=== PATIENT | female | born 1935 | race Caucasian/White ===

== ENCOUNTER → 2019-06-30 | Outpatient (CLI) | payer MEDICARE ==
[2019-06-30 10:40] LABS: ALBUMIN 4.2 GM/DL (3.2-4.5); BILIRUBIN,TOTAL 0.6 MG/DL (0.1-1.0); CALCIUM 9.6 MG/DL (8.5-10.1); CREATININE SERUM 1.04 MG/DL (0.60-1.30); POTASSIUM 4.5 MMOL/L (3.6-5.0); TOTAL PROTEIN 7.7 GM/DL (6.4-8.2)
== END ==
LOC: LAB 08:08
PROVIDERS: ATTEND Family Medicine
DX: E03.9 Hypothyroidism, unspecified (principal); E78.5 Hyperlipidemia, unspecified
CPT/HCPCS: 36415; 80053; 80061; 84443

== ENCOUNTER → 2019-12-05 | Outpatient (CLI) | payer MEDICARE | LOC: LAB FS 10:33 | PROVIDERS: ATTEND Family Medicine | DX: Z20.828 Contact with and (suspected) exposure to other viral communicable diseases (principal) | CPT/HCPCS: 87635 ==

== ENCOUNTER → 2019-12-11 | Outpatient (CLI) | payer MEDICARE ==
[2019-12-11 09:21] LABS: BILIRUBIN,TOTAL 0.7 MG/DL (0.1-1.0); CALCIUM 9.7 MG/DL (8.5-10.1); CREATININE SERUM 1.1 MG/DL (0.60-1.30); POTASSIUM 4.4 MMOL/L (3.6-5.0); TOTAL PROTEIN 7.5 GM/DL (6.4-8.2)
[2019-12-11 09:22] LABS: ALBUMIN 4.1 GM/DL (3.2-4.5)
== END ==
LOC: LAB FS 08:40
PROVIDERS: ATTEND Family Medicine
DX: E78.5 Hyperlipidemia, unspecified (principal)
CPT/HCPCS: 36415; 80053; 80061

== ENCOUNTER → 2020-06-14 | Outpatient (CLI) | payer MEDICARE ==
[2020-06-14 09:29] LABS: BILIRUBIN,TOTAL 0.5 MG/DL (0.1-1.0); CALCIUM 9.7 MG/DL (8.5-10.1); CREATININE SERUM 1.06 MG/DL (0.60-1.30)
[2020-06-14 09:30] LABS: ALBUMIN 4.3 GM/DL (3.2-4.5); TOTAL PROTEIN 7.8 GM/DL (6.4-8.2)
== END ==
LOC: LAB FS 08:10
PROVIDERS: ATTEND Family Medicine
DX: E78.2 Mixed hyperlipidemia (principal)
CPT/HCPCS: 36415; 80053; 80061

== ENCOUNTER 2020-11-28 13:57 | Inpatient (IN) | payer MEDICARE ==
[~2020-11-28] VITALS: Ht 160 cm; Wt 75.0 kg
[2020-11-28] MEDS ORDERED: NS IV 1000 ML 1,000 ML ONE (14:25)
[2020-11-28] MEDS ORDERED: ONDANSETRON 4 MG/2 ML (SDV) Z0FRAN ONE (14:25)
[2020-11-28 14:26] LABS: BASOPHILS % (AUTO) 1 % (0-10); EOSINOPHILS % (AUTO) 1 % (0-10); HEMATOCRIT 40 % (35-52); HEMOGLOBIN 13.7 G/DL (11.5-16.0); LYMPHOCYTES % (AUTO) 36 % (12-44); MEAN CORPUSCULAR HEMOGLOBIN 30 PG (25-34); MEAN CORPUSCULAR HGB CONC 34 G/DL (32-36); MEAN CORPUSCULAR VOLUME 87 FL (80-99); MEAN PLATELET VOLUME 9.6 FL (7.4-10.4); MONOCYTES % (AUTO) 7 % (0-12); NEUTROPHILS # (AUTO) 4.4 X 10^3 (1.8-7.8); NEUTROPHILS % (AUTO) 55 % (42-75); PLATELET COUNT 374 10^3/uL (130-400)
[2020-11-28 14:27] LABS: BASOPHILS # (AUTO) 0.1 10^3/uL (0.0-0.1); EOSINOPHILS # (AUTO) 0.1 10^3/uL (0.0-0.3); LYMPHOCYTES # (AUTO) 2.8 X 10^3 (1.0-4.0); MONOCYTES # (AUTO) 0.5 X 10^3 (0.0-1.0)
[2020-11-28] MEDS ORDERED: NS IV 1000 ML 1,000 ML IV SCH (14:30)
[2020-11-28] MEDS ORDERED: ONDANSETRON 4 MG/2 ML (SDV) Z0FRAN IVP ONE ×2 (14:30→15:45)
[2020-11-28 14:38] LABS: ALANINE AMINOTRANSFERASE 11 U/L (0-55); ALBUMIN 4.6 GM/DL (3.2-4.5); ALKALINE PHOSPHATASE 66 U/L (40-136); BILIRUBIN,TOTAL 0.6 MG/DL (0.1-1.0); BUN/CREATININE RATIO 21; CALCIUM 10.4 MG/DL (8.5-10.1); CARBON DIOXIDE 24 MMOL/L (21-32); CHLORIDE 99 MMOL/L (98-107); CREATININE SERUM 1.27 MG/DL (0.60-1.30); GFR ESTIMATED 40; GLUCOSE 111 MG/DL (70-105); POTASSIUM 4.1 MMOL/L (3.6-5.0); SODIUM 140 MMOL/L (135-145); TOTAL PROTEIN 8.2 GM/DL (6.4-8.2)
--- NOTE | 2020-11-28 14:51 | Diagnostic Imaging Report ---
INDICATION: Vomiting, sepsis. EXAMINATION: Chest 11/28/2020 FINDINGS: Heart is prominent. There is a likely small hiatal hernia. Pulmonary vasculature unremarkable. Small nodularity in the periphery of the right upper lung is questioned versus superimposed structures. Lungs otherwise clear with no infiltrates or effusions. No pneumothorax. IMPRESSION: 1. Possible small nodule in the peripheral right upper lobe. Followup recommended. If this persists CT could be performed non-emergently. Dictated by: Dictated on workstation # [id number]
--- NOTE | 2020-11-28 15:12 | ED Abdominal Pain ---
General Chief Complaint: Abdominal/GI Problems Stated Complaint: VOMITING | ABDOMINAL PAIN | CHILLS | DIARRHEA Source of Information: Patient History of Present Illness Date Seen by Provider: Nov 28, 2020 Time Seen by Provider: 14:00 Initial Comments Patient is an 85-year-old female with history of cholecystectomy presents with intermittent lower abdominal pain/cramping with bilious emesis for the past 3 days. Abdominal pain is described sharper intermittent and described mild to moderate. Is worse with palpation and movement but not relieved by her rest or position change. It is nonradiating nonmigratory and nonprogressive.. It is not associate with diarrhea or constipation. No urinary frequency urgency or dysuria. Patient also reports feeling clammy and chilling. She has had nausea with bilious emesis and last vomited in the room. No history of bowel obstructions. No other acute symptoms or complaints. Timing/Duration: 4-6 Hours, 3-4 Days Severity/Quality: Other Location: Other Radiation: Other Activities at Onset: Other Modifying Factors: Improves With Other Associated Symptoms: Other Allergies and Home Medications Allergies Coded Allergies: No Known Drug Allergies (Unverified , 11/28/20) Patient Home Medication List Home Medication List Reviewed: Yes Review of Systems Review of Systems Constitutional: see HPI EENTM: See HPI Respiratory: See HPI Cardiovascular: See HPI Gastrointestinal: See HPI Genitourinary: See HPI Musculoskeletal: see HPI Skin: see HPI Psychiatric/Neurological: See HPI Endocrine: See HPI Hematologic/Lymphatic: See HPI All Other Systems Reviewed Negative Unless Noted: Yes Past Bqomlla-Zrmhid-Imvkpt Hx Past Med/Social Hx: Reviewed Nursing Past Med/Soc Hx Physical Exam Vital Signs Vital Signs - First Documented 11/28/20 14:00 Temp 36.2 Pulse 73 Resp 17 B/P (MAP) 193/83 (119) Pulse Ox 99 O2 Delivery Room Air Capillary Refill : Height/Weight/BMI Height: '" Weight: lbs. oz. kg; BMI Method: General Appearance: no apparent distress HEENT: PERRL/EOMI, normal ENT inspection Neck: non-tender, full range of motion, supple Respiratory: lungs clear Cardiovascular: normal peripheral pulses, regular rate, rhythm, no edema, tachycardia Gastrointestinal: soft, tenderness (diffuse lower, nor guarding) Focused Exam Sepsis Stage: Ruled Out Lactate Level 11/28/20 14:09: Lactic Acid Level 1.49 Lactic Acid Level Laboratory Tests Test 11/28/20 14:09 Lactic Acid Level 1.49 MMOL/L (0.50-2.00) Progress/Results/Core Measures Results/Orders Lab Results Laboratory Tests Test 11/28/20 14:09 11/28/20 16:00 Range/Units White Blood Count 8.0 4.3-11.0 10^3/uL Red Blood Count 4.60 4.35-5.85 10^6/uL Hemoglobin 13.7 11.5-16.0 G/DL Hematocrit 40 35-52 % Mean Corpuscular Volume 87 80-99 FL Mean Corpuscular Hemoglobin 30 25-34 PG Mean Corpuscular Hemoglobin Concent 34 32-36 G/DL Red Cell Distribution Width 12.5 10.0-14.5 % Platelet Count 374 130-400 10^3/uL Mean Platelet Volume 9.6 7.4-10.4 FL Immature Granulocyte % (Auto) 0 % Neutrophils (%) (Auto) 55 42-75 % Lymphocytes (%) (Auto) 36 12-44 % Monocytes (%) (Auto) 7 0-12 % Eosinophils (%) (Auto) 1 0-10 % Basophils (%) (Auto) 1 0-10 % Neutrophils # (Auto) 4.4 1.8-7.8 X 10^3 Lymphocytes # (Auto) 2.8 1.0-4.0 X 10^3 Monocytes # (Auto) 0.5 0.0-1.0 X 10^3 Eosinophils # (Auto) 0.1 0.0-0.3 10^3/uL Basophils # (Auto) 0.1 0.0-0.1 10^3/uL Immature Granulocyte # (Auto) 0.0 0.0-0.1 10^3/uL Sodium Level 140 135-145 MMOL/L Potassium Level 4.1 3.6-5.0 MMOL/L Chloride Level 99 98-107 MMOL/L Carbon Dioxide Level 24 21-32 MMOL/L Anion Gap 17 H 5-14 MMOL/L Blood Urea Nitrogen 27 H 7-18 MG/DL Creatinine 1.27 0.60-1.30 MG/DL Estimat Glomerular Filtration Rate 40 BUN/Creatinine Ratio 21 Glucose Level 111 H 70-105 MG/DL Lactic Acid Level 1.49 0.50-2.00 MMOL/L Calcium Level 10.4 H 8.5-10.1 MG/DL Corrected Calcium 8.5-10.1 MG/DL Total Bilirubin 0.6 0.1-1.0 MG/DL Aspartate Amino Transf (AST/SGOT) 17 5-34 U/L Alanine Aminotransferase (ALT/SGPT) 11 0-55 U/L Alkaline Phosphatase 66 40-136 U/L Total Protein 8.2 6.4-8.2 GM/DL Albumin 4.6 H 3.2-4.5 GM/DL Urine Color YELLOW Urine Clarity CLEAR Urine pH 7.0 5-9 Urine Specific [place] 1.010 L 1.016-1.022 Urine Protein NEGATIVE NEGATIVE Urine Glucose (UA) NEGATIVE NEGATIVE Urine Ketones NEGATIVE NEGATIVE Urine Nitrite NEGATIVE NEGATIVE Urine Bilirubin NEGATIVE NEGATIVE Urine Urobilinogen 0.2 < = 1.0 MG/DL Urine Leukocyte Esterase 1+ H NEGATIVE Urine RBC (Auto) NEGATIVE NEGATIVE Urine RBC 5-10 H /HPF Urine WBC 0-2 /HPF Urine Squamous Epithelial Cells 10-25 H /HPF Urine Crystals NONE /LPF Urine Bacteria FEW H /HPF Urine Casts NONE /LPF Urine Mucus NEGATIVE /LPF Urine Culture Indicated NO My Orders Orders - REECE KHAN DO Ondansetron Injection (Zofran Injectio (11/28/20 14:30) Ns Iv 1000 Ml (Sodium Chloride 0.9%) (11/28/20 14:30) Cbc With Automated Diff (11/28/20 14:22) Comprehensive Metabolic Panel (11/28/20 14:22) Blood Culture (11/28/20 14:22) Urinalysis (11/28/20 14:22) Urine Culture (11/28/20 14:22) Chest 1 View Ap/Pa Only (11/28/20 14:22) Ed Iv/Invasive Line Start (11/28/20 14:22) Ed Iv/Invasive Line Start (11/28/20 14:22) Vital Signs Adult Sepsis Patie Q15M (11/28/20 14:22) Remove Rings In Anticipation O (11/28/20 14:22) Lactic Acid Analyzer (11/28/20 14:22) Ns Iv 1000 Ml (Sodium Chloride 0.9%) (11/28/20 14:25) Ondansetron Injection (Zofran Injectio (11/28/20 14:25) Ct Abdomen/Pelvis W (11/28/20 15:05) Ondansetron Injection (Zofran Injectio (11/28/20 15:45) Iohexol Injection (Omnipaque 350 Mg/Ml 1 (11/28/20 16:00) Received Contrast (Hold Metformin- Contr (11/28/20 16:00) Sodium Chloride Flush (Catheter Flush Sy (11/28/20 16:00) Ns (Ivpb) (Sodium Chloride 0.9% Ivpb Bag (11/28/20 16:00) Ekg Tracing (11/28/20 14:29) Medications Given in ED Current Medications Medications Dose Ordered Sig/Nicolas Route Start Time Stop Time Status Last Admin Dose Admin Iohexol 60 ml ONCE ONCE IV 11/28/20 16:00 11/28/20 16:01 DC 11/28/20 16:03 60 ML Ondansetron HCl 4 mg ONCE ONCE IVP 11/28/20 14:30 11/28/20 14:31 DC 11/28/20 14:27 4 MG Ondansetron HCl 4 mg ONCE ONCE IVP 11/28/20 15:45 11/28/20 15:46 DC 11/28/20 15:37 4 MG Sodium Chloride 10 ml NEEDED PRN IV 11/28/20 16:00 11/28/20 16:03 10 ML Sodium Chloride 100 ml ONCE ONCE IV 11/28/20 16:00 11/28/20 16:01 DC 11/28/20 16:03 80 ML Vital Signs/I&O 11/28/20 14:00 Temp 36.2 Pulse 73 Resp 17 B/P (MAP) 193/83 (119) Pulse Ox 99 O2 Delivery Room Air Departure Communication (Admissions) CT abdomen pelvis: Possible ileus versus small bowel obstruction per radiology report. Patient with bilious emesis with vomiting in the emergency department. Abdomen soft, nonsurgical. CT findings suggestive of ileus versus small bowel obstruction. IV fluids and repeat antiemetics given. Anticipate transfer to [facility]. Dr. Astrid novak at 1645 Impression Primary Impression: Abdominal pain Additional Impression: Nausea and vomiting Disposition: T-[facility] Condition: Stable Admissions Decision to Admit Reason: Admit from ER (General) Decision to Admit/Date: Nov 28, 2020 Time/Decision to Admit Time: 16:45 Transfer Transfer Reason: Exceeds level of care Method of Transfer: EMS Departure-Patient Inst. Referrals: KEYON RAWLS MD (PCP/Family) Primary Care Physician REECE KHAN 20, 2021 15:12
[2020-11-28] MEDS ORDERED: NS 100 ML (IVPB) BAG IV ONE (16:00)
[2020-11-28] MEDS ORDERED: HOLD METFORMIN - RECEIVED CONTRAST 20 ML VIAL IV SCH (16:00)
[2020-11-28] MEDS ORDERED: CATHETER FLUSH 10 ML SYR IV PRN (16:00)
[2020-11-28] MEDS ORDERED: IOHEXOL 350 MG/ML 100 ML (OMNIPAQUE 350) VIAL IV ONE (16:00)
[2020-11-28 16:06] LABS: CLARITY,URINE CLEAR; COLOR,URINE YELLOW; GLUCOSE, URINE (UA) NEGATIVE (NEGATIVE); PROTEIN,URINE NEGATIVE (NEGATIVE)
[2020-11-28 16:07] LABS: BACTERIA,URINE FEW /HPF; BILIRUBIN,URINE NEGATIVE (NEGATIVE); KETONES,URINE NEGATIVE (NEGATIVE); LEUKOCYTE ESTERASE ,URINE 1+ (NEGATIVE); NITRITE,URINE NEGATIVE (NEGATIVE); WBC,URINE 0-2 /HPF
--- NOTE | 2020-11-28 16:22 | Diagnostic Imaging Report ---
INDICATION: Abdominal pain and vomiting. EXAMINATION: CT abdomen and pelvis with contrast, 11/28/2020. All CT scans use one or more of the following dose optimizing techniques: automated exposure control, MA and/or KvP adjustment based on patient size and exam type or iterative reconstruction. FINDINGS: The stomach is distended and filled with fluid as is the duodenal sweep. 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 The adjacent common duct is distended likely due to prior cholecystectomy, correlate clinically. Mild intrahepatic biliary dilatation is also seen. The liver is otherwise unremarkable. Spleen and pancreas are unremarkable. There is a small nodule in the right adrenal gland. Left adrenal gland appears slightly hyperplastic. Kidneys unremarkable. There is diverticular disease without evidence for diverticulitis. No evidence for free air or abscess formation appreciated. There is atherosclerotic disease along the aorta and its branches. There is diffuse osteopenia and degenerative disease within the osseous structures. The lung bases are unremarkable. IMPRESSION: 1. Fluid-filled distended duodenal sweep of uncertain etiology. More distal small bowel normal in caliber. A partial proximal small bowel obstruction is not excluded versus focal ileus/enteritis gastroenteritis. Correlate with symptoms. 2. Dilated intrahepatic and extrahepatic biliary ducts likely due to previous cholecystectomy. 3. Other incidental findings as discussed above. Dictated by: Dictated on workstation # [id number]
[2020-11-28 18:47] VITALS: BP 179/92
[2020-11-28] MEDS ORDERED: D5 1/2 NS 1000 ML IV SOLUTION 1,000 ML IV ONE (20:05)
[2020-11-28] MEDS ORDERED: ACETAMINOPHEN 325 MG TABLET PO PRN (20:30)
[2020-11-28] MEDS ORDERED: BENZONATATE 100 MG (TESSALON) CAPSULE PO PRN (20:30)
[2020-11-28] MEDS ORDERED: MILK OF MAGNESIA 400 MG/5 ML 30 ML UDC PO PRN (20:30)
[2020-11-28] MEDS ORDERED: MELATONIN 3 MG TABLET PO PRN (20:30)
[2020-11-28] MEDS ORDERED: ANTACID SUSP 30 ML UDC (MYLANTA) PO PRN (20:30)
[2020-11-28 20:41] VITALS: BP 173/92
[2020-11-28] MEDS: ONDANSETRON 4 MG/2 ML (SDV) Z0FRAN IV PRN (21:35)
[2020-11-28] MEDS ORDERED: NITROGLYCERIN 2% OINT 1 GM UNIT DOSE PACKET TOP PRN (23:15)
[2020-11-28] MEDS ORDERED: SCOPOLAMINE 1.5 MG (TRANSDERM-SCOP) PATCH TD ONE (23:15)
[2020-11-28] MEDS ORDERED: SCOPOLAMINE 1.5 MG (TRANSDERM-SCOP) PATCH ONE (23:42)
[2020-11-28] MEDS ORDERED: PROMETHAZINE 25 MG (PHENERGAN) SUPP ONE (23:52)
[2020-11-28] MEDS: PROMETHAZINE 25 MG (PHENERGAN) SUPP PR PRN (23:57)
[2020-11-29] VITALS: BP 171/82
[2020-11-29] MEDS ORDERED: D5 1/2 NS 1000 ML IV SOLUTION 1,000 ML IV ONE (03:39)
[2020-11-29] MEDS: ONDANSETRON 4 MG/2 ML (SDV) Z0FRAN IV PRN ×3 (03:45→19:38)
[2020-11-29] MEDS: D5 1/2 NS 1000 ML IV SOLUTION 1,000 ML IV SCH ×4 (03:46→23:26)
[2020-11-29 04:00] VITALS: BP 176/80
[2020-11-29 05:35] LABS: BASOPHILS % (AUTO) 0 % (0-10); EOSINOPHILS % (AUTO) 0 % (0-10); HEMATOCRIT 38 % (35-52); HEMOGLOBIN 12.8 g/dL (11.5-16.0); LYMPHOCYTES # (AUTO) 1.5 10^3/uL (1.0-4.0); LYMPHOCYTES % (AUTO) 19 % (12-44); MEAN CORPUSCULAR HEMOGLOBIN 30 pg (25-34); MEAN CORPUSCULAR HGB CONC 34 g/dL (32-36); MEAN CORPUSCULAR VOLUME 89 fL (80-99); MEAN PLATELET VOLUME 9.8 fL (9.0-12.2); MONOCYTES # (AUTO) 0.7 10^3/uL (0.0-1.0); MONOCYTES % (AUTO) 9 % (0-12); NEUTROPHILS # (AUTO) 5.8 10^3/uL (1.8-7.8); NEUTROPHILS % (AUTO) 72 % (42-75); PLATELET COUNT 334 10^3/uL (130-400); WHITE BLOOD COUNT 8.1 10^3/uL (4.3-11.0)
[2020-11-29 05:45] LABS: POTASSIUM 3.1 MMOL/L (3.6-5.0)
[2020-11-29 05:46] LABS: CALCIUM 9.5 MG/DL (8.5-10.1)
[2020-11-29] MEDS: PROMETHAZINE 25 MG (PHENERGAN) SUPP PR PRN (05:46)
[2020-11-29 05:47] LABS: TOTAL PROTEIN 7.3 GM/DL (6.4-8.2)
[2020-11-29 05:49] LABS: BILIRUBIN,TOTAL 0.5 MG/DL (0.1-1.0)
[2020-11-29 05:51] LABS: CREATININE SERUM 1.42 MG/DL (0.60-1.30)
[2020-11-29 07:24] VITALS: BP 125/79
[2020-11-29] MEDS ORDERED: ALPR0.5T7 PO (11:02)
[2020-11-29] MEDS ORDERED: DICY20TA10 PO (11:02)
[2020-11-29] MEDS ORDERED: GEMF600T88 PO (11:02)
[2020-11-29] MEDS ORDERED: ONDA4TAB11 PO (11:02)
[2020-11-29] MEDS ORDERED: LISI10TA25 PO (11:02)
[2020-11-29] MEDS ORDERED: FAMO10TA43 PO (11:03)
[2020-11-29] MEDS ORDERED: ASPI-1238 PO (11:03)
[2020-11-29 11:55] VITALS: BP 136/77
[2020-11-29 16:03] VITALS: BP 156/90
--- NOTE | 2020-11-29 17:20 | Consultation - Surgery ---
History of Present Illness History of Present Illness Patient Consulted On(richie/time) 11/29/20 17:15 Time Seen by Provider: 16:48 History of Present Illness Surgery asked to consult regarding possible PSBO vs. Ileus HPI per ED: Patient is an 85-year-old female with history of cholecystectomy presents with intermittent lower abdominal pain/cramping with bilious emesis for the past 3 days. Abdominal pain is described sharper intermittent and described mild to moderate. Is worse with palpation and movement but not relieved by her rest or position change. It is nonradiating nonmigratory and nonprogressive.. It is not associate with diarrhea or constipation. No urinary frequency urgency or dysuria. Patient also reports feeling clammy and chilling. She has had nausea with bilious emesis and last vomited in the room. No history of bowel obstructions. No other acute symptoms or complaints. Timing/Duration: 4-6 Hours, 3-4 Days When I spoke to pt this afternoon she stated she has been having "problems since June"; however, she describes diarrhea and mild cramping every 3-4 days. She states she usually has one BM per day. She describes the pain as sharp and in the upper abdomen. Nothing is really making it better and she thinks it might even be worse than Sunday. She state the vomiting isn't any better either. Pain this bad has only been going on since ; she also had vomiting on that day as well. She has not been hungry and isn't sure if she has kept anything down. She did ask me if she could eat today. She states she has never had an EGD and is not sure she has had a colonoscopy. Allergies and Home Medications Allergies Coded Allergies: No Known Drug Allergies (Unverified , 11/28/20) Home Medications Alprazolam 0.5 Mg Tablet, 0.25-0.5 MG PO HS PRN for SLEEP, (Reported) TAKES -1 (0.5MG) TABLET Last Action: Reviewed Aspirin 81 Mg Tablet.dr, 81 MG PO DAILY, (Reported) Last Action: Reviewed Dicyclomine HCl 20 Mg Tablet, 20 MG PO TID, (Reported) STARTED TAKING 11/26/20 #42 14 DAY SUPPLY Last Action: Reviewed Famotidine 10 Mg Tablet, 10 MG PO DAILY PRN for HEARTBURN, (Reported) Last Action: Reviewed Gemfibrozil 600 Mg Tablet, 600 MG PO BID, (Reported) Last Action: Reviewed Lisinopril 10 Mg Tablet, 10 MG PO DAILY, (Reported) Last Action: Reviewed Ondansetron 4 Mg Tab.rapdis, 4 MG PO TID PRN for NAUSEA/VOMITING-1ST LINE, (Reported) Last Action: Reviewed Patient Home Medication List Home Medication List Reviewed: Yes Past Bhtoksl-Uhaptg-Jrhjxa Hx Patient Social History Smoking Status: Never a Smoker 2nd Hand Smoke Exposure: No Recent Hopitalizations: No Alcohol Use?: No Have you traveled recently?: No Seasonal Allergies Seasonal Allergies: No Surgeries History of Surgeries: Yes Surgeries: Gallbladder, Hysterectomy, Orthopedic Respiratory History of Respiratory Disorde: No Cardiovascular History of Cardiac Disorders: Yes Cardiac Disorders: High Cholesterol, Hypertension Neurological History of Neurological Disord: No Reproductive System : No Female Reproductive Disorders: Denies Genitourinary History of Genitourinary Disor: No Gastrointestinal History of Gastrointestinal Di: No Musculoskeletal History of Musculoskeletal Dis: Yes Musculoskeletal Disorders: Arthritis, Fractures Endocrine History of Endocrine Disorders: No HEENT History of HEENT Disorders: No Cancer History of Cancer: No Psychosocial History of Psychiatric Problem: No Integumentary History of Skin or Integumenta: No Blood Transfusions History of Blood Disorders: No Family Medical History Significant Family History: Heart Disease (mother and father), Cancer (mother of Brain cancer), Diabetes (father), Hypertension (mother and father) Review of Systems-General Constitutional: No chills, No diaphoresis; malaise, weakness EENTM: No blurred vision, No double vision, No mouth pain, No mouth swelling, No epistaxis, No throat swelling Respiratory: cough; No dyspnea on exertion, No hemoptysis, No short of breath Cardiovascular: No chest pain, No edema Gastrointestinal: abdominal pain; No hematemesis; loss of appetite, nausea, vomiting Genitourinary: No dysuria, No frequency, No hematuria Musculoskeletal: joint pain, joint swelling, muscle pain, muscle stiffness Skin: No change in color, No change in hair/nails Psychiatric/Neurological: Denies Anxiety, Denies Depressed, Denies Seizure, Denies Tremors Physical Exam-General Problems Physical Exam Vital Signs Vital Signs - First Documented 11/28/20 14:00 Temp 36.2 Pulse 73 Resp 17 B/P (MAP) 193/83 (119) Pulse Ox 99 O2 Delivery Room Air Capillary Refill : Less Than 3 Seconds General Appearance: WD/WN, no apparent distress Eyes: Bilateral Eye PERRL, Bilateral Eye EOMI HEENT: pharynx normal; No scleral icterus (R), No scleral icterus (L); other (mouth is dry) Neck: non-tender, supple Respiratory: lungs clear, normal breath sounds, no respiratory distress, no accessory muscle use Cardiovascular: regular rate, rhythm, no murmur Gastrointestinal: soft, no organomegaly, distended (mild); No guarding, No rebound; tenderness (mild in LUQ and RUQ) Back: no CVA tenderness, no vertebral tenderness Extremities: no pedal edema, no calf tenderness Neurologic/Psychiatric: alert, normal mood/affect, oriented x 3 Skin: normal color, warm/dry Lymphatic: no adenopathy (neck, axilla or groin) Data Review Labs Laboratory Tests 11/29/20 05:00: White Blood Count 8.1, Red Blood Count 4.28, Hemoglobin 12.8, Hematocrit 38, Mean Corpuscular Volume 89, Mean Corpuscular Hemoglobin 30, Mean Corpuscular Hemoglobin Concent 34, Red Cell Distribution Width 12.5, Platelet Count 334, Mean Platelet Volume 9.8, Immature Granulocyte % (Auto) 0, Neutrophils (%) (Auto) 72, Lymphocytes (%) (Auto) 19, Monocytes (%) (Auto) 9, Eosinophils (%) (Auto) 0, Basophils (%) (Auto) 0, Neutrophils # (Auto) 5.8, Lymphocytes # (Auto) 1.5, Monocytes # (Auto) 0.7, Eosinophils # (Auto) 0.0, Basophils # (Auto) 0.0, Immature Granulocyte # (Auto) 0.0, Sodium Level 141, Potassium Level 3.1L, Chloride Level 101, Carbon Dioxide Level 26, Anion Gap 14, Blood Urea Nitrogen 20H, Creatinine 1.42H, Estimat Glomerular Filtration Rate 35, BUN/Creatinine Ratio 14, Glucose Level 157H, Calcium Level 9.5, Corrected Calcium 9.5, Magnesium Level 2.4, Total Bilirubin 0.5, Aspartate Amino Transf (AST/SGOT) 12, Alanine Aminotransferase (ALT/SGPT) 11, Alkaline Phosphatase 55, Total Protein 7.3, Albumin 4.0 Radiology Date of Exam:11/28/20 CT ABDOMEN/PELVIS W INDICATION: Abdominal pain and vomiting. EXAMINATION: CT abdomen and pelvis with contrast, 11/28/2020. All CT scans use one or more of the following dose optimizing techniques: automated exposure control, MA and/or KvP adjustment based on patient size and exam type or iterative reconstruction. FINDINGS: The stomach is distended and filled with fluid as is the duodenal sweep. 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 The adjacent common duct is distended likely due to prior cholecystectomy, correlate clinically. Mild intrahepatic biliary dilatation is also seen. The liver is otherwise unremarkable. Spleen and pancreas are unremarkable. There is a small nodule in the right adrenal gland. Left adrenal gland appears slightly hyperplastic. Kidneys unremarkable. There is diverticular disease without evidence for diverticulitis. No evidence for free air or abscess formation appreciated. There is atherosclerotic disease along the aorta and its branches. There is diffuse osteopenia and degenerative disease within the osseous structures. The lung bases are unremarkable. IMPRESSION: 1. Fluid-filled distended duodenal sweep of uncertain etiology. More distal small bowel normal in caliber. A partial proximal small bowel obstruction is not excluded versus focal ileus/enteritis gastroenteritis. Correlate with symptoms. 2. Dilated intrahepatic and extrahepatic biliary ducts likely due to previous cholecystectomy. 3. Other incidental findings as discussed above. Dictated by: Dictated on workstation # [id number] Dict: 11/28/20 161 Trans: 11/28/201706 [facility] [id number] Interpreted by: FEDE HECTOR MD Electronically signed by: FEDE HECTOR MD 11/28/20 0807 Assessment/Plan Assessment/Plan Assessment/Plan PSBO vs Ileus Abd pain N/V Pt is npo, IV fluids, pain meds as needed and anti-emetics. I told pt it would benefit her to walk; to help stimulate bowel function. I looked at the CT myself and feel that it is more of an ileus; appears to stop right around the ligament of Treitz. If there is no improvement may need to order an SBFT tomorrow; any more emesis and she may benefit from an NGT. However, she does not appear to be in any distress and is asking to eat/drink; which is a good sign. Will check pt tomorrow and examine abdomen. DERECK BUTLER DO Nov 29, 2020 17:20
--- NOTE | 2020-11-29 17:59 | History & Physical-Hospitalist ---
History of Present Illness HPI/Chief Complaint Andria Jorgensen is an 85 year old female with PMH HTN, HLD, GERD, who presented with abdominal pain. She reports that she has been having cramping. She has also had associated nausea and bilious vomiting. She has not had a bowel movement since Sunday. She has not been passing gas. She normally has a bowel movement every day. She denies fevers but has had chills. She denies chest pain and palpitations. She denies shortness of breath and cough. She denies dysuria. She has a history of a cholecystectomy about 30 years ago. Source: patient Exam Limitations: no limitations Date Seen 11/29/20 Time Seen by a Provider: 10:15 Attending Physician Mireille Chatterjee MD PCP Latrice Alatorre MD Referring Physician Date of Admission Nov 28, 2020 at 18:31 Home Medications & Allergies Home Medications Reviewed patient Home Medication Reconciliation performed by pharmacy medication reconciliations lead manufacturing technician and/or nursing. Patients Allergies have been reviewed. Allergies Allergies Coded Allergies No Known Drug Allergies (Unverified11/28/20) Past Pwqvtbw-Jzsbnf-Zoewro Hx Patient Social History Tobacco Use?: No Smoking Status: Never a Smoker Use of E-Cig and/or Vaping dev: No Substance use?: No Alcohol Use?: No Pt feels they are or have been: No Seasonal Allergies Seasonal Allergies: No Current Status status: No status: No Communicates: Verbally Primary Language: Portuguese Preferred Spoken Language: Portuguese Is interpretation needed?: No Sensory deficits: Vision impairment Past Medical History Surgeries: Gallbladder, Hysterectomy, Orthopedic High Cholesterol, Hypertension Arthritis, Fractures Blood Disorders: No Family Medical History Heart Disease (mother and father), Cancer (mother of Brain cancer), Diabetes (father), Hypertension (mother and father) Review of Systems Constitutional: chills EENTM: no symptoms reported Respiratory: no symptoms reported Cardiovascular: no symptoms reported Gastrointestinal: abdominal pain, constipation, nausea, vomiting Genitourinary: no symptoms reported Musculoskeletal: no symptoms reported Skin: no symptoms reported Psychiatric/Neurological: No Symptoms Reported Physical Exam Physical Exam Vital Signs Vital Signs - First Documented 11/28/20 14:00 Temp 36.2 Pulse 73 Resp 17 B/P (MAP) 193/83 (119) Pulse Ox 99 O2 Delivery Room Air Capillary Refill : Less Than 3 Seconds Height, Weight, BMI Height: '" Weight: lbs. oz. kg; 28.32 BMI Method: General Appearance: No Apparent Distress, WD/WN HEENT: PERRL/EOMI, Pharynx Normal Neck: Normal Inspection, Supple Respiratory: Lungs Clear, Normal Breath Sounds, No Respiratory Distress Cardiovascular: Regular Rate, Rhythm, No Edema, No Murmur Gastrointestinal: Normal Bowel Sounds, Non Tender, Soft Extremity: Normal Inspection, Non Tender, No Pedal Edema Neurologic/Psychiatric: Alert, Oriented x3, No Motor/Sensory Deficits, Normal Mood/Affect Skin: Normal Color, Warm/Dry Results Results/Procedures Labs Laboratory Tests 11/28/20 14:09 11/29/20 05:00 Patient resulted labs reviewed. Imaging: Reviewed Imaging Report Assessment/Plan Admission Diagnosis Abdominal pain Admission Status: Observation Assessment and Plan Abdominal pain Nausea and vomiting Ileus vs partial small bowel obstruction History of cholecystectomy NPO IV fluids Antiemetics CT showed ileus vs parital small bowel obstruction Surgery consulted, appreciate assistance Increase ambulation May need small bowel follow through study HTN HLD GERD Hold home meds while NPO DVT prophylaxis: Lovenox Diagnosis/Problems Diagnosis/Problems (1) Abdominal pain Status: Acute (2) Nausea and vomiting Status: Acute MILAGRO WATKINS MD Nov 29, 2020 17:59
[2020-11-29] MEDS ORDERED: ENOXAPARIN 30 MG/0.3 ML (LOVENOX) SYR SC SCH (18:00)
[2020-11-29 20:50] VITALS: BP 159/79
[2020-11-30 00:01] VITALS: BP 187/93
[2020-11-30] MEDS: ONDANSETRON 4 MG/2 ML (SDV) Z0FRAN IV PRN ×4 (03:31→21:03)
[2020-11-30 04:15] VITALS: BP 167/80
[2020-11-30 06:02] LABS: CALCIUM 9.5 MG/DL (8.5-10.1); CREATININE SERUM 1.09 MG/DL (0.60-1.30); POTASSIUM 3.3 MMOL/L (3.6-5.0)
[2020-11-30] MEDS: D5 1/2 NS 1000 ML IV SOLUTION 1,000 ML IV SCH ×3 (06:04→21:03)
[2020-11-30 07:35] VITALS: BP 147/73
--- NOTE | 2020-11-30 09:39 | Progress Note - Surgery ---
Subjective Time Seen by a Provider: 08:47 Subjective/Events-last exam Pt seen and examined, states the pain is more of a burning today and not really any better. She passed some gas, but has not had a BM. She states she is still having emesis. Review of Systems General: Fatigue, Malaise Pulmonary: No Dyspnea, No Cough Cardiovascular: No: Chest Pain, Palpitations Gastrointestinal: Nausea, Vomiting, Abdominal Pain, Constipation Focused Exam Lactate Level 11/28/20 14:09: Lactic Acid Level 1.49 Objective Exam Vital Signs Date Time Temp Pulse Resp B/P (MAP) Pulse Ox O2 Delivery O2 Flow Rate FiO2 11/30/20 08:22 95 Room Air 11/30/20 07:35 36.7 58 18 147/73 (97) 95 Room Air 11/30/20 04:15 36.5 94 20 167/80 (109) 93 Room Air 11/30/20 00:39 96 Room Air 11/30/20 00:01 37.0 67 18 187/93 (124) 97 Room Air 11/29/20 20:50 36.1 62 18 159/79 (105) 95 Room Air 11/29/20 20:00 96 Room Air 11/29/20 16:03 36.9 60 18 156/90 (112) 96 Room Air 11/29/20 11:55 36.5 66 18 136/77 (96) 96 Room Air I & O 11/30/20 07:00 Intake Total 0 ml Output Total 1725 ml Balance -1725 ml Capillary Refill : Less Than 3 Seconds General Appearance: No Apparent Distress, WD/WN HEENT: PERRL/EOMI, Pharynx Normal Respiratory: Lungs Clear, Normal Breath Sounds, No Respiratory Distress Cardiovascular: Regular Rate, Rhythm, No Edema, No Murmur Gastrointestinal: soft, no organomegaly, distended (mild); No guarding, No rebound; tenderness (mild in LUQ and RUQ) Extremity: No Pedal Edema Neurologic/Psychiatric: Alert, Oriented x3, Normal Mood/Affect Results Lab Laboratory Tests 11/30/20 05:36: Sodium Level 134L, Potassium Level 3.3L, Chloride Level 97L, Carbon Dioxide Level 27, Anion Gap 10, Blood Urea Nitrogen 12, Creatinine 1.09, Estimat Glomerular Filtration Rate 47, BUN/Creatinine Ratio 11, Glucose Level 138H, Calcium Level 9.5 Microbiology 11/28/20 Urine Culture - Final, Complete 11/28/20 Blood Culture - Preliminary, Resulted No growth Assessment/Plan Assessment/Plan Assessment/Plan PSBO vs Ileus Abd pain N/V Will order a SBFT and continue npo, IV fluids, pain meds as needed and anti- emetics. I again encouraged her to walk; to help stimulate bowel function. Will hold off on an NGT for now; emesis is not that bad and abdomen is not getting worse. However, she does not appear to be in any distress and is asking to eat/drink; which is a good sign. DERECK BUTLER DO Nov 30, 2020 09:39
[2020-11-30 11:08] VITALS: BP_SYST 100; BP_SYST 163; BP_DIAS 60; BP_DIAS 76
[2020-11-30] MEDS ORDERED: DIATRIZOATE MEGLUM/SODIUM 37% 120 ML (GASTROGRAFIN) NG ONE (15:15)
[2020-11-30 15:46] VITALS: BP 152/80
[2020-11-30] MEDS: PROMETHAZINE 25 MG (PHENERGAN) SUPP PR PRN (16:46)
[2020-11-30] MEDS ORDERED: hydrALAZINE (APESOLINE) 20 MG/ML VIAL IV PRN (17:45)
--- NOTE | 2020-11-30 17:52 | Progress Note - Hospitalist ---
Subjective HPI/CC On Admission Date Seen by Provider: Nov 30, 2020 Time Seen by Provider: 10:20 Andria Jorgensen is an 85 year old female with PMH HTN, HLD, GERD, who presented with abdominal pain. She reports that she has been having cramping. She has also had associated nausea and bilious vomiting. She has not had a bowel movement sunday. She has not been passing gas. She normally has a bowel movement every day. She denies fevers but has had chills. She denies chest pain and palpitations. She denies shortness of breath and cough. She denies dysuria. She has a history of a cholecystectomy about 30 years ago. Subjective/Events-last exam She is uncomfortable. She has been nauseous and throwing up all morning. She reports abdominal cramping. She is not passing gas or having bowel movements. Focused Exam Lactate Level 11/28/20 14:09: Lactic Acid Level 1.49 Objective Exam Vital Signs Vital Signs Date Time Temp Pulse Resp B/P (MAP) Pulse Ox O2 Delivery O2 Flow Rate FiO2 11/30/20 15:46 36.9 68 20 152/80 (104) 97 Room Air Capillary Refill : Less Than 3 Seconds General Appearance: Moderate Distress (uncomfortable, holding emesis bucket) Respiratory: Lungs Clear, Normal Breath Sounds, No Respiratory Distress Cardiovascular: Regular Rate, Rhythm, No Edema, No Murmur Gastrointestinal: Non Tender, Soft, Abnormal Bowel Sounds (hypoactive) Extremity: Normal Inspection, Non Tender, No Pedal Edema Neurologic/Psychiatric: Alert, Oriented x3 Skin: Normal Color, Warm/Dry Results/Procedures Lab Laboratory Tests 11/30/20 05:36 Patient resulted labs reviewed. Imaging: Reviewed Imaging Report Assessment/Plan Assessment and Plan Assess & Plan/Chief Complaint Abdominal pain Nausea and vomiting Ileus vs partial small bowel obstruction History of cholecystectomy Acute kidney injury CT showed ileus vs parital small bowel obstruction Surgery consulted, appreciate assistance NPO Antiemetics Decrease IV fluids Placing NG tube today Small bowel follow through today HTN HLD GERD Hold home meds while NPO Add Hydralazine as needed for high blood pressures DVT prophylaxis: Lovenox Diagnosis/Problems Diagnosis/Problems (1) Abdominal pain Status: Acute (2) Nausea and vomiting Status: Acute (3) Small bowel obstruction Status: Acute (4) JAGRUTI (acute kidney injury) Status: Acute (5) HTN (hypertension) Status: Acute MILAGRO WATKINS MD Nov 30, 2020 17:52
[2020-11-30] MEDS: ENOXAPARIN 40 MG/0.4 ML (LOVENOX) SYR SC SCH (17:55)
[2020-11-30 19:23] VITALS: BP 155/78
[2020-12-01] VITALS (8 sets, daily range): BP systolic 131–164; BP diastolic 67–94
[2020-12-01] MEDS: PROMETHAZINE 25 MG (PHENERGAN) SUPP PR PRN ×2 (01:58→08:22)
[2020-12-01 06:20] LABS: CREATININE SERUM 1.13 MG/DL (0.60-1.30); POTASSIUM 2.7 MMOL/L (3.6-5.0)
[2020-12-01] MEDS: D5 1/2 NS 1000 ML IV SOLUTION 1,000 ML IV SCH (07:43)
[2020-12-01] MEDS: POTASSIUM CL 10MEQ/50ML IVPB 50 ML IV SCH ×3 (08:22→11:38)
--- NOTE | 2020-12-01 10:26 | Diagnostic Imaging Report ---
Small bowel exam INDICATION: Abdominal pain The preliminary film performed at 1:47 PM on 11/30/2020 noted a fair amount of residual contrast within the bladder from the CT abdomen/pelvis exam of 11/28/2020. The CT exam also raise the question of a partial small bowel obstruction. Contrast was introduced through the stomach via the patient's NG tube. At 4 hours most of the contrast appear to be confined to the stomach and proximal small bowel (normal transit time 30 minutes to 3 hours). The 19 hour delayed film shows that most of the contrast has dissipated but there does seem to be some opacification of fecal material in the right colon. This would suggest that there is no complete obstruction of the small bowel. The possibility of a partial intermittent obstruction should still be considered. IMPRESSION: There is no evidence for complete obstruction of the small bowel. The possibility that there is a partial intermittent small bowel obstruction should still be considered however. Dictated by: Dictated on workstation # [id number]
--- NOTE | 2020-12-01 14:22 | Progress Note - Hospitalist ---
Subjective HPI/CC On Admission Date Seen by Provider: Dec 01, 2020 Time Seen by Provider: 10:35 Andria Jorgensen is an 85 year old female with PMH HTN, HLD, GERD, who presented with abdominal pain. She reports that she has been having cramping. She has also had associated nausea and bilious vomiting. She has not had a bowel movement sunday. She has not been passing gas. She normally has a bowel movement every day. She denies fevers but has had chills. She denies chest pain and palpitations. She denies shortness of breath and cough. She denies dysuria. She has a history of a cholecystectomy about 30 years ago. Subjective/Events-last exam She had issues with nausea and vomiting all day yesterday. She has been very uncomfortable. She has not been passing any gas or having bowel movements. Objective Exam Vital Signs Vital Signs Date Time Temp Pulse Resp B/P (MAP) Pulse Ox O2 Delivery O2 Flow Rate FiO2 12/01/20 12:09 36.2 68 20 156/94 (114) 93 Room Air Capillary Refill : Less Than 3 Seconds General Appearance: WD/WN, Mild Distress (Uncomfortable) Respiratory: Lungs Clear, Normal Breath Sounds, No Respiratory Distress Cardiovascular: Regular Rate, Rhythm, No Edema, No Murmur Gastrointestinal: Soft, Abnormal Bowel Sounds (Hypoactive), Tenderness Extremity: Normal Inspection, Non Tender, No Pedal Edema Neurologic/Psychiatric: Alert, Oriented x3, Normal Mood/Affect Skin: Warm/Dry, Pallor Results/Procedures Lab Laboratory Tests 12/01/20 05:10 Patient resulted labs reviewed. Imaging: Reviewed Imaging Report Assessment/Plan Assessment and Plan Assess & Plan/Chief Complaint Likely partial small bowel obstruction Nausea and vomiting History of cholecystectomy Acute kidney injury CT showed ileus vs parital small bowel obstruction Surgery consulted, appreciate assistance NPO Antiemetics as needed NG tube to suction IV fluids Small bowel follow through results pending HTN HLD GERD Hold home meds while NPO Hydralazine as needed for high blood pressures DVT prophylaxis: Lovenox Diagnosis/Problems Diagnosis/Problems (1) Abdominal pain Status: Acute (2) Nausea and vomiting Status: Acute (3) Small bowel obstruction Status: Acute (4) JAGRUTI (acute kidney injury) Status: Acute (5) HTN (hypertension) Status: Acute MILAGRO WATKINS MD Dec 01, 2020 14:22
--- NOTE | 2020-12-01 16:21 | Progress Note - Surgery ---
Subjective Time Seen by a Provider: 15:48 Subjective/Events-last exam Pt seen and examined, states her cramping is better and really hasn't thrown up today. She did throw up all night until they hooked up her NGT to suction. She states she is not really walking "here", but that she walks at home. Very little flatus and no BM. Review of Systems General: Fatigue, Malaise Pulmonary: No Dyspnea, No Cough Cardiovascular: No: Chest Pain, Palpitations Gastrointestinal: Nausea, Vomiting, Abdominal Pain Objective Exam Vital Signs Date Time Temp Pulse Resp B/P (MAP) Pulse Ox O2 Delivery O2 Flow Rate FiO2 12/01/20 12:09 36.2 68 20 156/94 (114) 93 Room Air 12/01/20 08:00 Room Air 12/01/20 07:25 36.5 74 20 155/84 (107) 96 Room Air 12/01/20 05:03 36.7 69 20 164/80 (108) 97 Room Air 12/01/20 04:00 36.7 69 20 164/80 (108) 97 Room Air 12/01/20 00:17 36.8 77 18 134/67 (89) 97 Room Air 11/30/20 20:00 Room Air 11/30/20 19:23 36.8 73 18 155/78 (103) 97 Room Air I & O 12/01/20 07:00 Intake Total 1000 ml Output Total 2650 ml Balance -1650 ml Capillary Refill : Less Than 3 Seconds General Appearance: No Apparent Distress, WD/WN HEENT: PERRL/EOMI, Pharynx Normal, Other (NGT in place, hooked to LIWS) Respiratory: Lungs Clear, Normal Breath Sounds, No Respiratory Distress Cardiovascular: Regular Rate, Rhythm, No Murmur Gastrointestinal: soft, no organomegaly; No distended, No guarding, No rebound; tenderness (mild in LUQ and RUQ) Neurologic/Psychiatric: Alert, Oriented x3, Normal Mood/Affect Skin: Warm/Dry, Pallor Results Lab Laboratory Tests 12/01/20 05:10: Sodium Level 132L, Potassium Level 2.7L, Chloride Level 90L, Carbon Dioxide Level 28, Anion Gap 14, Blood Urea Nitrogen 13, Creatinine 1.13, Estimat Glomerular Filtration Rate 46, BUN/Creatinine Ratio 12, Glucose Level 132H, Calcium Level 10.0, Magnesium Level 1.8 Microbiology 11/28/20 Blood Culture - Preliminary, Resulted No growth 11/28/20 Urine Culture - Final, Complete Assessment/Plan Assessment/Plan Assessment/Plan PSBO vs Ileus - SBFT showed contrast in large bowel, but it took a long time; therefore this is most likely an Ileus Abd pain - most likely secondary to the retained fluid in stomach and duodenum N/V - improved with NGT Will continue npo, IV fluids, pain meds as needed and anti-emetics. I again encouraged her to walk; to help stimulate bowel function. NGT to LIWS is helping; pt may need EGD. However, I am unsure if I can get to the spot of narrowing seen on CT. Will cotinue to treat this as an ileus secondary to viral gastroenteritis and see if she can improve with just bowel rest. Her abdomen is very soft and she seems to be improving. DERECK BUTLER DO Dec 01, 2020 16:21
[2020-12-01] MEDS: POTASSIUM CHLORIDE INJ 10 MEQ in LACTATED RINGERS 1,000 ML IV SCH (17:11)
[2020-12-01] MEDS: ENOXAPARIN 40 MG/0.4 ML (LOVENOX) SYR SC SCH (18:58)
[2020-12-01] MEDS ORDERED: PATCH REMOVAL TP SCH (23:30)
[2020-12-02] MEDS: POTASSIUM CHLORIDE INJ 10 MEQ in LACTATED RINGERS 1,000 ML IV SCH ×2 (00:39→05:54)
[2020-12-02 04:00] VITALS: BP 109/60
[2020-12-02 08:00] VITALS: BP 108/59
[2020-12-02 08:03] LABS: BASOPHILS % (AUTO) 0 % (0-10); EOSINOPHILS # (AUTO) 0.1 10^3/uL (0.0-0.3); EOSINOPHILS % (AUTO) 1 % (0-10); HEMATOCRIT 39 % (35-52); HEMOGLOBIN 13.2 g/dL (11.5-16.0); LYMPHOCYTES % (AUTO) 23 % (12-44); MEAN CORPUSCULAR HEMOGLOBIN 30 pg (25-34); MEAN CORPUSCULAR HGB CONC 34 g/dL (32-36); MEAN CORPUSCULAR VOLUME 87 fL (80-99); MEAN PLATELET VOLUME 9.6 fL (9.0-12.2); MONOCYTES % (AUTO) 11 % (0-12); NEUTROPHILS # (AUTO) 5.8 10^3/uL (1.8-7.8); NEUTROPHILS % (AUTO) 65 % (42-75); PLATELET COUNT 332 10^3/uL (130-400); WHITE BLOOD COUNT 8.9 10^3/uL (4.3-11.0)
[2020-12-02 08:13] LABS: POTASSIUM 3.1 MMOL/L (3.6-5.0)
[2020-12-02 08:15] LABS: CALCIUM 9.3 MG/DL (8.5-10.1)
[2020-12-02 08:19] LABS: CREATININE SERUM 1.09 MG/DL (0.60-1.30)
[2020-12-02 08:21] LABS: MAGNESIUM 1.9 MG/DL (1.6-2.4)
[2020-12-02] MEDS ORDERED: MAGNESIUM 1 GM/100 ML IVPB 100 ML IV ONE (09:15)
[2020-12-02] MEDS ORDERED: ASPIRIN 81 MG CHEW (CHILDREN'S ASA) PO ONE (09:15)
[2020-12-02] MEDS ORDERED: ASPIRIN 300 MG (5 GR) SUPPOSITORY PR STA (09:23)
--- NOTE | 2020-12-02 09:25 | Consultation-Cardiology ---
HPI-Cardiology Cardiology Consultation: Date of Consultation 12/02/20 Time Seen by a Provider: 09:10 Date of Admission -11-28-2020 Attending Physician Shavon Escobar MD Admitting Physician Latrice Alatorre MD Consulting Physician Priscila Ramirez MD HPI: Chief Complaint: Chest pain Ms. Jorgensen is an 85 yr old female admitted to [facility] from the ED on 11-10-20 with n/v and abdominal pain. We have been consulted this morning d/t chest discomfort. She reports this morning she began to have a burning sensation that radiated across her chest. She states it would last for several minutes and then gradually resolve. She reports it comes and goes. No c/o SOB, palpitations, n/v. She denies any LE swelling. She reports nausea this morning. Review of Systems-Cardiology Review of Systems Constitutional: No chills, No fever Eyes: No vision change Ears/Nose/Throat: No epistaxis, No recent hearing loss Respiratory: As described under HPI Cardiovascular: As described under HPI Gastrointestinal: As described under HPI Genitourinary: No dysuria, No hematuria Skin: No rash on exposed areas, No ulcerations on exposed areas Psychiatric/Neurological: No anxiety, No depression, No seizure, No focal weakness, No syncope All Other Systems Reviewed Negative Unless Noted: Yes [id number]-Glibtk Hx Patient Social History Smoking Status: Never a Smoker 2nd Hand Smoke Exposure: No Have you traveled recently?: No Alcohol Use?: No Pt feels they are or have been: No Past Medical History PMH As described under Assessment. Family Medical History Family Medical History: She reports her mother and father both had CAD. Allergies and Home Medications Allergies Coded Allergies: No Known Drug Allergies (Unverified , 11/28/20) Home Medications Alprazolam 0.5 Mg Tablet, 0.25-0.5 MG PO HS PRN for SLEEP, (Reported) TAKES -1 (0.5MG) TABLET Last Action: Reviewed Aspirin 81 Mg Tablet.dr, 81 MG PO DAILY, (Reported) Last Action: Reviewed Dicyclomine HCl 20 Mg Tablet, 20 MG PO TID, (Reported) STARTED TAKING 11/26/20 #42 14 DAY SUPPLY Last Action: Reviewed Famotidine 10 Mg Tablet, 10 MG PO DAILY PRN for HEARTBURN, (Reported) Last Action: Reviewed Gemfibrozil 600 Mg Tablet, 600 MG PO BID, (Reported) Last Action: Reviewed Lisinopril 10 Mg Tablet, 10 MG PO DAILY, (Reported) Last Action: Reviewed Ondansetron 4 Mg Tab.rapdis, 4 MG PO TID PRN for NAUSEA/VOMITING-1ST LINE, (Reported) Last Action: Reviewed Patient Home Medication List Home Medication List Reviewed: Yes Physical Exam-Cardiology Physical Exam Vital Signs/I&O 12/02/20 12/03/20 12/03/20 12/03/20 23:22 00:00 03:34 07:00 Temp 36.8 36.8 Pulse 71 77 73 65 Resp 18 18 B/P (MAP) 134/86 (102) 111/68 (82) Pulse Ox 98 96 O2 Delivery Room Air Room Air 12/03/20 08:00 Temp 37.0 Pulse 73 Resp 20 B/P (MAP) 148/83 (104) Pulse Ox 96 O2 Delivery Room Air 12/03/20 00:00 Intake Total 250 ml Output Total 1500 ml Balance -1250 ml Capillary Refill : Less Than 3 Seconds Constitutional: AAO x 3, well-developed, well-nourished HEENT: PERRL, other (NG tube in place), hearing is well preserved, oral hygience is good Neck: No carotid bruit; carotid pulses are 2 + bilaterally Respiratory: No accessory muscle use, No respiratory distress; chest expansion is symmetric, chest is bilaterally symmetric, lungs clear to auscultation Cardiovascular: regular rate-rhythm; No JVD; S1 and S2 Gastrointestinal: tender, soft; No guarding, No rebound Extremities: no lower extremity edema bilateral Neurologic/Psychiatric: grossly intact (moves all extremities) Skin: No rash on exposed areas, No ulcerations on exposed areas Lymphatic: no adenopathy (neck, axilla or groin) Data Review Labs Laboratory Tests 12/03/20 04:50: White Blood Count 7.8, Red Blood Count 3.87, Hemoglobin 11.5, Hematocrit 35, Mean Corpuscular Volume 89, Mean Corpuscular Hemoglobin 30, Mean Corpuscular Hemoglobin Concent 33, Red Cell Distribution Width 12.3, Platelet Count 282, Mean Platelet Volume 9.7, Sodium Level 137, Potassium Level 3.4L, Chloride Level 96L, Carbon Dioxide Level 29, Anion Gap 12, Blood Urea Nitrogen 27H, Creatinine 1.35H, Estimat Glomerular Filtration Rate 37, BUN/Creatinine Ratio 20, Glucose Level 96, Calcium Level 8.7, Magnesium Level 2.2 Microbiology 11/28/20 Blood Culture - Preliminary, Resulted No growth 11/28/20 Urine Culture - Final, Complete ECG Impression ECG Comment SR with LBBB A/P-Cardiology Assessment/Admission Diagnosis Chest pain of undetermined etiology - ACS vs acid reflux SBO which is being managed by medical/surgical services HTN HLD Hypokalemia likely secondary to vomiting/NG tube Discussion and Recomendations Chest pain with minimally elevated troponin Stop NTP and hydralazine to allow room for BB - start IV Lopressor Start ASA - NM d/t continued n/v requiring NG tube d/t SBO Tele Echocardigoram to eval structure and function Start PPI and H2 jesica Replace electrolytes Monitor lab closely Further recs will be based on her hospital course We would like to thank medical services for this consult MAURO AVILA Dec 02, 2020 09:25
[2020-12-02] MEDS: ONDANSETRON 4 MG/2 ML (SDV) Z0FRAN IV PRN (09:27)
[2020-12-02] MEDS ORDERED: PANTOPRAZOLE 40 MG (PROTONIX) VIAL IV ONE (09:30)
[2020-12-02] MEDS ORDERED: POTASSIUM CL 10MEQ/50ML IVPB 50 ML IV SCH (10:15)
[2020-12-02] MEDS: meTOprolol 5 MG/5 ML (LOPRESSOR) VIAL IV ONE ×2 (10:39→10:42)
[2020-12-02] MEDS: D5 NS W/KCL 20 MEQ/L 1,000 ML IV SCH ×3 (10:40→11:38)
[2020-12-02] MEDS: POTASSIUM CL 10MEQ/50ML IVPB 50 ML IV SCH ×4 (10:41→15:32)
[2020-12-02] MEDS: PANTOPRAZOLE 40 MG (PROTONIX) VIAL IV SCH (10:48)
--- NOTE | 2020-12-02 11:48 | Progress Note - Surgery ---
Subjective Time Seen by a Provider: 11:14 Subjective/Events-last exam Pt seen and examined, states she is having some more nausea and a couple episodes of vomiting. However, also states the NGT helped her sleep last night. This am she states she was having "cramping in upper abdomen", but she is pointing to chest. Nurse states it was a burning sensation and Cardiology consult obtained. Pt states she passed some gas, but still no BM. She states she is not walking but nurse relays she "did laps" last night. Review of Systems General: Fatigue Pulmonary: No Dyspnea, No Cough Cardiovascular: Chest Pain, Palpitations Gastrointestinal: Nausea, Vomiting Neurological: Weakness Objective Exam Vital Signs Date Time Temp Pulse Resp B/P (MAP) Pulse Ox O2 Delivery O2 Flow Rate FiO2 12/02/20 08:00 36.4 68 16 108/59 (75) 96 Room Air 12/02/20 08:00 Room Air 12/02/20 04:00 37.0 64 20 109/60 (76) 96 Room Air 12/01/20 23:32 37.3 79 16 145/78 (100) 95 Room Air 12/01/20 20:00 36.6 77 20 131/68 (89) 96 Room Air 12/01/20 20:00 Room Air 12/01/20 16:00 36.8 82 18 133/79 (97) 95 Room Air 12/01/20 12:09 36.2 68 20 156/94 (114) 93 Room Air l I & O 12/02/20 07:00 Intake Total 2205 ml Output Total 4450 ml Balance -2245 ml Capillary Refill : Less Than 3 Seconds General Appearance: No Apparent Distress, Chronically ill HEENT: PERRL/EOMI, Other (NGT in place, hooked to LIWS) Respiratory: Lungs Clear, Normal Breath Sounds, No Respiratory Distress Cardiovascular: Regular Rate, Rhythm, No Murmur Gastrointestinal: soft, no organomegaly, distended (mildly......??slightly bigger than yesterday); No guarding, No rebound; tenderness (mild in LUQ and RUQ) Neurologic/Psychiatric: Alert, Oriented x3, Normal Mood/Affect Skin: Warm/Dry, Pallor Results Lab Laboratory Tests 12/02/20 07:55: White Blood Count 8.9, Red Blood Count 4.44, Hemoglobin 13.2, Hematocrit 39, Mean Corpuscular Volume 87, Mean Corpuscular Hemoglobin 30, Mean Corpuscular Hemoglobin Concent 34, Red Cell Distribution Width 11.9, Platelet Count 332, Mean Platelet Volume 9.6, Immature Granulocyte % (Auto) 0, Neutrophils (%) (Auto) 65, Lymphocytes (%) (Auto) 23, Monocytes (%) (Auto) 11, Eosinophils (%) (Auto) 1, Basophils (%) (Auto) 0, Neutrophils # (Auto) 5.8, Lymphocytes # (Auto) 2.0, Monocytes # (Auto) 1.0, Eosinophils # (Auto) 0.1, Basophils # (Auto) 0.0, Immature Granulocyte # (Auto) 0.0, Sodium Level 136, Potassium Level 3.1L, Chloride Level 90L, Carbon Dioxide Level 31, Anion Gap 15H, Blood Urea Nitrogen 22H, Creatinine 1.09, Estimat Glomerular Filtration Rate 47, BUN/Creatinine Ratio 20, Glucose Level 107H, Calcium Level 9.3, Magnesium Level 1.9, Troponin I 0.051H Microbiology 11/28/20 Blood Culture - Preliminary, Resulted No growth 11/28/20 Urine Culture - Final, Complete Assessment/Plan Assessment/Plan Assessment/Plan PSBO vs Ileus - SBFT showed contrast in large bowel, but it took a long time; therefore this is most likely an Ileus Abd pain - most likely secondary to the retained fluid in stomach and duodenum N/V - improved with NGT, but had a little more today Will continue npo, IV fluids, pain meds as needed and anti-emetics. If there is no improvement tomorrow may do an EGD and see if I can get to the spot of narrowing seen on CT. Will cotinue to treat this as an ileus secondary to viral gastroenteritis and see if she can improve with just bowel rest. Her abdomen is still soft, but mayb e more distended today. DERECK BUTLER DO Dec 02, 2020 11:48
[2020-12-02 11:50] VITALS: BP 112/55
[2020-12-02] MEDS: meTOprolol 5 MG/5 ML (LOPRESSOR) VIAL IV SCH ×3 (12:30→21:09)
--- NOTE | 2020-12-02 12:54 | Progress Note - Hospitalist ---
Subjective HPI/CC On Admission Date Seen by Provider: Dec 02, 2020 Time Seen by Provider: 10:15 Andria Jorgensen is an 85 year old female with PMH HTN, HLD, GERD, who presented with abdominal pain. She reports that she has been having cramping. She has also had associated nausea and bilious vomiting. She has not had a bowel movement sunday. She has not been passing gas. She normally has a bowel movement every day. She denies fevers but has had chills. She denies chest pain and palpitations. She denies shortness of breath and cough. She denies dysuria. She has a history of a cholecystectomy about 30 years ago. Subjective/Events-last exam She is having some chest discomfort. She describes burning in the center of her chest. She says that it feels like when she was having nausea. She denies any radiation of the pain to her neck, jaw, arms, or back. She denies any associated shortness of breath. She denies any associated nausea or vomiting. She denies diaphoresis. She has not been passing gas or having bowel movements. Objective Exam Vital Signs Vital Signs Date Time Temp Pulse Resp B/P (MAP) Pulse Ox O2 Delivery O2 Flow Rate FiO2 12/02/20 08:00 36.4 68 16 108/59 (75) 96 Room Air Capillary Refill : Less Than 3 Seconds General Appearance: No Apparent Distress, WD/WN Respiratory: Lungs Clear, Normal Breath Sounds, No Respiratory Distress Cardiovascular: No Murmur, Irregularly Irregular Gastrointestinal: Non Tender, Soft, Abnormal Bowel Sounds Neurologic/Psychiatric: Alert, Oriented x3, Depressed Affect Skin: Normal Color, Warm/Dry Results/Procedures Lab Laboratory Tests 12/02/20 07:55 Patient resulted labs reviewed. Imaging: Reviewed Imaging Report Assessment/Plan Assessment and Plan Assess & Plan/Chief Complaint Likely partial small bowel obstruction vs ileus History of cholecystectomy CT showed ileus vs parital small bowel obstruction Small bowel follow through without clear evidence of obstruction, possible ileus Surgery consulted, appreciate assistance NPO Antiemetics as needed NG tube to suction Increase IV fluids Increase ambulation PT/OT Atrial fibrillation Chest pain Troponin mildly elevated EKG with afib/flutter Cardiology consulted, appreciate assistance HTN HLD GERD Hold home meds while NPO DVT prophylaxis: Lovenox Nausea and vomiting, resolved Acute kidney injury, resolved Diagnosis/Problems Diagnosis/Problems (1) Small bowel obstruction Status: Acute (2) Abdominal pain Status: Acute (3) Nausea and vomiting Status: Resolved Resolution Date/Time: 12/02/20 @ 12:57 (4) JAGRUTI (acute kidney injury) Status: Acute (5) HTN (hypertension) Status: Acute (6) Chest pain Status: Acute (7) Afib Status: Acute MILAGRO WATKINS MD Dec 02, 2020 12:54
--- NOTE | 2020-12-02 12:58 | Consultation-Cardiology ---
HPI-Cardiology Cardiology Consultation: Date of Consultation 12/02/20 Time Seen by a Provider: 09:20 Date of Admission Attending Physician Shavon Escobar MD Admitting Physician Latrice Alatorre MD Consulting Physician JESU RUSS MD, MA, FACP, FACC, FSCAI, CCDS HPI: Chief Complaint: Chest pain Ms. Jorgensen is an 85 yr old female admitted to [facility] from the ED on 11-10-20 with n/v and abdominal pain. We have been consulted this morning d/t chest discomfort. She reports this morning she began to have a burning sensation that radiated across her chest. She states it would last for several seconds or several minutes and then gradually resolve. She reports it comes and goes. No c/o SOB, palpitations, n/v. She denies any LE swelling. She reports nausea this morning. Review of Systems-Cardiology Review of Systems Constitutional: No chills, No fever Eyes: No vision change Ears/Nose/Throat: No epistaxis, No recent hearing loss Respiratory: As described under HPI Cardiovascular: As described under HPI Gastrointestinal: As described under HPI Genitourinary: No dysuria, No hematuria Skin: No rash on exposed areas, No ulcerations on exposed areas Psychiatric/Neurological: No anxiety, No depression, No seizure, No focal weakness, No syncope All Other Systems Reviewed Negative Unless Noted: Yes FDD-Facfwu-Agqloa Hx Patient Social History Smoking Status: Never a Smoker 2nd Hand Smoke Exposure: No Have you traveled recently?: No Alcohol Use?: No Pt feels they are or have been: No Past Medical History PMH As described under Assessment. Family Medical History Family Medical History: She reports her mother and father both had CAD. Allergies and Home Medications Allergies Coded Allergies: No Known Drug Allergies (Unverified , 11/28/20) Home Medications Alprazolam 0.5 Mg Tablet, 0.25-0.5 MG PO HS PRN for SLEEP, (Reported) TAKES -1 (0.5MG) TABLET Last Action: Reviewed Aspirin 81 Mg Tablet.dr, 81 MG PO DAILY, (Reported) Last Action: Reviewed Dicyclomine HCl 20 Mg Tablet, 20 MG PO TID, (Reported) STARTED TAKING 11/26/20 #42 14 DAY SUPPLY Last Action: Reviewed Famotidine 10 Mg Tablet, 10 MG PO DAILY PRN for HEARTBURN, (Reported) Last Action: Reviewed Gemfibrozil 600 Mg Tablet, 600 MG PO BID, (Reported) Last Action: Reviewed Lisinopril 10 Mg Tablet, 10 MG PO DAILY, (Reported) Last Action: Reviewed Ondansetron 4 Mg Tab.rapdis, 4 MG PO TID PRN for NAUSEA/VOMITING-1ST LINE, (Reported) Last Action: Reviewed Patient Home Medication List Home Medication List Reviewed: Yes Physical Exam-Cardiology Physical Exam Vital Signs/I&O 12/02/20 12/02/20 12/02/20 04:00 08:00 08:00 Temp 37.0 36.4 Pulse 64 68 Resp 20 16 B/P (MAP) 109/60 (76) 108/59 (75) Pulse Ox 96 96 O2 Delivery Room Air Room Air Room Air 12/02/20 00:00 Intake Total 2205 ml Output Total 3650 ml Balance -1445 ml Capillary Refill : Less Than 3 Seconds Constitutional: AAO x 3, well-developed, well-nourished HEENT: PERRL, other (NG tube in place), hearing is well preserved, oral hygience is good Neck: No carotid bruit; carotid pulses are 2 + bilaterally Respiratory: No accessory muscle use, No respiratory distress; chest expansion is symmetric, chest is bilaterally symmetric, lungs clear to auscultation Cardiovascular: regular rate-rhythm; No JVD; S1 and S2 Gastrointestinal: tender, soft; No guarding, No rebound Extremities: no lower extremity edema bilateral Neurologic/Psychiatric: grossly intact (moves all extremities) Skin: No rash on exposed areas, No ulcerations on exposed areas Lymphatic: no adenopathy (neck, axilla or groin) Data Review Labs Laboratory Tests 12/02/20 07:55: White Blood Count 8.9, Red Blood Count 4.44, Hemoglobin 13.2, Hematocrit 39, Mean Corpuscular Volume 87, Mean Corpuscular Hemoglobin 30, Mean Corpuscular Hemoglobin Concent 34, Red Cell Distribution Width 11.9, Platelet Count 332, Mean Platelet Volume 9.6, Immature Granulocyte % (Auto) 0, Neutrophils (%) (Auto) 65, Lymphocytes (%) (Auto) 23, Monocytes (%) (Auto) 11, Eosinophils (%) (Auto) 1, Basophils (%) (Auto) 0, Neutrophils # (Auto) 5.8, Lymphocytes # (Auto) 2.0, Monocytes # (Auto) 1.0, Eosinophils # (Auto) 0.1, Basophils # (Auto) 0.0, Immature Granulocyte # (Auto) 0.0, Sodium Level 136, Potassium Level 3.1L, Chloride Level 90L, Carbon Dioxide Level 31, Anion Gap 15H, Blood Urea Nitrogen 22H, Creatinine 1.09, Estimat Glomerular Filtration Rate 47, BUN/Creatinine Ratio 20, Glucose Level 107H, Calcium Level 9.3, Magnesium Level 1.9, Troponin I 0.051H Microbiology 11/28/20 Blood Culture - Preliminary, Resulted No growth 11/28/20 Urine Culture - Final, Complete A/P-Cardiology Assessment/Admission Diagnosis Chest pain of undetermined etiology - ACS vs acid reflux SBO which is being managed by medical/surgical services HTN HLD Hypokalemia likely secondary to vomiting/NG tube Discussion and Recomendations Stop NTP and hydralazine to allow room for BB - start IV Lopressor Start ASA - DC d/t continued n/v requiring NG tube d/t SBO Tele Echocardigoram to eval structure and function Start PPI and H2 jesica Replace electrolytes Monitor lab closely Further recs will be based on her hospital course We would like to thank Medical services for this consult JESU RUSS MD FACP FAC CCDS Dec 02, 2020 12:58
[2020-12-02] MEDS: LACTATED RINGERS 1,000 ML IV SCH ×3 (13:35→21:36)
--- NOTE | 2020-12-02 13:38 | Physical Therapy Progress Note ---
Therapy Progress Note Patient declined PT stating she is up with nursing ambulating every 2 hours. Family present and confirms. PT will check patient status in a.m. to determine plan. Patient to continue to ambulate with nursing. 1 visit ([id number]) TYLER BOJORQUEZ PT Dec 02, 2020 13:38
--- NOTE | 2020-12-02 14:08 | Occ Therapy Progress Note ---
Therapy Progress Note OT order received, chart reviewed. Spoke with pt. and family member. Pt. has just been up ambulating with nursing. Has also been up in chair, and was up at sink brushing teeth and in bathroom. Pt. declines OT evaluation and OOB activity at this time. States that she had no difficulty with ambulation or other activities, but OT will check back in a.m. to evaluate and see if OT services can be of benefit. Thank you for this referral. 1, visit 1310 AFSHIN ALCANTARA OT Dec 02, 2020 14:08
[2020-12-02 16:00] VITALS: BP 109/69
[2020-12-02] MEDS: ENOXAPARIN 40 MG/0.4 ML (LOVENOX) SYR SC SCH (18:24)
[2020-12-02] MEDS ORDERED: FAMOTIDINE 20MG/2ML IV (PEPCID) IVP SCH (21:00)
[2020-12-02] MEDS: FAMOTIDINE 20MG/2ML IV (PEPCID) IVP SCH (21:34)
[2020-12-03] VITALS (7 sets, daily range): BP systolic 111–148; BP diastolic 55–86
[2020-12-03] MEDS: meTOprolol 5 MG/5 ML (LOPRESSOR) VIAL IV SCH ×6 (00:08→20:37)
[2020-12-03] MEDS: LACTATED RINGERS 1,000 ML IV SCH ×4 (04:00→23:58)
[2020-12-03 05:00] LABS: HEMATOCRIT 35 % (35-52); HEMOGLOBIN 11.5 g/dL (11.5-16.0); MEAN CORPUSCULAR HEMOGLOBIN 30 pg (25-34); MEAN CORPUSCULAR HGB CONC 33 g/dL (32-36); MEAN CORPUSCULAR VOLUME 89 fL (80-99); MEAN PLATELET VOLUME 9.7 fL (9.0-12.2); PLATELET COUNT 282 10^3/uL (130-400); WHITE BLOOD COUNT 7.8 10^3/uL (4.3-11.0)
[2020-12-03 05:29] LABS: POTASSIUM 3.4 MMOL/L (3.6-5.0)
[2020-12-03 05:30] LABS: CALCIUM 8.7 MG/DL (8.5-10.1)
[2020-12-03 05:35] LABS: CREATININE SERUM 1.35 MG/DL (0.60-1.30)
[2020-12-03 05:37] LABS: MAGNESIUM 2.2 MG/DL (1.6-2.4)
[2020-12-03] MEDS: POTASSIUM CL 10MEQ/50ML IVPB 50 ML IV SCH ×3 (05:51→07:47)
[2020-12-03] MEDS: KCL 20 MEQ TAB (K-DUR) PO SCH (05:51)
[2020-12-03] MEDS: MAGNESIUM 1 GM/100 ML IVPB 100 ML IV SCH (05:52)
[2020-12-03] MEDS: PANTOPRAZOLE 40 MG (PROTONIX) VIAL IV SCH (08:00)
[2020-12-03] MEDS ORDERED: PANTOPRAZOLE 40 MG (PROTONIX) VIAL IV SCH (09:00)
[2020-12-03] MEDS ORDERED: ASPIRIN 81 MG CHEW (CHILDREN'S ASA) PO SCH (09:00)
--- NOTE | 2020-12-03 09:23 | Physical Therapy Progress Note ---
Therapy Progress Note Patient continues to ambulate with nursing staff and feels comfortable with this. No PT indicated. TYLER BOJORQUEZ PT Dec 03, 2020 09:23
--- NOTE | 2020-12-03 09:58 | Progress Note - Cardiology ---
Cardiology SOAP Progress Note Objective: I&O/Vital Signs Constitutional: AAO x 3, well-developed, well-nourished Respiratory: No accessory muscle use, No respiratory distress; chest expansion is symmetric, chest is bilaterally symmetric, lungs clear to auscultation Cardiovascular: regular rate-rhythm; No JVD; S1 and S2 Gastrointestional: tender, soft; No guarding, No rebound Extremities: no lower extremity edema bilateral Neurologic/Psychiatric: grossly intact (moves all extremities) Skin: No rash on exposed areas, No ulcerations on exposed areas Results/Procedures: Labs Microbiology 11/28/20 Blood Culture - Final, Complete No growth 11/28/20 Urine Culture - Final, Complete A/P: Assessment: Chest pain of undetermined etiology - ACS vs acid reflux SBO which is being managed by medical/surgical services HTN HLD Hypokalemia likely secondary to vomiting/NG tube Plan: Start ASA - [place] d/t continued n/v requiring NG tube d/t SBO vs ileus Echocardigoram to eval structure and function Continue PPI and H2 jesica Replace electrolytes Monitor lab closely MAURO AVILA Dec 03, 2020 09:58
[2020-12-03] MEDS: ASPIRIN 300 MG (5 GR) SUPPOSITORY PR SCH (10:34)
--- NOTE | 2020-12-03 10:45 | Progress Note - Surgery ---
Subjective Time Seen by a Provider: 10:12 Subjective/Events-last exam Pt seen and examined, sitting up in chair; looks better today. She states she feels better, no chest pain and only very minimal pain down in lower abdomen. Pt denies N/V. Review of Systems General: Fatigue Pulmonary: No Dyspnea, No Cough Cardiovascular: No: Chest Pain, Palpitations Gastrointestinal: Abdominal Pain; No: Nausea, Vomiting Objective Exam Vital Signs Date Time Temp Pulse Resp B/P (MAP) Pulse Ox O2 Delivery O2 Flow Rate FiO2 12/03/20 08:00 37.0 73 20 148/83 (104) 96 Room Air 12/03/20 07:00 65 12/03/20 03:34 36.8 73 18 111/68 (82) 96 Room Air 12/03/20 00:00 36.8 77 18 134/86 (102) 98 Room Air 12/02/20 23:22 71 12/02/20 20:00 Room Air 12/02/20 16:00 36.4 69 18 109/69 (82) 99 Room Air 12/02/20 11:50 36.0 82 16 112/55 (74) 97 Room Air I & O 12/03/20 07:00 Intake Total 1150 ml Output Total 1850 ml Balance -700 ml Capillary Refill : Less Than 3 Seconds General Appearance: No Apparent Distress, WD/WN HEENT: PERRL/EOMI, Other (NGT in place, hooked to LIWS) Respiratory: Lungs Clear, Normal Breath Sounds, No Respiratory Distress Cardiovascular: Regular Rate, Rhythm, No Murmur Gastrointestinal: soft, no organomegaly, distended (mildly......??slightly bigger than yesterday); No guarding, No rebound; tenderness (mild lower abd) Neurologic/Psychiatric: Alert Skin: Normal Color, Warm/Dry Results Lab Laboratory Tests 12/03/20 04:50: White Blood Count 7.8, Red Blood Count 3.87, Hemoglobin 11.5, Hematocrit 35, Mean Corpuscular Volume 89, Mean Corpuscular Hemoglobin 30, Mean Corpuscular Hemoglobin Concent 33, Red Cell Distribution Width 12.3, Platelet Count 282, Mean Platelet Volume 9.7, Sodium Level 137, Potassium Level 3.4L, Chloride Level 96L, Carbon Dioxide Level 29, Anion Gap 12, Blood Urea Nitrogen 27H, Creatinine 1.35H, Estimat Glomerular Filtration Rate 37, BUN/Creatinine Ratio 20, Glucose Level 96, Calcium Level 8.7, Magnesium Level 2.2 Microbiology 11/28/20 Blood Culture - Preliminary, Resulted No growth 11/28/20 Urine Culture - Final, Complete Assessment/Plan Assessment/Plan Assessment/Plan PSBO vs Ileus - ? narrowing in duodenum at ligament of Treitz Abd pain - mostly improved N/V - none today Will try some sips of clears, keep NGT clamped and then hook it back up and see how much we get out. May still need to do an EGD; will hold off today and possibly do it tomorrow. DERECK BUTLER DO Dec 03, 2020 10:44
--- NOTE | 2020-12-03 11:38 | Occ Therapy Progress Note ---
Therapy Progress Note OT orders received and chart reviewed. OT visited with pt, pt indicates she has no concerns with her ability to complete ADLs, she had taken a shower and completed toileting this AM without concern. No skilled OT services indicated at this time as pt is at PLOF and independent with ADLs. D/C from OT 1, visit ANAHY ELLIS OT Dec 03, 2020 11:38
--- NOTE | 2020-12-03 12:39 | Progress Note - Cardiology ---
Cardiology SOAP Progress Note Subjective: Feels better than before Sthill has n/v intermittently Gen malaise and weakness No shortness of breath at rest No cp or palp or syncope Objective: I&O/Vital Signs 12/03/20 12/03/20 12/03/20 12/03/20 03:34 07:00 08:00 08:00 Temp 36.8 37.0 Pulse 73 65 73 Resp 18 20 B/P (MAP) 111/68 (82) 148/83 (104) Pulse Ox 96 96 96 O2 Delivery Room Air Room Air Room Air 12/03/20 00:00 Intake Total 250 ml Output Total 1500 ml Balance -1250 ml Constitutional: AAO x 3, well-developed, well-nourished Respiratory: No accessory muscle use, No respiratory distress; chest expansion is symmetric, chest is bilaterally symmetric, lungs clear to auscultation Cardiovascular: regular rate-rhythm; No JVD; S1 and S2 Gastrointestional: tender, soft; No guarding, No rebound Extremities: no lower extremity edema bilateral Neurologic/Psychiatric: grossly intact (moves all extremities) Skin: No rash on exposed areas, No ulcerations on exposed areas Results/Procedures: Labs Laboratory Tests 12/03/20 04:50: White Blood Count 7.8, Red Blood Count 3.87, Hemoglobin 11.5, Hematocrit 35, Mean Corpuscular Volume 89, Mean Corpuscular Hemoglobin 30, Mean Corpuscular Hemoglobin Concent 33, Red Cell Distribution Width 12.3, Platelet Count 282, Mean Platelet Volume 9.7, Sodium Level 137, Potassium Level 3.4L, Chloride Level 96L, Carbon Dioxide Level 29, Anion Gap 12, Blood Urea Nitrogen 27H, Creatinine 1.35H, Estimat Glomerular Filtration Rate 37, BUN/Creatinine Ratio 20, Glucose Level 96, Calcium Level 8.7, Magnesium Level 2.2 Microbiology 11/28/20 Blood Culture - Preliminary, Resulted No growth 11/28/20 Urine Culture - Final, Complete Laboratory Tests 12/02/20 07:55 12/03/20 04:50 A/P: Assessment: Chest pain of undetermined etiology - ACS vs acid reflux - Echo on 12/02/20: LVEF 55-60%, grade-1 diastolic dysfunction, mild AoV sclerosis, mild AI, PASP 25-30 mmHg SBO which is being managed by the Hospitalist services HTN HLD Hypokalemia likely secondary to vomiting/NG tube Plan: Start ASA - [place] d/t continued n/v requiring NG tube d/t SBO vs ileus Continue PPI and H2 jesica Replace electrolytes Monitor lab closely I answered her and her son's CV-related questions I discussed her CV issues with JESU Skinner MD FACP [facility] CCDS Dec 03, 2020 12:39
--- NOTE | 2020-12-03 13:49 | Progress Note - Hospitalist ---
Subjective HPI/CC On Admission Date Seen by Provider: Dec 03, 2020 Time Seen by Provider: 10:25 Andria Jorgensen is an 85 year old female with PMH HTN, HLD, GERD, who presented with abdominal pain. She reports that she has been having cramping. She has also had associated nausea and bilious vomiting. She has not had a bowel movement sunday. She has not been passing gas. She normally has a bowel movement every day. She denies fevers but has had chills. She denies chest pain and palpitations. She denies shortness of breath and cough. She denies dysuria. She has a history of a cholecystectomy about 30 years ago. Subjective/Events-last exam She is feeling better today. She got up and took a shower. Her abdominal pain is improved. Objective Exam Vital Signs Vital Signs Date Time Temp Pulse Resp B/P (MAP) Pulse Ox O2 Delivery O2 Flow Rate FiO2 12/03/20 12:47 86 12/03/20 12:00 37.4 20 114/74 (87) 98 Room Air Capillary Refill : Less Than 3 Seconds General Appearance: No Apparent Distress, WD/WN HEENT: Other (NG tube in place) Respiratory: Lungs Clear, Normal Breath Sounds, No Respiratory Distress Cardiovascular: Regular Rate, Rhythm, No Edema, No Murmur Gastrointestinal: Non Tender, Soft, Abnormal Bowel Sounds (Hypoactive) Extremity: Normal Inspection, Non Tender, Pedal Edema Neurologic/Psychiatric: Alert, Oriented x3, No Motor/Sensory Deficits, Normal Mood/Affect Skin: Normal Color, Warm/Dry Results/Procedures Lab Laboratory Tests 12/03/20 04:50 Patient resulted labs reviewed. Imaging: Reviewed Imaging Report Assessment/Plan Assessment and Plan Assess & Plan/Chief Complaint Likely partial small bowel obstruction vs ileus History of cholecystectomy CT showed ileus vs parital small bowel obstruction Small bowel follow through without clear evidence of obstruction, possible ileus Surgery consulted, appreciate assistance Advance to clears Antiemetics as needed NG tube clamped Continue IV fluids Ambulation PT/OT Chest pain Elevated troponin GERD Troponin mildly elevated Cardiology consulted, appreciate assistance Started on IV Metoprolol Started on IV Pantoprazole and Famotidine Hypokalemia Monitor and replace as needed HTN HLD Hold home meds while NPO DVT prophylaxis: Lovenox Nausea and vomiting, resolved Acute kidney injury, resolved Diagnosis/Problems Diagnosis/Problems (1) Small bowel obstruction Status: Acute (2) Abdominal pain Status: Acute (3) Nausea and vomiting Status: Resolved Resolution Date/Time: 12/02/20 @ 12:57 (4) JAGRUTI (acute kidney injury) Status: Acute (5) HTN (hypertension) Status: Acute (6) Chest pain Status: Acute (7) GERD (gastroesophageal reflux disease) Status: Acute MILAGRO WATKINS MD Dec 03, 2020 13:48
[2020-12-03] MEDS: ENOXAPARIN 40 MG/0.4 ML (LOVENOX) SYR SC SCH (17:19)
[2020-12-03] MEDS: FAMOTIDINE 20MG/2ML IV (PEPCID) IVP SCH (20:37)
[2020-12-04] MEDS: meTOprolol 5 MG/5 ML (LOPRESSOR) VIAL IV SCH ×4 (04:24→12:47)
[2020-12-04 05:00] VITALS: BP 147/77
[2020-12-04] MEDS: MAGNESIUM 1 GM/100 ML IVPB 100 ML IV SCH (06:13)
[2020-12-04] MEDS: LACTATED RINGERS 1,000 ML IV SCH ×3 (06:37→22:12)
[2020-12-04 08:05] VITALS: BP 132/76
[2020-12-04 08:15] LABS: POTASSIUM 3.4 MMOL/L (3.6-5.0)
[2020-12-04 08:16] LABS: CALCIUM 8.1 MG/DL (8.5-10.1)
[2020-12-04 08:21] LABS: CREATININE SERUM 1.01 MG/DL (0.60-1.30)
[2020-12-04] MEDS: PANTOPRAZOLE 40 MG (PROTONIX) VIAL IV SCH (09:05)
[2020-12-04] MEDS: ASPIRIN 300 MG (5 GR) SUPPOSITORY PR SCH (09:53)
[2020-12-04 11:20] VITALS: BP 159/73
[2020-12-04] MEDS: POTASSIUM CL 10MEQ/50ML IVPB 50 ML IV SCH ×2 (11:58→14:25)
[2020-12-04] MEDS: KCL 20 MEQ TAB (K-DUR) PO SCH (11:58)
--- NOTE | 2020-12-04 12:07 | Progress Note - Hospitalist ---
Subjective HPI/CC On Admission Date Seen by Provider: Dec 04, 2020 Time Seen by Provider: 10:40 Andria Jorgensen is an 85 year old female with PMH HTN, HLD, GERD, who presented with abdominal pain. She reports that she has been having cramping. She has also had associated nausea and bilious vomiting. She has not had a bowel movement sunday. She has not been passing gas. She normally has a bowel movement every day. She denies fevers but has had chills. She denies chest pain and palpitations. She denies shortness of breath and cough. She denies dysuria. She has a history of a cholecystectomy about 30 years ago. Subjective/Events-last exam She is feeling better. She had a couple small bowel movements. She denies nausea and vomiting. She denies abdominal pain. She still has some chest tightness. Objective Exam Vital Signs Vital Signs Date Time Temp Pulse Resp B/P (MAP) Pulse Ox O2 Delivery O2 Flow Rate FiO2 12/04/20 11:20 36.4 64 20 159/73 (101) 97 Room Air Capillary Refill : Less Than 3 Seconds General Appearance: No Apparent Distress, WD/WN Respiratory: Chest Non Tender, Lungs Clear, Normal Breath Sounds, No Respiratory Distress Cardiovascular: Regular Rate, Rhythm, No Edema, No Murmur Gastrointestinal: Normal Bowel Sounds, Non Tender, Soft Extremity: Normal Inspection, Non Tender, No Pedal Edema Neurologic/Psychiatric: Alert, Oriented x3, No Motor/Sensory Deficits, Normal Mood/Affect Skin: Normal Color, Warm/Dry Results/Procedures Lab Laboratory Tests 12/04/20 05:43 Patient resulted labs reviewed. Imaging: Reviewed Imaging Report Assessment/Plan Assessment and Plan Assess & Plan/Chief Complaint Likely partial small bowel obstruction vs ileus History of cholecystectomy CT showed ileus vs parital small bowel obstruction Small bowel follow through without clear evidence of obstruction, possible ileus Surgery consulted, appreciate assistance Advance to clears Antiemetics as needed NG tube clamped Continue IV fluids Ambulation PT/OT Chest pain Elevated troponin GERD Troponin mildly elevated, repeat with continued chest pain Cardiology consulted, appreciate assistance Continue IV Metoprolol Continue IV Pantoprazole and Famotidine Hypokalemia Monitor and replace as needed HTN HLD Hold home meds while NPO DVT prophylaxis: Lovenox Nausea and vomiting, resolved Acute kidney injury, resolved Diagnosis/Problems Diagnosis/Problems (1) Small bowel obstruction Status: Acute (2) Abdominal pain Status: Acute (3) Nausea and vomiting Status: Resolved Resolution Date/Time: 12/02/20 @ 12:57 (4) JAGRUTI (acute kidney injury) Status: Acute (5) HTN (hypertension) Status: Acute (6) Chest pain Status: Acute (7) GERD (gastroesophageal reflux disease) Status: Acute MILAGRO WATKINS MD Dec 04, 2020 12:07
--- NOTE | 2020-12-04 13:02 | Progress Note - Surgery ---
Subjective Time Seen by a Provider: 11:48 Subjective/Events-last exam Pt seen and examined, she is sitting up in chair and looks good. Pt states she is still having some occasional cramps and burning, but thinks it is better than before. She also had 3 small BMs yesterday and is passing gas. Review of Systems General: Fatigue Pulmonary: No Dyspnea, No Cough Cardiovascular: No: Chest Pain, Palpitations Gastrointestinal: Abdominal Pain; No: Nausea, Vomiting Objective Exam Vital Signs Date Time Temp Pulse Resp B/P (MAP) Pulse Ox O2 Delivery O2 Flow Rate FiO2 12/04/20 12:45 66 12/04/20 11:20 36.4 64 20 159/73 (101) 97 Room Air 12/04/20 08:05 37.0 64 18 132/76 (94) 97 Room Air 12/04/20 07:00 71 12/04/20 05:00 36.2 67 16 147/77 (100) 95 Room Air 12/03/20 23:55 37.0 68 18 133/63 (86) 96 Room Air 12/03/20 20:00 97 Room Air 12/03/20 19:50 37.1 76 18 125/62 (83) 96 Room Air 12/03/20 19:00 68 12/03/20 15:43 37.1 62 18 121/55 (77) 98 Room Air I & O 12/04/20 07:00 Intake Total 2350 ml Output Total 1650 ml Balance 700 ml Capillary Refill : Less Than 3 Seconds General Appearance: No Apparent Distress, WD/WN HEENT: Other (NG tube in place) Respiratory: Chest Non Tender, Lungs Clear, Normal Breath Sounds, No Respiratory Distress Cardiovascular: Regular Rate, Rhythm, No Edema, No Murmur Gastrointestinal: soft, no organomegaly; No guarding, No rebound; tenderness (mild lower abd) Neurologic/Psychiatric: Alert, Oriented x3, Normal Mood/Affect Results Lab Laboratory Tests 12/04/20 05:35: Magnesium Level 1.9 12/04/20 05:43: Sodium Level 138, Potassium Level 3.4L, Chloride Level 100, Carbon Dioxide Level 24, Anion Gap 14, Blood Urea Nitrogen 23H, Creatinine 1.01, Estimat Glomerular Filtration Rate 52, BUN/Creatinine Ratio 23, Glucose Level 87, Calcium Level 8.1L, Troponin I 0.073H Microbiology 11/28/20 Blood Culture - Preliminary, Resulted No growth 11/28/20 Urine Culture - Final, Complete Assessment/Plan Assessment/Plan Assessment/Plan PSBO vs Ileus - ? narrowing in duodenum at ligament of Treitz Abd pain - mostly improved N/V - none today Will try some full clear liquid diet, keep NGT clamped and then hook it back up tomorrow am and see how much we get out. May still need to do an EGD; however, she is continuing to improve and therefore will hold off today and possibly do it tomorrow. DERECK BUTLER DO Dec 04, 2020 13:02
[2020-12-04 16:12] VITALS: BP 143/76
--- NOTE | 2020-12-04 16:49 | Progress Note - Cardiology ---
Cardiology SOAP Progress Note Subjective: No shortness of breath No cp or palp or syncope Significant improvement of n/v/d No swelling Gen malaise and weakness Objective: I&O/Vital Signs 12/04/20 12/04/20 12/04/20 12/04/20 05:00 07:00 08:05 11:20 Temp 36.2 37.0 36.4 Pulse 67 71 64 64 Resp 16 18 20 B/P (MAP) 147/77 (100) 132/76 (94) 159/73 (101) Pulse Ox 95 97 97 O2 Delivery Room Air Room Air Room Air 12/04/20 12/04/20 12:45 16:12 Temp 36.6 Pulse 66 74 Resp 18 B/P (MAP) 143/76 (98) Pulse Ox 98 O2 Delivery Room Air 12/04/20 00:00 Intake Total 1250 ml Output Total 1300 ml Balance -50 ml Constitutional: AAO x 3, well-developed, well-nourished Respiratory: No accessory muscle use, No respiratory distress; chest expansion is symmetric, chest is bilaterally symmetric, lungs clear to auscultation Cardiovascular: regular rate-rhythm; No JVD; S1 and S2 Gastrointestional: tender, soft; No guarding, No rebound Extremities: no lower extremity edema bilateral Neurologic/Psychiatric: grossly intact (moves all extremities) Skin: No rash on exposed areas, No ulcerations on exposed areas Results/Procedures: Labs Laboratory Tests 12/04/20 05:35: Magnesium Level 1.9 12/04/20 05:43: Sodium Level 138, Potassium Level 3.4L, Chloride Level 100, Carbon Dioxide Level 24, Anion Gap 14, Blood Urea Nitrogen 23H, Creatinine 1.01, Estimat Glomerular Filtration Rate 52, BUN/Creatinine Ratio 23, Glucose Level 87, Calcium Level 8.1L, Troponin I 0.073H Microbiology 11/28/20 Blood Culture - Preliminary, Resulted No growth 11/28/20 Urine Culture - Final, Complete A/P: Assessment: Chest pain of undetermined etiology - ACS vs acid reflux - Echo on 12/02/20: LVEF 55-60%, grade-1 diastolic dysfunction, mild AoV sclerosis, mild AI, PASP 25-30 mmHg SBO which is being managed by the Hospitalist services HTN HLD Hypokalemia likely secondary to vomiting/NG tube Plan: Change bb and ASA to oral Monitor labs JESU RUSS MD FACP FACC CCDS Dec 04, 2020 16:49
[2020-12-04] MEDS ORDERED: meTOprolol SUCCINATE 100 MG (TOPROL XL) TAB PO ONE (17:00)
[2020-12-04] MEDS: ENOXAPARIN 40 MG/0.4 ML (LOVENOX) SYR SC SCH (17:07)
[2020-12-04 19:52] VITALS: BP 145/91
[2020-12-04] MEDS: FAMOTIDINE 20MG/2ML IV (PEPCID) IVP SCH (20:01)
[2020-12-05] VITALS: BP 130/67
[2020-12-05 03:54] VITALS: BP 149/65
[2020-12-05] MEDS: LACTATED RINGERS 1,000 ML IV SCH ×3 (05:55→22:48)
[2020-12-05 06:07] LABS: CHLORIDE 103 MMOL/L (98-107); POTASSIUM 3.6 MMOL/L (3.6-5.0); SODIUM 137 MMOL/L (135-145)
[2020-12-05 06:08] LABS: GLUCOSE 82 MG/DL (70-105)
[2020-12-05 06:10] LABS: CARBON DIOXIDE 23 MMOL/L (21-32)
[2020-12-05 06:12] LABS: CREATININE SERUM 0.87 MG/DL (0.60-1.30); GFR ESTIMATED > 60
[2020-12-05] MEDS: KCL 20 MEQ TAB (K-DUR) PO SCH ×2 (06:12→06:21)
[2020-12-05 06:13] LABS: BUN/CREATININE RATIO 18
[2020-12-05 06:15] LABS: MAGNESIUM 1.8 MG/DL (1.6-2.4)
[2020-12-05] MEDS ORDERED: KCL 20 MEQ TAB (K-DUR) PO ONE (06:15)
[2020-12-05] MEDS: MAGNESIUM 1 GM/100 ML IVPB 100 ML IV SCH (06:16)
[2020-12-05 08:15] VITALS: BP 136/62
[2020-12-05] MEDS: ASPIRIN 81 MG CHEW (CHILDREN'S ASA) PO SCH (09:32)
[2020-12-05] MEDS: PANTOPRAZOLE 40 MG (PROTONIX) VIAL IV SCH (09:32)
[2020-12-05] MEDS: meTOprolol SUCCINATE 100 MG (TOPROL XL) TAB PO SCH (09:32)
--- NOTE | 2020-12-05 10:44 | Progress Note - Surgery ---
Subjective Time Seen by a Provider: 09:41 Subjective/Events-last exam Pt seen and examined, she looks really good this am. Events of last night noted. Pt denies N/V and states she continues to have BMs. She states she is taking the liquids without any difficulty. Review of Systems General: No Chills, No Night Sweats Pulmonary: No Dyspnea, No Cough Cardiovascular: No: Chest Pain, Palpitations Gastrointestinal: No: Nausea, Vomiting, Abdominal Pain Neurological: Confusion (last night) Objective Exam Vital Signs Date Time Temp Pulse Resp B/P (MAP) Pulse Ox O2 Delivery O2 Flow Rate FiO2 12/05/20 08:15 36.6 64 18 136/62 (86) 98 Room Air 12/05/20 08:07 96 Room Air 12/05/20 03:54 36.8 61 17 149/65 (93) 96 Room Air 12/05/20 00:00 36.8 62 17 130/67 (88) 96 Room Air 12/04/20 20:00 97 Room Air 12/04/20 19:52 36.6 67 18 145/91 (109) 96 Room Air 12/04/20 19:00 70 12/04/20 16:12 36.6 74 18 143/76 (98) 98 Room Air 12/04/20 12:45 66 12/04/20 11:20 36.4 64 20 159/73 (101) 97 Room Air I & O 12/05/20 07:00 Intake Total 2060 ml Output Total 1200 ml Balance 860 ml Capillary Refill : Less Than 3 Seconds General Appearance: No Apparent Distress, WD/WN HEENT: Other (NG tube in place) Respiratory: Chest Non Tender, Lungs Clear, Normal Breath Sounds, No Respirator y Distress Cardiovascular: Regular Rate, Rhythm, No Edema, No Murmur Gastrointestinal: non tender, soft, no organomegaly; No guarding, No rebound Neurologic/Psychiatric: Alert, Oriented x3, Normal Mood/Affect Results Lab Laboratory Tests 12/05/20 05:38: Sodium Level 137, Potassium Level 3.6, Chloride Level 103, Carbon Dioxide Level 23, Anion Gap 11, Blood Urea Nitrogen 16, Creatinine 0.87, Estimat Glomerular F iltration Rate > 60, BUN/Creatinine Ratio 18, Glucose Level 82, Calcium Level 8.0L, Magnesium Level 1.8 Microbiology 11/28/20 Blood Culture - Preliminary, Resulted No growth 11/28/20 Urine Culture - Final, Complete Assessment/Plan Assessment/Plan Assessment/Plan PSBO vs Ileus - ? narrowing in duodenum at ligament of Treitz Abd pain - mostly improved N/V - none today Will advance to soft diet; NGT came out last night, but pt is doing well and does not need it replaced. Would consider an EGD as an outpt. DERECK BUTLER DO Dec 05, 2020 10:44
[2020-12-05 11:25] VITALS: BP 132/63
--- NOTE | 2020-12-05 13:00 | Progress Note - Hospitalist ---
Subjective HPI/CC On Admission Date Seen by Provider: Dec 05, 2020 Time Seen by Provider: 11:10 Andria Jorgensen is an 85 year old female with PMH HTN, HLD, GERD, who presented with abdominal pain. She reports that she has been having cramping. She has also had associated nausea and bilious vomiting. She has not had a bowel movement sunday. She has not been passing gas. She normally has a bowel movement every day. She denies fevers but has had chills. She denies chest pain and palpitations. She denies shortness of breath and cough. She denies dysuria. She has a history of a cholecystectomy about 30 years ago. Subjective/Events-last exam She is doing better today. She is not having any nausea or vomiting. She is having bowel movements. She reportedly cut several of her wires with scissors last night. She does not remember the episode. Objective Exam Vital Signs Vital Signs Date Time Temp Pulse Resp B/P (MAP) Pulse Ox O2 Delivery O2 Flow Rate FiO2 12/05/20 12:49 56 12/05/20 11:25 36.4 24 132/63 (86) 98 Room Air Capillary Refill : Less Than 3 Seconds General Appearance: No Apparent Distress, WD/WN Respiratory: Lungs Clear, Normal Breath Sounds, No Respiratory Distress Cardiovascular: Regular Rate, Rhythm, No Edema, No Murmur Gastrointestinal: Normal Bowel Sounds, Non Tender, Soft Extremity: Normal Inspection, Non Tender, No Pedal Edema Neurologic/Psychiatric: Alert, Oriented x3, No Motor/Sensory Deficits, Normal Mood/Affect Skin: Normal Color, Warm/Dry Results/Procedures Lab Laboratory Tests 12/05/20 05:38 Patient resulted labs reviewed. Imaging: Reviewed Imaging Report Assessment/Plan Assessment and Plan Assess & Plan/Chief Complaint Partial small bowel obstruction vs ileus History of cholecystectomy CT showed ileus vs parital small bowel obstruction Small bowel follow through without clear evidence of obstruction, possible ileus Surgery consulted, appreciate assistance Advance diet Antiemetics as needed NG tube removed Decrease IV fluids Ambulation PT/OT Chest pain Elevated troponin GERD Cardiology consulted, appreciate assistance Transitioned to oral Metoprolol Transition to oral Pantoprazole HTN HLD Insomnia Resume home meds DVT prophylaxis: Lovenox Nausea and vomiting, resolved Acute kidney injury, resolved Hypokalemia, resolved Diagnosis/Problems Diagnosis/Problems (1) Small bowel obstruction Status: Acute (2) Abdominal pain Status: Acute (3) Nausea and vomiting Status: Resolved Resolution Date/Time: 12/02/20 @ 12:57 (4) JAGRUTI (acute kidney injury) Status: Acute (5) HTN (hypertension) Status: Acute (6) Chest pain Status: Acute (7) GERD (gastroesophageal reflux disease) Status: Acute MILAGRO WATKINS MD Dec 05, 2020 13:00
[2020-12-05] MEDS ORDERED: ALPRAZolam 0.25 MG (XANAX) TAB PO PRN (13:15)
--- NOTE | 2020-12-05 15:19 | Progress Note - Cardiology ---
Cardiology SOAP Progress Note Subjective: No cp or palp or syncope or shortness of breath Continues to have diarrhea. Nausea and vomiting have improved Gen malaise and weakness present Objective: I&O/Vital Signs 12/05/20 12/05/20 12/05/20 12/05/20 03:54 08:07 08:15 11:25 Temp 36.8 36.6 36.4 Pulse 61 64 58 Resp 17 18 24 B/P (MAP) 149/65 (93) 136/62 (86) 132/63 (86) Pulse Ox 96 96 98 98 O2 Delivery Room Air Room Air Room Air Room Air 12/05/20 12:49 Pulse 56 12/05/20 00:00 Intake Total 1960 ml Output Total 500 ml Balance 1460 ml Constitutional: AAO x 3, well-developed, well-nourished Respiratory: No accessory muscle use, No respiratory distress; chest expansion is symmetric, chest is bilaterally symmetric, lungs clear to auscultation Cardiovascular: regular rate-rhythm; No JVD; S1 and S2 Gastrointestional: tender, soft; No guarding, No rebound Extremities: no lower extremity edema bilateral Neurologic/Psychiatric: grossly intact (moves all extremities) Skin: No rash on exposed areas, No ulcerations on exposed areas Results/Procedures: Labs Laboratory Tests 12/05/20 05:38: Sodium Level 137, Potassium Level 3.6, Chloride Level 103, Carbon Dioxide Level 23, Anion Gap 11, Blood Urea Nitrogen 16, Creatinine 0.87, Estimat Glomerular Filtration Rate > 60, BUN/Creatinine Ratio 18, Glucose Level 82, Calcium Level 8.0L, Magnesium Level 1.8 Microbiology 11/28/20 Blood Culture - Preliminary, Resulted No growth 11/28/20 Urine Culture - Final, Complete Laboratory Tests 12/04/20 05:43 12/05/20 05:38 A/P: Assessment: Chest pain of undetermined etiology - ACS vs acid reflux - Echo on 12/02/20: LVEF 55-60%, grade-1 diastolic dysfunction, mild AoV sclerosis, mild AI, PASP 25-30 mmHg SBO which is being managed by the Hospitalist services HTN HLD Hypokalemia likely secondary to vomiting/NG tube, improved Plan: Continue current cardiac regimen Monitor labs JESU RUSS MD FACP FAC CCDS Dec 05, 2020 15:19
[2020-12-05 16:00] VITALS: BP 133/60
[2020-12-05] MEDS: ENOXAPARIN 40 MG/0.4 ML (LOVENOX) SYR SC SCH (17:52)
[2020-12-05 19:23] VITALS: BP 134/61
[2020-12-05] MEDS: GEMFIBROZIL 600 MG (LOPID) TAB PO SCH (20:35)
[2020-12-06 00:04] VITALS: BP 150/73
[2020-12-06 03:58] VITALS: BP 154/63
[2020-12-06 05:19] LABS: CHLORIDE 104 MMOL/L (98-107); POTASSIUM 3.6 MMOL/L (3.6-5.0); SODIUM 138 MMOL/L (135-145)
[2020-12-06 05:20] LABS: CALCIUM 8.2 MG/DL (8.5-10.1); GLUCOSE 91 MG/DL (70-105)
[2020-12-06 05:22] LABS: CARBON DIOXIDE 23 MMOL/L (21-32)
[2020-12-06 05:24] LABS: CREATININE SERUM 0.87 MG/DL (0.60-1.30); GFR ESTIMATED > 60
[2020-12-06] MEDS: POTASSIUM CL 10MEQ/50ML IVPB 50 ML IV SCH (05:24)
[2020-12-06] MEDS: KCL 20 MEQ TAB (K-DUR) PO SCH (05:24)
[2020-12-06 05:25] LABS: BUN/CREATININE RATIO 14
[2020-12-06 05:26] LABS: MAGNESIUM 1.6 MG/DL (1.6-2.4)
[2020-12-06] MEDS: MAGNESIUM 1 GM/100 ML IVPB 100 ML IV SCH ×3 (05:27→06:50)
[2020-12-06] MEDS ORDERED: KCL 20 MEQ TAB (K-DUR) PO ONE (08:00)
[2020-12-06 08:30] VITALS: BP 128/58
[2020-12-06] MEDS: GEMFIBROZIL 600 MG (LOPID) TAB PO SCH (08:33)
[2020-12-06] MEDS: meTOprolol SUCCINATE 100 MG (TOPROL XL) TAB PO SCH (08:33)
[2020-12-06] MEDS: ASPIRIN 81 MG CHEW (CHILDREN'S ASA) PO SCH (08:33)
[2020-12-06] MEDS ORDERED: lisINopril 10 MG (PRINIVIL) TABLET PO SCH (09:00)
[2020-12-06] MEDS ORDERED: PANTOPRAZOLE 40 MG (PROTONIX) TAB PO SCH (09:00)
[2020-12-06] MEDS: LACTATED RINGERS 1,000 ML IV SCH (09:40)
[2020-12-06] MEDS ORDERED: MTP100TCR PO (10:58)
--- NOTE | 2020-12-06 10:59 | Discharge Inst-Simple/Standard ---
Discharge Inst-Standard Discharge Medications New, Converted or Re-Newed RX: Transmitted to Pharmacy Patient Instructions/Follow Up Plan of Care/Instructions/FU: Please continue to take your medications as written. Please follow up with your primary care doctor to follow up this hospital stay. Activity as Tolerated: Yes Discharge Diet: No Restrictions Return to The Hospital For: Chest pain, shortness of breath, abdominal pain, nausea, vomiting, constipation, if you feel you are getting worse. GISEL SPENCE MD Dec 06, 2020 10:59
--- NOTE | 2020-12-06 11:03 | Discharge Summary ---
Diagnosis/Chief Complaint Date of Admission Dec 01, 2020 at 11:45 Date of Discharge Discharge Date: Dec 06, 2020 Admission Diagnosis Abdominal pain Primary Care Keyon Rawls MD Discharge Diagnosis (1) Small bowel obstruction Status: Acute (2) Abdominal pain Status: Acute (3) Nausea and vomiting Status: Resolved (4) JAGRUTI (acute kidney injury) Status: Acute (5) HTN (hypertension) Status: Acute (6) Chest pain Status: Acute (7) GERD (gastroesophageal reflux disease) Status: Acute Discharge Summary Discharge Physical Exam Allergies: Coded Allergies: No Known Drug Allergies (Unverified , 11/28/20) Vitals & I&Os Vital Signs Date Time Temp Pulse Resp B/P (MAP) Pulse Ox O2 Delivery O2 Flow Rate FiO2 12/06/20 12:43 36.4 73 19 128/69 97 Room Air General Appearance: No Apparent Distress, WD/WN Respiratory: Lungs Clear, No Respiratory Distress Cardiovascular: Regular Rate, Rhythm, No Murmur Neurologic/Psychiatric: Alert, Oriented x3 Hospital Course Pt was admitted due to partial small bowel obstruction and ileus. She had a slow recovery but an uneventful hospital stay. She was able to tolerate an advanced diet by discharge and having bowel movements. She was seen by surgery who will follow her as an outpatient. She also had a mildly elevated troponin and was seen by cardiology. Medical management was recommended and she is to follow up as an outpatient as well. She was discharged home at her request in stable and improved condition. Labs (last 24 hrs) Laboratory Tests 12/06/20 04:56: Sodium Level 138, Potassium Level 3.6, Chloride Level 104, Carbon Dioxide Level 23, Anion Gap 11, Blood Urea Nitrogen 12, Creatinine 0.87, Estimat Glomerular Filtration Rate > 60, BUN/Creatinine Ratio 14, Glucose Level 91, Calcium Level 8.2L, Magnesium Level 1.6 Microbiology 11/28/20 Blood Culture - Preliminary, Resulted No growth 11/28/20 Urine Culture - Final, Complete Patient resulted labs reviewed. Pending Labs Imaging: Reviewed Imaging Report Discussion & Recommendations Discharge Planning: >30 minutes discharge planning Discharge Home Medications: Active Scripts Active Metoprolol Succinate 100 Mg Tab.er.24h 100 Mg PO DAILY Reported Pepcid AC (Famotidine) 10 Mg Tablet 10 Mg PO DAILY PRN Aspirin EC (Aspirin) 81 Mg Tablet.dr 81 Mg PO DAILY Gemfibrozil 600 Mg Tablet 600 Mg PO BID Alprazolam 0.5 Mg Tablet 0.25-0.5 Mg PO HS PRN TAKES -1 (0.5MG) TABLET Lisinopril 10 Mg Tablet 10 Mg PO DAILY Ondansetron Odt (Ondansetron) 4 Mg Tab.rapdis 4 Mg PO TID PRN Dicyclomine HCl 20 Mg Tablet 20 Mg PO TID STARTED TAKING 11/26/20 #42 14 DAY SUPPLY Instructions to patient/family Please see electronic discharge instructions given to patient. Copy Copies To 1: KEYON RAWLS MD, KATELYN M MD Dec 06, 2020 11:03
[2020-12-06 11:55] VITALS: BP 128/69
[2020-12-06 12:43] VITALS: BP 128/69
--- NOTE | 2020-12-06 12:48 | Progress Note - Cardiology ---
Cardiology SOAP Progress Note Subjective: No shortness of breath No cp or palp or syncope No n/v/d No focal weakness No swelling Objective: I&O/Vital Signs 12/06/20 12/06/20 12/06/20 12/06/20 01:00 03:58 07:00 08:00 Temp 36.6 Pulse 72 68 57 Resp 19 B/P (MAP) 154/63 (93) Pulse Ox 98 97 O2 Delivery Room Air Room Air 12/06/20 12/06/20 08:30 11:55 Temp 36.1 36.4 Pulse 76 73 Resp 19 19 B/P (MAP) 128/58 (81) 128/69 (88) Pulse Ox 97 97 O2 Delivery Room Air Room Air 12/06/20 00:00 Intake Total 1760 ml Output Total 200 ml Balance 1560 ml Constitutional: AAO x 3, well-developed, well-nourished Respiratory: No accessory muscle use, No respiratory distress; chest expansion is symmetric, chest is bilaterally symmetric, lungs clear to auscultation Cardiovascular: regular rate-rhythm; No JVD; S1 and S2 Gastrointestional: tender, soft; No guarding, No rebound Extremities: no lower extremity edema bilateral Neurologic/Psychiatric: grossly intact (moves all extremities) Skin: No rash on exposed areas, No ulcerations on exposed areas Results/Procedures: Labs Laboratory Tests 12/06/20 04:56: Sodium Level 138, Potassium Level 3.6, Chloride Level 104, Carbon Dioxide Level 23, Anion Gap 11, Blood Urea Nitrogen 12, Creatinine 0.87, Estimat Glomerular Filtration Rate > 60, BUN/Creatinine Ratio 14, Glucose Level 91, Calcium Level 8.2L, Magnesium Level 1.6 Microbiology 11/28/20 Blood Culture - Preliminary, Resulted No growth 11/28/20 Urine Culture - Final, Complete Laboratory Tests 12/05/20 05:38 12/06/20 04:56 A/P: Assessment: Chest pain of undetermined etiology - ACS vs acid reflux - Echo on 12/02/20: LVEF 55-60%, grade-1 diastolic dysfunction, mild AoV sclerosis, mild AI, PASP 25-30 mmHg Minimal troponin elevation probably due to a small NSTEMI, treated conservatively with good results SBO which is being managed by the Hospitalist services HTN HLD Hypokalemia likely secondary to vomiting/NG tube, improved Plan: Continue current cardiac regimen Monitor labs Outpt f/u advised I discussed her case with Dr Chatterjee of the Hospitalist svce this am JESU RUSS MD FACP FAC CCDS Dec 06, 2020 12:47
== END 2020-12-06 13:00 | DRG 388 ==
LOC: EDUNIT# 13:57 → ER FS 14:01 → 4TH 18:31 → OBSVTOIN 12-01 11:45
PROVIDERS: ADMIT Family Medicine; ATTEND Internal Medicine
PROC: 0D9670Z Drainage of Stomach with Drainage Device, Via Natural or Artificial Opening (ICD-10-PCS; principal; 2020-11-30)
DX: K56.600 Partial intestinal obstruction, unspecified as to cause (principal); I21.4 Non-ST elevation (NSTEMI) myocardial infarction; N17.9 Acute kidney failure, unspecified; K56.7 Ileus, unspecified; I10 Essential (primary) hypertension; R07.9 Chest pain, unspecified; I48.91 Unspecified atrial fibrillation; E87.6 Hypokalemia; I35.8 Other nonrheumatic aortic valve disorders; E78.00 Pure hypercholesterolemia, unspecified; E78.5 Hyperlipidemia, unspecified; K21.9 Gastro-esophageal reflux disease without esophagitis; G47.00 Insomnia, unspecified; Z79.82 Long term (current) use of aspirin
CPT/HCPCS: 36415; 71045; 74177; 74250; 80048; 80053; 81000; 83605; 83735; 84484; 85025; 85027; 87040; 87088; 93005; 93306; G0378

== ENCOUNTER → 2020-12-17 | Outpatient (CLI) | payer MEDICARE ==
[~2020-12-17] MED LIST: ALPR0.5T7 PO; ASPI-1238 PO; DICY20TA10 PO; FAMO10TA43 PO; GEMF600T88 PO; LISI10TA25 PO; MTP100TCR PO; ONDA4TAB11 PO
== END ==
LOC: PVFS 14:08
PROVIDERS: ATTEND Surgery
DX: R19.7 Diarrhea, unspecified (principal)
CPT/HCPCS: 87015; 87045; 87046; 87899

== ENCOUNTER 2021-01-03 05:39 | Outpatient (CLI) | payer MEDICARE ==
[~2021-01-03] VITALS: Ht 162.6 cm; Wt 72.1 kg
[2021-01-03] MEDS ORDERED: ASCO500C17 PO (15:19)
[2021-01-03] MEDS ORDERED: ESTR0.3T PO (15:19)
[2021-01-03] MEDS ORDERED: LISI10TA25 PO (15:19)
== END 2021-01-03 15:58 | disposition home or self-care (01) ==
LOC: PREOP 05:39
PROVIDERS: ATTEND Surgery
DX: Z01.818 Encounter for other preprocedural examination (principal)

== ENCOUNTER 2021-01-10 09:53 | Day surgery (SDC) | payer MEDICARE, OTHER ==
[~2021-01-10] VITALS: Ht 163 cm; Wt 72.0 kg
[~2021-01-10 09:53] MED LIST changes: +ASCO500C17 PO; +ESTR0.3T PO
[2021-01-10] MEDS ORDERED: LACTATED RINGERS 1,000 ML IV ONE (10:00)
[2021-01-10] MEDS ORDERED: LACTATED RINGERS 1,000 ML IV STA (10:04)
[2021-01-10] MEDS ORDERED: HURRICAINE EXT TUBE (BENZOCAINE) XX PRN (10:15)
[2021-01-10 10:23] VITALS: BP 188/83
--- NOTE | 2021-01-10 10:29 | Progress Note-Pre Operative ---
Pre-Operative Progress Note H&P Reviewed The H&P was reviewed, patient examined and no changes noted. Time Seen by Provider: 10: Date H&P Reviewed: Jan 10, 2021 Time H&P Reviewed: 10: Pre-Operative Diagnosis: Abd pain, ?duodenal obst, diarrhea DERECK BUTLER DO Jan 10, 2021 10:29
[2021-01-10] MEDS ORDERED: proPOfol 200 MG/20 ML (DIPRIVAN) VIAL IV ONE (10:51)
[2021-01-10 11:10] VITALS: BP 117/59
[2021-01-10 11:15] VITALS: BP_SYST 107; BP_SYST 138; BP_DIAS 59; BP_DIAS 92
--- NOTE | 2021-01-10 11:15 | Progress Note-Post Operative ---
Post-Operative Progess Note Surgeon (s)/Fertilizer Applicator (s) Surgeon DERECK BUTLER DO Fertilizer Applicator: none Pre-Operative Diagnosis Abd pain, ?duodenal obst, diarrhea Post-Operative Diagnosis Gastritis Hiatal Hernia Procedure & Operative Findings Date of Procedure 01/10/21 Procedure Performed/Findings EGD with bx PROCEDURE NOTE: After informed consent was obtained, the patient was brought to the endoscopy suite, placed in bed in left lateral decubitus position. She was administered IV sedation by the FREELANCE PROGRAMMER/APP DEVELOPER who then monitored vitals the entire time, heart rate, blood pressure and pulse ox and the scope was inserted down the mouth through the esophagus into the stomach. On the way down, did not see any esophagitis and pushed into the stomach. Pushed past the antrum into the duodenum. I believe I got to at least the third portion, I had the scope buried as deep as it would go. I did not see any strictures or masses. Pulled back and did a biopsy of antrum, then retroflexed the scope, saw large hiatal hernia, took a picture of this and then pulled the scope into the GE junction, took another picture of the hiatal hernia and then did a biopsy of the GE junction. I did not see any changes of Z-line at the GE junction. Pushed the scope back into the stomach, suctioned all the air out of the stomach. At this point pulled the scope up the esophagus and out the mouth. The patient tolerated the procedure, and she recovered in endoscopy suite. Anesthesia Type IV sedation by anesthesia Estimated Blood Loss Estimated blood loss (mL): scant Specimens/Packing Specimens Removed antral bx GE jxn bx DERECK BUTLER DO Jan 10, 2021 11:15
--- NOTE | 2021-01-10 11:16 | Endoscopy Discharge Instruct ---
Endo Procedure/Findings Findings 1.: Gastritis 2.: Hiatal Hernia Discharge Instructions - Activity: You might feel a little sleepy until tomorrow. This is due to the medicine you received to relax you. Until tomorrow, you should: NOT drive a car, operate machinery or power tools. NOT drink any alcoholic beverages. NOT make any important decisions or sign importortant papers. Do not return to work until tomorrow, unless otherwise instructed. Resume previous activities tomorrow. Diet: Start by taking liquids. If you tolerate liquids, advance to solid food. 1.: EGD in 3 years Notify Physician - If you experience excessive bleeding, unusual abdominal pain, fever, or chest pain, contact your doctor immediately. DERECK BUTLER DO Jan 10, 2021 11:16
[2021-01-10 11:52] VITALS: BP 107/59
--- NOTE | 2021-01-10 15:17 | Anesthesia-General Post-Op ---
MAC Patient Condition Mental Status/LOC: Same as Preop Cardiovascular: Satisfactory Nausea/Vomiting: Absent Respiratory: Satisfactory Pain: Controlled Complications: Absent Post Op Complications Complications None Follow Up Care/Instructions Patient Instructions None needed. Anesthesiology Discharge Order Discharge Order Patient was seen after the procedure and she was doing well, no complaints, stable vital signs, no apparent adverse anesthesia problems. CARLOS SETHI DO Jan 10, 2021 15:17
== END 2021-01-10 11:50 | disposition home or self-care (01) ==
LOC: ENDO 09:53
PROVIDERS: ATTEND Surgery
DX: K29.70 Gastritis, unspecified, without bleeding (principal); K31.7 Polyp of stomach and duodenum; K20.90 Esophagitis, unspecified without bleeding; K44.9 Diaphragmatic hernia without obstruction or gangrene; K52.9 Noninfective gastroenteritis and colitis, unspecified; I10 Essential (primary) hypertension; E78.5 Hyperlipidemia, unspecified; F41.9 Anxiety disorder, unspecified; Z79.82 Long term (current) use of aspirin; Z90.49 Acquired absence of other specified parts of digestive tract; Z79.899 Other long term (current) drug therapy; Z90.710 Acquired absence of both cervix and uterus
CPT/HCPCS: 88305

== ENCOUNTER 2021-01-27 19:31 | Inpatient (IN) | payer MEDICARE ==
[~2021-01-27] VITALS: Ht 162.6 cm; Wt 67.9 kg
[2021-01-27] MEDS ORDERED: ONDANSETRON 4 MG/2 ML (SDV) Z0FRAN IVP ONE (20:00)
[2021-01-27] MEDS ORDERED: HOLD METFORMIN - RECEIVED CONTRAST 20 ML VIAL IV SCH (20:00)
[2021-01-27] MEDS ORDERED: IOHEXOL 350 MG/ML 100 ML (OMNIPAQUE 350) VIAL IV ONE (20:00)
[2021-01-27] MEDS ORDERED: NS 100 ML (IVPB) BAG IV ONE (20:00)
[2021-01-27] MEDS ORDERED: ANTACID SUSP 30 ML UDC (MYLANTA) PO ONE (20:00)
--- NOTE | 2021-01-27 20:14 | ED Abdominal Pain ---
General Chief Complaint: Abdominal/GI Problems Stated Complaint: ILEUS Nursing Triage Note: PT AMBULATE TO ROOM FS01 WITH C/O ABDPAIN AND LIQUID STOOLS. Source of Information: Patient, Family Exam Limitations: No Limitations History of Present Illness Date Seen by Provider: Jan 27, 2021 Time Seen by Provider: 20:35 Initial Comments 85-year-old female with past medical history of HTN, HLD, GERD, and recent hospitalization at the end of November for potential bowel obstruction coming in due to central abdominal cramping that is severe and constant. Has been worsening over the past couple days. Had diarrhea roughly 3 days ago and now has not had a bowel movement for 2 days. She also states she is not passing flatus for the past 2 days. Has some nausea that started just prior to arrival but no vomiting yet. This pain feels similar to when the last time she was admitted she states but she has not vomiting as much. Denies any fever, chest pain, shortness of breath, dysuria, weakness, numbness, or any other concerns. Of note, previous abdominal surgical history of open cholecystectomy and hysterectomy. Allergies and Home Medications Allergies Coded Allergies: No Known Drug Allergies (Unverified , 11/28/20) Home Medications Alprazolam 0.5 Mg Tablet, 0.25-0.5 MG PO HS PRN for SLEEP, (Reported) TAKES -1 (0.5MG) TABLET Ascorbic Acid 500 Mg Capsule, 500 MG PO DAILY, (Reported) Aspirin 81 Mg Tablet.dr, 81 MG PO DAILY, (Reported) Estrogens, Conjugated 0.3 Mg Tablet, 0.3 MG PO DAILY, (Reported) Gemfibrozil 600 Mg Tablet, 600 MG PO BID, (Reported) Lisinopril 10 Mg Tablet, 10 MG PO DAILY, (Reported) Patient Home Medication List Home Medication List Reviewed: Yes Review of Systems Review of Systems Constitutional: No fever EENTM: No Blurred Vision Respiratory: Denies Cough, Denies Shortness of Air Cardiovascular: Denies Chest Pain Gastrointestinal: Abdomen Distended, Abdominal Pain, Constipated, Diarrhea, Nausea; Denies Vomiting Genitourinary: Denies Frequency Musculoskeletal: No back pain Skin: No rash Psychiatric/Neurological: Denies Anxiety, Denies Depressed Endocrine: No Symptoms Reported Hematologic/Lymphatic: No Symptoms Reported All Other Systems Reviewed Negative Unless Noted: Yes Past Pndesby-Bchpof-Aqzcqg Hx Patient Social History Tobacco Use?: No Smoking Status: Never a Smoker Substance use?: No Alcohol Use?: No Pt feels they are or have been: No Seasonal Allergies Seasonal Allergies: No Past Medical History Surgeries: Yes (BILAT. 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 oz. kg; 25.00 BMI Method: General Appearance: WD/WN, no apparent distress HEENT: PERRL/EOMI, normal ENT inspection, pharynx normal Neck: non-tender, full range of motion, supple, normal inspection Respiratory: chest non-tender, lungs clear, normal breath sounds, no respiratory distress, no accessory muscle use Cardiovascular: regular rate, rhythm, no edema, no murmur Gastrointestinal: soft; No distended, No guarding, No rebound; tenderness (Tender mostly periumbilical and left lower quadrant, hypoactive but present bowel sounds) Extremities: non-tender, normal inspection, normal capillary refill Back: normal inspection Neurologic/Psychiatric: no motor/sensory deficits, alert, normal mood/affect Skin: normal color, warm/dry Lymphatic: no adenopathy Focused Exam Lactate Level 01/27/21 20:20: Lactic Acid Level 0.96 Lactic Acid Level Laboratory Tests Test 01/27/21 20:20 Lactic Acid Level 0.96 MMOL/L (0.50-2.00) Progress/Results/Core Measures Results/Orders Lab Results Laboratory Tests Test 01/27/21 20:00 01/27/21 20:20 01/27/21 21:35 Range/Units White Blood Count 11.8 H 4.3-11.0 10^3/uL Red Blood Count 3.95 3.80-5.11 10^6/uL Hemoglobin 11.6 11.5-16.0 g/dL Hematocrit 35 35-52 % Mean Corpuscular Volume 89 80-99 fL Mean Corpuscular Hemoglobin 29 25-34 pg Mean Corpuscular Hemoglobin Concent 33 32-36 g/dL Red Cell Distribution Width 13.0 10.0-14.5 % Platelet Count 318 130-400 10^3/uL Mean Platelet Volume 10.0 9.0-12.2 fL Immature Granulocyte % (Auto) 0 % Neutrophils (%) (Auto) 82 H 42-75 % Lymphocytes (%) (Auto) 14 12-44 % Monocytes (%) (Auto) 4 0-12 % Eosinophils (%) (Auto) 0 0-10 % Basophils (%) (Auto) 0 0-10 % Neutrophils # (Auto) 9.6 H 1.8-7.8 X 10^3 Lymphocytes # (Auto) 1.6 1.0-4.0 X 10^3 Monocytes # (Auto) 0.5 0.0-1.0 X 10^3 Eosinophils # (Auto) 0.0 0.0-0.3 10^3/uL Basophils # (Auto) 0.0 0.0-0.1 10^3/uL Immature Granulocyte # (Auto) 0.1 0.0-0.1 10^3/uL Sodium Level 140 135-145 MMOL/L Potassium Level 4.1 3.6-5.0 MMOL/L Chloride Level 104 98-107 MMOL/L Carbon Dioxide Level 23 21-32 MMOL/L Anion Gap 13 5-14 MMOL/L Blood Urea Nitrogen 22 H 7-18 MG/DL Creatinine 1.18 0.60-1.30 MG/DL Estimat Glomerular Filtration Rate 43 BUN/Creatinine Ratio 19 Glucose Level 147 H 70-105 MG/DL Calcium Level 10.4 H 8.5-10.1 MG/DL Corrected Calcium 10.2 H 8.5-10.1 MG/DL Total Bilirubin 0.4 0.1-1.0 MG/DL Aspartate Amino Transf (AST/SGOT) 12 5-34 U/L Alanine Aminotransferase (ALT/SGPT) 5 0-55 U/L Alkaline Phosphatase 59 40-136 U/L Total Protein 7.6 6.4-8.2 GM/DL Albumin 4.3 3.2-4.5 GM/DL Lipase 34 8-78 U/L Lactic Acid Level 0.96 0.50-2.00 MMOL/L My Orders Orders - IRIS PERLA MD Lactic Acid Analyzer (01/27/21 19:56) Comprehensive Metabolic Panel (01/27/21 19:56) Lipase (01/27/21 19:56) Ua Culture If Indicated (01/27/21 19:56) Ed Iv/Invasive Line Start (01/27/21 19:56) Cbc With Automated Diff (01/27/21 19:56) Ct Abdomen/Pelvis W (01/27/21 19:56) Ondansetron Injection (Zofran Injectio (01/27/21 20:00) Antacid Suspension (Mylanta Suspension (01/27/21 20:00) Iohexol Injection (Omnipaque 350 Mg/Ml 1 (01/27/21 20:00) Received Contrast (Hold Metformin- Contr (01/27/21 20:00) Ns (Ivpb) (Sodium Chloride 0.9% Ivpb Bag (01/27/21 20:00) Fentanyl Inj (Sublimaze Injection) (01/27/21 20:30) Lactated Ringers (Lr 1000 Ml Iv Solution (01/27/21 21:00) Medications Given in ED Current Medications Medications Dose Ordered Sig/Nicolas Route Start Time Stop Time Status Last Admin Dose Admin Al Hydrox/Mg Hydrox/Simethicone 30 ml ONCE ONCE PO 01/27/21 20:00 01/27/21 20:01 DC 01/27/21 20:05 30 ML Fentanyl Citrate 50 mcg ONCE ONCE IVP 01/27/21 20:30 01/27/21 20:31 DC 01/27/21 20:37 50 MCG Iohexol 100 ml ONCE ONCE IV 01/27/21 20:00 01/27/21 20:01 DC 01/27/21 21:09 75 ML Ondansetron HCl 4 mg ONCE ONCE IVP 01/27/21 20:00 01/27/21 20:01 DC 01/27/21 20:05 4 MG Sodium Chloride 100 ml ONCE ONCE IV 01/27/21 20:00 01/27/21 20:01 DC 01/27/21 21:09 100 ML Vital Signs/I&O 01/27/21 19:49 Temp 36.7 Pulse 81 Resp 18 B/P (MAP) 177/89 (118) O2 Delivery Room Air Blood Pressure Mean: 118 Progress Progress Note : Progress Note 85-year-old female with above history coming in due to abdominal pain, new nausea, no bowel movement in 2 days. ABCs were intact and vitals were stable on presentation although she is hypertensive. She has a tender abdomen but she has no signs of peritonitis. An IV was placed and she was given Zofran for her nausea and a trial of Maalox for pain. I reviewed her hospital stay extensively from November including her CT scan on November 28 showing concern for partial small bowel obstruction. She had a small bowel follow-through at that time which could also not rule out intermittent bowel obstruction. She had a consult with the surgeon and had an upper GI scope showing a hiatal hernia. She was in the hospital many days with an NG tube, and initially regained bowel function and improved and was discharged home. Here her labs are significant for normal lactate, normal white blood count, creatinine slightly elevated which is likely a mild JAGRUTI in the setting of her unable to keep anything down for the past couple days because of nausea. CT imaging concerning for possible proximal small bowel obstruction. I contacted Dr. Joseph at that time who will admit the patient as an inpatient to her service for further evaluation and management. I consulted Dr. Vidales as well and discussed with him the case tonight as well and he recommends an NG tube. Diagnostic Imaging Diagonstic Imaging: CT Plain Films/CT/US/NM/MRI: abdomen, pelvis Comments [facility], [place] NAME: BIJAN ROBLESMACIEL Khan [facility] REC#: [id number] PT STATUS: REG ER : 1935 PHYSICIAN: IRIS PERLA MD ADMIT DATE: 01/27/21/ER FS Draft Date of Exam:01/27/21 CT ABDOMEN/PELVIS W PROCEDURE: CT abdomen and pelvis with contrast. TECHNIQUE: Multiple contiguous axial images were obtained through the abdomen and pelvis after administration of intravenous contrast. Auto Exposure Controls were utilized during the CT exam to meet ALARA standards for radiation dose reduction. All CT scans use one or more of the following dose optimizing techniques: automated exposure control, MA and/or KvP adjustment based on patient size and exam type or iterative reconstruction. INDICATION: Periumbilical abdominal pain. Lung bases are clear. The stomach is distended. The small bowel is not dilated. There is diverticulosis of the colon and a moderate amount of retained fecal material. Liver is unremarkable. Gallbladder is surgically absent. Portal vein is patent. Spleen is not enlarged. Pancreas is normal. Right kidney is atrophied. Left kidney appears normal. There is tortuosity of the aorta. There is no intraperitoneal free air or free fluid. Uterus appears to be surgically absent. Urinary bladder is unremarkable. There is no hernia seen. IMPRESSION: There is a large amount of fluid retention in the stomach and duodenum. A proximal small bowel obstruction cannot be excluded. Dictated on workstation # [id number] Dict: 01/27/212136 Trans: 01/27/212142 [facility] [id number] Interpreted by: ANDRE WORKMAN MD Electronically signed by: Departure Impression Primary Impression: Partial small bowel obstruction Additional Impressions: JAGRUTI (acute kidney injury) Nausea and vomiting Qualified Codes: R11.2 - Nausea with vomiting, unspecified Disposition: 30 STILL A PATIENT Condition: Stable Admissions Decision to Admit Reason: Admit from ER (General) Decision to Admit/Date: Jan 27, 2021 Time/Decision to Admit Time: 22:04 Departure-Patient Inst. Referrals: KEYON RAWLS MD (PCP/Family) Primary Care Physician IRIS PERLA MD Jan 27, 2021 20:14
[2021-01-27 20:24] LABS: HEMATOCRIT 35 % (35-52); HEMOGLOBIN 11.6 g/dL (11.5-16.0); LYMPHOCYTES % (AUTO) 14 % (12-44); MEAN CORPUSCULAR HEMOGLOBIN 29 pg (25-34); MEAN CORPUSCULAR HGB CONC 33 g/dL (32-36); MEAN CORPUSCULAR VOLUME 89 fL (80-99); MONOCYTES % (AUTO) 4 % (0-12); PLATELET COUNT 318 10^3/uL (130-400); WHITE BLOOD COUNT 11.8 10^3/uL (4.3-11.0)
[2021-01-27 20:25] LABS: BASOPHILS % (AUTO) 0 % (0-10); EOSINOPHILS % (AUTO) 0 % (0-10); LYMPHOCYTES # (AUTO) 1.6 X 10^3 (1.0-4.0); MONOCYTES # (AUTO) 0.5 X 10^3 (0.0-1.0); NEUTROPHILS # (AUTO) 9.6 X 10^3 (1.8-7.8); NEUTROPHILS % (AUTO) 82 % (42-75)
[2021-01-27] MEDS ORDERED: fentaNYL INJ 100 MCG/2 ML AMP IVP ONE (20:30)
[2021-01-27 20:38] LABS: POTASSIUM 4.1 MMOL/L (3.6-5.0)
[2021-01-27 20:39] LABS: ALBUMIN 4.3 GM/DL (3.2-4.5); BILIRUBIN,TOTAL 0.4 MG/DL (0.1-1.0); CALCIUM 10.4 MG/DL (8.5-10.1); CREATININE SERUM 1.18 MG/DL (0.60-1.30); TOTAL PROTEIN 7.6 GM/DL (6.4-8.2)
[2021-01-27] MEDS ORDERED: LACTATED RINGERS 1,000 ML IV SCH (21:00)
--- NOTE | 2021-01-27 21:43 | Diagnostic Imaging Report ---
PROCEDURE: CT abdomen and pelvis with contrast. TECHNIQUE: Multiple contiguous axial images were obtained through the abdomen and pelvis after administration of intravenous contrast. Auto Exposure Controls were utilized during the CT exam to meet ALARA standards for radiation dose reduction. All CT scans use one or more of the following dose optimizing techniques: automated exposure control, MA and/or KvP adjustment based on patient size and exam type or iterative reconstruction. INDICATION: Periumbilical abdominal pain. Lung bases are clear. The stomach is distended. The small bowel is not dilated. There is diverticulosis of the colon and a moderate amount of retained fecal material. Liver is unremarkable. Gallbladder is surgically absent. Portal vein is patent. Spleen is not enlarged. Pancreas is normal. Right kidney is atrophied. Left kidney appears normal. There is tortuosity of the aorta. There is no intraperitoneal free air or free fluid. Uterus appears to be surgically absent. Urinary bladder is unremarkable. There is no hernia seen. IMPRESSION: There is a large amount of fluid retention in the stomach and duodenum. A proximal small bowel obstruction cannot be excluded. Dictated by: Dictated on workstation # [id number]
[2021-01-27 22:03] LABS: CLARITY,URINE SL CLOUDY; COLOR,URINE YELLOW; GLUCOSE, URINE (UA) NEGATIVE (NEGATIVE); KETONES,URINE NEGATIVE (NEGATIVE); PROTEIN,URINE NEGATIVE (NEGATIVE)
[2021-01-27 22:04] LABS: BACTERIA,URINE TRACE /HPF; BILIRUBIN,URINE NEGATIVE (NEGATIVE); LEUKOCYTE ESTERASE ,URINE TRACE (NEGATIVE); NITRITE,URINE NEGATIVE (NEGATIVE); RBC,URINE 0-2 /HPF; WBC,URINE 0-2 /HPF
[2021-01-27] MEDS ORDERED: PROMETHAZINE INJ 25 MG/ML (PHENERGAN) AMP IVP ONE (22:30)
[2021-01-28] VITALS (8 sets, daily range): BP systolic 122–177; BP diastolic 64–89
[2021-01-28] MEDS ORDERED: LACTATED RINGERS 1,000 ML IV ONE (01:05)
[2021-01-28] MEDS ORDERED: LACTATED RINGERS 1,000 ML IV SCH (01:15)
[2021-01-28] MEDS ORDERED: RT-ALBUTEROL SULF 2.5 MG/3 ML PRE-MIX VIAL INH PRN (01:45)
[2021-01-28 06:25] LABS: POTASSIUM 3.7 MMOL/L (3.6-5.0)
[2021-01-28 06:26] LABS: CALCIUM 10.1 MG/DL (8.5-10.1)
[2021-01-28 06:30] LABS: CREATININE SERUM 1.13 MG/DL (0.60-1.30)
--- NOTE | 2021-01-28 09:20 | Consultation - Surgery ---
BOBBI LABOY 01/28/21 0920: History of Present Illness History of Present Illness Patient Consulted On(richie/time) 01/28/21 09:15 Date Seen by Provider: Jan 28, 2021 Time Seen by Provider: 07:26 History of Present Illness Previous HPI from ED - 85-year-old female with past medical history of HTN, HLD, GERD, and recent hospitalization at the end of November for potential bowel obstruction coming in due to central abdominal cramping that is severe and constant. Has been worsening over the past couple days. Had diarrhea roughly 3 days ago and now has not had a bowel movement for 2 days. She also states she is not passing flatus for the past 2 days. Has some nausea that started just prior to arrival but no vomiting yet. This pain feels similar to when the last time she was admitted she states but she has not vomiting as much. Denies any fever, chest pain, shortness of breath, dysuria, weakness, numbness, or any other concerns. Of note, previous abdominal surgical history of open cholecystectomy and hysterectomy. Today Pt is resting comfortably in bed and states that her abdominal pain has resolved (this had started yesterday, prompting her to seek medical attention) Pt noted diarrhea 2 days ago (which is uncommon for her), and no BM since then. Pt does confirm that her belly appears more distended than normal. Pt states that one large container was drained from NGT in [place] last night, and that one more was removed today. When I saw the pt there was 100ml of NGT suction fluid. CT imaging indicates fluid retention in stomach and duodenum. Complains that NG tube is causing her to gag. Allergies and Home Medications Allergies Coded Allergies: No Known Drug Allergies (Unverified , 11/28/20) Home Medications Alprazolam 0.5 Mg Tablet, 0.25-0.5 MG PO BID PRN for ANXIETY, (Reported) TAKES -1 (0.5MG) TABLET Last Action: Reviewed Ascorbic Acid 500 Mg Tablet.er, 500 MG PO DAILY, (Reported) Last Action: Reviewed Aspirin 81 Mg Tablet.dr, 81 MG PO DAILY, (Reported) Last Action: Reviewed Calcium Carbonate/Vitamin D3 1 Each Tab.chew, 1 EACH PO DAILY, (Reported) Last Action: Reviewed Dicyclomine HCl 20 Mg Tablet, 20 MG PO TID PRN for IBS SYMPTOMS- DIARRHEA,CRAMPING, (Reported) Last Action: Reviewed Estrogens, Conjugated 0.3 Mg Tablet, 0.3 MG PO DAILY, (Reported) Last Action: Reviewed Famotidine 10 Mg Tablet, 10 MG PO DAILY PRN for HEARTBURN, (Reported) Last Action: Reviewed Gemfibrozil 600 Mg Tablet, 600 MG PO BID, (Reported) Last Action: Reviewed Lisinopril 5 Mg Tablet, 5 MG PO DAILY, (Reported) Last Action: Reviewed Metoprolol Succinate 100 Mg Tab.er.24h, 100 MG PO DAILY, (Reported) HOLD FOR SBP <100 AND/OR PULSE<50 BPM- NOTIFY NURSE WHEN MED IS HELD Last Action: Reviewed Ondansetron 4 Mg Tab.rapdis, 4 MG PO TID PRN for NAUSEA/VOMITING-1ST LINE, (Reported) Last Action: Reviewed Past Mpxjytj-Iwpcao-Ngosyq Hx Patient Social History Smoking Status: Never a Smoker 2nd Hand Smoke Exposure: No Recent Hopitalizations: Yes (11/29) Alcohol Use?: No Have you traveled recently?: No Seasonal Allergies Seasonal Allergies: No Surgeries History of Surgeries: Yes (BILAT. 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 Genitourinary History of Genitourinary Disor: No Gastrointestinal History of Gastrointestinal Di: Yes Gastrointestinal Disorders: Obstructive Bowel, Gall Bladder Disease Musculoskeletal History of Musculoskeletal Dis: No Musculoskeletal Disorders: Arthritis, Fractures Endocrine History of Endocrine Disorders: No HEENT History of HEENT Disorders: Yes HEENT Disorders: Cataract Cancer History of Cancer: No Psychosocial History of Psychiatric Problem: No Integumentary History of Skin or Integumenta: No Blood Transfusions History of Blood Disorders: No Adverse Reaction to a Blood Tr: No Family Medical History Significant Family History: Heart Disease (Dad had CAD), Cancer, Diabetes, GI Disease (father had duodenal ulcer), Hypertension Review of Systems-General Constitutional: No chills, No diaphoresis, No dizziness, No fever, No malaise, No weakness, No weight gain, No weight loss EENTM: other (discomfort and gaging due to NGT); No ear discharge, No hearing loss, No ear pain, No blurred vision, No double vision, No eye pain, No tearing, No vision loss, No dental problems, No hoarseness, No mouth pain, No mouth swelling, No epistaxis, No nose congestion, No nose pain, No throat pain, No throat swelling Respiratory: No cough, No dyspnea on exertion, No hemoptysis, No orthopnea, No phlegm, No short of breath, No stridor, No wheezing Cardiovascular: No chest pain, No edema, No Hx of Intervention, No palpitations, No syncope, No vascular heart diseas Gastrointestinal: No RUQ, No LUQ, No RLQ, No LLQ, No abdominal pain; constipation, diarrhea (2 days ago); No dysphagia, No hematemesis, No heartburn, No jaundice, No loss of appetite, No melena; nausea, vomiting Genitourinary: No decreased output, No discharge, No dysuria, No frequency, No hematuria, No hesitancy, No incontinence, No nocturia, No pain Musculoskeletal: No back pain, No gout, No joint pain, No joint swelling, No muscle pain, No muscle stiffness, No muscle cramps, No muscle twitching, No muscle weakness, No neck pain Skin: No change in color, No change in hair/nails, No dryness, No lesions, No lumps, No pruritus, No rash Psychiatric/Neurological: Denies Anxiety, Denies Depressed, Denies Emotional Problems, Denies Headache, Denies Numbness, Denies Paresthesia, Denies Pre- Existing Deficit, Denies Seizure, Denies Tingling, Denies Tremors, Denies Weakness Physical Exam-General Problems Physical Exam Vital Signs Vital Signs - First Documented 01/27/21 01/27/21 01/28/21 19:49 23:31 01:36 Temp 36.7 Pulse 81 Resp 18 B/P (MAP) 177/89 (118) Pulse Ox 99 O2 Delivery Room Air FiO2 21 Capillary Refill : Less Than 3 Seconds General Appearance: WD/WN, no apparent distress Eyes: Bilateral Eye PERRL, Bilateral Eye EOMI HEENT: PERRL/EOMI, pharynx normal Neck: full range of motion, supple, normal inspection Respiratory: lungs clear, normal breath sounds, no respiratory distress, no accessory muscle use Cardiovascular: regular rate, rhythm, no gallop, no murmur Peripheral Pulses: 2+ Radial Pulses (R), 2+ Radial Pulses (L) Gastrointestinal: normal bowel sounds, non tender, soft, no organomegaly, no pulsatile mass, distended; No guarding, No tenderness Rectal: deferred Back: no CVA tenderness, no vertebral tenderness Extremities: normal range of motion, no calf tenderness, normal capillary refill, pedal edema (Pt states that right leg has always had more edema after ortho to right knee.) Neurologic/Psychiatric: crime specialist II-XII nml as tested, alert, normal mood/affect, oriented x 3 Reflexes: 2+ Bicep (R), 2+ Bicep (L) Skin: normal color, warm/dry Lymphatic: no adenopathy (cervical and axillary) Data Review Labs Laboratory Tests 01/27/21 20:00: White Blood Count 11.8H, Red Blood Count 3.95, Hemoglobin 11.6, Hematocrit 35, Mean Corpuscular Volume 89, Mean Corpuscular Hemoglobin 29, Mean Corpuscular Hem oglobin Concent 33, Red Cell Distribution Width 13.0, Platelet Count 318, Mean Platelet Volume 10.0, Immature Granulocyte % (Auto) 0, Neutrophils (%) (Auto) 82H, Lymphocytes (%) (Auto) 14, Monocytes (%) (Auto) 4, Eosinophils (%) (Auto) 0, Basophils (%) (Auto) 0, Neutrophils # (Auto) 9.6H, Lymphocytes # (Auto) 1.6, Monocytes # (Auto) 0.5, Eosinophils # (Auto) 0.0, Basophils # (Auto) 0.0, Immature Granulocyte # (Auto) 0.1, Sodium Level 140, Potassium Level 4.1, Chlori de Level 104, Carbon Dioxide Level 23, Anion Gap 13, Blood Urea Nitrogen 22H, Creatinine 1.18, Estimat Glomerular Filtration Rate 43, BUN/Creatinine Ratio 19, Glucose Level 147H, Calcium Level 10.4H, Corrected Calcium 10.2H, Total Bilirubin 0.4, Aspartate Amino Transf (AST/SGOT) 12, Alanine Aminotransferase (ALT/SGPT) 5, Alkaline Phosphatase 59, Total Protein 7.6, Albumin 4.3, Lipase 34 01/27/21 20:20: Lactic Acid Level 0.96 01/27/21 21:35: Urine Color YELLOW, Urine Clarity SL CLOUDY, Urine pH 6.0, Urine Specific Lyons 1.015L, Urine Protein NEGATIVE, Urine Glucose (UA) NEGATIVE, Urine Ketones NEGATIVE, Urine Nitrite NEGATIVE, Urine Bilirubin NEGATIVE, Urine Urobilinogen 0.2, Urine Leukocyte Esterase TRACEH, Urine RBC (Auto) NEGATIVE, Urine RBC 0-2, Urine WBC 0-2, Urine Squamous Epithelial Cells 10-25H, Urine Crystals NONE, Urine Bacteria TRACE, Urine Casts NONE, Urine Mucus NEGATIVE, Urine Culture Indicated NO 01/28/21 05:45: Sodium Level 142, Potassium Level 3.7, Chloride Level 105, Carbon Dioxide Level 25, Anion Gap 12, Blood Urea Nitrogen 17, Creatinine 1.13, Estimat Glomerular Filtration Rate 46, BUN/Creatinine Ratio 15, Glucose Level 100, Calcium Level 10.1 Assessment/Plan Assessment/Plan Assessment/Plan SBO - Pedal edema Plan - NPO, continue NGT suction, IV fluids, monitor for pain and elevated WBC, gastrografin contrast follow through study. DERECK BUTLER DO 01/28/21 1043: History of Present Illness History of Present Illness Time Seen by Provider: 09:41 History of Present Illness Surgery asked to consult regarding Abdominal distention, pain and obstipation. PSBO HPI: pt stated she was doing fine and then had some diarrhea which turned into nausea and "bloating". She thinks it is almost exactly like last time she was in hospital in November. This am she still has bloating, but is passing very, very small amounts of gas. Her biggest complaint is the NGT causing some gagging and in general just bothering her; "last time it didn't bother me". Allergies and Home Medications Allergies Coded Allergies: No Known Drug Allergies (Unverified , 11/28/20) Home Medications Alprazolam 0.5 Mg Tablet, 0.25-0.5 MG PO BID PRN for ANXIETY, (Reported) TAKES -1 (0.5MG) TABLET Last Action: Reviewed Ascorbic Acid 500 Mg Tablet.er, 500 MG PO DAILY, (Reported) Last Action: Reviewed Aspirin 81 Mg Tablet.dr, 81 MG PO DAILY, (Reported) Last Action: Reviewed Calcium Carbonate/Vitamin D3 1 Each Tab.chew, 1 EACH PO DAILY, (Reported) Last Action: Reviewed Dicyclomine HCl 20 Mg Tablet, 20 MG PO TID PRN for IBS SYMPTOMS- DIARRHEA,CRAMPING, (Reported) Last Action: Reviewed Estrogens, Conjugated 0.3 Mg Tablet, 0.3 MG PO DAILY, (Reported) Last Action: Reviewed Famotidine 10 Mg Tablet, 10 MG PO DAILY PRN for HEARTBURN, (Reported) Last Action: Reviewed Gemfibrozil 600 Mg Tablet, 600 MG PO BID, (Reported) Last Action: Reviewed Lisinopril 5 Mg Tablet, 5 MG PO DAILY, (Reported) Last Action: Reviewed Metoprolol Succinate 100 Mg Tab.er.24h, 100 MG PO DAILY, (Reported) HOLD FOR SBP <100 AND/OR PULSE<50 BPM- NOTIFY NURSE WHEN MED IS HELD Last Action: Reviewed Ondansetron 4 Mg Tab.rapdis, 4 MG PO TID PRN for NAUSEA/VOMITING-1ST LINE, (Reported) Last Action: Reviewed Patient Home Medication List Home Medication List Reviewed: Yes Past Iyydkly-Lantwy-Pzwtem Hx Patient Social History Smoking Status: Never a Smoker 2nd Hand Smoke Exposure: No Sexual Abuse: No Surgeries Surgeries: Gallbladder, Hysterectomy, Orthopedic Respiratory History of Respiratory Disorde: No Cardiovascular History of Cardiac Disorders: Yes Cardiac Disorders: High Cholesterol, Hypertension Neurological History of Neurological Disord: No Reproductive System Female Reproductive Disorders: Denies Genitourinary History of Genitourinary Disor: No Gastrointestinal History of Gastrointestinal Di: Yes Gastrointestinal Disorders: Obstructive Bowel, Gall Bladder Disease Musculoskeletal History of Musculoskeletal Dis: Yes Musculoskeletal Disorders: Arthritis, Fractures Endocrine History of Endocrine Disorders: No HEENT History of HEENT Disorders: Yes HEENT Disorders: Cataract Loss of Vision: Bilateral Hearing Impairment: Denies Cancer History of Cancer: No Psychosocial History of Psychiatric Problem: No Family Medical History Significant Family History: Heart Disease (Dad had CAD), Cancer, Diabetes, GI Disease (father had duodenal ulcer), Hypertension Review of Systems-General Constitutional: No chills, No diaphoresis, No dizziness, No fever EENTM: No ear discharge, No hearing loss, No ear pain, No blurred vision Respiratory: No cough, No dyspnea on exertion, No hemoptysis Cardiovascular: No chest pain, No palpitations Gastrointestinal: abdominal pain, constipation, diarrhea (2 days ago), nausea, vomiting Genitourinary: No dysuria, No frequency, No hematuria Musculoskeletal: No gout, No joint pain; joint swelling Skin: No change in color, No change in hair/nails Psychiatric/Neurological: Denies Emotional Problems, Denies Seizure, Denies Tremors Physical Exam-General Problems Physical Exam General Appearance: WD/WN, no apparent distress Eyes: Bilateral Eye PERRL, Bilateral Eye EOMI HEENT: pharynx normal; No scleral icterus (R), No scleral icterus (L) Neck: non-tender, supple Respiratory: lungs clear, normal breath sounds, no respiratory distress, no accessory muscle use Cardiovascular: regular rate, rhythm, no murmur Gastrointestinal: normal bowel sounds, no organomegaly, distended; No guarding; tenderness (with palpation) Rectal: deferred Back: no CVA tenderness, no vertebral tenderness Extremities: no calf tenderness, normal capillary refill, pedal edema (Pt states that right leg has always had more edema after ortho to right knee.) Neurologic/Psychiatric: crime specialist II-XII nml as tested, normal mood/affect, oriented x 3 Skin: normal color, warm/dry Lymphatic: no adenopathy (cervical and axillary) Data Review Radiology Date of Exam:01/27/21 CT ABDOMEN/PELVIS W PROCEDURE: CT abdomen and pelvis with contrast. TECHNIQUE: Multiple contiguous axial images were obtained through the abdomen and pelvis after administration of intravenous contrast. Auto Exposure Controls were utilized during the CT exam to meet ALARA standards for radiation dose reduction. All CT scans use one or more of the following dose optimizing techniques: automated exposure control, MA and/or KvP adjustment based on patient size and exam type or iterative reconstruction. INDICATION: Periumbilical abdominal pain. Lung bases are clear. The stomach is distended. The small bowel is not dilated. There is diverticulosis of the colon and a moderate amount of retained fecal material. Liver is unremarkable. Gallbladder is surgically absent. Portal vein is patent. Spleen is not enlarged. Pancreas is normal. Right kidney is atrophied. Left kidney appears normal. There is tortuosity of the aorta. There is no intraperitoneal free air or free fluid. Uterus appears to be surgically absent. Urinary bladder is unremarkable. There is no hernia seen. IMPRESSION: There is a large amount of fluid retention in the stomach and duodenum. A proximal small bowel obstruction cannot be excluded. Dictated by: Dictated on workstation # [id number] Dict: 01/27/212136 Trans: 01/27/212203 [facility] [id number] Interpreted by: ANDRE WORKMAN MD Electronically signed by: ANDRE WORKMAN MD 01/27/212203 Assessment/Plan Assessment/Plan Assessment/Plan PSBO Hx of HTN Plan - NPO, continue NGT suction, IV fluids, monitor for pain and elevated WBC, will order some lidocaine to swish and swallow. I discussed with pt her options: 1) non-operative management (like last visit) 2) Exploratory Laparotomy to look at the area where there appears to be some narrowing, possibly even from a band or something. I told her we wouldn't do surgery at least until her abdomen is less distended and she talks to her sons to discuss what they think is best course of action. May be able to start with Laparoscopy, but I have a high degree of suspicion that I would have to make bigger incision to see this area better and run the bowel. She understood and I told her she could talk to Dr. Hou who is covering me this weekend. All questions answered to her sati sfaction. Supervisory-Addendum Brief Verification & Attestation Participated in pt care: history, MDM, physical Personally performed: exam, history, MDM, supervision of care Care discussed with: Medical Student Procedures: n/a Verification and Attestation of Medical Student E/M Service A medical student performed and documented this service. I then reviewed and verified all information documented by the medical student and made modifications to such information, when appropriate. I personally performed a physical exam, medical decision making and then discussed any differences between the notes and made revisions as necessary to create one note. Dereck Butler , 01/28/21 , 11:01 BOBBI LABOY Jan 28, 2021 09:20 DERECK BUTLER DO Jan 28, 2021 10:43
[2021-01-28] MEDS ORDERED: CALC-857 PO (09:33)
[2021-01-28] MEDS ORDERED: ASCO-129 PO (09:33)
[2021-01-28] MEDS ORDERED: ONDA4TAB11 PO (09:33)
[2021-01-28] MEDS ORDERED: DICY20TA10 PO (09:33)
[2021-01-28] MEDS ORDERED: [UNRECOGNIZED DRUG - CODE] PO (09:33)
[2021-01-28] MEDS ORDERED: LISI-729 PO (09:33)
[2021-01-28] MEDS ORDERED: MTP100TCR PO (09:33)
[2021-01-28] MEDS: LIDOCAINE 2% VISCOUS 15 ML UDC PO SCH ×2 (12:44→17:45)
--- NOTE | 2021-01-28 13:07 | History & Physical-Hospitalist ---
EARLE MARKHAM 01/28/21 1307: History of Present Illness HPI/Chief Complaint Andria Jorgensen is a 85y/o F who presents with abdominal pain. Pt has a PMH of hospitalization for bowel obstruction November 2020. She reports that she began having abdominal pain 3 days ago. Says at that time she had diarrhea. Denies any hematochezia or coffee ground appearing stools. The pain then resolved before returning yesterday at around 10am. Reports that the pain was severe at that time and located mostly in the epigastric region. Says the pain was about a 9/10 at its worst. She tried to eat and drink but then began to vomit. Denies any hematemesis. The pain became so severe that she then was brought into the ER. CT scan was done that showed fluid accumulation in stomach and duodenum. Today pt reports that she is not having any episodes of nausea or vomiting. Says that her abdominal pain has greatly improved since the NG tube was placed. Has been able to pass gas since this morning. No BMs since her episode of diarrhea 3 days ago. Reports that her NG tube is causing her to gag. Source: patient Exam Limitations: no limitations Date Seen 01/28/21 Time Seen by a Provider: 08:32 Attending Physician Madie Joseph Katrina M MD Referring Physician Date of Admission Jan 28, 2021 at 00:18 Home Medications & Allergies Home Medications Reviewed patient Home Medication Reconciliation performed by pharmacy medication reconciliations entry level lab technician and/or nursing. Patients Allergies have been reviewed. Allergies Allergies Coded Allergies No Known Drug Allergies (Unverified11/28/20) Past Cfyyvtf-Jfapja-Lrrtpg Hx Patient Social History Tobacco Use?: No Smoking Status: Never a Smoker Smokeless Tobacco Frequency: Never a User Substance use?: No Alcohol Use?: No Pt feels they are or have been: No Immunizations Up To Date First/Initial COVID19 Vaccinat: June COVID19 Vaccination Jean-Paul: July Seasonal Allergies Seasonal Allergies: No Current Status status: No status: No Advance Directives: Yes Advance Directive Location: Family to bring in copy Communicates: Verbally Primary Language: Arabic Preferred Spoken Language: Arabic Is interpretation needed?: No Sensory deficits: Vision impairment Past Medical History Surgeries: Gallbladder, Hysterectomy, Orthopedic High Cholesterol, 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 Obstructive Bowel, Gall Bladder Disease Arthritis, Fractures Cataract Loss of Vision: Bilateral Hearing Impairment: Denies Blood Disorders: No Adverse Reaction/Blood Tranf: No Family Medical History Heart Disease (Dad had CAD), Cancer, Diabetes, GI Disease (father had duodenal ulcer), Hypertension Review of Systems Constitutional: No chills, No fever Respiratory: No cough, No short of breath Cardiovascular: No chest pain, No palpitations Gastrointestinal: see HPI Psychiatric/Neurological: Denies Headache, Denies Numbness, Denies Tingling Physical Exam Physical Exam Vital Signs Vital Signs - First Documented 01/27/21 01/27/21 01/28/21 19:49 23:31 01:36 Temp 36.7 Pulse 81 Resp 18 B/P (MAP) 177/89 (118) Pulse Ox 99 O2 Delivery Room Air FiO2 21 Capillary Refill : Less Than 3 Seconds Height, Weight, BMI Height: '" Weight: lbs. oz. kg; 25.68 BMI Method: General Appearance: No Apparent Distress, WD/WN Respiratory: Lungs Clear, Normal Breath Sounds Cardiovascular: Regular Rate, Rhythm, No Murmur Gastrointestinal: Normal Bowel Sounds, Soft, Tenderness (LUQ) Extremity: Non Tender, Pedal Edema Neurologic/Psychiatric: Alert, Normal Mood/Affect Skin: Normal Color, Warm/Dry Results Results/Procedures Labs Laboratory Tests 01/27/21 20:00 01/28/21 05:45 Patient resulted labs reviewed. Assessment/Plan Assessment and Plan Small bowel obstruction NPO IV lactated ringer's NG tube in place Continue current monitoring Pt is being followed by surgery Hyperlipidemia HTN MILAGRO WATKINS MD 01/28/21 1641: History of Present Illness Time Seen by a Provider: 10:35 Results Results/Procedures Imaging: Reviewed Imaging Report Assessment/Plan Admission Diagnosis Small bowel obstruction Admission Status: Inpatient Order (span 2 midnights) Reason for Inpatient Admission: Small bowel obstruction requiring medical and possible surgical intervention Assessment and Plan Admitted with recurrent small bowel obstruction. Continue medical management. Surgery consulted, considering possible surgical intervention. Diagnosis/Problems Diagnosis/Problems (1) Small bowel obstruction Status: Acute Supervisory-Addendum Brief Verification & Attestation Participated in pt care: history, MDM, physical Personally performed: exam, history, MDM, supervision of care Care discussed with: Medical Student Procedures: n/a Results interpretation: Verified all documentation A medical student performed and documented this service in my presence. I reviewed and verified all information documented by the medical student and made modifications to such information, when appropriate. I personally performed the physical exam and medical decision making. EARLE MARKHAM Jan 28, 2021 13:07 MILAGRO WATKINS MD Jan 28, 2021 16:41
[2021-01-28] MEDS: LACTATED RINGERS 1,000 ML IV SCH (20:59)
[2021-01-29 04:19] VITALS: BP 162/82
[2021-01-29] MEDS: LACTATED RINGERS 1,000 ML IV SCH ×3 (04:57→21:16)
[2021-01-29 05:34] LABS: BASOPHILS % (AUTO) 0 % (0-10); EOSINOPHILS # (AUTO) 0.1 10^3/uL (0.0-0.3); EOSINOPHILS % (AUTO) 2 % (0-10); HEMATOCRIT 35 % (35-52); HEMOGLOBIN 11.1 g/dL (11.5-16.0); LYMPHOCYTES # (AUTO) 1.7 10^3/uL (1.0-4.0); LYMPHOCYTES % (AUTO) 25 % (12-44); MEAN CORPUSCULAR HEMOGLOBIN 30 pg (25-34); MEAN CORPUSCULAR HGB CONC 32 g/dL (32-36); MEAN CORPUSCULAR VOLUME 94 fL (80-99); MEAN PLATELET VOLUME 10.1 fL (9.0-12.2); MONOCYTES # (AUTO) 0.6 10^3/uL (0.0-1.0); MONOCYTES % (AUTO) 9 % (0-12); NEUTROPHILS # (AUTO) 4.3 10^3/uL (1.8-7.8); NEUTROPHILS % (AUTO) 64 % (42-75); PLATELET COUNT 255 10^3/uL (130-400); WHITE BLOOD COUNT 6.7 10^3/uL (4.3-11.0)
[2021-01-29 05:47] LABS: POTASSIUM 3.2 MMOL/L (3.6-5.0)
[2021-01-29 05:48] LABS: CALCIUM 9.5 MG/DL (8.5-10.1)
[2021-01-29 05:53] LABS: CREATININE SERUM 1.01 MG/DL (0.60-1.30)
[2021-01-29] MEDS: LIDOCAINE 2% VISCOUS 15 ML UDC PO SCH ×3 (06:39→17:16)
[2021-01-29 08:09] VITALS: BP 146/88
--- NOTE | 2021-01-29 08:21 | Progress Note - Surgery ---
JEREMY ARITA 01/29/2121: Subjective Date Seen by a Provider: Jan 29, 2021 Time Seen by a Provider: 08:15 Subjective/Events-last exam Patient states she feels better today although the NG tube is uncomfortable. Patient has had no abdominal pain and her abdomen is not distended and is soft to palpation. Patient has not passed stool and has only passed minimal gas. Patient's WBC count is down today. Patient did discuss the possibility of surgery with her son and decided that if Dr. Vidales thought it best she would like to have the procedure done. Patient does state that when she lays flat the NG tube gives her an uncomfortable feeling in a band across her chest that goes away when she sits up. It started when they put the NG tube in. Patient denied lidocaine rinse because she could brush her teeth and that made them feel better. Patient wishes to have the NG tube removed as soon as possible because she would like to walk. Patient denies fever, chills, abdominal pain, N/V. Review of Systems General: No Chills, No Night Sweats HEENT: No Head Aches, No Dysphasia Pulmonary: No Dyspnea, No Cough Gastrointestinal: No: Nausea, Vomiting, Abdominal Pain Genitourinary: No Dysuria, No Incontinence Focused Exam Lactate Level 01/27/21 20:20: Lactic Acid Level 0.96 Objective Exam Vital Signs Date Time Temp Pulse Resp B/P (MAP) Pulse Ox O2 Delivery O2 Flow Rate FiO2 01/29/21 08:09 36.1 71 18 146/88 (107) 97 Room Air 01/29/21 08:00 Room Air 0.00 01/29/21 04:19 36.2 72 17 162/82 (108) 97 Room Air 01/28/21 23:47 36.4 82 16 136/84 (101) 97 Room Air 01/28/21 20:59 Room Air 01/28/21 19:07 36.8 70 16 122/72 (89) 95 Room Air 01/28/21 15:43 36.8 73 18 137/84 (101) 63 Room Air 01/28/21 12:00 36.6 71 20 145/77 (99) 98 Room Air I & O 01/29/21 07:00 Intake Total 4000 ml Output Total 1150 ml Balance 2850 ml Capillary Refill : Less Than 3 Seconds General Appearance: No Apparent Distress, WD/WN HEENT: PERRL/EOMI Neck: Non Tender Respiratory: Lungs Clear, Normal Breath Sounds Cardiovascular: Regular Rate, Rhythm, No Murmur, Normal Peripheral Pulses Peripheral Pulses: 2+ Radial Pulses (R), 2+ Radial Pulses (L) Gastrointestinal: normal bowel sounds, soft, no organomegaly, distended; No guarding; tenderness (with palpation) Extremity: Normal Capillary Refill, Non Tender, No Calf Tenderness Neurologic/Psychiatric: Alert, Oriented x3, Normal Mood/Affect Skin: Normal Color, Warm/Dry Results Lab Laboratory Tests 01/29/21 05:12: White Blood Count 6.7, Red Blood Count 3.76L, Hemoglobin 11.1L, Hematocrit 35, Mean Corpuscular Volume 94, Mean Corpuscular Hemoglobin 30, Mean Corpuscular Hemoglobin Concent 32, Red Cell Distribution Width 13.1, Platelet Count 255, Mean Platelet Volume 10.1, Immature Granulocyte % (Auto) 0, Neutrophils (%) (Auto) 64, Lymphocytes (%) (Auto) 25, Monocytes (%) (Auto) 9, Eosinophils (%) (Auto) 2, Basophils (%) (Auto) 0, Neutrophils # (Auto) 4.3, Lymphocytes # (Auto) 1.7, Monocytes # (Auto) 0.6, Eosinophils # (Auto) 0.1, Basophils # (Auto) 0.0, Immature Granulocyte # (Auto) 0.0, Sodium Level 145, Potassium Level 3.2L, Chloride Level 105, Carbon Dioxide Level 27, Anion Gap 13, Blood Urea Nitrogen 17, Creatinine 1.01, Estimat Glomerular Filtration Rate 52, BUN/Creatinine Ratio 17, Glucose Level 86, Calcium Level 9.5 Assessment/Plan Assessment/Plan Assessment/Plan Assessment: PSBO Hx of HTN Plan: NPO - if she passes more gas today can consider switching to clears Continue NGT suction - if she passes more gas today can consider removing Continue monitoring for pain Continue monitoring WBC - trending down Continue non-operative management Discuss options on when to do exploratory lap. Continue medical management with medicine team RIMA HOU DO 01/29/21 1550: Subjective Subjective/Events-last exam Patient states that she is not having any nausea or vomiting. Patient has NG tube in place. Some dark output. Patient states that she passed a little bit of gas one time no bowel movement. She has no abdominal pain. Feels that her abdomen is gone down a little bit. Denies any fever sweats chills shortness of breath or chest pain Objective Exam General Appearance: No Apparent Distress, WD/WN HEENT: PERRL/EOMI, Other (NG tube) Neck: Normal Inspection, Non Tender Respiratory: Chest Non Tender, No Accessory Muscle Use, No Respiratory Distress Cardiovascular: Regular Rate, Rhythm, No JVD Gastrointestinal: soft, distended (Minimal); No rebound, No tenderness Extremity: Normal Capillary Refill, Non Tender, No Calf Tenderness Neurologic/Psychiatric: Alert, Oriented x3 Skin: Normal Color, Warm/Dry Lymphatic: No Adenopathy Assessment/Plan Assessment/Plan Assessment/Plan Partial small bowel obstruction Continue NG tube if continues to pass flatus we will remove NG tube. Has some dark output from the NG we will started on Protonix. Continue conservative management Supervisory-Addendum Brief Verification & Attestation Participated in pt care: history, MDM, physical Personally performed: exam, history, MDM, supervision of care Care discussed with: Medical Student Procedures: n/a Results interpretation: Verified all documentation Verification and Attestation of Medical Student E/M Service A medical student performed and documented this service in my presence. I reviewed and verified all information documented by the medical student and made modifications to such information, when appropriate. I personally performed the physical exam and medical decision making. Rima Hou, Jan 29, 2021,15:50 JEREMY ARITA Jan 29, 2021 08:21 RIMA HOU DO Jan 29, 2021 15:50
--- NOTE | 2021-01-29 11:40 | Progress Note - Hospitalist ---
EARLE MARKHAM 01/29/21 1140: Subjective HPI/CC On Admission Time Seen by Provider: 08:40 Subjective/Events-last exam Pt reports that she has only had 1 occurance of flatulence in the last day. No BMs. Says that her abdominal distention has been improving. Denies any abdominal pain, nausea, or vomiting. Having some lower chest discomfort when she lays down. Said that it first started when the NG tube was placed. Not present when she sits up in a chair. The discomfort does not radiate. Reports that the throat discomfort from the NG tube has improved. Review of Systems General: No Chills, No Other (fever) HEENT: No Head Aches Pulmonary: No Dyspnea, No Cough Cardiovascular: Chest Pain; No: Palpitations Gastrointestinal: Constipation; No: Nausea, Vomiting, Abdominal Pain Musculoskeletal: No: other (muscle pain or weakness) Neurological: No: Weakness, Numbness Focused Exam Lactate Level 01/27/21 20:20: Lactic Acid Level 0.96 Objective Exam Vital Signs Vital Signs Date Time Temp Pulse Resp B/P (MAP) Pulse Ox O2 Delivery O2 Flow Rate FiO2 01/29/21 08:09 36.1 71 18 146/88 (107) 97 Room Air 01/29/21 08:00 0.00 01/28/21 01:36 21 Capillary Refill : Less Than 3 Seconds General Appearance: No Apparent Distress, WD/WN Respiratory: No Chest Non Tender (left lower chest discomfort w/ palpitation); Lungs Clear, Normal Breath Sounds Cardiovascular: Regular Rate, Rhythm, No Murmur Gastrointestinal: Non Tender, Soft, Other (Bowel sounds lessened compared to yesterday) Extremity: Non Tender, Pedal Edema Neurologic/Psychiatric: Alert, Normal Mood/Affect Skin: Normal Color, Warm/Dry Results/Procedures Lab Laboratory Tests 01/29/21 05:12 Patient resulted labs reviewed. Imaging: Reviewed Imaging Report Assessment/Plan Assessment and Plan Assess & Plan/Chief Complaint Small bowel obstruction NPO IV lactated ringer's NG tube in place Continue current monitoring Pt is being followed by surgery Hyperlipidemia HTN MILAGRO WATIKNS MD 01/29/21 1436: Subjective HPI/CC On Admission Time Seen by Provider: 11:00 Assessment/Plan Assessment and Plan Assess & Plan/Chief Complaint Continue current management. Surgery following. Considering surgical intervention. Diagnosis/Problems Diagnosis/Problems (1) Small bowel obstruction Status: Acute Supervisory-Addendum Brief Verification & Attestation Participated in pt care: history, MDM, physical Personally performed: exam, history, MDM, supervision of care Care discussed with: Medical Student Procedures: n/a Results interpretation: Verified all documentation A medical student performed and documented this service in my presence. I reviewed and verified all information documented by the medical student and made modifications to such information, when appropriate. I personally performed the physical exam and medical decision making. EARLE MARKHAM Jan 29, 2021 11:40 MILAGRO WATKINS MD Jan 29, 2021 14:36
[2021-01-29 12:05] VITALS: BP 172/86
[2021-01-29 16:00] VITALS: BP 187/77
[2021-01-29] MEDS ORDERED: hydrALAZINE (APESOLINE) 20 MG/ML VIAL IV PRN (17:30)
[2021-01-29] MEDS: ONDANSETRON 4 MG/2 ML (SDV) Z0FRAN IV PRN (20:18)
[2021-01-29 20:28] VITALS: BP 155/98
[2021-01-30] VITALS (7 sets, daily range): BP systolic 139–160; BP diastolic 76–90
[2021-01-30] MEDS: LACTATED RINGERS 1,000 ML IV SCH ×3 (05:07→21:18)
[2021-01-30 05:35] LABS: POTASSIUM 3.1 MMOL/L (3.6-5.0)
[2021-01-30 05:37] LABS: CALCIUM 8.9 MG/DL (8.5-10.1)
[2021-01-30] MEDS: LIDOCAINE 2% VISCOUS 15 ML UDC PO SCH ×3 (05:37→18:03)
[2021-01-30] MEDS: PANTOPRAZOLE 40 MG (PROTONIX) VIAL IV SCH (05:37)
[2021-01-30 05:41] LABS: CREATININE SERUM 0.84 MG/DL (0.60-1.30)
[2021-01-30 05:43] LABS: MAGNESIUM 1.8 MG/DL (1.6-2.4)
--- NOTE | 2021-01-30 08:08 | Progress Note - Surgery ---
JEREMY ARITA 01/30/21 0808: Subjective Date Seen by a Provider: Jan 30, 2021 Time Seen by a Provider: 07:58 Subjective/Events-last exam Patient's NG tube container is at 300 mL and still contains pretty dark fluid contents. Patient is feeling better this morning. States the protonix has helped with the reflux she was having. Patient has been passing gas, but she states they are not forceful and describes them as "bubbles". Patient has no abdominal pain today. Patient wants to get up and walk today if possible. Patient denies fever, chills, abdominal pain, dysuria, incontinence Review of Systems General: No Chills, No Night Sweats Pulmonary: No Dyspnea, No Cough Cardiovascular: No: Chest Pain, Orthopnea Gastrointestinal: No: Nausea, Vomiting, Abdominal Pain Genitourinary: No Dysuria, No Incontinence Focused Exam Lactate Level 01/27/21 20:20: Lactic Acid Level 0.96 Objective Exam Vital Signs Date Time Temp Pulse Resp B/P (MAP) Pulse Ox O2 Delivery O2 Flow Rate FiO2 01/30/21 07:35 36.6 68 20 152/88 (109) 96 Room Air 01/30/21 04:14 36.8 66 17 143/76 (98) 96 Room Air 01/30/21 00:00 36.9 75 17 156/76 (102) 96 Room Air 01/29/21 20:28 36.8 80 20 155/98 (117) 98 Room Air 01/29/21 20:15 Room Air 01/29/21 16:00 36.8 69 20 187/77 (113) 98 Room Air 01/29/21 12:05 36.2 70 18 172/86 (114) 99 Room Air 01/29/21 08:09 36.1 71 18 146/88 (107) 97 Room Air 01/29/21 08:00 Room Air 01/29/21 08:00 Room Air 0.00 I & O 01/30/21 07:00 Intake Total 5000 ml Output Total 1400 ml Balance 3600 ml Capillary Refill : Less Than 3 Seconds General Appearance: No Apparent Distress, WD/WN HEENT: PERRL/EOMI, Other (NG tube) Neck: Normal Inspection, Non Tender Respiratory: Lungs Clear, Normal Breath Sounds, No Accessory Muscle Use, No Respiratory Distress Cardiovascular: Regular Rate, Rhythm, Normal Peripheral Pulses Peripheral Pulses: 2+ Radial Pulses (R), 2+ Radial Pulses (L) Gastrointestinal: normal bowel sounds, non tender, soft; No rebound, No tenderness Extremity: Normal Capillary Refill, Non Tender, No Calf Tenderness Neurologic/Psychiatric: Alert, Oriented x3 Skin: Normal Color, Warm/Dry Lymphatic: No Adenopathy Results Lab Laboratory Tests 01/30/21 05:09: Sodium Level 143, Potassium Level 3.1L, Chloride Level 106, Carbon Dioxide Level 23, Anion Gap 14, Blood Urea Nitrogen 18, Creatinine 0.84, Estimat Glomerular Filtration Rate 64, BUN/Creatinine Ratio 21, Glucose Level 74, Calcium Level 8.9, Magnesium Level 1.8 Assessment/Plan Assessment/Plan Assessment/Plan Assessment Partial small bowel obstruction Hypertension Plan Continue NG tube if continues to pass flatus we will remove NG tube. Continue conservative management Continue medical management RIMA HOU DO 01/30/21 1141: Subjective Subjective/Events-last exam No abdominal pain. Feeling better. Not really passing much flatus. No bm. Denies fever sweats chills shortness of breath or chest pain. Objective Exam General Appearance: No Apparent Distress, WD/WN HEENT: PERRL/EOMI Neck: Normal Inspection, Non Tender Respiratory: Chest Non Tender, No Accessory Muscle Use, No Respiratory Distress Cardiovascular: Regular Rate, Rhythm, No JVD Gastrointestinal: non tender, soft, distended (slight); No rebound Extremity: Normal Capillary Refill, Non Tender, No Calf Tenderness Neurologic/Psychiatric: Alert, Oriented x3 Skin: Normal Color, Warm/Dry Lymphatic: No Adenopathy Assessment/Plan Assessment/Plan Assessment/Plan Partial small bowel obstruction Hypertension Plan Continue NG tube if passes flatus we will remove NG tube. Continue conservative management Continue medical management Supervisory-Addendum Brief Verification & Attestation Participated in pt care: history, MDM, physical Personally performed: exam, history, MDM, supervision of care Care discussed with: Medical Student Procedures: n/a Results interpretation: Verified all documentation Verification and Attestation of Medical Student E/M Service A medical student performed and documented this service in my presence. I reviewed and verified all information documented by the medical student and made modifications to such information, when appropriate. I personally performed the physical exam and medical decision making. Rima Hou, Jan 30, 2021,11:41 JEREMY ARITA Jan 30, 2021 08:08 RIMA HOU DO Jan 30, 2021 11:41
--- NOTE | 2021-01-30 13:43 | Progress Note - Hospitalist ---
EARLE MARKHAM 01/30/21 1343: Subjective HPI/CC On Admission Time Seen by Provider: 09:10 Subjective/Events-last exam Pt reports that she is feeling well this morning. Has had one episode of passing gas today. No recent bowel movements. States that she is no longer having any lower chest pain since starting Protonix. Having some hip pain that she states has been caused by the hospital bed. NG tube is in place. Review of Systems General: No Chills, No Other (fever) Pulmonary: No Dyspnea, No Cough Cardiovascular: No: Chest Pain, Palpitations Gastrointestinal: No: Nausea, Vomiting, Abdominal Pain Neurological: No: Weakness, Numbness Focused Exam Lactate Level 01/27/21 20:20: Lactic Acid Level 0.96 Objective Exam Vital Signs Vital Signs Date Time Temp Pulse Resp B/P (MAP) Pulse Ox O2 Delivery O2 Flow Rate FiO2 01/30/21 11:22 36.4 79 18 145/79 (101) 93 Room Air 01/29/21 08:00 0.00 01/28/21 01:36 21 Capillary Refill : Less Than 3 Seconds General Appearance: No Apparent Distress, WD/WN Respiratory: Lungs Clear, Normal Breath Sounds Cardiovascular: Regular Rate, Rhythm, No Murmur Gastrointestinal: Non Tender, Soft, Other (decreased bowel sounds) Extremity: No Inflammation; Pedal Edema Neurologic/Psychiatric: Alert, Normal Mood/Affect Skin: Normal Color, Warm/Dry Results/Procedures Lab Laboratory Tests 01/30/21 05:09 Patient resulted labs reviewed. Imaging: Reviewed Imaging Report Assessment/Plan Assessment and Plan Assess & Plan/Chief Complaint Small bowel obstruction NPO IV lactated ringer's NG tube in place Continue current monitoring Pt is being followed by surgery HTN hydralazine 10mg Q4H PRN if SBP>180 Hyperlipidemia MILAGRO WATKINS MD 01/30/21 1736: Subjective HPI/CC On Admission Date Seen by Provider: Jan 30, 2021 Assessment/Plan Assessment and Plan Assess & Plan/Chief Complaint Recurrent mall bowel obstruction likely to require surgery. No improvement thus far. Surgery following. Diagnosis/Problems Diagnosis/Problems (1) Small bowel obstruction Status: Acute Supervisory-Addendum Brief Verification & Attestation Participated in pt care: history, MDM, physical Personally performed: exam, history, MDM, supervision of care Care discussed with: Medical Student Procedures: n/a Results interpretation: Verified all documentation A medical student performed and documented this service in my presence. I reviewed and verified all information documented by the medical student and made modifications to such information, when appropriate. I personally performed the physical exam and medical decision making. EARLE MARKHAM Jan 30, 2021 13:43 MILAGRO WATKINS MD Jan 30, 2021 17:36
[2021-01-30] MEDS: ONDANSETRON 4 MG/2 ML (SDV) Z0FRAN IV PRN (22:42)
[2021-01-31] VITALS (13 sets, daily range): BP systolic 119–168; BP diastolic 51–93
[2021-01-31] MEDS: LIDOCAINE 2% VISCOUS 15 ML UDC PO SCH ×3 (06:06→18:28)
[2021-01-31] MEDS: PANTOPRAZOLE 40 MG (PROTONIX) VIAL IV SCH (06:14)
[2021-01-31] MEDS: LACTATED RINGERS 1,000 ML IV SCH ×3 (06:14→22:17)
--- NOTE | 2021-01-31 07:46 | Progress Note - Surgery ---
BOBBI LABOY 01/31/21 0746: Subjective Date Seen by a Provider: Jan 31, 2021 Time Seen by a Provider: 07:26 Subjective/Events-last exam Pt resting comfortably in bed. NGT continues to suction dark fluid and Pt complains of nasal drainage around the tube, which appears clear and serious. Pt is passing gas, but no BM, and no abdominal pain. Pt ambulating some and urinating regularly. Review of Systems General: No Chills, No Night Sweats, No Fatigue, No Malaise, No Appetite HEENT: No Head Aches, No Visual Changes, No Eye Pain, No Ear Pain, No Dysphasia, No Sinus Congestion, No Post Nasal Drip, No Sore Throat; Other Pulmonary: No Dyspnea, No Cough, No Pleuritic Chest Pain Cardiovascular: No: Chest Pain, Palpitations, Orthopnea, Paroxysmal Noc. Dyspnea, Edema, Lt Headedness Gastrointestinal: No: Nausea, Vomiting, Abdominal Pain, Diarrhea, Constipation, Melena, Hematochezia Genitourinary: No Dysuria, No Frequency, No Incontinence, No Hematuria, No Retention Musculoskeletal: No: neck pain, shoulder pain, arm pain, back pain, hand pain, leg pain, foot pain Neurological: No: Weakness, Numbness, Incoordination, Change in speech, Confusion, Seizures Nasal drainage around NGT Objective Exam Vital Signs Date Time Temp Pulse Resp B/P (MAP) Pulse Ox O2 Delivery O2 Flow Rate FiO2 01/31/21 03:53 37.2 68 18 151/82 (105) 97 Room Air 01/30/21 23:30 37.4 68 20 151/80 (103) 97 Room Air 01/30/21 19:54 37.2 65 20 160/82 (108) 99 Room Air 01/30/21 19:45 Room Air 01/30/21 16:00 37.2 81 20 139/90 (106) 97 Room Air 01/30/21 11:22 36.4 79 18 145/79 (101) 93 Room Air 01/30/21 08:00 Room Air I & O 01/31/21 07:00 Intake Total 4000 ml Output Total 970 ml Balance 3030 ml Capillary Refill : Less Than 3 Seconds General Appearance: No Apparent Distress, WD/WN HEENT: PERRL/EOMI, Pharynx Normal, Moist Mucous Membranes Neck: Normal Inspection, Non Tender Respiratory: Chest Non Tender, Lungs Clear, Normal Breath Sounds, No Accessory Muscle Use, No Respiratory Distress Cardiovascular: Regular Rate, Rhythm, No Gallop, No Murmur, Normal Peripheral Pulses Peripheral Pulses: 2+ Radial Pulses (R), 2+ Radial Pulses (L) Gastrointestinal: non tender, soft, distended (slight); No rebound Extremity: Normal Capillary Refill, Normal Range of Motion, Non Tender, No Calf Tenderness; No Inflammation; Pedal Edema (particularly in right leg (pt reports this as her new norm after hx of ortho to knee)) Neurologic/Psychiatric: Alert, Oriented x3, No Motor/Sensory Deficits, Normal Mood/Affect, 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 She hasn't had BM in 5 days and thinks she is still a little "bloated". Review of Systems General: No Chills, No Night Sweats Pulmonary: No Dyspnea, No Cough Cardiovascular: No: Chest Pain, Palpitations Gastrointestinal: No: Nausea, Vomiting, Abdominal Pain Objective Exam General Appearance: No Apparent Distress, WD/WN HEENT: PERRL/EOMI Respiratory: Lungs Clear, Normal Breath Sounds, No Accessory Muscle Use, No Respiratory Distress Cardiovascular: Regular Rate, Rhythm, No Murmur Gastrointestinal: non tender, soft, distended (slight); No rebound Assessment/Plan Assessment/Plan Assessment/Plan Partial small bowel obstruction - Recurrent Hypertension Plan - to OR for Diagnostic Laparoscopy possible Laparotomy, possible small bowel resection and all other indicated procedures. Pt is not getting much movement and has had a recurrence of the problem only 2-3 months after first episode. On CT there is suggestion of something going on near ligament of Treitz. I spoke with pt and her son; she had discussion with both her sons and they are of the mindset to do surgery and see if we can figure out what is going on. Will get consent for procedure. She is relatively healthy and very with it; this makes her a good candidate for surgery. She is older so will be at increased risk for morbidities from surgery and we discussed these plus complications; not limited to pain, bleeding, infection, scar and damage to bowel with need for further procedure. All questions answered to her satisfaction. Supervisory-Addendum Brief Verification & Attestation Participated in pt care: history, MDM, physical Personally performed: exam, history, MDM, supervision of care Care discussed with: Medical Student Procedures: n/a Verification and Attestation of Medical Student E/M Service A medical student performed and documented this service. I then reviewed and verified all information documented by the medical student and made modifications to such information, when appropriate. I personally performed a physical exam, medical decision making and then discussed any differences between the notes and made revisions as necessary to create one note. Sid Vidales , 01/31/21 , 12:09 BOBBI LABOY Jan 31, 2021 07:46 SID VIDALES DO Jan 31, 2021 12:09
[2021-01-31] MEDS: KCL 20 MEQ TAB (K-DUR) PO SCH (08:15)
[2021-01-31 08:28] LABS: BASOPHILS % (AUTO) 1 % (0-10); EOSINOPHILS # (AUTO) 0.1 10^3/uL (0.0-0.3); EOSINOPHILS % (AUTO) 1 % (0-10); HEMATOCRIT 32 % (35-52); HEMOGLOBIN 9.9 g/dL (11.5-16.0); LYMPHOCYTES # (AUTO) 1.4 10^3/uL (1.0-4.0); LYMPHOCYTES % (AUTO) 17 % (12-44); MEAN CORPUSCULAR HEMOGLOBIN 30 pg (25-34); MEAN CORPUSCULAR HGB CONC 31 g/dL (32-36); MEAN CORPUSCULAR VOLUME 96 fL (80-99); MEAN PLATELET VOLUME 10.1 fL (9.0-12.2); MONOCYTES # (AUTO) 0.6 10^3/uL (0.0-1.0); MONOCYTES % (AUTO) 7 % (0-12); NEUTROPHILS # (AUTO) 6.4 10^3/uL (1.8-7.8); NEUTROPHILS % (AUTO) 75 % (42-75); PLATELET COUNT 215 10^3/uL (130-400); WHITE BLOOD COUNT 8.6 10^3/uL (4.3-11.0)
[2021-01-31 08:45] LABS: CREATININE SERUM 0.81 MG/DL (0.60-1.30); MAGNESIUM 1.8 MG/DL (1.6-2.4); POTASSIUM 3.2 MMOL/L (3.6-5.0)
[2021-01-31] MEDS: MAGNESIUM 1 GM/100 ML IVPB 100 ML IV SCH (08:52)
[2021-01-31] MEDS: POTASSIUM CL 10MEQ/50ML IVPB 50 ML IV SCH (08:53)
--- NOTE | 2021-01-31 10:04 | Diagnostic Imaging Report ---
INDICATION: NG tube placement. TIME OF EXAM: 9:36 AM Correlation is made with prior chest from 11/28/2020. NG tube passes below the diaphragm. The heart size is normal. Lungs appear to be clear apart from questionable mild subsegmental atelectasis left base. There is no effusion or pneumothorax. IMPRESSION: NG tube placement, as described. Dictated by: Dictated on workstation # [id number]
[2021-01-31] MEDS ORDERED: ceFAZolin 2 GM IV Premixed 50 ML IV ONE (12:15)
[2021-01-31] MEDS ORDERED: ROCURONIUM 10 MG/ML 5 ML SYRINGE IV ONE (12:25)
[2021-01-31] MEDS ORDERED: LIDOCAINE PF 2% 5 ML (XYLOCAINE) VIAL ONE (12:25)
[2021-01-31] MEDS ORDERED: ONDANSETRON 4 MG/2 ML (SDV) Z0FRAN ONE (12:25)
[2021-01-31] MEDS ORDERED: proPOfol 200 MG/20 ML (DIPRIVAN) VIAL IV ONE (12:25)
[2021-01-31] MEDS ORDERED: fentaNYL INJ 100 MCG/2 ML AMP ONE (12:26)
[2021-01-31] MEDS ORDERED: LIDOCAINE/EPI 1%-1:100,000 (XYLOCAINE) 20ML ONE (12:35)
[2021-01-31] MEDS ORDERED: MIDAZOLAM 2 MG/2 ML (VERSED) VIAL ONE (12:43)
[2021-01-31] MEDS ORDERED: LACTATED RINGERS 1,000 ML IV PRN (12:45)
--- NOTE | 2021-01-31 12:50 | Progress Note - Hospitalist ---
KULWANT MARKHAMIN 01/31/21 1250: Subjective HPI/CC On Admission Time Seen by Provider: 08:43 Subjective/Events-last exam Pt reports that she was able to pass gas 2 times this morning. Still has not had any BMs. She was having some lower chest pain last night but it resolved after taking Protonix. NG tube had come out but has been replaced. Pt reported hip pain yesterday but she states that it has resolved. Review of Systems General: No Chills, No Other (fever) Pulmonary: No Dyspnea, No Cough Cardiovascular: No: Chest Pain, Palpitations Gastrointestinal: No: Nausea, Vomiting, Abdominal Pain Neurological: No: Weakness, Numbness, Other (headache ) Objective Exam Vital Signs Vital Signs Date Time Temp Pulse Resp B/P (MAP) Pulse Ox O2 Delivery O2 Flow Rate FiO2 01/31/21 08:29 36.1 63 20 148/67 (94) 97 Room Air 01/29/21 08:00 0.00 01/28/21 01:36 21 Capillary Refill : Less Than 3 Seconds General Appearance: No Apparent Distress, WD/WN Respiratory: Lungs Clear, Normal Breath Sounds Cardiovascular: Regular Rate, Rhythm, No Murmur, Normal Peripheral Pulses Gastrointestinal: Non Tender, Soft, Other (decreased bowel sounds) Extremity: Non Tender, Pedal Edema Neurologic/Psychiatric: Alert, Normal Mood/Affect Skin: Normal Color, Warm/Dry Results/Procedures Lab Laboratory Tests 01/31/21 08:23 Patient resulted labs reviewed. Imaging: Reviewed Imaging Report Assessment/Plan Assessment and Plan Assess & Plan/Chief Complaint Small bowel obstruction NPO IV lactated ringer's NG tube in place Continue current monitoring Pt is being followed by surgery Will be undergoing a diagnostic laparoscopy this afternoon HTN hydralazine 10mg Q4H PRN if SBP>180 Hyperlipidemia MILAGRO WATKINS MD 01/31/21 1334: Subjective HPI/CC On Admission Date Seen by Provider: Jan 31, 2021 Assessment/Plan Assessment and Plan Assess & Plan/Chief Complaint Recurrent small bowel obstruction with failure to improve despite conservative measures. Surgery planning for laparoscopic surgery with likely lysis of adhesions today. Transferring care to Dr. Vidales, general surgery. Diagnosis/Problems Diagnosis/Problems (1) Small bowel obstruction Status: Acute Supervisory-Addendum Brief Verification & Attestation Participated in pt care: history, MDM, physical Personally performed: exam, history, MDM, supervision of care Care discussed with: Medical Student Procedures: n/a Results interpretation: Verified all documentation A medical student performed and documented this service in my presence. I reviewed and verified all information documented by the medical student and made modifications to such information, when appropriate. I personally performed the physical exam and medical decision making. EARLE MARKHAM Jan 31, 2021 12:50 MILAGRO WATKINS MD Jan 31, 2021 13:34
[2021-01-31] MEDS ORDERED: GLYCOPYRROLATE 0.2 MG/ML (ROBINUL) 2 ML VIAL ONE (13:25)
[2021-01-31] MEDS ORDERED: NEOSTIGMINE 3 MG/3 ML VIAL ONE (13:25)
[2021-01-31] MEDS ORDERED: SUCCINYLCHOLINE INJ 100 MG/5 ML SYR/VIAL ONE (13:26)
--- NOTE | 2021-01-31 13:50 | Progress Note-Post Operative ---
Post-Operative Progess Note Surgeon (s)/Atmospheric Chemist (s) Surgeon DERECK BUTLER DO Atmospheric Chemist: Savi Pre-Operative Diagnosis PSBO Post-Operative Diagnosis PSBO due to Intraabdominal Adhesions causing internal hernia, twisted bowel Small bowel diverticula - Large Procedure & Operative Findings Date of Procedure 01/31/21 Procedure Performed/Findings Diag Lap switched to Laparotomy with SARA reduction of internal hernia Anesthesia Type GET Estimated Blood Loss Estimated blood loss (mL): scant Specimens/Packing Specimens Removed none DERECK BUTLER DO Jan 31, 2021 13:49
[2021-01-31] MEDS ORDERED: BUPIVACAINE 0.5% 30 ML (SENSORCAINE) VIAL ONE (13:55)
[2021-01-31] MEDS ORDERED: fentaNYL INJ 100 MCG/2 ML AMP IVP ONE (14:15)
[2021-01-31] MEDS ORDERED: ONDANSETRON 4 MG/2 ML (SDV) Z0FRAN IVP PRN (14:15)
[2021-01-31] MEDS ORDERED: SEVOFLURANE (ULTANE) 15 ML INHAL SOLN ONE (14:28)
[2021-01-31] MEDS ORDERED: morphine INJ 4 MG/ML 1 ML (VIAL/SYRINGE) IVP PRN (15:45)
[2021-01-31] MEDS ORDERED: KETOROLAC 30 MG/ML VIAL ONE (15:59)
[2021-01-31] MEDS: ACETAMINOPHEN 500 MG TAB (TYLENOL) PO SCH (16:00)
[2021-01-31] MEDS: KETOROLAC 15 MG/ML VIAL IVP SCH ×2 (16:43→22:28)
[2021-02-01] VITALS (7 sets, daily range): BP systolic 145–164; BP diastolic 61–91
[2021-02-01] MEDS: ACETAMINOPHEN 500 MG TAB (TYLENOL) PO SCH ×5 (00:14→23:50)
[2021-02-01] MEDS: KETOROLAC 15 MG/ML VIAL IVP SCH ×4 (04:29→22:14)
--- NOTE | 2021-02-01 05:50 | OPERATIVE REPORT ---
DATE OF SERVICE: 01/31/2021 PREOPERATIVE DIAGNOSIS: History of partial small-bowel obstruction with questionable stricture near the ligament of Treitz. POSTOPERATIVE DIAGNOSES: The patient had adhesions down into the pelvis causing an internal hernia and partial obstruction as well noted to have large small bowel diverticula. PROCEDURE: Diagnostic laparoscopy switched to laparotomy with lysis of adhesions and reduction of internal hernia. SURGEON: Sid Vidales DO ENTERTAINMENT DANCER: William Hou DO ANESTHESIA: General endotracheal tube. SPECIMENS: None. BLOOD LOSS: Scant. FLUIDS: Per anesthesia. POSTOPERATIVE CONDITION: Stable. INDICATION FOR PROCEDURE: The patient is an 85-year-old female who has been having some recurrent partial small-bowel obstruction. Her last time was in October. Both times CT sort of showed something going on, but could not really pinpoint it and thought we would try and look with the scope and then possible laparotomy. FINDINGS: Looked with the scope and saw what looked like a cystic mass and could not really get a good visualization of anything else, so at this point elected to perform an exploratory laparotomy. PROCEDURE NOTE: After informed consent was obtained, the patient was brought to the operating room, placed on operating table in supine position. She was sterilely prepped and draped in normal fashion. Local lidocaine was used to infiltrate the skin above the umbilicus and made an incision with 11 blade, carried down through the skin into subcutaneous tissue, then deepened down to subcutaneous tissue with Bovie electrocautery down to the fascia. Fascia was incised with Bovie electrocautery and bluntly entered the abdomen, swept a finger around, placed limited trocar port under direct visualization. Created pneumoperitoneum. Upon entry, noted large cystic area looked like it was coming out of the small intestine, could not really see much more and so elected to just switch to a laparotomy, open the midline incision superiorly with Bovie electrocautery taking care to avoid any intestine. Grasping the fascia with Bhupinder's and then freeing the omentum up off the abdominal wall, pushing this down out of the way. Once we had freed this up, actually found adhesion in the midline this was taken down and then found the large diverticula on the small intestine. I had taken a picture of this with the scope started to run the intestine and actually could not run the intestine plus we were pulling out intestine from under an adhesion it had been in excellent internal hernia went to the cecum, started running the small bowel from the terminal ileum and ileocecal valve and again ran into this adhesion, the small intestine was stuck down in the left pelvis carefully started taking this off the left pelvis; most likely from her hysterectomy. Using blunt dissection, sharp dissection with Bovie electrocautery as well as Metzenbaum scissors and finally able to get this freed up. Once this was freed up and we were able to untwist all of the intestine and then able to run the small bowel from the ileocecal valve all the way to ligament of Treitz in the jejunum, found some large diverticula on the small bowel, otherwise no other obvious pathology. At this point, once we had run the small bowel, placed gently back into the abdomen without twisting it, put the large intestine into the pelvis to try and cover this, so that we did not get another adhesion and then at this point pulled the omentum over the small intestine could feel the NG tube, it was in good position and then elected to close the incision with #1 double stranded PDS suture running from the superior portion to inferior portion tying to itself, copiously irrigating the midline incision with saline and then closed the skin with gary. Area was cleaned and dried and a dressing placed. The patient tolerated the procedure. Sponge, instrument and needle count correct at the end of the case. Dr. Hou assisted in this case helping to make incisions, close incisions, identify anatomy, hold anatomy out of the way. Job ID: [id number] DocumentID: [id number] Dictated Date: 01/31/2021 22:39:35 Health Information Tech Date: 02/01/2021 05:49:15 Dictated By: DO KEVIN GARCIA
[2021-02-01] MEDS: LIDOCAINE 2% VISCOUS 15 ML UDC PO SCH ×3 (05:55→17:22)
[2021-02-01] MEDS: PANTOPRAZOLE 40 MG (PROTONIX) VIAL IV SCH (05:55)
[2021-02-01 06:54] LABS: POTASSIUM 3.7 MMOL/L (3.6-5.0)
[2021-02-01 06:55] LABS: CALCIUM 8.2 MG/DL (8.5-10.1)
[2021-02-01] MEDS: KCL 20 MEQ TAB (K-DUR) PO SCH (06:58)
[2021-02-01] MEDS: POTASSIUM CL 10MEQ/50ML IVPB 50 ML IV SCH (06:58)
[2021-02-01 06:59] LABS: CREATININE SERUM 0.83 MG/DL (0.60-1.30)
[2021-02-01 07:02] LABS: MAGNESIUM 1.9 MG/DL (1.6-2.4)
[2021-02-01] MEDS: MAGNESIUM 1 GM/100 ML IVPB 100 ML IV SCH (08:22)
[2021-02-01] MEDS ORDERED: RT-ALBUTEROL SULF 2.5 MG/3 ML PRE-MIX VIAL INH PRN (08:30)
--- NOTE | 2021-02-01 08:36 | Progress Note - Surgery ---
HERLINDA HOLM MED STUDENT 02/01/21 0836: Subjective Date Seen by a Provider: Feb 01, 2021 Time Seen by a Provider: 08:45 Subjective/Events-last exam hospital course: 85F w/ PMH HTN, HDL, GERD, recent hospitalization in November for possible bowel obstruction presented with abdominal cramping. NG tube and drainage placed. CXR showed proper NG location. Ex-lap for SBO, adhesions, and hernia on 01/31/21. Hgb 9.9. K 3.7, Ca 8.2 Today: Patient is resting comfortably in bed and has pain at her incision site on her abdomen. The bandaged wound is CDI. Per nurse, she had minimal blood oozing from incision yesterday. Her pain is well controlled on morphine and toradol. She had a headache yesterday after her tube fell out but was replaced and her headache has since resolved. NG tube had 50mL yesterday, 25mL last night, and about 50mL today. She denies having a BM or flatulence since last Sunday. She's having good urine output in her catheter. She will attempt ambulation with nurse later this morning. Review of Systems General: No Chills HEENT: No Head Aches, No Visual Changes Pulmonary: No Dyspnea, No Cough Cardiovascular: No: Chest Pain, Palpitations, Edema Gastrointestinal: Abdominal Pain, Constipation; No: Nausea, Vomiting Musculoskeletal: No: arm pain, leg pain Neurological: No: Weakness, Numbness, Change in speech Objective Exam Vital Signs Date Time Temp Pulse Resp B/P (MAP) Pulse Ox O2 Delivery O2 Flow Rate FiO2 02/01/21 08:14 36.4 68 97 21 02/01/21 07:51 36.4 68 18 151/79 (103) 97 Room Air 02/01/21 04:00 37.3 62 20 164/61 (95) 95 Room Air 02/01/21 00:00 36.7 65 22 156/74 (101) 94 Room Air 01/31/21 20:00 37.0 71 18 161/81 (107) 97 01/31/21 20:00 Room Air 01/31/21 16:00 36.2 54 18 168/78 (108) 96 OxyMask 2.50 01/31/21 14:55 34.7 56 18 122/65 (84) 99 OxyMask 2.00 01/31/21 14:50 36.2 18 124/87 (99) 97 OxyMask 2 01/31/21 14:50 OxyMask 2 01/31/21 14:40 18 142/65 (90) 97 OxyMask 2 01/31/21 14:36 OxyMask 2 01/31/21 14:30 18 119/93 (102) 95 Room Air 01/31/21 14:29 Room Air 01/31/21 14:23 OxyMask 2 01/31/21 14:20 18 151/73 (99) 99 OxyMask 2 01/31/21 14:18 OxyMask 4 01/31/21 14:10 OxyMask 6 01/31/21 14:10 18 149/77 (101) 100 OxyMask 6 01/31/21 14:05 18 152/84 (106) 100 OxyMask 6 01/31/21 13:57 36.4 20 155/86 (109) 98 OxyMask 6 01/31/21 13:57 OxyMask 6 01/31/21 12:50 36.0 63 22 146/51 (82) 98 Room Air I & O 02/01/21 07:00 Intake Total 5050 ml Output Total 1550 ml Balance 3500 ml Capillary Refill : Less Than 3 Seconds General Appearance: No Apparent Distress, WD/WN HEENT: PERRL/EOMI, Pharynx Normal, Moist Mucous Membranes, Other (NG tube in nostril) Neck: Normal Inspection, Non Tender Respiratory: Lungs Clear, Normal Breath Sounds Cardiovascular: Regular Rate, Rhythm, No Murmur, Normal Peripheral Pulses Peripheral Pulses: 2+ Radial Pulses (R), 2+ Radial Pulses (L) Gastrointestinal: soft; No rebound; tenderness (s/p surgery), other (dressing on midline abdominal incision. CDI.) Extremity: Non Tender Neurologic/Psychiatric: Alert, Normal Mood/Affect Skin: Normal Color, Warm/Dry Results Lab Laboratory Tests 02/01/21 05:32: Sodium Level 139, Potassium Level 3.7, Chloride Level 106, Carbon Dioxide Level 22, Anion Gap 11, Blood Urea Nitrogen 17, Creatinine 0.83, Estimat Glomerular Filtration Rate 65, BUN/Creatinine Ratio 20, Glucose Level 99, Calcium Level 8.2L, Magnesium Level 1.9 Assessment/Plan Assessment/Plan Assessment/Plan abdominal pain SBO * diagnostic laparotomy for possible SBO and abdominal pain. removed adhesions * remove NG tube/drainage * continue morphine and toradol for pain management * K 3.2 -> 3.7 today. hold bag of potassium * wound dressing changes as needed * remove urinary catheter today * begin ambulation today as tolerated * start transition to liquid diet Hypertension * continue home medications as appropriate Diet: ice chips DVT ppx: SCDs SID BUTLER DO 02/03/21 1045: Subjective Time Seen by a Provider: 12:01 Subjective/Events-last exam Pt seen and examined, doing ok but does not like the NGT. Pain is mostly controlled. Review of Systems Pulmonary: No Dyspnea, No Cough Cardiovascular: No: Chest Pain, Palpitations Gastrointestinal: Abdominal Pain, Constipation; No: Nausea, Vomiting Objective Exam General Appearance: No Apparent Distress, WD/WN Respiratory: Lungs Clear, Normal Breath Sounds Cardiovascular: Regular Rate, Rhythm, No Murmur Gastrointestinal: soft; No rebound; tenderness (s/p surgery), other (dressing on midline abdominal incision. CDI.) Assessment/Plan Assessment/Plan Assessment/Plan S/P Ex Lap with SARA for internal hernia -plan to d/c NGT, d/c ptaiño and start on sips of clears Supervisory-Addendum Brief Verification & Attestation Participated in pt care: history, MDM, physical Personally performed: exam, history, MDM, supervision of care Care discussed with: Medical Student Procedures: n/a Verification and Attestation of Medical Student E/M Service A medical student performed and documented this service. I then reviewed and verified all information documented by the medical student and made modifications to such information, when appropriate. I personally performed a physical exam, medical decision making and then discussed any differences between the notes and made revisions as necessary to create one note. Sid Butler , 02/03/21 , 10:45 HERLINDA HOLM MED STUDENT Feb 01, 2021 08:36 SID BUTLER DO Feb 03, 2021 10:45
--- NOTE | 2021-02-01 14:18 | Anesthesia-General Post-Op ---
General Patient Condition Mental Status/LOC: Same as Preop Cardiovascular: Satisfactory Nausea/Vomiting: Absent Respiratory: Satisfactory Pain: Controlled Complications: Absent Post Op Complications Complications None Follow Up Care/Instructions Patient Instructions None needed. Anesthesia/Patient Condition Patient Condition Patient is doing well, no complaints, stable vital signs, no apparent adverse anesthesia problems. No complications reported per nursing. RONAK NOLASCO CRNA Feb 01, 2021 14:18
[2021-02-01] MEDS: LACTATED RINGERS 1,000 ML IV SCH (15:30)
[2021-02-02 00:14] VITALS: BP 167/81
[2021-02-02] MEDS: KETOROLAC 15 MG/ML VIAL IVP SCH ×4 (04:19→22:36)
[2021-02-02] MEDS: LACTATED RINGERS 1,000 ML IV SCH ×2 (04:20→18:03)
[2021-02-02 04:38] VITALS: BP 176/80
[2021-02-02] MEDS: LIDOCAINE 2% VISCOUS 15 ML UDC PO SCH ×3 (05:45→16:39)
[2021-02-02 06:09] LABS: POTASSIUM 2.9 MMOL/L (3.6-5.0)
[2021-02-02 06:10] LABS: CALCIUM 8.2 MG/DL (8.5-10.1)
[2021-02-02] MEDS: KCL 20 MEQ TAB (K-DUR) PO SCH (06:11)
[2021-02-02 06:14] LABS: CREATININE SERUM 0.69 MG/DL (0.60-1.30)
[2021-02-02 06:17] LABS: MAGNESIUM 1.7 MG/DL (1.6-2.4)
[2021-02-02] MEDS: POTASSIUM CL 10MEQ/50ML IVPB 50 ML IV SCH ×6 (06:17→10:55)
[2021-02-02] MEDS: MAGNESIUM 1 GM/100 ML IVPB 100 ML IV SCH ×3 (06:18→07:44)
[2021-02-02] MEDS: PANTOPRAZOLE 40 MG (PROTONIX) VIAL IV SCH (06:54)
--- NOTE | 2021-02-02 07:32 | Progress Note - Surgery ---
NARDABOBBI 02/02/21 0732: Subjective Date Seen by a Provider: Feb 02, 2021 Time Seen by a Provider: 06:46 Subjective/Events-last exam Pt is 2 days S/P and resting comfortably in bed, appears well, but tired. NGT and Yanez removed yesterday. Last night pt had colicky abdominal pain that felt like gas and resolved when passing gas. No stool or blood was passed. Pt is urinating without issue. Had some difficulty swallowing pills for pain last night which was helped by cutting in half and taking with water. Abdomen remains distended and diffusely tender to deep palpation. Pt also reports incisional pain and tenderness with movement and shows minimal signs of bleeding. Pt encouraged to use IS and ambulate as some LE edema is present and some phlemy lung sounds could be heard. Discussed current liquid diet and possibility of introducing soft foods tonight or tomorrow. Pt continues to receive potassium and magnesium IV supplementation + LR. Review of Systems General: No Chills, No Night Sweats; Fatigue; No Malaise; Appetite HEENT: No Head Aches, No Visual Changes, No Eye Pain, No Ear Pain, No Dysphasia; Sinus Congestion; No Post Nasal Drip, No Sore Throat Pulmonary: No Dyspnea, No Cough, No Pleuritic Chest Pain Cardiovascular: Edema; No: Chest Pain, Palpitations, Orthopnea, Paroxysmal Noc. Dyspnea, Lt Headedness Gastrointestinal: Abdominal Pain; No: Nausea, Vomiting, Diarrhea, Constipation, Melena, Hematochezia Genitourinary: No Dysuria; Frequency; No Incontinence, No Hematuria, No Retention Musculoskeletal: No: neck pain, shoulder pain, arm pain, back pain, hand pain, leg pain, foot pain Neurological: No: Weakness, Numbness, Incoordination, Change in speech, Confusion, Seizures Objective Exam Vital Signs Date Time Temp Pulse Resp B/P (MAP) Pulse Ox O2 Delivery O2 Flow Rate FiO2 02/02/21 04:49 37.0 02/02/21 04:38 37.0 82 18 176/80 (112) 96 Room Air 02/02/21 00:14 36.7 69 16 167/81 (109) 95 Room Air 02/01/21 22:44 36.9 02/01/21 20:00 Room Air 02/01/21 19:39 36.9 77 18 147/68 (94) 94 Room Air 02/01/21 16:00 36.9 105 18 158/91 (113) 94 Room Air 02/01/21 11:33 36.9 63 18 145/73 (97) 97 Room Air 02/01/21 08:14 36.4 68 97 21 02/01/21 08:00 Room Air 02/01/21 07:51 36.4 68 18 151/79 (103) 97 Room Air I & O 02/02/21 07:00 Intake Total 4980 ml Output Total 1500 ml Balance 3480 ml Capillary Refill : Less Than 3 Seconds General Appearance: No Apparent Distress, WD/WN HEENT: PERRL/EOMI, Pharynx Normal, Moist Mucous Membranes Neck: Full Range of Motion, Non Tender, Supple Respiratory: Chest Non Tender, Normal Breath Sounds, No Accessory Muscle Use, No Respiratory Distress, Other (phlemy sounds from lungs BL) Cardiovascular: Regular Rate, Rhythm, No Edema, No Gallop, No Murmur, Normal Peripheral Pulses Peripheral Pulses: 2+ Radial Pulses (R), 2+ Radial Pulses (L) Gastrointestinal: soft, no organomegaly, no pulsatile mass; No rebound; tenderness (s/p surgery), other (dressing on midline abdominal incision) Extremity: Normal Capillary Refill, Normal Range of Motion, Non Tender, No Calf Tenderness, Pedal Edema Neurologic/Psychiatric: Alert, Oriented x3, No Motor/Sensory Deficits, Normal 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/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, 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 Skin: Normal Color, Warm/Dry Lymphatic: No Adenopathy (cervical and axillary) Results Lab Laboratory Tests 02/02/21 05:20: Sodium Level 137, Potassium Level 2.9L, Chloride Level 103, Carbon Dioxide Level 24, Anion Gap 10, Blood Urea Nitrogen 15, Creatinine 0.69, Estimat Glomerular Filtration Rate 80, BUN/Creatinine Ratio 22, Glucose Level 90, Calcium Level 8.2L, Magnesium Level 1.7 Assessment/Plan Assessment/Plan Assessment/Plan S/P day 2 - SBO laparotomy - correction of internal hernia secondary to adhesions Abdominal pain Hypokalemia HTN Plan: Continue liquid diet and monitor for bowel changes throughout the day, may introduce soft foods tonight or tomorrow. Dressing changes as needed. Toradol for pain PRN DVT ppx - ambulation and SCD while in bed ICS use for lung changes Potassium ordered for hypokalemia 3.7->2.9 today HTN - continue home meds as appropriate SID VIDALES DO 02/03/21 1050: Subjective Time Seen by a Provider: 13:05 Subjective/Events-last exam Pt seen and examined, tolerating clears but still no BM and really no flatus. Review of Systems Pulmonary: No Dyspnea, No Cough Cardiovascular: No: Chest Pain, Palpitations Gastrointestinal: Abdominal Pain; No: Nausea, Vomiting Objective Exam General Appearance: No Apparent Distress, WD/WN Respiratory: Chest Non Tender, No Accessory Muscle Use, No Respiratory Distress, Other (phlemy sounds from lungs BL) Cardiovascular: Regular Rate, Rhythm, No Murmur Gastrointestinal: soft, no organomegaly, tenderness (s/p surgery), other (abdominal incision c/d/i) Assessment/Plan Assessment/Plan Assessment/Plan S/P day 2 - SBO laparotomy - correction of internal hernia secondary to adhesions Abdominal pain Hypokalemia HTN Plan: Continue liquid diet and monitor for bowel changes throughout the day, may introduce soft foods tonight or tomorrow. Dressing changes as needed. Toradol for pain PRN DVT ppx - ambulation and SCD while in bed ICS use for lung changes Potassium ordered for hypokalemia 3.7->2.9 today HTN - continue home meds as appropriate Supervisory-Addendum Brief Verification & Attestation Participated in pt care: history, MDM, physical Personally performed: exam, history, MDM, supervision of care Care discussed with: Medical Student Procedures: n/a Verification and Attestation of Medical Student E/M Service A medical student performed and documented this service. I then reviewed and verified all information documented by the medical student and made modifications to such information, when appropriate. I personally performed a physical exam, medical decision making and then discussed any differences between the notes and made revisions as necessary to create one note. Sid Vidales , 02/03/21 , 10:50 BOBBI LABOY Feb 02, 2021 07:32 SID VIDLAES DO Feb 03, 2021 10:50
[2021-02-02 07:49] VITALS: BP 182/116
[2021-02-02] MEDS: ACETAMINOPHEN 500 MG TAB (TYLENOL) PO SCH ×2 (09:18→16:39)
[2021-02-02 11:57] VITALS: BP 123/80
[2021-02-02 15:50] VITALS: BP 143/81
[2021-02-02 20:00] VITALS: BP 125/78
[2021-02-03] VITALS: BP 135/82
[2021-02-03] MEDS: ACETAMINOPHEN 500 MG TAB (TYLENOL) PO SCH ×2 (00:34→08:08)
[2021-02-03 04:00] VITALS: BP 117/83
[2021-02-03] MEDS: KETOROLAC 15 MG/ML VIAL IVP SCH ×2 (04:51→10:33)
[2021-02-03 06:41] LABS: POTASSIUM 3.1 MMOL/L (3.6-5.0)
[2021-02-03 06:42] LABS: CALCIUM 8.4 MG/DL (8.5-10.1)
[2021-02-03] MEDS: POTASSIUM CL 10MEQ/50ML IVPB 50 ML IV SCH ×5 (06:43→10:32)
[2021-02-03] MEDS: KCL 20 MEQ TAB (K-DUR) PO SCH (06:43)
[2021-02-03 06:46] LABS: CREATININE SERUM 0.67 MG/DL (0.60-1.30)
[2021-02-03] MEDS: MAGNESIUM 1 GM/100 ML IVPB 100 ML IV SCH (06:50)
[2021-02-03] MEDS: PANTOPRAZOLE 40 MG (PROTONIX) VIAL IV SCH (06:57)
[2021-02-03] MEDS: LIDOCAINE 2% VISCOUS 15 ML UDC PO SCH ×2 (06:59→11:59)
[2021-02-03] MEDS: LACTATED RINGERS 1,000 ML IV SCH (07:02)
--- NOTE | 2021-02-03 07:18 | Progress Note - Surgery ---
NARDABOBBI 02/03/21 0718: Subjective Date Seen by a Provider: Feb 03, 2021 Subjective/Events-last exam Pt is 3 days S/P and resting comfortably in bed, appears well, but tired. Last night pt had soft foods for dinner without any associated abdominal pain, nausea of vomiting. No gas, stool or blood was passed. Pt is urinating abundantly without issue. Abdomen remains mildly distended and diffusely tender to deep palpation. Pt also reports incisional pain and tenderness with movement and shows no new signs of bleeding. Pt encouraged to use IS and ambulate as LE edema is increasing - discussed implementation of SCDs with Pt and nursing. Lung sounds are clear today. Pt continues to receive potassium and magnesium IV supplementation + LR. Discussed continuing current diet of sot foods and possibility of going home t omorrow. Review of Systems General: No Chills, No Night Sweats; Fatigue; No Malaise; Appetite HEENT: No Head Aches, No Visual Changes, No Eye Pain, No Ear Pain, No Dysphasia, No Sinus Congestion, No Post Nasal Drip, No Sore Throat Pulmonary: No Dyspnea, No Cough, No Pleuritic Chest Pain Cardiovascular: No: Chest Pain, Palpitations, Orthopnea, Paroxysmal Noc. Dyspnea, Edema, Lt Headedness Gastrointestinal: Abdominal Pain; No: Nausea, Vomiting, Diarrhea, Constipation, Melena, Hematochezia Genitourinary: No Dysuria; Frequency; No Incontinence, No Hematuria, No Retention Musculoskeletal: No: neck pain, shoulder pain, arm pain, back pain, hand pain, leg pain, foot pain Neurological: Weakness; No: Numbness, Incoordination, Change in speech, Confusion, Seizures Mild incisional pain and diffused tenderness to deep palpation Objective Exam Vital Signs Date Time Temp Pulse Resp B/P (MAP) Pulse Ox O2 Delivery O2 Flow Rate FiO2 02/03/21 04:00 36.8 78 18 117/83 (94) 96 Nasal Cannula 1.00 02/03/21 00:00 36.8 107 20 135/82 (99) 96 Nasal Cannula 1.00 02/02/21 23:06 36.9 02/02/21 20:00 Room Air 02/02/21 20:00 36.9 103 18 125/78 (94) 99 Room Air 02/02/21 15:50 36.7 77 18 143/81 (101) 96 Room Air 02/02/21 11:57 36.6 81 18 123/80 (94) 97 Room Air 02/02/21 08:32 95 Room Air 02/02/21 08:00 Room Air 02/02/21 07:49 36.3 87 16 182/116 (138) 96 Room Air I & O 02/03/21 07:00 Intake Total 7607 ml Output Total 3050 ml Balance 4557 ml Capillary Refill : Less Than 3 Seconds General Appearance: No Apparent Distress, WD/WN HEENT: PERRL/EOMI, Pharynx Normal Neck: Full Range of Motion, Non Tender, Supple Respiratory: Chest Non Tender, Lungs Clear, Normal Breath Sounds, No Accessory Muscle Use, No Respiratory Distress Cardiovascular: Regular Rate, Rhythm, No Edema, No Gallop, No Murmur, Normal Peripheral Pulses Peripheral Pulses: 2+ Radial Pulses (R), 2+ Radial Pulses (L) Gastrointestinal: soft, no organomegaly, no pulsatile mass; No rebound; tenderness (s/p surgery) Extremity: Normal Capillary Refill, Normal Range of Motion, Non Tender, No Calf Tenderness, Pedal Edema Neurologic/Psychiatric: Alert, Oriented x3, No Motor/Sensory Deficits, Normal Mood/Affect, consultant in ergonomics and safety II-XII Norm as Tested Skin: Normal Color, Warm/Dry Lymphatic: No Adenopathy (cervical and axillary) Results Lab Laboratory Tests 02/03/21 05:22: Sodium Level 137, Potassium Level 3.1L, Chloride Level 104, Carbon Dioxide Level 25, Anion Gap 8, Blood Urea Nitrogen 12, Creatinine 0.67, Estimat Glomerular Filtration Rate 83, BUN/Creatinine Ratio 18, Glucose Level 97, Calcium Level 8.4L, Magnesium Level 2.0 Assessment/Plan Assessment/Plan Assessment/Plan S/P day 3 - SBO laparotomy - correction of internal hernia secondary to adhesions Abdominal pain Hypokalemia HTN Plan: Continue soft food diet and monitor for bowel changes. Monitor wound site for inflammatory changes. Toradol for pain PRN DVT ppx - ambulation and SCD while in bed Continue ICS use Potassium ordered for hypokalemia 2.9->3.1 today HTN - continue home meds as appropriate SID VIDALES DO 02/03/21 1054: Subjective Time Seen by a Provider: 10:08 Subjective/Events-last exam Pt seen and examined, actually just go out of bathroom where she had one small BM and is having flatus now. She tolerated diet with no abdominal pain, Nausea or vomiting. Review of Systems General: Fatigue Pulmonary: No Dyspnea, No Cough Cardiovascular: No: Chest Pain, Palpitations Gastrointestinal: Abdominal Pain; No: Nausea, Vomiting Assessment/Plan Assessment/Plan Assessment/Plan S/P day 3 - SBO laparotomy - correction of internal hernia secondary to adhesions Hypokalemia HTN Plan: Continue soft food diet and encourage ambulation. Pt finally having BM (but small), plan was to keep her but since she is finally moving her bowels it may be possible for her to go home today. Will discuss this again with pt and her son when he gets here. Supervisory-Addendum Brief Verification & Attestation Participated in pt care: history, MDM, physical Personally performed: exam, history, MDM, supervision of care Care discussed with: Medical Student Procedures: n/a Verification and Attestation of Medical Student E/M Service A medical student performed and documented this service. I then reviewed and verified all information documented by the medical student and made modifications to such information, when appropriate. I personally performed a physical exam, medical decision making and then discussed any differences between the notes and made revisions as necessary to create one note. Sid Vidales , 02/03/21 , 10:54 BOBBI LABOY Feb 03, 2021 07:18 SID VIDALES DO Feb 03, 2021 10:54
[2021-02-03 08:00] VITALS: BP 132/84
[2021-02-03 12:00] VITALS: BP 145/80
--- NOTE | 2021-02-03 15:18 | Discharge Inst-Surgical ---
Discharge Inst-Surgical Depart Medication/Instructions New, Converted or Re-Newed RX: Other (take home meds) Patient Instructions Follow up Appt: Make appointment for 1 week. [phone] Instructions: No lifting greater than 20 pounds. No strenuous activity. May shower in 24 hours, no tub bath or soaking. Use incentive spirometer at home as directed. No Smoking Skin/Wound Care: May remove bandages in am. You need to leave the Dermabond on incision it will fall off on it's own. Symptoms to Report: Appetite Changes, Extremity Discoloration, Numbness/Tingling, Swelling Increased, Bleeding Excessive, Eyesight Changes, Pain Increased, Urine Color Change, Constipation(Persistent), Fever over 101 degree F, Pain/Pressure in chest, Urinating Difficulty, Cough Up/Vomit Blood, Heart Beat Irreg/Pounding, Pain/Pressure in jaw, Cramps in feet or legs, Lightheadedness, Pain/Pressure in shoulder, Diarrhea(Persistent), Memory Changes Suddenly, Questions/Concerns, Weight gain consecutive days, Dizziness/Fainting, Nausea/Vomiting, Shortness of Breath, Weight gain over 2 pounds If questions or concerns contact your physician Or seek help at emergency department. Activity Activity as Tolerated: Yes Ambulate as much as possible Activity Instructions: Avoid Stress to Incision Driving Instructions: No Driving/Refer to Dr. Kim Discharge Diet: Soft Diet (increase as tolerated) Diet After 24 Hours: Clear Liquid if Nauseous If Any Problems/Questions/Issu: Contact Your Physician, Go to Emergency Room Skin/Wound Care Infection Signs and Symptoms: Increased Redness, Foul Odor of Wound, Increased Drainage, Skin Itchy or Has a Rash, Increased Swelling, Temperature Above 101 F Bathing Instructions: Shower Stitches/[place]/Dermabond Dis: Care of DERECK Ta DO Feb 03, 2021 15:18
== END 2021-02-03 15:50 | disposition home or self-care (01) | DRG 336 ==
LOC: EDUNIT# 19:31 → ER FS 19:32 → 4TH 01-28 00:18
PROVIDERS: ADMIT Internal Medicine; ATTEND Surgery
PROC: 0WJG4ZZ Inspection of Peritoneal Cavity, Percutaneous Endoscopic Approach (ICD-10-PCS; 2021-01-31)
PROC: 0DNW0ZZ Release Peritoneum, Open Approach (ICD-10-PCS; principal; 2021-01-31 12:43)
DX: K46.0 Unspecified abdominal hernia with obstruction, without gangrene (principal); N17.9 Acute kidney failure, unspecified; K56.51 Intestinal adhesions [bands], with partial obstruction; I10 Essential (primary) hypertension; K21.9 Gastro-esophageal reflux disease without esophagitis; E78.00 Pure hypercholesterolemia, unspecified; M19.90 Unspecified osteoarthritis, unspecified site; F41.9 Anxiety disorder, unspecified; K57.10 Diverticulosis of small intestine without perforation or abscess without bleeding; E87.6 Hypokalemia; R60.9 Edema, unspecified; Z79.899 Other long term (current) drug therapy; Z79.82 Long term (current) use of aspirin
CPT/HCPCS: 36415; 71045; 74177; 80048; 80053; 81000; 83605; 83690; 83735; 85025; 94760; 96374; 96375

== ENCOUNTER → 2021-02-04 | Outpatient (CLI) | payer MEDICARE ==
[~2021-02-04] MED LIST changes: +ASCO-129 PO; +CALC-857 PO; +LISI-729 PO; +[UNRECOGNIZED DRUG - CODE] PO
[2021-02-04 14:58] LABS: CLARITY,URINE CLEAR; COLOR,URINE YELLOW; GLUCOSE, URINE (UA) NEGATIVE (NEGATIVE); PH,URINE 8.5 (5-9); PROTEIN,URINE NEGATIVE (NEGATIVE)
[2021-02-04 14:59] LABS: BACTERIA,URINE TRACE /HPF; BILIRUBIN,URINE NEGATIVE (NEGATIVE); KETONES,URINE TRACE (NEGATIVE); LEUKOCYTE ESTERASE ,URINE NEGATIVE (NEGATIVE); NITRITE,URINE NEGATIVE (NEGATIVE); RBC,URINE 0-2 /HPF
== END ==
LOC: PVFS 14:41
PROVIDERS: ATTEND Family Medicine
DX: R35.8 Other polyuria (principal); R10.9 Unspecified abdominal pain; Z98.890 Other specified postprocedural states
CPT/HCPCS: 81000

== ENCOUNTER 2021-06-07 02:13 | Emergency (ER) | payer MEDICARE ==
[~2021-06-07] VITALS: Ht 162 cm; Wt 65.0 kg
[~2021-06-07 02:13] MED LIST changes: +DICY20TA PO; -DICY20TA10 PO; -LISI-729 PO; +LISI5TAB20 PO
[2021-06-07] MEDS ORDERED: FAMOTIDINE 20MG/2ML IV (PEPCID) IV STA (02:40)
--- NOTE | 2021-06-07 02:40 | ED Abdominal Pain ---
General Chief Complaint: Abdominal/GI Problems Stated Complaint: ABDOMINAL PAIN History of Present Illness Date Seen by Provider: Jun 07, 2021 Time Seen by Provider: 02:35 Initial Comments 85-year-old female with some periumbilical area/mid abdominal pain. Patient reports that started around 9 to 9:30 PM this evening. She reports that it comes in waves. That is not as painful at this time. She reports that the previous 2 nights she has had a similar pain. She reports she has had a similar pain in the past due to ileus and then a small bowel obstruction. She reports a couple years ago she had a surgery and had been fine until last couple nights since then. Patient denies any vomiting or diarrhea. She does report she is passing some gas. She reports that she feels very bloated. No reports of fever, chills, cough or other systemic complaints. Allergies and Home Medications Allergies Coded Allergies: adhesive tape (Verified Allergy, Mild, 06/07/21) Patient Home Medication List Home Medication List Reviewed: Yes Alprazolam (Alprazolam) 0.5 Mg Tablet, 0.25-0.5 MG PO BID PRN for ANXIETY, (Reported) Entered as Reported by: MARVIN EISENBERG on 11/29/20 110 Ascorbic Acid (Vitamin C) 500 Mg Tablet.er, 500 MG PO DAILY, (Reported) Entered as Reported by: TEGAN SABILLON on 01/28/21932 Aspirin (Aspirin EC) 81 Mg Tablet.dr, 81 MG PO DAILY, (Reported) Entered as Reported by: MARVIN EISENBERG on 11/29/20 1103 Calcium Carbonate/Vitamin D3 (Caltrate 600 + D Soft Chew Tab) 1 Each Tab.chew, 1 EACH PO DAILY, (Reported) Entered as Reported by: TEGAN SABILLON on 01/28/21932 Dicyclomine HCl (Dicyclomine HCl) 20 Mg Tablet, 20 MG PO TID PRN for IBS SYMPTO MS-DIARRHEA,CRAMPING, (Reported) Entered as Reported by: TEGAN SABILLON on 01/28/21932 Estrogens, Conjugated (Premarin) 0.3 Mg Tablet, 0.3 MG PO DAILY, (Reported) Entered as Reported by: RASHEED GODDARD on 01/03/21 1519 Famotidine (Famotidine) 10 Mg Tablet, 10 MG PO DAILY PRN for HEARTBURN, (Reported) Entered as Reported by: TEGAN SABILLON on 01/28/21932 Gemfibrozil (Gemfibrozil) 600 Mg Tablet, 600 MG PO BID, (Reported) Entered as Reported by: MARVIN EISENBERG on 11/29/20 1102 Lisinopril (Lisinopril) 5 Mg Tablet, 5 MG PO DAILY, (Reported) Entered as Reported by: TEGAN SABILLON on 01/28/21932 Metoprolol Succinate (Metoprolol Succinate) 100 Mg Tab.er.24h, 100 MG PO DAILY, (Reported) Entered as Reported by: TEGAN SABILLON on 01/28/21932 Ondansetron (Ondansetron Odt) 4 Mg Tab.rapdis, 4 MG PO TID PRN for EVELIN SEA/VOMITING-1ST LINE, (Reported) Entered as Reported by: TEGAN SABILLON on 01/28/21932 Review of Systems Review of Systems Constitutional: No chills; fever Respiratory: No Symptoms Reported Cardiovascular: No Symptoms Reported Gastrointestinal: See HPI, Abdomen Distended, Abdominal Pain, Nausea Genitourinary: No Symptoms Reported Musculoskeletal: no symptoms reported Skin: no symptoms reported Psychiatric/Neurological: No Symptoms Reported Endocrine: No Symptoms Reported Past Kcroibn-Irzmyz-Gbatrg Hx Seasonal Allergies Seasonal Allergies: No Past Medical History Surgery/Hospitalization HX: hysterectomy, bilat knee rep., ricarda Surgeries: Yes (BILAT. KNEE REPLACEMENT) Gallbladder, Hysterectomy, Orthopedic Respiratory: No Cardiac: Yes High Cholesterol, Hypertension Neurological: No Female Reproductive Disorders: Denies [employer] History: Hysterectomy Genitourinary: No Gastrointestinal: Yes Obstructive Bowel, Gall Bladder Disease Musculoskeletal: Yes Arthritis, Fractures Endocrine: No HEENT: Yes Cataract Loss of Vision: Bilateral Hearing Impairment: Denies Cancer: No Psychosocial: No Integumentary: No Blood Disorders: No Adverse Reaction/Blood Tranf: No Family Medical History Heart Disease, Cancer, Diabetes, GI Disease, Hypertension Physical Exam Vital Signs Vital Signs - First Documented 06/07/21 02:22 Temp 36.5 Pulse 65 Resp 14 B/P (MAP) 198/87 (124) Pulse Ox 98 O2 Delivery Room Air Capillary Refill : Height/Weight/BMI Height: '" Weight: lbs. oz. kg; 25.68 BMI Method: General Appearance: WD/WN, no apparent distress Neck: full range of motion, supple Respiratory: lungs clear, normal breath sounds Cardiovascular: normal peripheral pulses, regular rate, rhythm Gastrointestinal: soft; No guarding, No rebound; tenderness (Periumbilical/mid epigastric) Back: other (Mild tenderness bilateral lower back) Neurologic/Psychiatric: alert, normal mood/affect, oriented x 3 Skin: normal color, warm/dry Progress/Results/Core Measures Results/Orders Lab Results Laboratory Tests Test 06/07/21 02:55 06/07/21 04:00 Range/Units White Blood Count 8.3 4.3-11.0 10^3/uL Red Blood Count 3.98 3.80-5.11 10^6/uL Hemoglobin 11.6 11.5-16.0 g/dL Hematocrit 35 35-52 % Mean Corpuscular Volume 87 80-99 fL Mean Corpuscular Hemoglobin 29 25-34 pg Mean Corpuscular Hemoglobin Concent 34 32-36 g/dL Red Cell Distribution Width 13.8 10.0-14.5 % Platelet Count 309 130-400 10^3/uL Mean Platelet Volume 9.7 9.0-12.2 fL Immature Granulocyte % (Auto) 0 % Neutrophils (%) (Auto) 57 42-75 % Lymphocytes (%) (Auto) 32 12-44 % Monocytes (%) (Auto) 8 0-12 % Eosinophils (%) (Auto) 3 0-10 % Basophils (%) (Auto) 1 0-10 % Neutrophils # (Auto) 4.7 1.8-7.8 X 10^3 Lymphocytes # (Auto) 2.6 1.0-4.0 X 10^3 Monocytes # (Auto) 0.6 0.0-1.0 X 10^3 Eosinophils # (Auto) 0.3 0.0-0.3 10^3/uL Basophils # (Auto) 0.1 0.0-0.1 10^3/uL Immature Granulocyte # (Auto) 0.0 0.0-0.1 10^3/uL Sodium Level 137 135-145 MMOL/L Potassium Level 4.5 3.6-5.0 MMOL/L Chloride Level 103 98-107 MMOL/L Carbon Dioxide Level 21 21-32 MMOL/L Anion Gap 13 5-14 MMOL/L Blood Urea Nitrogen 24 H 7-18 MG/DL Creatinine 1.13 0.60-1.30 MG/DL Estimat Glomerular Filtration Rate 46 BUN/Creatinine Ratio 21 Glucose Level 106 H 70-105 MG/DL Calcium Level 10.3 H 8.5-10.1 MG/DL Corrected Calcium 10.3 H 8.5-10.1 MG/DL Magnesium Level 2.0 1.6-2.4 MG/DL Total Bilirubin 0.6 0.1-1.0 MG/DL Aspartate Amino Transf (AST/SGOT) 12 5-34 U/L Alanine Aminotransferase (ALT/SGPT) 7 0-55 U/L Alkaline Phosphatase 51 40-136 U/L C-Reactive Protein < 0.30 <0.50 MG/DL Total Protein 7.4 6.4-8.2 GM/DL Albumin 4.0 3.2-4.5 GM/DL Lipase 33 8-78 U/L Urine Color YELLOW Urine Clarity CLEAR Urine pH 6.0 5-9 Urine Specific [place] 1.010 L 1.016-1.022 Urine Protein NEGATIVE NEGATIVE Urine Glucose (UA) NEGATIVE NEGATIVE Urine Ketones NEGATIVE NEGATIVE Urine Nitrite NEGATIVE NEGATIVE Urine Bilirubin NEGATIVE NEGATIVE Urine Urobilinogen 0.2 < = 1.0 MG/DL Urine Leukocyte Esterase NEGATIVE NEGATIVE Urine RBC (Auto) NEGATIVE NEGATIVE Urine RBC NONE /HPF Urine WBC RARE /HPF Urine Squamous Epithelial Cells 0-2 /HPF Urine Crystals NONE /LPF Urine Bacteria TRACE /HPF Urine Casts NONE /LPF Urine Mucus NEGATIVE /LPF Urine Culture Indicated NO My Orders Orders - SALGADO,ASHLEY L DO Cbc With Automated Diff (06/07/21 02:40) Comprehensive Metabolic Panel (06/07/21 02:40) Lipase (06/07/21 02:40) Magnesium (06/07/21 02:40) Ua Culture If Indicated (06/07/21 02:40) Crp Fs (06/07/21 02:40) Famotidine Injection (Pepcid Injection) (06/07/21 02:40) Ed Iv/Invasive Line Start (06/07/21 02:40) Ct Abdomen/Pelvis W (06/07/21 02:40) Iohexol Injection (Omnipaque 350 Mg/Ml 1 (06/07/21 03:45) Received Contrast (Hold Metformin- Contr (06/07/21 03:45) Sodium Chloride Flush (Catheter Flush Sy (06/07/21 03:45) Ns (Ivpb) (Sodium Chloride 0.9% Ivpb Bag (06/07/21 03:45) Medications Given in ED Current Medications Medications Dose Ordered Sig/Nicolas Route Start Time Stop Time Status Last Admin Dose Admin Iohexol 65 ml ONCE ONCE IV 06/07/21 03:45 06/07/21 03:47 DC 06/07/21 03:50 65 ML Sodium Chloride 10 ml NEEDED PRN IV 06/07/21 03:45 06/07/21 03:50 10 ML Sodium Chloride 100 ml ONCE ONCE IV 06/07/21 03:45 06/07/21 03:47 DC 06/07/21 03:50 80 ML Vital Signs/I&O 06/07/21 06/07/21 02:22 04:30 Temp 36.5 Pulse 65 64 Resp 14 14 B/P (MAP) 198/87 (124) 188/78 Pulse Ox 98 96 O2 Delivery Room Air Room Air Departure Impression Primary Impression: Abdominal pain Qualified Codes: R10.84 - Generalized abdominal pain Additional Impression: Gaseous abdominal distention Disposition: 01 HOME, SELF-CARE Condition: Stable Departure-Patient Inst. Referrals: KEYON RAWLS MD (PCP/Family) Primary Care Physician Patient Instructions: Gas and Bloating, Abdominal Pain, Adult ED Add. Discharge Instructions: Follow-up with Dr. Vidales for recommendations on further outpatient treatment Encourage you to increase the fiber in your diet and frequent ambulation You may use [id number] medications that contain simethicone to help with the bloating and discomfort Drink plenty of fluid Follow-up with your primary care provider if symptoms or not improving over the next day or so All discharge instructions reviewed with patient and/or family. Voiced understanding. ASHLEY SALGADO DO Jun 07, 2021 02:40
[2021-06-07 03:13] LABS: HEMATOCRIT 35 % (35-52); HEMOGLOBIN 11.6 g/dL (11.5-16.0); MEAN CORPUSCULAR HEMOGLOBIN 29 pg (25-34); MEAN CORPUSCULAR HGB CONC 34 g/dL (32-36); MEAN CORPUSCULAR VOLUME 87 fL (80-99); MEAN PLATELET VOLUME 9.7 fL (9.0-12.2); PLATELET COUNT 309 10^3/uL (130-400); WHITE BLOOD COUNT 8.3 10^3/uL (4.3-11.0)
[2021-06-07 03:14] LABS: BASOPHILS # (AUTO) 0.1 10^3/uL (0.0-0.1); BASOPHILS % (AUTO) 1 % (0-10); EOSINOPHILS # (AUTO) 0.3 10^3/uL (0.0-0.3); EOSINOPHILS % (AUTO) 3 % (0-10); LYMPHOCYTES # (AUTO) 2.6 X 10^3 (1.0-4.0); LYMPHOCYTES % (AUTO) 32 % (12-44); MONOCYTES # (AUTO) 0.6 X 10^3 (0.0-1.0); MONOCYTES % (AUTO) 8 % (0-12); NEUTROPHILS # (AUTO) 4.7 X 10^3 (1.8-7.8); NEUTROPHILS % (AUTO) 57 % (42-75)
[2021-06-07 03:29] LABS: BILIRUBIN,TOTAL 0.6 MG/DL (0.1-1.0); BUN/CREATININE RATIO 21; CALCIUM 10.3 MG/DL (8.5-10.1); CARBON DIOXIDE 21 MMOL/L (21-32); CHLORIDE 103 MMOL/L (98-107); CREATININE SERUM 1.13 MG/DL (0.60-1.30); GFR ESTIMATED 46; GLUCOSE 106 MG/DL (70-105); POTASSIUM 4.5 MMOL/L (3.6-5.0); SODIUM 137 MMOL/L (135-145)
[2021-06-07 03:30] LABS: ALANINE AMINOTRANSFERASE 7 U/L (0-55); ALKALINE PHOSPHATASE 51 U/L (40-136); LIPASE 33 U/L (8-78); TOTAL PROTEIN 7.4 GM/DL (6.4-8.2)
[2021-06-07] MEDS ORDERED: HOLD METFORMIN - RECEIVED CONTRAST 20 ML VIAL IV SCH (03:45)
[2021-06-07] MEDS ORDERED: CATHETER FLUSH 10 ML SYR IV PRN (03:45)
[2021-06-07] MEDS ORDERED: NS 100 ML (IVPB) BAG IV ONE (03:45)
[2021-06-07] MEDS ORDERED: IOHEXOL 350 MG/ML 100 ML (OMNIPAQUE 350) VIAL IV ONE (03:45)
[2021-06-07 04:30] LABS: CLARITY,URINE CLEAR; COLOR,URINE YELLOW; GLUCOSE, URINE (UA) NEGATIVE (NEGATIVE); PROTEIN,URINE NEGATIVE (NEGATIVE)
[2021-06-07 04:31] LABS: BILIRUBIN,URINE NEGATIVE (NEGATIVE); KETONES,URINE NEGATIVE (NEGATIVE); LEUKOCYTE ESTERASE ,URINE NEGATIVE (NEGATIVE); NITRITE,URINE NEGATIVE (NEGATIVE); SQUAMOUS EPITHELIAL CELL,UR 0-2 /HPF; WBC,URINE RARE /HPF
[2021-06-07 04:32] LABS: BACTERIA,URINE TRACE /HPF
--- NOTE | 2021-06-07 05:24 | Diagnostic Imaging Report ---
PROCEDURE: CT abdomen and pelvis with contrast. TECHNIQUE: Multiple contiguous axial images were obtained through the abdomen and pelvis after administration of intravenous contrast. Auto Exposure Controls were utilized during the CT exam to meet ALARA standards for radiation dose reduction. All CT scans use one or more of the following dose optimizing techniques: automated exposure control, MA and/or KvP adjustment based on patient size and exam type or iterative reconstruction. INDICATION: Abdominal pain COMPARISON: 01/27/2021 FINDINGS: Fat-containing left-sided diaphragmatic hernia is noted posteriorly. Mild bibasilar scarring and/or atelectasis. A few calcified hepatic granuloma are present. Calcified splenic granuloma. Otherwise, the spleen is unremarkable. Stable hyperdense prominence of the left adrenal gland. The right adrenal gland is unremarkable. The pancreas is unremarkable. The kidneys are unremarkable. Advanced vascular calcifications within the abdominal aorta and its branch vessels without aneurysmal dilatation of the abdominal aorta. The uterus is not visualized, likely surgically absent. No abnormal adnexal mass lesion. Moderate colonic diverticulosis without CT evidence of diverticulitis. No bowel obstruction or pneumatosis. The urinary bladder is mildly distended and trabeculated. No significant adenopathy, free air, or free fluid within the abdomen or pelvis. 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 Scattered osseous degenerative changes without acute osseous abnormality. [place] left curvature of the lumbar spine. IMPRESSION: Moderate amount of stool throughout the colon, which may relate to constipation. No evidence of bowel obstruction. Mild distention and trabeculation of the urinary bladder. Colonic diverticulosis without CT evidence of diverticulitis. 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 Dictated by: Dictated on workstation # [id number]
[2021-06-07 06:08] VITALS: BP 169/69
== END 2021-06-07 06:08 | disposition home or self-care (01) ==
LOC: EDUNIT# 02:13 → ER FS 02:16
DX: R14.0 Abdominal distension (gaseous) (principal); I10 Essential (primary) hypertension; Z79.82 Long term (current) use of aspirin; Z79.899 Other long term (current) drug therapy
CPT/HCPCS: 36415; 74177; 80053; 81000; 83690; 83735; 85025; 86141

== ENCOUNTER 2021-06-21 11:00 | Emergency (ER) | payer MEDICARE ==
[~2021-06-21] VITALS: Ht 160 cm; Wt 65.0 kg
[2021-06-21 11:34] LABS: BASOPHILS % (AUTO) 0 % (0-10); EOSINOPHILS % (AUTO) 0 % (0-10); HEMATOCRIT 40 % (35-52); HEMOGLOBIN 13.2 g/dL (11.5-16.0); LYMPHOCYTES # (AUTO) 2.9 X 10^3 (1.0-4.0); LYMPHOCYTES % (AUTO) 28 % (12-44); MEAN CORPUSCULAR HEMOGLOBIN 29 pg (25-34); MEAN CORPUSCULAR HGB CONC 33 g/dL (32-36); MEAN CORPUSCULAR VOLUME 87 fL (80-99); MEAN PLATELET VOLUME 9.7 fL (9.0-12.2); MONOCYTES % (AUTO) 7 % (0-12); NEUTROPHILS # (AUTO) 6.7 X 10^3 (1.8-7.8); NEUTROPHILS % (AUTO) 65 % (42-75); PLATELET COUNT 424 10^3/uL (130-400); WHITE BLOOD COUNT 10.4 10^3/uL (4.3-11.0)
[2021-06-21 11:35] LABS: MONOCYTES # (AUTO) 0.8 X 10^3 (0.0-1.0)
[2021-06-21 11:43] LABS: BUN/CREATININE RATIO 17; CARBON DIOXIDE 28 MMOL/L (21-32); CHLORIDE 93 MMOL/L (98-107); CREATININE SERUM 1.66 MG/DL (0.60-1.30); GFR ESTIMATED 29; POTASSIUM 3.5 MMOL/L (3.6-5.0); SODIUM 139 MMOL/L (135-145)
[2021-06-21 11:44] LABS: ALANINE AMINOTRANSFERASE 7 U/L (0-55); ALBUMIN 4.8 GM/DL (3.2-4.5); ALKALINE PHOSPHATASE 60 U/L (40-136); BILIRUBIN,TOTAL 0.6 MG/DL (0.1-1.0); CALCIUM 10.7 MG/DL (8.5-10.1); GLUCOSE 141 MG/DL (70-105); MAGNESIUM 2.2 MG/DL (1.6-2.4); TOTAL PROTEIN 8.6 GM/DL (6.4-8.2)
--- NOTE | 2021-06-21 11:47 | ED Abdominal Pain ---
General Chief Complaint: Abdominal/GI Problems Stated Complaint: VOMITING Nursing Triage Note: Patient presents to the ED via EMS from [facility] with c/o nausea and vomiting. Reports that her symptoms began yesterday at 11am. States she has a history of bowel obstruction. EMS states staff at [facility] also reported hypotension with a reported reading of 68/56. 4mg ondansetron and IVF administered in route to ED. Source of Information: Patient, EMS Exam Limitations: No Limitations History of Present Illness Date Seen by Provider: Jun 21, 2021 Time Seen by Provider: 11:03 Initial Comments Here with report of nausea and vomiting with abdominal distention and lack of stool since 11 AM yesterday. Does have history of bowel obstruction. Apparently had soft blood pressures at the [facility] facility that she is at. EMS noted better blood pressures but did start IV and started fluid. On arrival here she had blood pressures 80s systolic. Denies breathing problems. States last normal bowel movement was 2 days ago. Denies passing gas. She has had constipation in the past and tried MiraLAX and that did not help. Did have previous visit in our facility for bowel obstruction that required operative management and obstruction was related to adhesions per the patient. Follows with Dr. Vidales. Also follows with Dr. Rawls. She is vaccinated and boosted for COVID-19 Timing/Duration: 24 Hours Severity/Quality: Moderate, Severe, Cramping Location: Generalized Abdomen Radiation: No Radiation Activities at Onset: None Modifying Factors: Worsens With Eating; Improves With Vomiting Associated Symptoms: No Chest Pain, No Fever/Chills, No Fatigue; Nausea/Vomit ing; No Shortness of Air; Swelling/Mass in Abdomen; No Weakness Allergies and Home Medications Allergies Coded Allergies: adhesive tape (Verified Allergy, Mild, 06/07/21) Patient Home Medication List Home Medication List Reviewed: Yes Alprazolam (Alprazolam) 0.5 Mg Tablet, 0.25-0.5 MG PO BID PRN for ANXIETY, (Reported) Entered as Reported by: MARVIN EISENBERG on 11/29/20 1102 Ascorbic Acid (Vitamin C) 500 Mg Tablet.er, 500 MG PO DAILY, (Reported) Entered as Reported by: TEGAN SABILLON on 01/28/21 0933 Aspirin (Aspirin EC) 81 Mg Tablet.dr, 81 MG PO DAILY, (Reported) Entered as Reported by: MARVIN EISENBERG on 11/29/20 1103 Calcium Carbonate/Vitamin D3 (Caltrate 600 + D Soft Chew Tab) 1 Each Tab.chew, 1 EACH PO DAILY, (Reported) Entered as Reported by: TEGAN SABILLON on 01/28/21932 Dicyclomine HCl (Dicyclomine HCl) 20 Mg Tablet, 20 MG PO TID PRN for IBS SYMPTOMS-DIARRHEA,CRAMPING, (Reported) Entered as Reported by: TEGAN SABILLON on 01/28/21932 Estrogens, Conjugated (Premarin) 0.3 Mg Tablet, 0.3 MG PO DAILY, (Reported) Entered as Reported by: RASHEED GODDARD on 01/03/21 1519 Famotidine (Famotidine) 10 Mg Tablet, 10 MG PO DAILY PRN for HEARTBURN, (Reported) Entered as Reported by: TEGAN SABILLON on 01/28/21932 Gemfibrozil (Gemfibrozil) 600 Mg Tablet, 600 MG PO BID, (Reported) Entered as Reported by: MARVIN EISENBERG on 11/29/20 110 Lisinopril (Lisinopril) 5 Mg Tablet, 5 MG PO DAILY, (Reported) Entered as Reported by: TEGAN SABILLON on 01/28/21932 Metoprolol Succinate (Metoprolol Succinate) 100 Mg Tab.er.24h, 100 MG PO DAILY, (Reported) Entered as Reported by: TEGAN SABILLON on 01/28/21932 Ondansetron (Ondansetron Odt) 4 Mg Tab.rapdis, 4 MG PO TID PRN for NAUSEA/VOMITING-1ST LINE, (Reported) Entered as Reported by: TEGAN SABILLON on 01/28/21932 Review of Systems Review of Systems Constitutional: see HPI; No chills, No fever EENTM: No Symptoms Reported Respiratory: No Symptoms Reported Cardiovascular: No Symptoms Reported Gastrointestinal: Abdomen Distended, Abdominal Pain, Nausea, Vomiting Genitourinary: No Symptoms Reported Musculoskeletal: No joint pain, No muscle pain Skin: no symptoms reported All Other Systems Reviewed Negative Unless Noted: Yes Past Phwmill-Uscgob-Jppzdj Hx Patient Social History Tobacco Use?: No Use of E-Cig and/or Vaping dev: No Substance use?: No Alcohol Use?: No Pt feels they are or have been: No Immunizations Up To Date First/Initial COVID19 Vaccinat: June Second COVID19 Vaccination Jean-Paul: July Seasonal Allergies Seasonal Allergies: No Past Medical History Surgery/Hospitalization HX: hysterectomy, bilat knee rep., ricarda. High Cholesterol, HTN, Anxiety, Bowel obstruction. Surgeries: Yes (BILAT. 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 Genitourinary: No Gastrointestinal: Yes Obstructive Bowel, Gall Bladder Disease Musculoskeletal: Yes Arthritis, Fractures Endocrine: No HEENT: Yes Cataract Loss of Vision: Bilateral Hearing Impairment: Denies Cancer: No Psychosocial: No Integumentary: No Blood Disorders: No Adverse Reaction/Blood Tranf: No Family Medical History Reviewed Nursing Family Hx Heart Disease, Cancer, Diabetes, GI Disease, Hypertension Physical Exam Vital Signs Vital Signs - First Documented 06/21/21 11:00 Temp 36.5 Pulse 67 Resp 18 B/P (MAP) 87/44 (58) Pulse Ox 99 O2 Delivery Room Air Capillary Refill : Less Than 3 Seconds Height/Weight/BMI Height: '" Weight: lbs. oz. kg; 25.00 BMI Method: General Appearance: WD/WN, no apparent distress HEENT: PERRL/EOMI, other (Mucous membranes dry) Neck: full range of motion, supple Respiratory: lungs clear, normal breath sounds Cardiovascular: regular rate, rhythm, no murmur Peripheral Pulses: 2+ Dorsalis Pedis (R), 2+ Left Dors-Pedis (L), 2+ Radial Pulses (R), 2+ Radial Pulses (L) Gastrointestinal: soft, abnormal bowel sounds (Hypoactive and hyperactive at different times), distended (Mild); No tenderness Rectal: normal exam, normal rectal tone, heme negative stool, other (No significant stool ball noted) Extremities: non-tender, normal inspection Back: normal inspection, no CVA tenderness, no vertebral tenderness Neurologic/Psychiatric: alert, oriented x 3 Skin: normal color, warm/dry Progress/Results/Core Measures Results/Orders Lab Results Laboratory Tests Test 06/21/21 11:07 Range/Units White Blood Count 10.4 4.3-11.0 10^3/uL Red Blood Count 4.53 3.80-5.11 10^6/uL Hemoglobin 13.2 11.5-16.0 g/dL Hematocrit 40 35-52 % Mean Corpuscular Volume 87 80-99 fL Mean Corpuscular Hemoglobin 29 25-34 pg Mean Corpuscular Hemoglobin Concent 33 32-36 g/dL Red Cell Distribution Width 13.9 10.0-14.5 % Platelet Count 424 H 130-400 10^3/uL Mean Platelet Volume 9.7 9.0-12.2 fL Neutrophils (%) (Auto) 65 42-75 % Lymphocytes (%) (Auto) 28 12-44 % Monocytes (%) (Auto) 7 0-12 % Eosinophils (%) (Auto) 0 0-10 % Basophils (%) (Auto) 0 0-10 % Neutrophils # (Auto) 6.7 1.8-7.8 X 10^3 Lymphocytes # (Auto) 2.9 1.0-4.0 X 10^3 Monocytes # (Auto) 0.8 0.0-1.0 X 10^3 Eosinophils # (Auto) 0.0 0.0-0.3 10^3/uL Basophils # (Auto) 0.0 0.0-0.1 10^3/uL Sodium Level 139 135-145 MMOL/L Potassium Level 3.5 L 3.6-5.0 MMOL/L Chloride Level 93 L 98-107 MMOL/L Carbon Dioxide Level 28 21-32 MMOL/L Anion Gap 18 H 5-14 MMOL/L Blood Urea Nitrogen 29 H 7-18 MG/DL Creatinine 1.66 H 0.60-1.30 MG/DL Estimat Glomerular Filtration Rate 29 BUN/Creatinine Ratio 17 Glucose Level 141 H 70-105 MG/DL Calcium Level 10.7 H 8.5-10.1 MG/DL Corrected Calcium 8.5-10.1 MG/DL Magnesium Level 2.2 1.6-2.4 MG/DL Total Bilirubin 0.6 0.1-1.0 MG/DL Aspartate Amino Transf (AST/SGOT) 14 5-34 U/L Alanine Aminotransferase (ALT/SGPT) 7 0-55 U/L Alkaline Phosphatase 60 40-136 U/L C-Reactive Protein < 0.30 <0.50 MG/DL Total Protein 8.6 H 6.4-8.2 GM/DL Albumin 4.8 H 3.2-4.5 GM/DL My Orders Orders - ANDRE PALM MD Cbc With Automated Diff (06/21/21 11:17) Comprehensive Metabolic Panel (06/21/21 11:17) Magnesium (06/21/21 11:17) Crp Fs (06/21/21 11:17) Ed Iv/Invasive Line Start (06/21/21 11:17) Ct Abdomen/Pelvis Wo (06/21/21 11:52) Metoclopramide Injection (Reglan Injecti (06/21/21 13:30) Lactated Ringers (Lr 1000 Ml Iv Solution (06/21/21 13:16) Medications Given in ED Current Medications Medications Dose Ordered Sig/Nicolas Route Start Time Stop Time Status Last Admin Dose Admin Metoclopramide HCl 5 mg ONCE ONCE IVP 06/21/21 13:30 06/21/21 13:31 DC 06/21/21 13:24 5 MG Vital Signs/I&O 06/21/21 11:00 Temp 36.5 Pulse 67 Resp 18 B/P (MAP) 87/44 (58) Pulse Ox 99 O2 Delivery Room Air Blood Pressure Mean: 58 Progress Progress Note : Progress Note Seen and evaluated. IV reinitiated as first 1 failed by EMS. Normal saline 1 L bolus initiated by EMS will be completed. Labs drawn. Anticipate CT scan. Monitor patient. 1150: Creatinine elevated. We will get noncontrast CT abdomen and pelvis. Monitor patient. 1315: CT did not show obstruction and overall patient was improved but then started vomiting again and did vomit a fair amount. We we will give Reglan 5 mg IV and LR 500 mL bolus and monitor patient for persistent nausea and vomiting. Monitor patient. 1444: Overall greatly improved without vomiting and seems that the Reglan has helped significantly. We will continue that 4 times daily over the next 7 days and have her follow-up with Dr. Rawls. I will send a copy of the chart to her. We did discuss other treatments for constipation including daily MiraLAX and or increasing fiber. I believe MiraLAX would be effective initially at least if not long-term. This was discussed with patient and family who agree. Discharged home with return precautions. Patient and family verbalized understanding of instructions and agreement with plan. Diagnostic Imaging Diagonstic Imaging: CT Plain Films/CT/US/NM/MRI: abdomen, pelvis Comments [facility] [place], [place] NAME: SAVANA ROBLES [facility] REC#: [id number] PT STATUS: REG ER : 1935 PHYSICIAN: ANDRE PALM MD ADMIT DATE: 06/21/21/ER FS Draft Date of Exam:06/21/21 CT ABDOMEN/PELVIS WO PROCEDURE: CT abdomen and pelvis without contrast. TECHNIQUE: Multiple contiguous axial images were obtained through the abdomen and pelvis without the use of intravenous contrast. Auto Exposure Controls were utilized during the CT exam to meet ALARA standards for radiation dose reduction. INDICATION: Pain, suspicion for bowel obstruction. COMPARISON: Study compared to 06/07/2021. FINDINGS: Lung bases are nonacute. There is mild ectasia of the left hepatic lobe. Biliary ducts are stable. Liver parenchyma is nonfocal. Spleen is normal in size with few benign calcified granulomata. There is no hydroureteronephrosis. There is stool in the colon throughout its length, similar in magnitude to prior; correlate for constipation. No focal impaction and no evidence for young bowel obstruction. Fluid-containing stomach is mildly distended. No dilatation of the lower thoracic esophagus or hernia. No opaque kidney stones. No hydroureteronephrosis. There are aortoiliac and mesenteric atherosclerotic vascular calcifications, stable, with infrarenal aortic ectasia, unchanged and unruptured measuring 2.6 cm. Urinary bladder is distended and trabeculated without wall thickening or intraluminal stone. There is no ascites, abscess, hematoma, or acute fluid collection. There is some noninflamed diverticulosis of the sigmoid. No features of diverticulitis. IMPRESSION: 1. Similar mild constipation without impaction or bowel obstruction. Fluid-distended stomach, nonfocal. No ascites, free air, or abscess. No fluid collection. 2. Atherosclerotic aortic ectasia, unruptured and chronic. Noninflamed diverticulosis. Distended trabeculated urinary bladder with no hydronephrosis. Dictated on workstation # [id number] Dict: 06/21/21 1232 Trans: 06/21/21 1241 [id number] Interpreted by: IVAN VEGA Electronically signed by: Departure Impression Primary Impression: Nausea and vomiting Qualified Codes: R11.2 - Nausea with vomiting, unspecified Additional Impressions: Constipation Qualified Codes: K59.01 - Slow transit constipation Dehydration Disposition: HOME, SELF-CARE Condition: Improved Departure-Patient Inst. Decision time for Depature: 14:46 Referrals: KEYON RAWLS MD (PCP/Family) Primary Care Physician Patient Instructions: Constipation, Adult ED, Nausea and Vomiting, Adult, Dehydration, Adult (DC) Add. Discharge Instructions: All discharge instructions reviewed with patient and/or family. Voiced understanding. Drink plenty of fluids. You may do MiraLAX 1 capful twice daily for the next 3 days and then one half capful twice daily thereafter to keep stools soft. You may increase or decrease the dose to keep stools in normal range. Take other medications as directed. Follow-up with Dr. Rawls for recheck and further evaluation and you may follow-up with Dr. Vidales as well. Call Dr. Rawls's office for appointment. Return for worse pain, fever, vomiting, weakness, breathing problems, concerns of dehydration or other concerns as needed. Scripts Metoclopramide HCl (Metoclopramide HCl) 5 Mg Tablet 5 MG PO QIDACHS for 7 Days, #28 TAB 0 Refills Prov: ANDRE PALM MD 06/21/21 Copy Copies To 1: KEYON RAWLS MD, TIMOTHY D MD Jun 21, 2021 11:47
--- NOTE | 2021-06-21 12:41 | Diagnostic Imaging Report ---
PROCEDURE: CT abdomen and pelvis without contrast. TECHNIQUE: Multiple contiguous axial images were obtained through the abdomen and pelvis without the use of intravenous contrast. Auto Exposure Controls were utilized during the CT exam to meet ALARA standards for radiation dose reduction. INDICATION: Pain, suspicion for bowel obstruction. COMPARISON: Study compared to 06/07/2021. FINDINGS: Lung bases are nonacute. There is mild ectasia of the left hepatic lobe. Biliary ducts are stable. Liver parenchyma is nonfocal. Spleen is normal in size with few benign calcified granulomata. There is no hydroureteronephrosis. There is stool in the colon throughout its length, similar in magnitude to prior; correlate for constipation. No focal impaction and no evidence for young bowel obstruction. Fluid-containing stomach is mildly distended. No dilatation of the lower thoracic esophagus or hernia. No opaque kidney stones. No hydroureteronephrosis. There are aortoiliac and mesenteric atherosclerotic vascular calcifications, stable, with infrarenal aortic ectasia, unchanged and unruptured measuring 2.6 cm. Urinary bladder is distended and trabeculated without wall thickening or intraluminal stone. There is no ascites, abscess, hematoma, or acute fluid collection. There is some noninflamed diverticulosis of the sigmoid. No features of diverticulitis. IMPRESSION: 1. Similar mild constipation without impaction or bowel obstruction. Fluid-distended stomach, nonfocal. No ascites, free air, or abscess. No fluid collection. 2. Atherosclerotic aortic ectasia, unruptured and chronic. Noninflamed diverticulosis. Distended trabeculated urinary bladder with no hydronephrosis. Dictated by: Dictated on workstation # [id number]
[2021-06-21] MEDS ORDERED: LACTATED RINGERS 1,000 ML IV STA (13:16)
[2021-06-21] MEDS ORDERED: METOCLOPRAMIDE INJ 10 MG/2 ML (REGLAN) IVP ONE (13:30)
[2021-06-21] MEDS ORDERED: METO5TAB2 PO (14:50)
[2021-06-21 15:28] VITALS: BP 95/55
[2021-06-29] MEDS ORDERED: ALPR0.5T7 PO ×2 (11:26)
== END 2021-06-21 15:03 | disposition home or self-care (01) ==
LOC: EDUNIT# 11:00 → ER FS 11:01
DX: R11.2 Nausea with vomiting, unspecified (principal); K59.00 Constipation, unspecified; E86.0 Dehydration; I10 Essential (primary) hypertension; E78.00 Pure hypercholesterolemia, unspecified; Z79.82 Long term (current) use of aspirin; Z79.899 Other long term (current) drug therapy
CPT/HCPCS: 36415; 74176; 80053; 82274; 83735; 85025; 86141; 96374

== ENCOUNTER 2021-06-22 11:19 | Inpatient (IN) | payer MEDICARE ==
[~2021-06-22] VITALS: Ht 160 cm; Wt 62.1 kg
[~2021-06-22 11:19] MED LIST changes: +METO5TAB2 PO
[2021-06-22] MEDS ORDERED: LACTATED RINGERS 1,000 ML IV STA (11:27)
[2021-06-22] MEDS ORDERED: ONDANSETRON 4 MG/2 ML (SDV) Z0FRAN IVP ONE (11:30)
[2021-06-22 12:05] LABS: HEMATOCRIT 38 % (35-52); HEMOGLOBIN 12.9 g/dL (11.5-16.0); MEAN CORPUSCULAR HEMOGLOBIN 29 pg (25-34); MEAN CORPUSCULAR HGB CONC 34 g/dL (32-36); MEAN CORPUSCULAR VOLUME 87 fL (80-99); PLATELET COUNT 387 10^3/uL (130-400); WHITE BLOOD COUNT 10.2 10^3/uL (4.3-11.0)
[2021-06-22 12:06] LABS: BASOPHILS % (AUTO) 0 % (0-10); EOSINOPHILS % (AUTO) 0 % (0-10); LYMPHOCYTES # (AUTO) 1.9 X 10^3 (1.0-4.0); LYMPHOCYTES % (AUTO) 19 % (12-44); MONOCYTES # (AUTO) 0.8 X 10^3 (0.0-1.0); MONOCYTES % (AUTO) 8 % (0-12); NEUTROPHILS # (AUTO) 7.4 X 10^3 (1.8-7.8); NEUTROPHILS % (AUTO) 73 % (42-75)
[2021-06-22 12:10] LABS: BUN/CREATININE RATIO 20; CALCIUM 10.3 MG/DL (8.5-10.1); CARBON DIOXIDE 28 MMOL/L (21-32); CHLORIDE 92 MMOL/L (98-107); CREATININE SERUM 2.19 MG/DL (0.60-1.30); GFR ESTIMATED 21; GLUCOSE 133 MG/DL (70-105); POTASSIUM 3.6 MMOL/L (3.6-5.0); SODIUM 139 MMOL/L (135-145)
[2021-06-22 12:11] LABS: ALANINE AMINOTRANSFERASE 8 U/L (0-55); ALBUMIN 4.8 GM/DL (3.2-4.5); ALKALINE PHOSPHATASE 57 U/L (40-136); BILIRUBIN,TOTAL 0.7 MG/DL (0.1-1.0); TOTAL PROTEIN 8.4 GM/DL (6.4-8.2)
--- NOTE | 2021-06-22 12:15 | Diagnostic Imaging Report ---
INDICATION: Nausea and vomiting, abdominal pain. TIME OF EXAM: 11:52 AM There is right convexity thoracic scoliotic curvature. The lungs are clear. No free air is identified. Bowel gas pattern appears nonobstructed. There are surgical clips right upper quadrant. There are calcifications within the abdominal aorta. No pathologic calcifications are seen. IMPRESSION: No acute abnormalities detected. Dictated by: Dictated on workstation # [id number]
--- NOTE | 2021-06-22 12:29 | ED GI ---
General Chief Complaint: Abdominal/GI Problems Stated Complaint: N/V Source of Information: Patient Exam Limitations: No Limitations History of Present Illness Date Seen by Provider: Jun 22, 2021 Time Seen by Provider: 11:36 Initial Comments Here with report of intractable nausea and vomiting overnight. Seen yesterday for the same and we did have improvement after Reglan and Zofran. She was given IV fluid as well. Noted to have slightly elevated creatinine yesterday. Today she reports that she vomited several times overnight but stopped at about 2 AM. She was able to drink this morning and did take some MiraLAX and have some clear liquid. About 10:00 she started vomiting a large amount and that has persisted. Returns here for further evaluation. Follows with Dr. Rawls and Dr. Vidales. Timing/Duration: 2-3 Days, Intermittent Severity/Quality: Moderate, Cramping Location: Generalized Abdomen Activities at Onset: None Modifying Factors: Worsens With Eating; Improves With Vomiting Associated Symptoms: No Back Pain, No Chest Pain, No Fever/Chills; Nausea/Vomiting; No Shortness of Air; Weakness Allergies and Home Medications Allergies Coded Allergies: adhesive tape (Verified Allergy, Mild, 06/07/21) Patient Home Medication List Home Medication List Reviewed: Yes Alprazolam (Alprazolam) 0.5 Mg Tablet, 0.25-0.5 MG PO BID PRN for ANXIETY, (Reported) Entered as Reported by: MARVIN EISENBERG on 11/29/201101 Ascorbic Acid (Vitamin C) 500 Mg Tablet.er, 500 MG PO DAILY, (Reported) Entered as Reported by: TEGAN SABILLON on 01/28/21932 Aspirin (Aspirin EC) 81 Mg Tablet.dr, 81 MG PO DAILY, (Reported) Entered as Reported by: MARVIN EISENBERG on 11/29/20 110 Calcium Carbonate/Vitamin D3 (Caltrate 600 + D Soft Chew Tab) 1 Each Tab.chew, 1 EACH PO DAILY, (Reported) Entered as Reported by: TEGAN SABILLON on 01/28/21932 Dicyclomine HCl (Dicyclomine HCl) 20 Mg Tablet, 20 MG PO TID PRN for IBS SYMPTOMS-DIARRHEA,CRAMPING, (Reported) Entered as Reported by: TEGAN SABILLON on 01/28/21932 Estrogens, Conjugated (Premarin) 0.3 Mg Tablet, 0.3 MG PO DAILY, (Reported) Entered as Reported by: RASHEED GODDARD on 01/03/21 1519 Famotidine (Famotidine) 10 Mg Tablet, 10 MG PO DAILY PRN for HEARTBURN, (Reported) Entered as Reported by: TEGAN SABILLON on 01/28/21932 Gemfibrozil (Gemfibrozil) 600 Mg Tablet, 600 MG PO BID, (Reported) Entered as Reported by: MARVIN EISENBERG on 11/29/20 1102 Lisinopril (Lisinopril) 5 Mg Tablet, 5 MG PO DAILY, (Reported) Entered as Reported by: TEGAN SABILLON on 01/28/21932 Metoclopramide HCl (Metoclopramide HCl) 5 Mg Tablet, 5 MG PO QIDACHS Prescribed by: ANDRE PALM on 06/21/21 1450 Metoprolol Succinate (Metoprolol Succinate) 100 Mg Tab.er.24h, 100 MG PO DAILY, (Reported) Entered as Reported by: TEGAN SABILLON on 01/28/21932 Ondansetron (Ondansetron Odt) 4 Mg Tab.rapdis, 4 MG PO TID PRN for NAUSEA/VOMITING-1ST LINE, (Reported) Entered as Reported by: TEGAN SABILLON on 01/28/21932 Review of Systems Review of Systems Constitutional: see HPI; No chills, No fever EENTM: No Symptoms Reported Respiratory: Denies Cough, Denies Shortness of Air Cardiovascular: Denies Chest Pain, Denies Edema Gastrointestinal: Constipated, Nausea, Vomiting Genitourinary: No Symptoms Reported Musculoskeletal: No back pain; muscle pain, muscle cramps Psychiatric/Neurological: No Symptoms Reported Endocrine: No Symptoms Reported All Other Systems Reviewed Negative Unless Noted: Yes Past Jeqswza-Bfafpi-Scfzjw Hx Patient Social History Tobacco Use?: No Substance use?: No Alcohol Use?: No Immunizations Up To Date First/Initial COVID19 Vaccinat: June Second COVID19 Vaccination Jean-Paul: July Seasonal Allergies Seasonal Allergies: No Past Medical History Surgery/Hospitalization HX: hysterectomy, bilat knee rep., ricarda. High Cholesterol, HTN, Anxiety, Bowel obstruction. Surgeries: Yes (BILAT. KNEE REPLACEMENT) Gallbladder, Hysterectomy, Orthopedic Respiratory: No Cardiac: Yes High Cholesterol, Hypertension Neurological: No Female Reproductive Disorders: Denies [employer] History: Hysterectomy Genitourinary: No Gastrointestinal: Yes Obstructive Bowel, Gall Bladder Disease Musculoskeletal: Yes Arthritis, Fractures Endocrine: No HEENT: Yes Cataract Loss of Vision: Bilateral Hearing Impairment: Denies Cancer: No Psychosocial: No Integumentary: No Blood Disorders: No Adverse Reaction/Blood Tranf: No Family Medical History Reviewed Nursing Family Hx Heart Disease, Cancer, Diabetes, GI Disease, Hypertension Physical Exam Vital Signs Vital Signs - First Documented 06/22/21 11:20 Temp 36.0 Pulse 73 Resp 16 B/P (MAP) 87/54 (65) Pulse Ox 98 O2 Delivery Room Air Capillary Refill : Height/Weight/BMI Height: '" Weight: lbs. oz. kg; 25.00 BMI Method: General Appearance: WD/WN, no apparent distress Neck: full range of motion, supple Respiratory: lungs clear, normal breath sounds Cardiovascular: regular rate, rhythm, no murmur Gastrointestinal: non tender, soft, abnormal bowel sounds (Hypoactive) Extremities: non-tender, normal inspection Back: normal inspection, no CVA tenderness, no vertebral tenderness Neurologic/Psychiatric: alert, oriented x 3 Skin: normal color, warm/dry Progress/Results/Core Measures Results/Orders Lab Results Laboratory Tests Test 06/22/21 11:33 Range/Units White Blood Count 10.2 4.3-11.0 10^3/uL Red Blood Count 4.43 3.80-5.11 10^6/uL Hemoglobin 12.9 11.5-16.0 g/dL Hematocrit 38 35-52 % Mean Corpuscular Volume 87 80-99 fL Mean Corpuscular Hemoglobin 29 25-34 pg Mean Corpuscular Hemoglobin Concent 34 32-36 g/dL Red Cell Distribution Width 13.9 10.0-14.5 % Platelet Count 387 130-400 10^3/uL Mean Platelet Volume 10.0 9.0-12.2 fL Neutrophils (%) (Auto) 73 42-75 % Lymphocytes (%) (Auto) 19 12-44 % Monocytes (%) (Auto) 8 0-12 % Eosinophils (%) (Auto) 0 0-10 % Basophils (%) (Auto) 0 0-10 % Neutrophils # (Auto) 7.4 1.8-7.8 X 10^3 Lymphocytes # (Auto) 1.9 1.0-4.0 X 10^3 Monocytes # (Auto) 0.8 0.0-1.0 X 10^3 Eosinophils # (Auto) 0.0 0.0-0.3 10^3/uL Basophils # (Auto) 0.0 0.0-0.1 10^3/uL Sodium Level 139 135-145 MMOL/L Potassium Level 3.6 3.6-5.0 MMOL/L Chloride Level 92 L 98-107 MMOL/L Carbon Dioxide Level 28 21-32 MMOL/L Anion Gap 19 H 5-14 MMOL/L Blood Urea Nitrogen 43 H 7-18 MG/DL Creatinine 2.19 H 0.60-1.30 MG/DL Estimat Glomerular Filtration Rate 21 BUN/Creatinine Ratio 20 Glucose Level 133 H 70-105 MG/DL Calcium Level 10.3 H 8.5-10.1 MG/DL Corrected Calcium 8.5-10.1 MG/DL Total Bilirubin 0.7 0.1-1.0 MG/DL Aspartate Amino Transf (AST/SGOT) 15 5-34 U/L Alanine Aminotransferase (ALT/SGPT) 8 0-55 U/L Alkaline Phosphatase 57 40-136 U/L Total Protein 8.4 H 6.4-8.2 GM/DL Albumin 4.8 H 3.2-4.5 GM/DL My Orders Orders - ANDRE PALM MD Cbc With Automated Diff (06/22/21 11:27) Comprehensive Metabolic Panel (06/22/21 11:27) Ondansetron Injection (Zofran Injectio (06/22/21 11:30) Lactated Ringers (Lr 1000 Ml Iv Solution (06/22/21 11:27) Acute Abd Series (06/22/21 11:47) Ed Admission (Communication) (06/22/21 13:07) Medications Given in ED Current Medications Medications Dose Ordered Sig/Nicolas Route Start Time Stop Time Status Last Admin Dose Admin Ondansetron HCl 4 mg ONCE ONCE IVP 06/22/21 11:30 06/22/21 11:31 DC 06/22/21 11:37 4 MG Vital Signs/I&O 06/22/21 11:20 Temp 36.0 Pulse 73 Resp 16 B/P (MAP) 87/54 (65) Pulse Ox 98 O2 Delivery Room Air Progress Progress Note : Progress Note Seen and evaluated. IV initiated by EMS. We will initiate LR 1 L bolus as I believe she is dehydrated due to the muscle cramping and recheck labs. We will get acute abdominal series to evaluate for obstruction. Zofran 4 mg IV. Monitor patient. 1300: X-ray does not show obstruction. Patient's creatinine has gone up from 1.66 to 2.19 indicating acute kidney injury. Normally she runs around 1 to 1.1. Vomiting a little better now but she is unable to take p.o. fluids. I did discuss the case with Dr. Joseph especially since she has the acute kidney injury and she accepts patient for admission, inpatient status. Patient's primary surgeon is Dr. Vidales and we will consult him. 06/13/2007: I did discuss the case with Dr. Whitt and he accepts patient in consult. Patient and family very appreciative of care and plan. Diagnostic Imaging Diagonstic Imaging: Xray Plain Films/CT/US/NM/MRI: chest, abdomen Comments [facility], [place] NAME: SAVANA ROBLES [facility] REC#: [id number] PT STATUS: REG ER : 1935 PHYSICIAN: ANDRE PALM MD ADMIT DATE: 06/22/21/ER FS Draft Date of Exam:06/22/21 ACUTE ABD SERIES INDICATION: Nausea and vomiting, abdominal pain. TIME OF EXAM: 11:52 AM There is right convexity thoracic scoliotic curvature. The lungs are clear. No free air is identified. Bowel gas pattern appears nonobstructed. There are surgical clips right upper quadrant. There are calcifications within the abdominal aorta. No pathologic calcifications are seen. IMPRESSION: No acute abnormalities detected. Dictated on workstation # [id number] Dict: 06/22/21 1204 Trans: 06/22/21 1214 [facility] [id number] Interpreted by: REYNOLD LAWSON MD Electronically signed by: Departure Communication (Admissions) Time/Spoke to Admitting Phy: 13:00 Time/Spoke to Consulting Phy: 13:08 Impression Primary Impression: JAGRUTI (acute kidney injury) Additional Impressions: Nausea and vomiting Qualified Codes: R11.2 - Nausea with vomiting, unspecified Dehydration Disposition: 30 STILL A PATIENT Condition: Stable Admissions Decision to Admit Reason: Admit from ER (General) Decision to Admit/Date: Jun 22, 2021 Time/Decision to Admit Time: 13:00 Departure-Patient Inst. Referrals: KEYON RAWLS MD (PCP/Family) Primary Care Physician ANDRE PALM MD Jun 22, 2021 12:29
--- NOTE | 2021-06-22 15:50 | Consultation - Surgery ---
AMIE HOLT MED STUDENT 06/22/21 1550: History of Present Illness History of Present Illness Patient Consulted On(richie/time) 06/22/21 15:48 Date Seen by Provider: Jun 22, 2021 Time Seen by Provider: 15:30 Reason for Visit: Nausea/Vomiting, Constipation, PSBO History of Present Illness Per ED: Here with report of intractable nausea and vomiting overnight. Seen yesterday for the same and we did have improvement after Reglan and Zofran. She was given IV fluid as well. Noted to have slightly elevated creatinine yesterday. Today she reports that she vomited several times overnight but stopped at about 2 AM. She was able to drink this morning and did take some MiraLAX and have some clear liquid. About 10:00 she started vomiting a large amount and that has persisted. Returns here for further evaluation. Follows with Dr. Alatorre and Dr. Butler. Mrs. Robles is an 85yo female patient of Dr Butler with a history of ileus and adhesions back in january of last year. She was seen yesterday in [place] [facility] due to Stomach cramps as well as some nausea/vomiting. She states that she was sent home but still has had symptoms. States that this time the nausea/vomiting started on Sunday and has just started to continue to get worse. This morning around 8-10 she started to have a lot of nausea . She took her reglan and miralax and some gatorade. She was able to keep it down for about 2 hours and she started vomiting again. When she went to the ER yesterday she got some IV fluids and has not thrown up since that discharge. She has not had a bowel movement since Sunday. She states her last BM was regular, no pain or blood. She has lots of nausea when eating to the point that she does not really have an appetite. No blood in vomit. No stomach cramps today. Allergies and Home Medications Allergies Coded Allergies: adhesive tape (Verified Allergy, Mild, 06/07/21) Patient Home Medication List Alprazolam (Alprazolam) 0.5 Mg Tablet, 0.25-0.5 MG PO BID PRN for ANXIETY, (Reported) Entered as Reported by: MARVIN EISENBERG on 11/29/20 1102 Ascorbic Acid (Vitamin C) 500 Mg Tablet.er, 500 MG PO DAILY, (Reported) Entered as Reported by: TEGAN SABILLON on 01/28/21932 Aspirin (Aspirin EC) 81 Mg Tablet.dr, 81 MG PO DAILY, (Reported) Entered as Reported by: MARVIN EISENBERG on 11/29/20 1103 Calcium Carbonate/Vitamin D3 (Caltrate 600 + D Soft Chew Tab) 1 Each Tab.chew, 1 EACH PO DAILY, (Reported) Entered as Reported by: TEGAN SABILLON on 01/28/21932 Dicyclomine HCl (Dicyclomine HCl) 20 Mg Tablet, 20 MG PO TID PRN for IBS SYMPTOMS-DIARRHEA,CRAMPING, (Reported) Entered as Reported by: TEGAN SABILLON on 01/28/21932 Estrogens, Conjugated (Premarin) 0.3 Mg Tablet, 0.3 MG PO DAILY, (Reported) Entered as Reported by: RASHEED GODDARD on 01/03/21 1519 Famotidine (Famotidine) 10 Mg Tablet, 10 MG PO DAILY PRN for HEARTBURN, (Reported) Entered as Reported by: TEGAN SABILLON on 01/28/21932 Gemfibrozil (Gemfibrozil) 600 Mg Tablet, 600 MG PO BID, (Reported) Entered as Reported by: MARVIN EISENBERG on 11/29/20 110 Lisinopril (Lisinopril) 5 Mg Tablet, 5 MG PO DAILY, (Reported) Entered as Reported by: TEGAN SABILLON on 01/28/21932 Metoclopramide HCl (Metoclopramide HCl) 5 Mg Tablet, 5 MG PO QIDACHS Prescribed by: ANDRE PALM on 06/21/21 1450 Metoprolol Succinate (Metoprolol Succinate) 100 Mg Tab.er.24h, 100 MG PO DAILY, (Reported) Entered as Reported by: TEGAN SABILLON on 01/28/21932 Ondansetron (Ondansetron Odt) 4 Mg Tab.rapdis, 4 MG PO TID PRN for NAUSEA/VOMITING-1ST LINE, (Reported) Entered as Reported by: TEGAN SABILLON on 01/28/21932 Past Nqrjiqm-Calmxx-Rweknw Hx Patient Social History Smoking Status: Never a Smoker 2nd Hand Smoke Exposure: No Recent Hopitalizations: Yes (06/21) Alcohol Use?: No Have you traveled recently?: No Seasonal Allergies Seasonal Allergies: No Surgeries History of Surgeries: Yes (BILAT. 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 Genitourinary History of Genitourinary Disor: No Gastrointestinal History of Gastrointestinal Di: Yes Gastrointestinal Disorders: Obstructive Bowel, Gall Bladder Disease Musculoskeletal History of Musculoskeletal Dis: Yes Musculoskeletal Disorders: Arthritis, Fractures Endocrine History of Endocrine Disorders: No HEENT History of HEENT Disorders: Yes HEENT Disorders: Cataract Loss of Vision: Bilateral Hearing Impairment: Denies Cancer History of Cancer: No Psychosocial History of Psychiatric Problem: No Integumentary History of Skin or Integumenta: No Blood Transfusions History of Blood Disorders: No Adverse Reaction to a Blood Tr: No Family Medical History Significant Family History: Heart Disease, Cancer, Diabetes, GI Disease, Hypertension Review of Systems-General Constitutional: No chills, No fever EENTM: other (Dry mouth); No hearing loss, No vision loss, No throat pain Respiratory: No cough, No hemoptysis, No phlegm, No short of breath, No wheezing Cardiovascular: No chest pain, No edema, No palpitations Gastrointestinal: No abdominal pain; constipation (LBM sunday); No diarrhea, No hematemesis; loss of appetite; No melena; nausea, vomiting Genitourinary: No dysuria, No frequency, No hematuria Musculoskeletal: other (No leg or foot pain) Skin: No lesions, No rash Psychiatric/Neurological: Denies Headache Physical Exam-General Problems Physical Exam Vital Signs Vital Signs - First Documented 06/22/21 11:20 Temp 36.0 Pulse 73 Resp 16 B/P (MAP) 87/54 (65) Pulse Ox 98 O2 Delivery Room Air Capillary Refill : Less Than 3 Seconds General Appearance: WD/WN, no apparent distress HEENT: PERRL/EOMI, pharynx normal (a bit dry) Respiratory: chest non-tender, lungs clear, normal breath sounds, no r espiratory distress, no accessory muscle use Cardiovascular: regular rate, rhythm, no edema, no murmur Peripheral Pulses: 2+ Dorsalis Pedis (R), 2+ Left Dors-Pedis (L), 2+ Radial Pulses (R), 2+ Radial Pulses (L) Gastrointestinal: non tender, soft, abnormal bowel sounds (Hyperactive); No distended, No guarding Rectal: deferred Extremities: non-tender, no pedal edema, no calf tenderness Neurologic/Psychiatric: alert, normal mood/affect, oriented x 3 Skin: normal color, warm/dry Data Review Labs Laboratory Tests 06/22/21 11:33: White Blood Count 10.2, Red Blood Count 4.43, Hemoglobin 12.9, Hematocrit 38, Mean Corpuscular Volume 87, Mean Corpuscular Hemoglobin 29, Mean Corpuscular Hemoglobin Concent 34, Red Cell Distribution Width 13.9, Platelet Count 387, Mean Platelet Volume 10.0, Neutrophils (%) (Auto) 73, Lymphocytes (%) (Auto) 19, Monocytes (%) (Auto) 8, Eosinophils (%) (Auto) 0, Basophils (%) (Auto) 0, Neutrophils # (Auto) 7.4, Lymphocytes # (Auto) 1.9, Monocytes # (Auto) 0.8, Eosinophils # (Auto) 0.0, Basophils # (Auto) 0.0, Sodium Level 139, Potassium Level 3.6, Chloride Level 92L, Carbon Dioxide Level 28, Anion Gap 19H, Blood Urea Nitrogen 43H, Creatinine 2.19H, Estimat Glomerular Filtration Rate 21, BUN/Creatinine Ratio 20, Glucose Level 133H, Calcium Level 10.3H, Corrected Calcium , Total Bilirubin 0.7, Aspartate Amino Transf (AST/SGOT) 15, Alanine Aminotransferase (ALT/SGPT) 8, Alkaline Phosphatase 57, Total Protein 8.4H, Albumin 4.8H Radiology NAME: SAVANA ROBLES Erin [facility] REC#: [id number] PT STATUS: DEP ER : 1935 PHYSICIAN: ANDRE PALM MD ADMIT DATE: 06/21/21/ER FS Signed Date of Exam:06/21/21 CT ABDOMEN/PELVIS WO PROCEDURE: CT abdomen and pelvis without contrast. TECHNIQUE: Multiple contiguous axial images were obtained through the abdomen and pelvis without the use of intravenous contrast. Auto Exposure Controls were utilized during the CT exam to meet ALARA standards for radiation dose reduction. INDICATION: Pain, suspicion for bowel obstruction. COMPARISON: Study compared to 06/07/2021. FINDINGS: Lung bases are nonacute. There is mild ectasia of the left hepatic lobe. Biliary ducts are stable. Liver parenchyma is nonfocal. Spleen is normal in size with few benign calcified granulomata. There is no hydroureteronephrosis. There is stool in the colon throughout its length, similar in magnitude to prior; correlate for constipation. No focal impaction and no evidence for young bowel obstruction. Fluid-containing stomach is mildly distended. No dilatation of the lower thoracic esophagus or hernia. No opaque kidney stones. No hydroureteronephrosis. There are aortoiliac and mesenteric atherosclerotic vascular calcifications, stable, with infrarenal aortic ectasia, unchanged and unruptured measuring 2.6 cm. Urinary bladder is distended and trabeculated without wall thickening or intraluminal stone. There is no ascites, abscess, hematoma, or acute fluid collection. There is some noninflamed diverticulosis of the sigmoid. No features of diverticulitis. IMPRESSION: 1. Similar mild constipation without impaction or bowel obstruction. Fluid-distended stomach, nonfocal. No ascites, free air, or abscess. No fluid collection. 2. Atherosclerotic aortic ectasia, unruptured and chronic. Noninflamed diverticulosis. Distended trabeculated urinary bladder with no hydronephrosis. Dictated by: Dictated on workstation # [id number] Dict: 06/21/21 1232 Trans: 06/21/21 1609 [id number] Interpreted by: IVAN VEGA Electronically signed by: IVAN VEGA 06/21/21 1609 NAME: SAVANA ROBLES MED REC#: [id number] PT STATUS: GLORIA ROD : 1935 PHYSICIAN: ANDRE PALM MD ADMIT DATE: 06/22/21/ER FS Signed Date of Exam:06/22/21 ACUTE ABD SERIES INDICATION: Nausea and vomiting, abdominal pain. TIME OF EXAM: 11:52 AM There is right convexity thoracic scoliotic curvature. The lungs are clear. No free air is identified. Bowel gas pattern appears nonobstructed. There are surgical clips right upper quadrant. There are calcifications within the abdominal aorta. No pathologic calcifications are seen. IMPRESSION: No acute abnormalities detected. Dictated by: Dictated on workstation # [id number] Dict: 06/22/21 1204 Trans: 06/22/21 1534 [id number] [id number] Interpreted by: REYNOLD LAWSON MD Electronically signed by: REYNOLD LAWSON MD 06/22/21 1534 Assessment/Plan Assessment/Plan Assessment/Plan Possible small bowel obstruction vs. Ileus JAGRUTI Nausea Vomiting Constipation Hx of abdominal surgeries including adhesiolysis'' Mrs Robles is a bit uncomfortable but not in pain, she also has not had a bowel movement since sunday. Would be good for her to get PT/OT since she is feeling weak to help her move around and get her bowels moving. She states it has been a couple days since she walked. Will do some stool softeners or laxatives to also help her bowels. She should get some IV fluids to help with her stooling and also for JAGRUTI. BUN 43 Creat 2.9, her baseline is around normal. This is likely due to her dehydration along with nausea and vomiting. Probably also the reason her chloride is low at 92 as well. Will continue to monitor for bowel movements, and watch kidneys with morning labs. May get a small bowel follow through if she continues not to have a bowel movement. She is passing a lot of gas so hopefully she will have BM soon. Zofran or Reglan for her nausea. She does have a history of ileus caused by adhesions. Xray today and CT yesterday did not show any obvious obstructions. RBCs and WBCs within normal range as well. DERECK BUTLER DO 06/23/21 0855: History of Present Illness History of Present Illness Time Seen by Provider: 16:13 History of Present Illness Surgery asked to consult regarding abd pain, N/V. When I spoke to pt she was still having nausea and pain, but not vomiting as much. She stated this is the pain she always has but much worse and states she usually never vomits. Pain began sunday and vomiting started sunday. She states she hasn't walked since Sunday. This is a pt known to me, with similar symptoms and hospital admits. Allergies and Home Medications Allergies Coded Allergies: adhesive tape (Verified Allergy, Mild, 06/07/21) Patient Home Medication List Home Medication List Reviewed: Yes Alprazolam (Alprazolam) 0.5 Mg Tablet, 0.25-0.5 MG PO BID PRN for ANXIETY, (Reported) Entered as Reported by: MARVIN EISENBERG on 11/29/201101 Ascorbic Acid (Vitamin C) 500 Mg Tablet.er, 500 MG PO DAILY, (Reported) Entered as Reported by: TEGAN SABILLON on 01/28/21932 Aspirin (Aspirin EC) 81 Mg Tablet.dr, 81 MG PO DAILY, (Reported) Entered as Reported by: MARVIN EISENBERG on 11/29/201102 Calcium Carbonate/Vitamin D3 (Caltrate 600 + D Soft Chew Tab) 1 Each Tab.chew, 1 EACH PO DAILY, (Reported) Entered as Reported by: TEGAN SABILLON on 01/28/21932 Dicyclomine HCl (Dicyclomine HCl) 20 Mg Tablet, 20 MG PO TID PRN for IBS SYMPTOM S-DIARRHEA,CRAMPING, (Reported) Entered as Reported by: TEGAN SABILLON on 01/28/21932 Estrogens, Conjugated (Premarin) 0.3 Mg Tablet, 0.3 MG PO DAILY, (Reported) Entered as Reported by: RASHEED GODDARD on 01/03/21 1519 Famotidine (Famotidine) 10 Mg Tablet, 10 MG PO DAILY PRN for HEARTBURN, (Reported) Entered as Reported by: TEGAN SABILLON on 01/28/21932 Gemfibrozil (Gemfibrozil) 600 Mg Tablet, 600 MG PO BID, (Reported) Entered as Reported by: MARVIN EISENBERG on 11/29/20 110 Lisinopril (Lisinopril) 5 Mg Tablet, 5 MG PO DAILY, (Reported) Entered as Reported by: TEGAN SABILLON on 01/28/21932 Metoclopramide HCl (Metoclopramide HCl) 5 Mg Tablet, 5 MG PO QIDACHS Prescribed by: ANDRE PALM on 06/21/21 1450 Metoprolol Succinate (Metoprolol Succinate) 100 Mg Tab.er.24h, 100 MG PO DAILY, (Reported) Entered as Reported by: TEGAN SABILLON on 01/28/21 0933 Ondansetron (Ondansetron Odt) 4 Mg Tab.rapdis, 4 MG PO TID PRN for NAUSEA/VOMITING-1ST LINE, (Reported) Entered as Reported by: TEGAN SABILLON on 01/28/21 0933 Past Tunvyqy-Ythdty-Raxuvx Hx Patient Social History Smoking Status: Never a Smoker Alcohol Use?: No Surgeries History of Surgeries: Yes Surgeries: Abdominal (adhesiolysis), Gallbladder, Hysterectomy, Orthopedic Respiratory History of Respiratory Disorde: No Cardiovascular History of Cardiac Disorders: Yes Cardiac Disorders: High Cholesterol, Hypertension Neurological History of Neurological Disord: No Genitourinary History of Genitourinary Disor: No Gastrointestinal History of Gastrointestinal Di: Yes Gastrointestinal Disorders: Obstructive Bowel, Gall Bladder Disease Musculoskeletal History of Musculoskeletal Dis: Yes Musculoskeletal Disorders: Arthritis, Fractures Endocrine History of Endocrine Disorders: No HEENT History of HEENT Disorders: Yes HEENT Disorders: Cataract Loss of Vision: Bilateral Hearing Impairment: Hard of Hearing Cancer History of Cancer: No Psychosocial History of Psychiatric Problem: No Family Medical History Significant Family History: CAD Over 55 Years Old, Diabetes, Hypertension Review of Systems-General Constitutional: No chills, No fever EENTM: hearing loss, other (Dry mouth); No throat pain Respiratory: No cough, No hemoptysis, No phlegm, No short of breath, No wh eezing Cardiovascular: No chest pain, No edema, No palpitations Gastrointestinal: abdominal pain, constipation (LBM sunday); No diarrhea, No hematemesis; loss of appetite; No melena; nausea, vomiting Genitourinary: No dysuria, No frequency, No hematuria Musculoskeletal: other (No leg or foot pain) Skin: No lesions, No rash Psychiatric/Neurological: Denies Headache, Denies Numbness Physical Exam-General Problems Physical Exam General Appearance: WD/WN, no apparent distress Eyes: Bilateral Eye PERRL, Bilateral Eye EOMI HEENT: pharynx normal (a bit dry); No scleral icterus (R), No scleral icterus (L) Neck: non-tender, supple Respiratory: lungs clear, normal breath sounds, no respiratory distress, no accessory muscle use Cardiovascular: regular rate, rhythm, no murmur Gastrointestinal: soft, abnormal bowel sounds (Hyperactive); No distended, No guarding; tenderness (diffusely but mild) Extremities: non-tender, no pedal edema, no calf tenderness Neurologic/Psychiatric: alert, normal mood/affect, oriented x 3 Skin: normal color, warm/dry Lymphatic: no adenopathy (neck, axilla or groin) Assessment/Plan Assessment/Plan Assessment/Plan Possible small bowel obstruction vs. Ileus JAGRUTI Nausea Vomiting Constipation Hx of abdominal surgeries including adhesiolysis'' Mrs Robles is a bit uncomfortable but not in pain, she also has not had a bowel movement since sunday. Would be good for her to get PT/OT since she is feeling weak to help her move around and get her bowels moving. She states it has been a couple days since she walked. Will do some stool softeners or laxatives to also help her bowels. She should get some IV fluids to help with her stooling and also for JAGRUTI. BUN 43 Creat 2.9, her baseline is around normal. This is likely due to her dehydration along with nausea and vomiting. Probably also the reason her chloride is low at 92 as well. Will continue to monitor for bowel movements, and watch kidneys with morning labs. May get a small bowel follow through if she continues not to have a bowel movement. She is passing a lot of gas so hopefully she will have BM soon. Zofran or Reglan for her nausea. She does have a history of ileus caused by adhesions. Xray today and CT yesterday did not show any obvious obstructions. RBCs and WBCs within normal range as well. Supervisory-Addendum Brief Verification & Attestation Participated in pt care: history, MDM, physical Personally performed: exam, history, MDM, supervision of care Care discussed with: Medical Student Procedures: n/a Verification and Attestation of Medical Student E/M Service A medical student performed and documented this service. I then reviewed and verified all information documented by the medical student and made modifications to such information, when appropriate. I personally performed a physical exam, medical decision making and then discussed any differences between the notes and made revisions as necessary to create one note. Dereck Butler 06/23/21 , 08:56 AMIE HOLT MED STUDENT Jun 22, 2021 15:50 DERECK BUTLER DO Jun 23, 2021 08:55
[2021-06-22 16:00] VITALS: BP 142/82
[2021-06-22] MEDS ORDERED: ACETAMINOPHEN 650 MG SUPP (TYLENOL) PR PRN (16:00)
[2021-06-22] MEDS ORDERED: ANTACID SUSP 30 ML UDC (MYLANTA) PO PRN (16:00)
[2021-06-22] MEDS ORDERED: HYDROcodone/APAP 5 MG/325 MG (LORTAB) TAB PO PRN (16:00)
[2021-06-22] MEDS ORDERED: ONDANSETRON 4 MG (ZOFRAN) ORAL DISSOLVE TAB PO PRN (16:00)
[2021-06-22] MEDS ORDERED: hydrALAZINE (APESOLINE) 20 MG/ML VIAL IV PRN (16:00)
[2021-06-22] MEDS ORDERED: NITROGLYCERIN 2% OINT 1 GM UNIT DOSE PACKET TOP PRN (16:00)
[2021-06-22] MEDS ORDERED: BISACODYL 10 MG SUPP (DULCOLAX) PR PRN (16:00)
[2021-06-22] MEDS ORDERED: PROMETHAZINE 12.5 MG (PHENERGAN) SUPP PR PRN (16:00)
[2021-06-22] MEDS ORDERED: ACETAMINOPHEN 325 MG TABLET PO PRN (16:00)
[2021-06-22] MEDS ORDERED: diphenhydrAMINE 25 MG TAB (BENADRYL) PO PRN (16:00)
[2021-06-22] MEDS ORDERED: MELATONIN 3 MG TABLET PO PRN (16:00)
[2021-06-22] MEDS ORDERED: diphenhydrAMINE 50 MG/ML INJ (BENADRYL) IVP PRN (16:00)
[2021-06-22] MEDS ORDERED: polyethylene glycoL POWDER 17 GM (MIRALAX) PACK PO PRN (16:00)
[2021-06-22 16:19] VITALS: BP 87/54
[2021-06-22] MEDS: NS IV 1000 ML 1,000 ML IV SCH (16:19)
[2021-06-22] MEDS ORDERED: RT-ALBUTEROL SULF 2.5 MG/3 ML PRE-MIX VIAL INH PRN (16:30)
[2021-06-22] MEDS: ONDANSETRON 4 MG/2 ML (SDV) Z0FRAN IV PRN (17:28)
[2021-06-22] MEDS: METOCLOPRAMIDE INJ 10 MG/2 ML (REGLAN) IVP SCH ×2 (18:34→18:35)
--- NOTE | 2021-06-22 19:46 | History & Physical-Hospitalist ---
History of Present Illness HPI/Chief Complaint CC: N&V HPI: 85 yr old clinic pt of Dr. Alatorre. MHx of small bowel obstruction who presented to the ER with severe nausea and vomiting for many days. Her creatinine went from 1.1 to 2.2. So pt will be in need of IV fluids. Dr. Vidales will be consulted due to the history of small bowel obstructions. Acute abdominal series didn't show any obstruction. CT scan done on 06/16 in the ER showed no evidence of any obstruction. Source: patient Exam Limitations: no limitations Date Seen 06/22/21 Time Seen by a Provider: 17:00 Attending Physician Madie Wesley Katrina M MD Referring Physician Date of Admission Jun 22, 2021 at 15:00 Home Medications & Allergies Home Medications Reviewed patient Home Medication Reconciliation performed by pharmacy medication reconciliations senior electronics technician and/or nursing. Patients Allergies have been reviewed. Allergies Allergies Coded Allergies adhesive tape (Verified Allergy, Mild, 06/07/21) Past Dckvvjz-Wyiljk-Ggjydj Hx Patient Social History Marrital Status: single Employed/Student: retired Tobacco Use?: No Smoking Status: Never a Smoker Use of E-Cig and/or Vaping dev: No Substance use?: No Alcohol Use?: No Pt feels they are or have been: No Immunizations Up To Date First/Initial COVID19 Vaccinat: May 2021 Second COVID19 Vaccination Jean-Paul: May 2021 Tetanus Booster (TDap): Unknown Hepatitis A: No Hepatitis B: No Seasonal Allergies Seasonal Allergies: No Current Status status: No status: No Advance Directives: Unable to obtain Advance Directive Location: Home Communicates: Verbally Primary Language: Mozambican Preferred Spoken Language: Mozambican Is interpretation needed?: No Sensory deficits: Vision impairment Implanted or Applied Medical D: None Past Medical History Surgeries: Abdominal (adhesiolysis), Gallbladder, Hysterectomy, Orthopedic High Cholesterol, Hypertension [employer]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 Obstructive Bowel, Gall Bladder Disease Arthritis, Fractures Cataract Loss of Vision: Bilateral Hearing Impairment: Denies Blood Disorders: No Adverse Reaction/Blood Tranf: No Family Medical History Reviewed Nursing Family Hx Heart Disease, Cancer, Diabetes, GI Disease, Hypertension Review of Systems Constitutional: see HPI, malaise, weakness EENTM: no symptoms reported Respiratory: no symptoms reported Cardiovascular: no symptoms reported Gastrointestinal: loss of appetite, nausea, vomiting Genitourinary: decreased output Musculoskeletal: back pain Skin: no symptoms reported Psychiatric/Neurological: No Symptoms Reported All Other Systems Reviewed Negative Unless Noted: Yes Physical Exam Physical Exam Vital Signs Vital Signs - First Documented 06/22/21 06/22/21 11:20 16:19 Temp 36.0 Pulse 73 Resp 16 B/P (MAP) 87/54 (65) Pulse Ox 98 O2 Delivery Room Air FiO2 21 Capillary Refill : Less Than 3 Seconds Height, Weight, BMI Height: '" Weight: lbs. oz. kg; 25.70 BMI Method: General Appearance: No Apparent Distress, Chronically ill Eyes: Right Eye Normal Inspection, Right Eye PERRL HEENT: PERRL/EOMI, Normal ENT Inspection, Pharynx Normal, Moist Mucous Membranes Neck: Full Range of Motion, Normal Inspection, Non Tender Respiratory: Chest Non Tender, Lungs Clear, Normal Breath Sounds, No Accessory Muscle Use, No Respiratory Distress Cardiovascular: Regular Rate, Rhythm, No Edema, No Gallop, No JVD, No Murmur, Normal Peripheral Pulses Gastrointestinal: Normal Bowel Sounds, No Organomegaly, No Pulsatile Mass, Soft, Tenderness Back: Normal Inspection, No CVA Tenderness, No Vertebral Tenderness Extremity: Normal Capillary Refill, Normal Inspection, Normal Range of Motion, Non Tender, No Calf Tenderness, No Pedal Edema Neurologic/Psychiatric: Alert, Oriented x3, No Motor/Sensory Deficits, Normal Mood/Affect Skin: Normal Color, Warm/Dry Lymphatic: No Adenopathy Results Results/Procedures Labs Laboratory Tests 06/22/21 11:33 Patient resulted labs reviewed. Assessment/Plan Admission Diagnosis Assessment: Early SBO N/V JAGRUTI Dehydration Anxiety HTN Plan: IVF Dr Russ Admission Status: Inpatient Order (span 2 midnights) Reason for Inpatient Admission: sbo Diagnosis/Problems Diagnosis/Problems (1) Nausea and vomiting Status: Resolved Qualifiers: Vomiting type: unspecified Vomiting Intractability: intractable Qualified Codes: R11.2 - Nausea with vomiting, unspecified Resolution Date/Time: 12/02/20 @ 12:57 (2) JAGRUTI (acute kidney injury) Status: Acute (3) Dehydration Status: Acute (4) Gaseous abdominal distention Status: Acute MADIE WESLEY DO Jun 22, 2021 19:46
[2021-06-22 20:00] VITALS: BP 105/66
[2021-06-22] MEDS: DOCUSATE SODIUM 100 MG (COLACE) CAP PO SCH (21:40)
[2021-06-22 22:15] LABS: CLARITY,URINE CLEAR; COLOR,URINE YELLOW; GLUCOSE, URINE (UA) NEGATIVE (NEGATIVE); KETONES,URINE TRACE (NEGATIVE); LEUKOCYTE ESTERASE ,URINE NEGATIVE (NEGATIVE); NITRITE,URINE NEGATIVE (NEGATIVE); PROTEIN,URINE TRACE (NEGATIVE)
[2021-06-22 22:19] LABS: BILIRUBIN,URINE 2+ (NEGATIVE)
[2021-06-22 22:26] LABS: BACTERIA,URINE FEW /HPF; WBC,URINE RARE /HPF
[2021-06-22 22:27] LABS: HYALINE CASTS, URINE 0-2 /LPF
[2021-06-23] VITALS (7 sets, daily range): BP systolic 112–152; BP diastolic 60–95
[2021-06-23] MEDS: METOCLOPRAMIDE INJ 10 MG/2 ML (REGLAN) IVP SCH ×4 (00:27→17:56)
[2021-06-23] MEDS: ALPRAZolam 0.5 MG (XANAX) TAB PO PRN ×2 (00:27→21:30)
[2021-06-23] MEDS: ONDANSETRON 4 MG/2 ML (SDV) Z0FRAN IV PRN ×2 (03:46→12:14)
[2021-06-23] MEDS: NS IV 1000 ML 1,000 ML IV SCH ×2 (03:46→15:34)
[2021-06-23 06:21] LABS: BASOPHILS % (AUTO) 0 % (0-10); EOSINOPHILS % (AUTO) 0 % (0-10); HEMATOCRIT 39 % (35-52); LYMPHOCYTES # (AUTO) 2.4 10^3/uL (1.0-4.0); LYMPHOCYTES % (AUTO) 23 % (12-44); MEAN CORPUSCULAR HEMOGLOBIN 29 pg (25-34); MEAN CORPUSCULAR HGB CONC 33 g/dL (32-36); MEAN CORPUSCULAR VOLUME 89 fL (80-99); MEAN PLATELET VOLUME 9.6 fL (9.0-12.2); MONOCYTES # (AUTO) 0.9 10^3/uL (0.0-1.0); MONOCYTES % (AUTO) 9 % (0-12); NEUTROPHILS % (AUTO) 67 % (42-75); PLATELET COUNT 362 10^3/uL (130-400); WHITE BLOOD COUNT 10.4 10^3/uL (4.3-11.0)
[2021-06-23 06:39] LABS: ALBUMIN 4.3 GM/DL (3.2-4.5); BILIRUBIN,TOTAL 0.8 MG/DL (0.1-1.0); CALCIUM 10.1 MG/DL (8.5-10.1); CREATININE SERUM 2.2 MG/DL (0.60-1.30); POTASSIUM 3.2 MMOL/L (3.6-5.0); TOTAL PROTEIN 8.3 GM/DL (6.4-8.2)
--- NOTE | 2021-06-23 07:57 | Progress Note - Surgery ---
AMIE HOLT MED STUDENT 06/23/21 0757: Subjective Date Seen by a Provider: Jun 23, 2021 Time Seen by a Provider: 07:35 Subjective/Events-last exam Mrs Jorgensen is sitting up in bed this morning. She states that she is not doing any better than yesterday. She still has lots of nausea and thinks she has vomited about 4 times since last night. She says she is still not having abdominal pain though. She hasn't been able to keep any liquids down but she does have an IV. She is still peeing with no problems. She has not had a BM or passed any gas. She has not done any walking in the halls yet. Is not sure if she has PT scheduled. Review of Systems General: No Chills HEENT: No Head Aches, No Visual Changes Pulmonary: No Dyspnea, No Cough Cardiovascular: No: Chest Pain, Palpitations, Edema Gastrointestinal: Nausea, Vomiting, Constipation; No: Abdominal Pain, Diarrhea, Melena Genitourinary: No Dysuria, No Incontinence, No Hematuria Musculoskeletal: No: leg pain, foot pain Objective Exam Vital Signs Date Time Temp Pulse Resp B/P (MAP) Pulse Ox O2 Delivery O2 Flow Rate FiO2 06/23/21 07:30 37.2 80 20 152/84 (106) 96 Room Air 06/23/21 04:30 37.4 78 18 125/70 (88) 96 Room Air 06/23/21 00:00 37.2 79 18 112/60 (77) 98 06/22/21 20:45 96 Room Air 06/22/21 20:00 37.2 74 18 105/66 (79) 93 Room Air 06/22/21 19:49 98 Room Air 06/22/21 16:19 36.0 73 98 21 06/22/21 16:00 36.9 75 20 142/82 (102) 96 Room Air 06/22/21 15:38 Room Air 06/22/21 14:10 75 18 122/88 97 Room Air 06/22/21 11:20 36.0 73 16 87/54 (65) 98 Room Air I & O 06/23/21 07:00 Intake Total 0 ml Output Total 300 ml Balance -300 ml Capillary Refill : Less Than 3 Seconds General Appearance: No Apparent Distress (nauseous), WD/WN HEENT: PERRL/EOMI, Pharynx Normal, Moist Mucous Membranes Respiratory: Chest Non Tender, Lungs Clear, Normal Breath Sounds, No Accessory Muscle Use, No Respiratory Distress Cardiovascular: Regular Rate, Rhythm, No Edema, No Murmur, Normal Peripheral Pulses Peripheral Pulses: 2+ Dorsalis Pedis (R), 2+ Left Dors-Pedis (L), 2+ Radial Pulses (R), 2+ Radial Pulses (L) Gastrointestinal: non tender, soft, abnormal bowel sounds (Hypoactive, no sounds heard at all); No distended, No guarding Extremity: Normal Inspection, Non Tender, No Calf Tenderness, No Pedal Edema Neurologic/Psychiatric: Alert, Oriented x3, Normal Mood/Affect Skin: Normal Color, Warm/Dry Lymphatic: No Adenopathy Results Lab Laboratory Tests 06/22/21 11:33: White Blood Count 10.2, Red Blood Count 4.43, Hemoglobin 12.9, Hematocrit 38, Mean Corpuscular Volume 87, Mean Corpuscular Hemoglobin 29, Mean Corpuscular Hemoglobin Concent 34, Red Cell Distribution Width 13.9, Platelet Count 387, Mean Platelet Volume 10.0, Neutrophils (%) (Auto) 73, Lymphocytes (%) (Auto) 19, Monocytes (%) (Auto) 8, Eosinophils (%) (Auto) 0, Basophils (%) (Auto) 0, Neutrophils # (Auto) 7.4, Lymphocytes # (Auto) 1.9, Monocytes # (Auto) 0.8, Eosinophils # (Auto) 0.0, Basophils # (Auto) 0.0, Sodium Level 139, Potassium Level 3.6, Chloride Level 92L, Carbon Dioxide Level 28, Anion Gap 19H, Blood Urea Nitrogen 43H, Creatinine 2.19H, Estimat Glomerular Filtration Rate 21, BUN/Creatinine Ratio 20, Glucose Level 133H, Calcium Level 10.3H, Corrected Calcium , Total Bilirubin 0.7, Aspartate Amino Transf (AST/SGOT) 15, Alanine Aminotransferase (ALT/SGPT) 8, Alkaline Phosphatase 57, Total Protein 8.4H, Albumin 4.8H 06/22/21 20:56: Urine Color YELLOW, Urine Clarity CLEAR, Urine pH 6.0, Urine Specific [place] 1.025H, Urine Protein TRACEH, Urine Glucose (UA) NEGATIVE, Urine Ketones TRACEH, Urine Nitrite NEGATIVE, Urine Bilirubin 2+H, Urine Urobilinogen 0.2, Urine Leukocyte Esterase NEGATIVE, Urine RBC (Auto) NEGATIVE, Urine RBC NONE, Urine WBC RARE, Urine Squamous Epithelial Cells 2-5, Urine Crystals NONE, Urine Bacteria FEWH, Urine Casts PRESENT, Urine Hyaline Casts 0-2H, Urine Mucus NEGATIVE, Urine Culture Indicated YES 06/23/21 06:12: White Blood Count 10.4, Red Blood Count 4.44, Hemoglobin 13.0, Hematocrit 39, Mean Corpuscular Volume 89, Mean Corpuscular Hemoglobin 29, Mean Corpuscular Hemoglobin Concent 33, Red Cell Distribution Width 13.7, Platelet Count 362, Mean Platelet Volume 9.6, Neutrophils (%) (Auto) 67, Lymphocytes (%) (Auto) 23, Monocytes (%) (Auto) 9, Eosinophils (%) (Auto) 0, Basophils (%) (Auto) 0, Neutrophils # (Auto) 7.0, Lymphocytes # (Auto) 2.4, Monocytes # (Auto) 0.9, Eosinophils # (Auto) 0.0, Basophils # (Auto) 0.0, Sodium Level 142, Potassium Level 3.2L, Chloride Level 97L, Carbon Dioxide Level 26, Anion Gap 19H, Blood Urea Nitrogen 50H, Creatinine 2.20H, Estimat Glomerular Filtration Rate 21, BUN/Creatinine Ratio 23, Glucose Level 118H, Calcium Level 10.1, Corrected Calcium 9.9, Total Bilirubin 0.8, Aspartate Amino Transf (AST/SGOT) 21, Alanine Aminotransferase (ALT/SGPT) 14, Alkaline Phosphatase 51, Total Protein 8.3H, Albumin 4.3, Immature Granulocyte % (Auto) 0, Immature Granulocyte # (Auto) 0.0 Assessment/Plan Assessment/Plan Assessment/Plan Possible small bowel obstruction vs. Ileus JAGRUTI Nausea Vomiting Constipation Hx of abdominal surgeries including adhesiolysis'' Pt has not had any improvement today, she is still very nauseas and has vomited quite a few times. She has gotten meds for nausea but arent seeming to help much. She did not have any bowel sounds this morning. She has also not passed any gas. Probably will have to do a small bowel follow through. Encouraged her to move around. She should have PT due to her weakness and need to move around. She has stool softeners ordered. Will continue to monitor for gas and BM. Her BUN 50 and Creat of 2.2 is not improved from yesterday. Likely still due to dehydration. Could increase fluids a but since she can not take any by mouth. Continue to monitor her kidneys with morning labs. SID VIDALES DO 06/23/21 1350: Subjective Time Seen by a Provider: 12:39 Subjective/Events-last exam Pt seen and examined, stated she had just finished throwing up. Still has bad nausea and minimal abdominal cramping. Review of Systems General: No Chills Pulmonary: No Dyspnea, No Cough Cardiovascular: No: Chest Pain, Palpitations Gastrointestinal: Nausea, Vomiting, Abdominal Pain, Constipation Objective Exam General Appearance: No Apparent Distress (nauseous), WD/WN HEENT: Moist Mucous Membranes Respiratory: Lungs Clear, Normal Breath Sounds, No Accessory Muscle Use, No Respiratory Distress Cardiovascular: Regular Rate, Rhythm, No Murmur Gastrointestinal: soft, abnormal bowel sounds (Hypoactive, no sounds heard at all); No distended, No guarding; tenderness (minimal diffusely) Assessment/Plan Assessment/Plan Assessment/Plan Possible small bowel obstruction vs. Ileus JAGRUTI Nausea Vomiting Constipation Hx of abdominal surgeries including adhesiolysis'' Plan to order SBFT. Pt has not had any improvement today, she is still very nauseas and has vomited quite a few times. She has gotten meds for nausea but arent seeming to help much. She did not have any bowel sounds this morning. She has also not passed any gas. Probably will have to do a small bowel follow through. Encouraged her to move around. She should have PT due to her weakness and need to move around. She has stool softeners ordered. Will continue to monitor for gas and BM. Her BUN 50 and Creat of 2.2 is not improved from yesterday. Likely still due to dehydration. Could increase fluids a but since she can not take any by mouth. Continue to monitor her kidneys with morning labs. Supervisory-Addendum Brief Verification & Attestation Participated in pt care: history, MDM, physical Personally performed: exam, history, MDM, supervision of care Care discussed with: Medical Student Procedures: n/a Verification and Attestation of Medical Student E/M Service A medical student performed and documented this service. I then reviewed and verified all information documented by the medical student and made modifications to such information, when appropriate. I personally performed a physical exam, medical decision making and then discussed any differences between the notes and made revisions as necessary to create one note. Sid Vidales , 06/23/21 , 13:50 AMIE HOLT MED STUDENT Jun 23, 2021 07:57 SID VIDALES DO Jun 23, 2021 13:50
[2021-06-23] MEDS: DOCUSATE SODIUM 100 MG (COLACE) CAP PO SCH ×2 (08:54→21:30)
[2021-06-23] MEDS ORDERED: ACHD5005 PO ×2 (10:13)
[2021-06-23] MEDS ORDERED: MAGN400O7 PO ×2 (10:13)
[2021-06-23] MEDS ORDERED: POLY238P32 PO ×2 (10:13)
[2021-06-23] MEDS ORDERED: PSYL0.4C2 PO ×2 (10:13)
[2021-06-23] MEDS ORDERED: SIME125C78 PO ×2 (10:13)
[2021-06-23] MEDS ORDERED: LOPE2CAP PO ×2 (10:13)
[2021-06-23] MEDS ORDERED: METO5TAB2 PO ×2 (10:13)
[2021-06-23] MEDS ORDERED: DOCU100T28 PO ×2 (10:13)
--- NOTE | 2021-06-23 12:15 | Progress Note - Hospitalist ---
Subjective HPI/CC On Admission Date Seen by Provider: Jun 23, 2021 Time Seen by Provider: 11:00 CC: N&V HPI: 85 [facility] pt of Dr. Alatorre. MHx of small bowel obstruction who presented to the ER with severe nausea and vomiting for many days. Her creatinine went from 1.1 to 2.2. So pt will be in need of IV fluids. Dr. Vidales will be consulted due to the history of small bowel obstructions. Acute abdominal series didn't show any obstruction. CT scan done on 06/16 in the ER showed no evidence of any obstruction. Subjective/Events-last exam Pt doing about the same Nausea and vomiting continue Creatine is still 2.2 Potassium 3.2 will not supplement due to Renal Insufficiency Await Dr. Vidales Review of Systems Gastrointestinal: Nausea, Vomiting, Abdominal Pain Objective Exam Vital Signs Vital Signs Date Time Temp Pulse Resp B/P (MAP) Pulse Ox O2 Delivery O2 Flow Rate FiO2 06/24/21 03:58 36.6 85 17 148/85 (106) 93 Room Air 06/22/21 16:19 21 Capillary Refill : Less Than 3 Seconds General Appearance: No Apparent Distress, WD/WN, Chronically ill Respiratory: Lungs Clear, Normal Breath Sounds Cardiovascular: Regular Rate, Rhythm Neurologic/Psychiatric: Alert, Oriented x3 Results/Procedures Lab Laboratory Tests 06/23/21 06:12 Patient resulted labs reviewed. Assessment/Plan Assessment and Plan Assess & Plan/Chief Complaint Assessment: Early SBO N/V JAGRUTI Dehydration Anxiety HTN Plan: IVF Dr Vidales 06/23/21: IVF Monitor closely Diagnosis/Problems Diagnosis/Problems (1) Nausea and vomiting Status: Resolved Qualifiers: Vomiting type: unspecified Vomiting Intractability: intractable Qualified Codes: R11.2 - Nausea with vomiting, unspecified Resolution Date/Time: 12/02/20 @ 12:57 (2) JAGRUTI (acute kidney injury) Status: Acute (3) Dehydration Status: Acute (4) Gaseous abdominal distention Status: Acute PER WESLEY DO Jun 23, 2021 12:15
--- NOTE | 2021-06-23 13:33 | Occupational Therapy Eval ---
OT Evaluation-General/PLF Medical Diagnosis Admission Date Jun 22, 2021 at 15:00 Medical Diagnosis: N/V Onset Date: Jun 22, 2021 Therapy Diagnosis Therapy Diagnosis: weakness Precautions Precautions/Isolations: Fall Prevention, Standard Precautions Referral Referral Reason: Evaluation/Treatment Medical History Pertinent Medical History: HTN Additional Medical History SBO Current History Pt presents to ER with severe nausea and vomiting for multiple days Reviewed History: Yes Social History Home: Single Level Current Living Status: Alone Entry Into Home: Level Entry Indep all adls. 1 meal/day provided by living facility. Pt cooks simple breakfast. No AD utilized [employer], still drives. ADL-Prior Level of Function SCALE: Activities may be completed with or without assistive devices. 9-Tjceueyvcn-[id number] completes the activity by him/herself with no assistance from a helper. 5-Set-up or Clean-up Assistance-helper sets up or cleans up; patient completes activity. Jasper assists only prior to or following the activity. 4-Supervision or Touching Assistance-helper provides verbal cues and/or touching/steadying and/or contact guard assistance as patient completes activity. Assistance may be provided throughout the activity or intermittently. 3-Partial/Moderate Assistance-helper does LESS THAN HALF the effort. Jasper lifts, holds or supports trunk or limbs, but provides less than half the effort. 2-Substantial/Maximal Assistance-helper does MORE THAN HALF the effort. Jasper lifts or holds trunk or limbs and provides more than half the effort. 4-Udrhkhqzz-hpzuvk does ALL the effort. Patient does none of the effort to compl ete the activity. Or, the assistance of 2 or more helpers is required for the patient to complete the activity. If activity was not attempted, code reason: 7-Patient Refused. 9-Not Applicable-not attempted and the patient did not perform the activity before the current illness, exacerbation or injury. 10-Not Attempted due to Environmental Limitations-(lack of equipment, weather restraints, etc.). 88-Not Attempted due to Medical Conditions or Safety Concerns. Self Care: Independent Functional Cognition: Independent DME/Equipment: Bath Chair, Grab Bars, Shower Drive Self: Yes OT Current Status Subjective Pt reports feeling at her worse since arriving. Still agreeable to eval. Appearance Returned to supine, all needs within reach. Mental Status/Objective Patient Orientation: Person, Place, Situation Attachments: IV Current Hand Dominance: Right Upper Extremity ROM WNL Upper Extremity Strength 3+/5 grossly ADL-Treatment Eating (QC): 6 Oral Hygiene (QC): 5 Lower Body Dressing (QC): 3 On/Off Footwear (QC): 4 Pt resting in bed at OT arrival. Reports she has nausea and produces emisis at least every 2 hours. Able to sit EOB without any difficulty. Good sitting balance on edge. She stood with hand held assist. Reports lightheadedness and increased nausea with standing. Steadying assist required in standing. Anticipate improved performance once nausea/vomiting subsides. Education OT Patient Education: Progress toward Goal/Update tx plan, Purpose of tx/functional activities Teaching Recipient: Patient Teaching Methods: Discussion Response to Teaching: Verbalize Understanding, Return Demonstration OT Half-Way Goals Half-Way Goals Time Frame: Jun 30, 2021 Toileting Hygiene (QC): 4 Shower/Bathe Self (QC): 4 Upper Body Dressing (QC): 5 Lower Body Dressing (QC): 5 On/Off Footwear (QC): 5 1=Demonstrate adherence to instructed precautions during ADL tasks. 2=Patient will verbalize/demonstrate understanding of assistive devices/modifications for ADL. 3=Patient will improve strength/tolerance for activity to enable patient to perform ADL's. OT Education/Plan Problem List/Assessment Assessment: Decreased Activ Tolerance, Decreased UE Strength, Impaired I ADL's, Impaired Self-Care Skills Discharge Recommendations Plan/Recommendations: Continue POC Therapy Discharge Recommendati: Home & Family Target Placement anticipate discharge home pending progress Treatment Plan/Plan of Care Treatment,Training & Education: Yes Patient would benefit from OT for education, treatment and training to promote independence in ADL's, mobility, safety and/or upper extremity function for ADL's. Plan of Care: ADL Retraining, Functional Mobility, UE Funct Exercise/Act Treatment Duration: Jun 30, 2021 Frequency: 3 times per week Estimated Hrs Per Day: .25 hour per day Agreement: Yes 3-5x/week Time/GCodes Start Time: 12:53 Stop Time: 13:03 Total Time Billed (hr/min): 10 Billed Treatment Time 1 visit Louise Morrison OT Jun 23, 2021 13:33
[2021-06-23] MEDS ORDERED: DIATRIZOATE MEGLUM/SODIUM 37% 120 ML (GASTROGRAFIN) PO ONE (14:00)
--- NOTE | 2021-06-23 14:44 | Physical Therapy Progress Note ---
Therapy Progress Note Patient unavailable due to testing. PT will assess in TYLER Toro PT Jun 23, 2021 14:44
--- NOTE | 2021-06-23 21:26 | Diagnostic Imaging Report ---
INDICATION: Small bowel obstruction. EXAMINATION: Small bowel study. COMPARISON: COMPARISON: None. FINDINGS: Contrast small bowel study was carried out for 7 hours. Contrast persists in the stomach and duodenum which is concerning for a proximal obstruction. IMPRESSION: Suspect proximal small bowel obstruction. Follow-up exam is recommended. Dictated by: Dictated on workstation # [id number]
[2021-06-24] VITALS (12 sets, daily range): BP systolic 115–189; BP diastolic 56–88
[2021-06-24] MEDS: NS IV 1000 ML 1,000 ML IV SCH ×3 (01:44→19:33)
[2021-06-24] MEDS: METOCLOPRAMIDE INJ 10 MG/2 ML (REGLAN) IVP SCH ×5 (01:44→22:46)
[2021-06-24] MEDS: PROMETHAZINE INJ 25 MG/ML (PHENERGAN) AMP IM PRN ×2 (01:44→09:01)
[2021-06-24 06:27] LABS: BASOPHILS % (AUTO) 0 % (0-10); EOSINOPHILS % (AUTO) 0 % (0-10); HEMATOCRIT 43 % (35-52); HEMOGLOBIN 13.7 g/dL (11.5-16.0); LYMPHOCYTES # (AUTO) 1.7 10^3/uL (1.0-4.0); LYMPHOCYTES % (AUTO) 20 % (12-44); MEAN CORPUSCULAR HEMOGLOBIN 29 pg (25-34); MEAN CORPUSCULAR HGB CONC 32 g/dL (32-36); MEAN CORPUSCULAR VOLUME 91 fL (80-99); MEAN PLATELET VOLUME 9.7 fL (9.0-12.2); MONOCYTES # (AUTO) 0.9 10^3/uL (0.0-1.0); MONOCYTES % (AUTO) 11 % (0-12); NEUTROPHILS # (AUTO) 5.8 10^3/uL (1.8-7.8); NEUTROPHILS % (AUTO) 69 % (42-75); PLATELET COUNT 372 10^3/uL (130-400); WHITE BLOOD COUNT 8.5 10^3/uL (4.3-11.0)
[2021-06-24 06:44] LABS: ALBUMIN 4.5 GM/DL (3.2-4.5); BILIRUBIN,TOTAL 1.1 MG/DL (0.1-1.0); CALCIUM 10.1 MG/DL (8.5-10.1); CREATININE SERUM 1.77 MG/DL (0.60-1.30); TOTAL PROTEIN 8.6 GM/DL (6.4-8.2)
--- NOTE | 2021-06-24 08:10 | Progress Note - Surgery ---
AMIE HOLT MED STUDENT 06/24/21 0810: Subjective Date Seen by a Provider: Jun 24, 2021 Time Seen by a Provider: 08:00 Subjective/Events-last exam Mrs Jorgensen is awake and laying in bed this morning. She states there has been no improvement in her nausea or vomiting. She has vomited about 6-7 times since yesterday. She does say that she is not having any stomach pains at this time. Small bowel follow through concerning for a proximal obstruction. She is not taking anything PO, receiving all of her fluids via IV. She is not passing any gas. She has not done any PT. She only walks to the bathroom, states she feels weak. She did not have any bowel sounds after 30 seconds of auscultation. Review of Systems General: No Chills HEENT: No Head Aches, No Visual Changes Pulmonary: No Dyspnea, No Cough Cardiovascular: No: Chest Pain, Palpitations, Edema Gastrointestinal: Nausea, Vomiting, Constipation; No: Abdominal Pain, Diarrhea, Melena Genitourinary: No Dysuria, No Incontinence, No Hematuria Musculoskeletal: No: leg pain, foot pain Objective Exam Vital Signs Date Time Temp Pulse Resp B/P (MAP) Pulse Ox O2 Delivery O2 Flow Rate FiO2 06/24/21 03:58 36.6 85 17 148/85 (106) 93 Room Air 06/23/21 23:58 36.5 86 17 141/95 (110) 94 Room Air 06/23/21 21:30 94 Room Air 06/23/21 20:15 95 Room Air 06/23/21 19:29 35.0 102 20 151/77 (101) 93 Room Air 06/23/21 16:00 36.2 75 18 142/85 (104) 95 Room Air 06/23/21 11:29 37.0 78 20 123/80 (94) 98 Room Air 06/23/21 09:29 Room Air 06/23/21 09:00 Room Air I & O 06/24/21 07:00 Intake Total 20 ml Output Total 800 ml Balance -780 ml Capillary Refill : Less Than 3 Seconds General Appearance: No Apparent Distress, WD/WN, Chronically ill HEENT: Moist Mucous Membranes Respiratory: Lungs Clear, Normal Breath Sounds Cardiovascular: Regular Rate, Rhythm Peripheral Pulses: 2+ Dorsalis Pedis (R), 2+ Left Dors-Pedis (L), 2+ Radial Pulses (R), 2+ Radial Pulses (L) Gastrointestinal: soft, abnormal bowel sounds (Hypoactive, no sounds heard at all); No distended, No guarding; tenderness (minimal diffusely) Extremity: Normal Inspection, Non Tender, No Calf Tenderness, No Pedal Edema Neurologic/Psychiatric: Alert, Oriented x3 Skin: Normal Color, Warm/Dry Results Lab Laboratory Tests 06/24/21 06:13: White Blood Count 8.5, Red Blood Count 4.67, Hemoglobin 13.7, Hematocrit 43, Mean Corpuscular Volume 91, Mean Corpuscular Hemoglobin 29, Mean Corpuscular Hemoglobin Concent 32, Red Cell Distribution Width 13.5, Platelet Count 372, Mean Platelet Volume 9.7, Immature Granulocyte % (Auto) 0, Neutrophils (%) (Auto) 69, Lymphocytes (%) (Auto) 20, Monocytes (%) (Auto) 11, Eosinophils (%) (Auto) 0, Basophils (%) (Auto) 0, Neutrophils # (Auto) 5.8, Lymphocytes # (Auto) 1.7, Monocytes # (Auto) 0.9, Eosinophils # (Auto) 0.0, Basophils # (Auto) 0.0, Immature Granulocyte # (Auto) 0.0, Sodium Level 152H, Potassium Level 3.0L, Chloride Level 101, Carbon Dioxide Level 29, Anion Gap 22H, Blood Urea Nitrogen 53H, Creatinine 1.77H, Estimat Glomerular Filtration Rate 27, BUN/Creatinine Ratio 30, Glucose Level 107H, Calcium Level 10.1, Corrected Calcium 9.7, Total Bilirubin 1.1H, Aspartate Amino Transf (AST/SGOT) 38H, Alanine Aminotransferase (ALT/SGPT) 27, Alkaline Phosphatase 59, Total Protein 8.6H, Albumin 4.5 Microbiology 06/22/21 Urine Culture - Preliminary, Resulted Culture In Progress Assessment/Plan Assessment/Plan Assessment/Plan Possible small bowel obstruction vs. Ileus JAGRUTI Nausea Vomiting Constipation Hx of abdominal surgeries including adhesiolysis'' Hypernatremia SBFT was concerning for a proximal obstruction. She is still not passing any gas, can not take anything PO. She is still having nausea and vomiting despite zofran, reglan, and phenergan. She is also on stool softeners. Encouraged her to move around. She has PT/OT ordered from yesterday. Will continue to monitor for gas and BM. Her BUN 53 and Creat of 1.77 is a bit improved from yesterday, sodium was 152 this morning. Likely still due to dehydration, need to continue with IVF Continue to monitor her kidneys with morning labs. Could consider surgery, but not sure there is a benefit at this point. Obstruction could be caused by adhesions since she has history. Could also resolve from bowel rest or decompression with NG tube, would be better to try non-invasive methods first. SID VIDALES DO 06/24/21 1057: Subjective Time Seen by a Provider: 09:49 Subjective/Events-last exam Pt seen and examined, states she is vomiting "a lot" and her pain is bad again. Still no BM or flatus. Review of Systems General: No Chills Pulmonary: No Dyspnea, No Cough Cardiovascular: No: Chest Pain, Palpitations Gastrointestinal: Nausea, Vomiting, Abdominal Pain, Constipation Objective Exam General Appearance: No Apparent Distress, Chronically ill Respiratory: Lungs Clear, Normal Breath Sounds, No Accessory Muscle Use Cardiovascular: Regular Rate, Rhythm, No Murmur Gastrointestinal: soft, abnormal bowel sounds (Hypoactive, no sounds heard at all), distended; No guarding; tenderness (minimal diffusely) Neurologic/Psychiatric: Alert, Oriented x3 Assessment/Plan Assessment/Plan Assessment/Plan Complete Bowel Obstruction JAGRUTI - improved slightly Intractable N/V due to bowel obstruction Hypernatremia SBFT did not get past duodenum after 7 hours and the flat plate I ordered this morning looked about the same. She is having more vomiting today, which is probably the reason she has minimal contrast in her abdomen. I saw her before flat plate and then looked at the film as it was being done at bedside. I spoke with pt and then left message with one son and called the other. I spoke to him regarding the findings and we went over options; 1)cont to monitor and see if it resolves on its own 2) surgery to release adhesion with possible bowel resection. I spoke with pt also and gave her the same options, she said "it's not gonna get better unless we do something and I can't stand this anymore". I talked with the son about the fact that this is probably the same thing that happened last time we took her to the OR. Went over risks and complications, not limited to pain, bleeding, infection, scar, damage to bowel and because of her age cardiac complications. All questions answered to both of their satisfaction. We will go to the OR and will get consent. Supervisory-Addendum Brief Verification & Attestation Participated in pt care: history, MDM, physical Personally performed: exam, history, MDM, supervision of care Care discussed with: Medical Student Procedures: n/a Verification and Attestation of Medical Student E/M Service A medical student performed and documented this service. I then reviewed and verified all information documented by the medical student and made modifications to such information, when appropriate. I personally performed a physical exam, medical decision making and then discussed any differences between the notes and made revisions as necessary to create one note. Sid Vidales , 06/24/21 , 10:57 AMIE HOLT MED STUDENT Jun 24, 2021 08:10 SID VIDALES DO Jun 24, 2021 10:57
[2021-06-24] MEDS: DOCUSATE SODIUM 100 MG (COLACE) CAP PO SCH ×2 (09:01→19:33)
--- NOTE | 2021-06-24 10:24 | Physical Therapy Evaluation ---
PT Evaluation-General Medical Diagnosis Admission Date Jun 22, 2021 at 15:00 Medical Diagnosis: JAGRUTI/dehydration Onset Date: Jun 22, 2021 Therapy Diagnosis Therapy Diagnosis: debility/weakness Precautions Precautions/Isolations: Standard Precautions Referral Physician: Jake Reason for Referral: Evaluation/Treatment Medical History Pertinent Medical History: HTN Current History EMS secondary to N/V/weakness Reviewed History: Yes Social History Home: Assisted Living Entry Into Home: Level Entry Prior Prior Level of Function SCALE: Activities may be completed with or without assistive devices. 5-Bfpghnthfz-lnsiibg completes the activity by him/herself with no assistance from a helper. 5-Set-up or Clean-up Assistance-helper sets up or cleans up; patient completes activity. [place] assists only prior to or following the activity. 4-Supervision or Touching Assistance-helper provides verbal cues and/or touching/steadying and/or contact guard assistance as patient completes activity. Assistance may be provided throughout the activity or intermittently. 3-Partial/Moderate Assistance-helper does LESS THAN HALF the effort. [place] lifts, holds or supports trunk or limbs, but provides less than half the effort. 2-Substantial/Maximal Assistance-helper does MORE THAN HALF the effort. [place] lifts or holds trunk or limbs and provides more than half the effort. 8-Chsznmifo-gwwcqc does ALL the effort. Patient does none of the effort to complete the activity. Or, the assistance of 2 or more helpers is required for the patient to complete the activity. If activity was not attempted, code reason: 7-Patient Refused. 9-Not Applicable-not attempted and the patient did not perform the activity before the current illness, exacerbation or injury. 10-Not Attempted due to Environmental Limitations-(lack of equipment, weather restraints, etc.). 88-Not Attempted due to Medical Conditions or Safety Concerns. Bed Mobility: 6 Transfers (B,C,W/C): 6 Gait: 6 Indoor Mobility (Ambulation): Independent Prior Devices Use: None PT Evaluation-Current Subjective Patient continues to c/o nausea and vomiting with increased weakness. Objective Patient Orientation: Normal For Age Attachments: Yanez Catheter, IV ROM/Strength ROM Lower Extremities bilateral LE WFL Strength Lower Extremities 3/5 grossly bilateral LE all planes Integumentary/Posture Bladder Incontinence: Yanez Cath Posture WFL Neuromuscular (Tone, Coordination, Reflexes) grossly intact Sensory Vision: Functional Hearing: Functional Hand Dominance: Right Transfers Lying to Sitting/Side of Bed(Q: 3 Sit to Stand (QC): 3 Chair/Hgy-cn-Lbpxu Xfer(QC): 3 Gait Mode of Locomotion: Walk Anticipated Mode of Locomotion: Walk Walk 10 feet (QC): 4 Walk 50 ft with 2 Turns(QC): 4 Walk 150 ft (QC): 4 Distance: 250' Gait Assistive Device: FWW Comments/Gait Description slow, steady, functional gait sequence Balance Sitting Static: Normal Sitting Dynamic: Normal Standing Static: Fair Standing Dynamic: Fair Assessment/Needs 85 y.o female, will benefit from skilled PT to address functional strength and mobility to improve current LOF to safely return to AL at maximum LOF. 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 Half-Way Goals PT Freelance Makeup Artist Goals Time Frame: Jul 09, 2021 Roll Left & Right (QC): 5 Sit to Lying (QC): 5 Lying-Sitting on Side/Bed(QC): 5 Sit to Stand (QC): 5 Chair/Vdn-tx-Hbhja Xfer(QC): 5 Toilet Transfer (QC): 5 Walk 10 feet (QC): 5 Walk 50ft with 2 Turns (QC): 5 Walk 150 ft (QC): 5 PT Plan Problem List Problem List: Activity Tolerance, Functional Strength, Safety, Balance, Gait, Transfer, Bed Mobility Treatment/Plan Treatment Plan: Continue Plan of Care Treatment Plan: Bed Mobility, Education, Functional Activity Rickey, Functional Strength, Gait, Safety, Therapeutic Exercise, Transfers Treatment Duration: Jul 09, 2021 Frequency: 6 times per week Estimated Hrs Per Day: .5 hour per day Patient and/or Family Agrees t: Yes Time/GCodes Time In: 851 Time Out: 909 Total Billed Treatment Time: 18 Total Billed Treatment 1 visit EVModC 18 min TYLER BOJORQUEZ PT Jun 24, 2021 10:24
--- NOTE | 2021-06-24 10:25 | Diagnostic Imaging Report ---
INDICATION: Small bowel obstruction. TIME OF EXAM: 10:14 AM Correlation is made with prior radiograph from one day earlier. There appears to be continued residual contrast in the stomach. There appears to be some dilute contrast in proximal small bowel loop in the right upper quadrant as well. Majority of small bowel does not appear to be opacified. The colon is not opacified. Colon is decompressed. No free air is seen. IMPRESSION: There is some continued moderate distention of the stomach which does contain some contrast however the degree of distention is less when compared with yesterday's study. No significant small bowel or large bowel oral contrast is identified on this study. Dictated by: Dictated on workstation # [id number]
[2021-06-24] MEDS ORDERED: SEVOFLURANE (ULTANE) 15 ML INHAL SOLN ONE (11:00)
[2021-06-24] MEDS ORDERED: LIDOCAINE PF 2% 5 ML (XYLOCAINE) VIAL ONE (11:00)
[2021-06-24] MEDS ORDERED: ONDANSETRON 4 MG/2 ML (SDV) Z0FRAN ONE (11:00)
[2021-06-24] MEDS ORDERED: proPOfol 200 MG/20 ML (DIPRIVAN) VIAL IV ONE (11:00)
[2021-06-24] MEDS ORDERED: fentaNYL INJ 100 MCG/2 ML AMP ONE (11:00)
[2021-06-24] MEDS ORDERED: SUCCINYLCHOLINE INJ 100 MG/5 ML SYR/VIAL ONE (11:03)
[2021-06-24] MEDS ORDERED: ceFAZolin INJECTION 2,000 MG ONE (11:24)
[2021-06-24] MEDS: LACTATED RINGERS 1,000 ML IV PRN ×2 (11:25→12:53)
[2021-06-24] MEDS ORDERED: LIDOCAINE/EPI 1%-1:200,000 (XYLOCAINE) 30 ML VIAL ONE (11:25)
--- NOTE | 2021-06-24 11:25 | Occupational Ther Daily Note ---
OT Current Status-Daily Note Subjective Pt reports she is still feeling terrible and continues to have N/V. She states that she is scheduled for surgery later in day and that she is now NPO. Appearance Returned to supine in bed, all needs within reach. Mental Status/Objective Patient Orientation: Person, Place, Time, Situation Attachments: IV ADL-Treatment Therapy Code Descriptions/Definitions Functional Blanco Measure: 0=Not Assessed/NA 4=Minimal Assistance 1=Total Assistance 5=Supervision or Setup 2=Maximal Assistance 6=Modified Blanco 3=Moderate Assistance 7=Complete IndependenceSCALE: Activities may be completed with or without assistive devices. 9-Ewchokqdnd-rnsvrbf completes the activity by him/herself with no assistance from a helper. 5-Set-up or Clean-up Assistance-helper sets up or cleans up; patient completes activity. [place]sey assists only prior to or following the activity. 4-Supervision or Touching Assistance-helper provides verbal cues and/or touching/steadying and/or contact guard assistance as patient completes activity. Assistance may be provided throughout the activity or intermittently. 3-Partial/Moderate Assistance-helper does LESS THAN HALF the effort. Hersey lifts, holds or supports trunk or limbs, but provides less than half the effort. 2-Substantial/Maximal Assistance-helper does MORE THAN HALF the effort. [place] lifts or holds trunk or limbs and provides more than half the effort. 3-Xwyymmrvu-ssdfbx does ALL the effort. Patient does none of the effort to complete the activity. Or, the assistance of 2 or more helpers is required for the patient to complete the activity. If activity was not attempted, code reason: 7-Patient Refused. 9-Not Applicable-not attempted and the patient did not perform the activity before the current illness, exacerbation or injury. 10-Not Attempted due to Environmental Limitations-(lack of equipment, weather restraints, etc.). 88-Not Attempted due to Medical Conditions or Safety Concerns. Oral Hygiene (QC): 4 On/Off Footwear: 4 Toileting Hygiene (QC): 4 Toilet Transfer (QC): 4 Supine>sit: independent. Sit<>stand: CGA for safety. Pt ambulated to/from bathroom with use of walker and CGA. Slightly unsteady but no LOB. Pt able to transfer to toilet with SBA and use of grab bar. Felicia care performed in sitting, no assist required. She stood to manage underwear over hips with SBA-CGA. Pt stood at sink for oral care, close Supervision for safety only. Pt is weak and fatigues easily. Education OT Patient Education: Correct positioning, Progress toward Goal/Update tx plan, Purpose of tx/functional activities, Safety issues, Transfer techniques Teaching Recipient: Patient Teaching Methods: Discussion Response to Teaching: Verbalize Understanding OT Detention Goals Detention Goals Time Frame: Jun 30, 2021 Toileting Hygiene (QC): 4 Shower/Bathe Self (QC): 4 Upper Body Dressing (QC): 5 Lower Body Dressing (QC): 5 On/Off Footwear (QC): 5 1=Demonstrate adherence to instructed precautions during ADL tasks. 2=Patient will verbalize/demonstrate understanding of assistive devices/modifications for ADL. 3=Patient will improve strength/tolerance for activity to enable patient to perform ADL's. OT Education/Plan Problem List/Assessment Assessment: Decreased Activ Tolerance, Decreased UE Strength, Impaired Funct Balance, Impaired I ADL's Discharge Recommendations Plan/Recommendations: Continue POC Treatment Plan/Plan of Care Treatment,Training & Education: Yes Patient would benefit from OT for education, treatment and training to promote independence in ADL's, mobility, safety and/or upper extremity function for ADL's. Plan of Care: ADL Retraining, Functional Mobility, UE Funct Exercise/Act Treatment Duration: Jun 30, 2021 Frequency: 3 times per week Estimated Hrs Per Day: .25 hour per day Agreement: Yes Rehab Potential: Fair Time/GCodes Start Time: 10:58 Stop Time: 11:16 Total Time Billed (hr/min): 18 Billed Treatment Time 1 visit ADL Louise Cohen OT Jun 24, 2021 11:25
[2021-06-24] MEDS ORDERED: PHENYLEPHRINE 100 MCG/ML 10 ML (ANESTHESIA) SYR ONE (12:03)
[2021-06-24] MEDS ORDERED: VASOPRESSIN INJECTION 20 UNIT/ML VIAL ONE (12:28)
--- NOTE | 2021-06-24 12:33 | Progress Note - Hospitalist ---
MARIKA CLINTON 06/24/21 1233: Subjective HPI/CC On Admission Date Seen by Provider: Jun 24, 2021 Time Seen by Provider: 11:00 CC: N&V HPI: 85 yr old clinic pt of Dr. Alatorre. MHx of small bowel obstruction who presented to the ER with severe nausea and vomiting for many days. Her creatinine went from 1.1 to 2.2. So pt will be in need of IV fluids. Dr. Vidales will be consulted due to the history of small bowel obstructions. Acute abdominal series didn't show any obstruction. CT scan done on 06/16 in the ER showed no evidence of any obstruction. Subjective/Events-last exam Patient is sitting up in chair at time of encounter. She is alert and conversing. She states she feels about the same as yesterday. She reports frequent emesis. She denies having a bowel movement or passing flatus. She denies trouble with urination. She reports no abdominal pain or cramping but does state her abdomen continues to feel more distended compared to her usual baseline habitus. She denies having an appetite but does feel thirsty. She worked with PT this morning; they stated she did well and was able to walk the length of her hallway. Per her nurse, she states that the patient does not seem like her usual active, up-beat self. Patient is NPO, receiving IVF Cr 1.77, improvement from yesterday (2.20) Small bowel study was carried out for 7 hours; contrast persisted in the stomach and duodenum, concerning for proximal small bowel obstruction. Bowel sounds were present on exam. Na 152, likely secondary to dehydration. K 3.0 Surgery is following and took patient to OR later this morning for an exploratory laparotomy and NG tube placement. Review of Systems General: No Appetite HEENT: No Head Aches Pulmonary: No Dyspnea Cardiovascular: No: Chest Pain Gastrointestinal: Nausea, Vomiting; No: Abdominal Pain Genitourinary: No Incontinence, No Retention Objective Exam Vital Signs Vital Signs Date Time Temp Pulse Resp B/P (MAP) Pulse Ox O2 Delivery O2 Flow Rate FiO2 06/24/21 08:12 93 Room Air 06/24/21 08:00 35.8 89 18 115/56 (75) 06/22/21 16:19 21 Capillary Refill : Less Than 3 Seconds General Appearance: No Apparent Distress, Thin Respiratory: Lungs Clear, Normal Breath Sounds, No Accessory Muscle Use, No Respiratory Distress Cardiovascular: Regular Rate, Rhythm, No Murmur, Normal Peripheral Pulses (+2 right radial pulse) Gastrointestinal: Normal Bowel Sounds, Non Tender, Soft, Distended Extremity: Pedal Edema (+1 pitting bilaterally) Neurologic/Psychiatric: Alert Skin: Normal Color, Warm/Dry Results/Procedures Lab Laboratory Tests 06/24/21 06:13 Patient resulted labs reviewed. Assessment/Plan Assessment and Plan Assess & Plan/Chief Complaint Assessment: SBO JAGRUTI N/V Dehydration Anxiety HTN Hypokalemia Plan: IVF Surgery following Monitor closely AM labs: CBC, BMP Replace K MADIE WESLEY DO 06/25/21 0525: Subjective Subjective/Events-last exam Patient ready for surgery Check meds and labs Creatinine 1.7 Review of Systems Gastrointestinal: Nausea, Vomiting, Abdominal Pain Objective Exam General Appearance: Anxious, Chronically ill Respiratory: No Accessory Muscle Use, No Respiratory Distress, Decreased Breath Sounds Cardiovascular: Regular Rate, Rhythm Neurologic/Psychiatric: Alert, Oriented x3 Assessment/Plan Assessment and Plan Assess & Plan/Chief Complaint Surgery today for small bowel obstruction at the duodenum Supervisory-Addendum Brief Verification & Attestation Participated in pt care: history, MDM, physical Personally performed: exam, history, MDM, supervision of care Care discussed with: Medical Student Procedures: n/a Results interpretation: Verified all documentation Verification and Attestation of Medical Student E/M Service A medical student performed and documented this service in my presence. I reviewed and verified all information documented by the medical student and made modifications to such information, when appropriate. I personally performed the physical exam and medical decision making. Madie Wesley Jun 25, 2021,05:24 MARIKA CLINTON Jun 24, 2021 12:33 MADIE WESLEY DO Jun 25, 2021 05:25
[2021-06-24] MEDS ORDERED: ROCURONIUM 50 MG/5 ML (ZEMURON) VIAL IV ONE (12:34)
--- NOTE | 2021-06-24 12:35 | Progress Note-Post Operative ---
Post-Operative Progess Note Surgeon (s)/Pet Adoption Counselor (s) Surgeon DERECK BUTLER DO Pet Adoption Counselor: Savi Pre-Operative Diagnosis Complete SBO Post-Operative Diagnosis same with adhesive band and internal hernia Procedure & Operative Findings Date of Procedure 06/24/21 Procedure Performed/Findings Ex lap with SARA Anesthesia Type GET Estimated Blood Loss Estimated blood loss (mL): less than 10ml Specimens/Packing Specimens Removed adhesion DERECK BUTLER DO Jun 24, 2021 12:35
[2021-06-24] MEDS ORDERED: HYDROmorphone 2 MG/ML VIAL (DILAUDID) ONE (13:13)
[2021-06-24] MEDS ORDERED: HYDROmorphone 2 MG/ML VIAL (DILAUDID) IV ONE (13:15)
[2021-06-24] MEDS ORDERED: ONDANSETRON 4 MG/2 ML (SDV) Z0FRAN IVP PRN (13:15)
[2021-06-24] MEDS: morphine INJ 4 MG/ML 1 ML (VIAL/SYRINGE) IV PRN ×2 (15:21→22:46)
[2021-06-25 03:20] VITALS: BP 154/76
[2021-06-25] MEDS: morphine INJ 4 MG/ML 1 ML (VIAL/SYRINGE) IV PRN (05:48)
[2021-06-25] MEDS: METOCLOPRAMIDE INJ 10 MG/2 ML (REGLAN) IVP SCH ×4 (05:49→23:08)
[2021-06-25] MEDS: NS IV 1000 ML 1,000 ML IV SCH ×3 (05:49→23:08)
--- NOTE | 2021-06-25 06:01 | Progress Note - Hospitalist ---
Subjective HPI/CC On Admission Date Seen by Provider: Jun 25, 2021 Time Seen by Provider: 11:00 CC: N&V HPI: 85 yr old [facility] clinic pt of Dr. Alatorre. MHx of small bowel obstruction who presented to the ER with severe nausea and vomiting for many days. Her creatinine went from 1.1 to 2.2. So pt will be in need of IV fluids. Dr. Vidales will be consulted due to the history of small bowel obstructions. Acute abdominal series didn't show any obstruction. CT scan done on 06/16 in the ER showed no evidence of any obstruction. Subjective/Events-last exam Patient doing a little better NG tube still in place Indication was the cause of the small bowel obstruction in the bowel and flipped over on itself Potassium 2.6 replacing Creatinine 1.29 much improved Patient very debilitated Review of Systems General: Fatigue, Malaise Gastrointestinal: Abdominal Pain Objective Exam Vital Signs Vital Signs Date Time Temp Pulse Resp B/P (MAP) Pulse Ox O2 Delivery O2 Flow Rate FiO2 06/26/21 04:59 116 112/57 (75) 06/26/21 03:30 36.6 20 96 Room Air 06/24/21 13:30 4 06/22/21 16:19 21 Capillary Refill : Less Than 3 SecondsLess Than 3 Seconds General Appearance: No Apparent Distress, WD/WN, Chronically ill Respiratory: Lungs Clear, Normal Breath Sounds Cardiovascular: Regular Rate, Rhythm Neurologic/Psychiatric: Alert, Oriented x3 Results/Procedures Lab Laboratory Tests 06/25/21 06:53 Patient resulted labs reviewed. Assessment/Plan Assessment and Plan Assess & Plan/Chief Complaint Assessment: Small bowel obstruction status post surgery postop day #1 Nausea and vomiting severe NG tube in place Hypokalemia Acute kidney injury much improved after IV fluids Advanced age Severe debility Hypertension Plan: Replace potassium IV fluids NG tube Diagnosis/Problems Diagnosis/Problems (1) Nausea and vomiting Status: Resolved Qualifiers: Vomiting type: unspecified Vomiting Intractability: intractable Qualified Codes: R11.2 - Nausea with vomiting, unspecified Resolution Date/Time: 12/02/20 @ 12:57 (2) JAGRUTI (acute kidney injury) Status: Acute (3) Dehydration Status: Acute (4) Gaseous abdominal distention Status: Acute PER WESLEY DO Jun 25, 2021 06:01
[2021-06-25 07:33] VITALS: BP 136/65
[2021-06-25 07:54] LABS: BASOPHILS % (AUTO) 0 % (0-10); EOSINOPHILS % (AUTO) 0 % (0-10); HEMATOCRIT 39 % (35-52); HEMOGLOBIN 12.1 g/dL (11.5-16.0); LYMPHOCYTES # (AUTO) 1.3 10^3/uL (1.0-4.0); LYMPHOCYTES % (AUTO) 12 % (12-44); MEAN CORPUSCULAR HEMOGLOBIN 29 pg (25-34); MEAN CORPUSCULAR HGB CONC 31 g/dL (32-36); MEAN CORPUSCULAR VOLUME 93 fL (80-99); MEAN PLATELET VOLUME 10.4 fL (9.0-12.2); MONOCYTES # (AUTO) 0.9 10^3/uL (0.0-1.0); MONOCYTES % (AUTO) 9 % (0-12); NEUTROPHILS # (AUTO) 8.5 10^3/uL (1.8-7.8); NEUTROPHILS % (AUTO) 79 % (42-75); PLATELET COUNT 286 10^3/uL (130-400); WHITE BLOOD COUNT 10.7 10^3/uL (4.3-11.0)
[2021-06-25 08:06] LABS: ALBUMIN 3.4 GM/DL (3.2-4.5); POTASSIUM 2.6 MMOL/L (3.6-5.0)
[2021-06-25 08:07] LABS: CALCIUM 8.8 MG/DL (8.5-10.1)
[2021-06-25 08:09] LABS: TOTAL PROTEIN 6.7 GM/DL (6.4-8.2)
[2021-06-25 08:10] LABS: BILIRUBIN,TOTAL 1.2 MG/DL (0.1-1.0)
[2021-06-25 08:12] LABS: CREATININE SERUM 1.29 MG/DL (0.60-1.30)
--- NOTE | 2021-06-25 08:16 | Anesthesia-General Post-Op ---
General Patient Condition Mental Status/LOC: Same as Preop Cardiovascular: Satisfactory Nausea/Vomiting: Absent Respiratory: Satisfactory Pain: Controlled Complications: Absent Post Op Complications Complications None Follow Up Care/Instructions Patient Instructions None needed. Anesthesia/Patient Condition Patient Condition Patient is doing well, no complaints, stable vital signs, no apparent adverse anesthesia problems. No complications reported per nursing. [place] [facility] [place] KYA Robin CRNA Jun 25, 2021 08:16
[2021-06-25] MEDS: DOCUSATE SODIUM 100 MG (COLACE) CAP PO SCH ×2 (09:19→19:35)
--- NOTE | 2021-06-25 09:19 | Progress Note - Surgery ---
AMIE HOLT MED STUDENT 06/25/21 0919: Subjective Date Seen by a Provider: Jun 25, 2021 Time Seen by a Provider: 08:00 Subjective/Events-last exam Mrs Jorgensen is lying in bed this morning but is easily woken. She states that she is feeling much better this morning. She has not had any nausea or vomiting. She also states that the only pain she has is very minimal and located around her incisions. She has not been taking anything PO, but she also has an NG tube in. Has about 350 mL from her NG total since operation. She has a patiño cath in, nurse states output has been a little low and dark but her only fluids are 90 mL / hr with her IV. She has not has a bm or passed gas yet. She did some PT yesterday. Review of Systems General: No Chills HEENT: No Head Aches, No Visual Changes Pulmonary: No Dyspnea, No Cough Cardiovascular: No: Chest Pain, Palpitations, Edema Gastrointestinal: Abdominal Pain (minimal incisional pain), Constipation; No: Nausea, Vomiting, Diarrhea, Melena Genitourinary: No Dysuria, No Incontinence, No Hematuria; Other (patiño) Musculoskeletal: No: leg pain, foot pain Objective Exam Vital Signs Date Time Temp Pulse Resp B/P (MAP) Pulse Ox O2 Delivery O2 Flow Rate FiO2 06/25/21 07:33 36.6 75 20 136/65 (88) 94 Room Air 06/25/21 03:20 36.8 72 20 154/76 (102) 95 Room Air 06/24/21 23:20 37.0 75 20 139/67 (91) 96 Room Air 06/24/21 20:55 Room Air 06/24/21 20:05 37.2 80 20 139/73 (95) 94 Room Air 06/24/21 19:38 Room Air 06/24/21 16:24 68 15 144/78 (100) 98 Room Air 06/24/21 13:55 36.2 20 184/88 (120) 97 Room Air 06/24/21 13:55 Room Air 06/24/21 13:45 Room Air 06/24/21 13:40 20 184/86 (118) 97 Room Air 06/24/21 13:30 OxyMask 4 06/24/21 13:30 20 189/88 (121) 100 OxyMask 4 06/24/21 13:20 20 180/77 (111) 93 OxyMask 4 06/24/21 13:15 OxyMask 6 06/24/21 13:10 20 189/88 (121) 96 OxyMask 5 06/24/21 13:00 16 182/83 (116) 100 OxyMask 10 06/24/21 13:00 OxyMask 10 06/24/21 12:53 OxyMask 10 06/24/21 12:53 36.2 20 174/79 (110) 100 OxyMask 10 I & O 06/25/21 07:00 Intake Total 5000 ml Output Total 1235 ml Balance 3765 ml Capillary Refill : Less Than 3 SecondsLess Than 3 Seconds General Appearance: No Apparent Distress, WD/WN HEENT: PERRL/EOMI, Pharynx Normal, Moist Mucous Membranes Respiratory: Chest Non Tender, Lungs Clear, Normal Breath Sounds, No Accessory Muscle Use, No Respiratory Distress, Decreased Breath Sounds Cardiovascular: Regular Rate, Rhythm, No Edema, No Murmur, Normal Peripheral Pulses Peripheral Pulses: 2+ Dorsalis Pedis (R), 2+ Left Dors-Pedis (L), 2+ Radial Pulses (R), 2+ Radial Pulses (L) Gastrointestinal: non tender, soft, abnormal bowel sounds (Hypoactive increased from yesterday) Extremity: Normal Inspection, Non Tender, No Calf Tenderness, No Pedal Edema Neurologic/Psychiatric: Alert, Oriented x3 Skin: Normal Color, Warm/Dry, Other (Abdominal incision stapled, no leaking, no erythema) Results Lab Laboratory Tests 06/25/21 06:53: White Blood Count 10.7, Red Blood Count 4.16, Hemoglobin 12.1, Hematocrit 39, Mean Corpuscular Volume 93, Mean Corpuscular Hemoglobin 29, Mean Corpuscular Hemoglobin Concent 31L, Red Cell Distribution Width 13.4, Platelet Count 286, Mean Platelet Volume 10.4, Immature Granulocyte % (Auto) 0, Neutrophils (%) (Auto) 79H, Lymphocytes (%) (Auto) 12, Monocytes (%) (Auto) 9, Eosinophils (%) (Auto) 0, Basophils (%) (Auto) 0, Neutrophils # (Auto) 8.5H, Lymphocytes # (Auto) 1.3, Monocytes # (Auto) 0.9, Eosinophils # (Auto) 0.0, Basophils # (Auto) 0.0, Immature Granulocyte # (Auto) 0.0, Sodium Level 148H, Potassium Level 2.6L, Chloride Level 106, Carbon Dioxide Level 30, Anion Gap 12, Blood Urea Nitrogen 44H, Creatinine 1.29, Estimat Glomerular Filtration Rate 40, BUN/Creatinine Ratio 34, Glucose Level 104, Calcium Level 8.8, Corrected Calcium 9.3, Total Bilirubin 1.2H, Aspartate Amino Transf (AST/SGOT) 34, Alanine Aminotransferase (ALT/SGPT) 24, Alkaline Phosphatase 47, Total Protein 6.7, Albumin 3.4 Microbiology 06/22/21 Urine Culture - Final, Complete Gram Pos Mixed Bacterial Paula Assessment/Plan Assessment/Plan Assessment/Plan S/P Ex Lap w/ SARA Complete Bowel Obstruction JAGRUTI Intractable N/V due to bowel obstruction Hypernatremia Patient was taken to OR yesterday for Ex Lap. She had some adhesions removed and about a liter of fluid removed from her stomach via NG. She states that her nausea and vomiting are way better this morning, no new episodes. No pain. NG output since surgery has been about 350 mL. She does have a patiño in, Nurse in concerned about output, she is not taking anything oral and fluids are only at 90mL/hr. Should increase IV fluids at this time or clamp NG tube and have pt try PO. If she can handle the fluids and pass gas then work up to soft diet as tolerated. Should walk around as much as possible. JAGRUTI improved 1.29 creatine today. Hypernatrema a bit better at 148 but still high, need to get more fluids in, no neuro sx however. Hypernatremia will need to be resolved as well before discharge. Incisions healing nicely, re-dress as needed. DERECK BUTLER DO 06/25/21 1328: Subjective Time Seen by a Provider: 10:50 Subjective/Events-last exam Pt seen and examined, states she is doing much better today. No nausea or vomiting, mild incisional pain. Review of Systems General: No Chills Pulmonary: No Dyspnea, No Cough Cardiovascular: No: Chest Pain, Palpitations Gastrointestinal: Abdominal Pain (minimal incisional pain), Constipation; No: Nausea, Vomiting Objective Exam General Appearance: No Apparent Distress, Chronically ill Respiratory: Lungs Clear, No Accessory Muscle Use, No Respiratory Distress, Decreased Breath Sounds Gastrointestinal: non tender, soft, other (midline incision c/d/i) Assessment/Plan Assessment/Plan Assessment/Plan S/P Ex Lap w/ SARA for Complete Bowel Obstruction JAGRUTI - slowly improving Hypernatremia Patient is feeling much better but i am concerned that her stomach stretched so much it may take a little time to function properly, will leave NGT to intermittent and start some ice chips. Tomorrow will clamp NGT and try clears but monitor how much she takes and then hook suction back up to see residual. Will D/C patiño. Nurse in concerned about output, she is not taking anything oral and fluids are only at 90mL/hr; will increase IV fluids to 135ml/hr. JAGRUTI improved 1.29 creatine today. Hypernatrema a bit better at 148 but still high, need to get more fluids in, no neuro sx however. Encourage ambulation and IS use. Supervisory-Addendum Brief Verification & Attestation Participated in pt care: history, MDM, physical Personally performed: exam, history, MDM, supervision of care Care discussed with: Medical Student Procedures: n/a Verification and Attestation of Medical Student E/M Service A medical student performed and documented this service. I then reviewed and verified all information documented by the medical student and made modifications to such information, when appropriate. I personally performed a physical exam, medical decision making and then discussed any differences between the notes and made revisions as necessary to create one note. Dereck Butler , 06/25/21 , 13:28 AMIE HOLT MED STUDENT Jun 25, 2021 09:19 DERECK BUTLER DO Jun 25, 2021 13:28
[2021-06-25 11:59] VITALS: BP 146/75
--- NOTE | 2021-06-25 12:36 | Physical Therapy Daily Note ---
PT Daily Note-Current Subjective Pt reports she feels weak today. She did not sleep well last night. Transfers SCALE: Activities may be completed with or without assistive devices. 0-Wxgvutxlwi-evqnzfz completes the activity by him/herself with no assistance from a helper. 5-Set-up or Clean-up Assistance-helper sets up or cleans up; patient completes activity. [place] assists only prior to or following the activity. 4-Supervision or Touching Assistance-helper provides verbal cues and/or touching/steadying and/or contact guard assistance as patient completes a ctivity. Assistance may be provided throughout the activity or intermittently. 3-Partial/Moderate Assistance-helper does LESS THAN HALF the effort. [place] lifts, holds or supports trunk or limbs, but provides less than half the effort. 2-Substantial/Maximal Assistance-helper does MORE THAN HALF the effort. [place] lifts or holds trunk or limbs and provides more than half the effort. 7-Hsbwrezcz-fotfos does ALL the effort. Patient does none of the effort to complete the activity. Or, the assistance of 2 or more helpers is required for the patient to complete the activity. If activity was not attempted, code reason: 7-Patient Refused. 9-Not Applicable-not attempted and the patient did not perform the activity before the current illness, exacerbation or injury. 10-Not Attempted due to Environmental Limitations-(lack of equipment, weather restraints, etc.). 88-Not Attempted due to Medical Conditions or Safety Concerns. Supine to sit to stand with Min A Gait Training Gait Assistive Device: FWW Ambulate 150ft using FWW and CGA. Assessment Current Status: Fair Progress Pt was steady on her feel. Required only minimal assist to move her legs out of bed. 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 Goals Time Frame: Jul 09, 2021 Roll Left & Right (QC): 5 Sit to Lying (QC): 5 Lying-Sitting on Side/Bed(QC): 5 Sit to Stand (QC): 5 Chair/Ksf-vw-Weyig Xfer(QC): 5 Toilet Transfer (QC): 5 Walk 10 feet (QC): 5 Walk 50ft with 2 Turns (QC): 5 Walk 150 ft (QC): 5 PT Plan Treatment/Plan Treatment Plan: Continue Plan of Care Treatment Plan: Bed Mobility, Education, Functional Activity Rickey, Functional Strength, Gait, Safety, Therapeutic Exercise, Transfers Treatment Duration: Jul 09, 2021 Frequency: 6 times per week Estimated Hrs Per Day: .5 hour per day Patient and/or Family Agrees t: Yes Time/GCodes Time In: 1020 Time Out: 1040 Total Billed Treatment Time: 20 Total Billed Treatment visit, gait 20min LIBBY BILLINGSLEY PT Jun 25, 2021 12:36
[2021-06-25] MEDS: POTASSIUM CL 10MEQ/50ML IVPB 50 ML IV SCH ×3 (12:42→13:51)
[2021-06-25 16:00] VITALS: BP 150/70
--- NOTE | 2021-06-25 19:37 | OPERATIVE REPORT ---
DATE OF SERVICE: 06/24/2021 PREOPERATIVE DIAGNOSIS: Complete small-bowel obstruction. POSTOPERATIVE DIAGNOSES: Complete small-bowel obstruction with adhesive band and internal hernia as well as twisting of small bowel. PROCEDURE: Exploratory laparotomy, lysis of adhesions, reduction of internal hernia. SURGEON: Sid Vidales DO FREELANCE COPYWRITER: William Hou DO. ANESTHESIA: General endotracheal tube. SPECIMENS: Small portion of adhesive band. BLOOD LOSS: Less than 10 mL. FLUIDS: Per anesthesia. POSTOPERATIVE CONDITION: Stable. INDICATION FOR PROCEDURE: The patient is an 85-year-old female who has been having intractable nausea and vomiting, progressively getting worse over the past 6 weeks, admitted to the hospital and then a small bowel follow through showed complete obstruction. FINDINGS: The patient had an adhesive band that had held the intestine in place and allowed some of the other intestine to sneak under almost in the form of an internal hernia and was wrapped around. It was found that the patient had very small area of attachment of the mesentery, but a large area of small intestine. PROCEDURE NOTE: After informed consent was obtained, the patient was brought to the operating room, placed on the table in supine position. She was sterilely prepped and draped in normal fashion. Midline incision was made in the spot of previous incision with a #10 blade, carried down through the skin into the subcutaneous tissue, then deepened down to subcutaneous tissue with Bovie electrocautery down to the fascia. Fascia was then incised and bluntly entered the abdomen, swept a finger around, increased the incision superiorly and inferiorly. There was some omentum stuck up to the abdominal wall. Used Kochers to grab the fascia and then carefully started taking down the omentum, pushing it away from the abdominal wall until we could finally get in and see everything, could see a very large dilated stomach, able finally down. This decompressed it, got out about a liter of fluid, then able to run the small bowel, found an adhesive band in the midline, cut this off and passed this off the table. It looked like the small bowel was on a very small base. The base of the mesentery was very small and this allowed the intestine kind of twist around itself, able to completely untwist the intestine and then ran it from the terminal ileum all the way to ligament of Treitz. There was no necrotic bowel, got everything decompressed and back into good position, allowed it to fall back into the abdomen. does not twist when we ended, but I believe her problem is such a small base of mesentery and this allowed it to easily twist. Looked around, no other obvious pathology. At this point, then elected to close the incision with closing the fascia with #1 double stranded PDS suture running from the superior portion to inferior portion, tying to itself, irrigating the incision and then closing the skin with gary. Area was cleaned and dried. Dressing placed. Dr. Hou assisted in this case helping to make incisions, close incisions, identify anatomy, hold anatomy out of the way. Job ID: [id number] DocumentID: [id number] Dictated Date: 06/25/2021 13:34:46 Manager Strategy Date: 06/25/2021 19:35:52 Dictated By: SID VIDALES DO
[2021-06-25 19:52] VITALS: BP 169/77
[2021-06-25 23:56] VITALS: BP 152/76
[2021-06-26 03:30] VITALS: BP 116/76
[2021-06-26] MEDS ORDERED: meTOprolol 5 MG/5 ML (LOPRESSOR) VIAL IV ONE (04:00)
[2021-06-26] MEDS: NS IV 1000 ML 1,000 ML IV SCH ×2 (04:57→09:57)
[2021-06-26] MEDS: METOCLOPRAMIDE INJ 10 MG/2 ML (REGLAN) IVP SCH ×4 (04:57→22:39)
[2021-06-26 04:59] VITALS: BP 112/57
[2021-06-26 06:04] LABS: BASOPHILS % (AUTO) 0 % (0-10); EOSINOPHILS % (AUTO) 0 % (0-10); HEMATOCRIT 36 % (35-52); HEMOGLOBIN 11.2 g/dL (11.5-16.0); LYMPHOCYTES # (AUTO) 1.6 10^3/uL (1.0-4.0); LYMPHOCYTES % (AUTO) 15 % (12-44); MEAN CORPUSCULAR HEMOGLOBIN 29 pg (25-34); MEAN CORPUSCULAR HGB CONC 31 g/dL (32-36); MEAN CORPUSCULAR VOLUME 94 fL (80-99); MEAN PLATELET VOLUME 10.1 fL (9.0-12.2); MONOCYTES # (AUTO) 0.8 10^3/uL (0.0-1.0); MONOCYTES % (AUTO) 7 % (0-12); NEUTROPHILS # (AUTO) 8.2 10^3/uL (1.8-7.8); NEUTROPHILS % (AUTO) 77 % (42-75); PLATELET COUNT 275 10^3/uL (130-400); WHITE BLOOD COUNT 10.7 10^3/uL (4.3-11.0)
[2021-06-26 06:15] LABS: ALBUMIN 3.1 GM/DL (3.2-4.5)
[2021-06-26 06:16] LABS: POTASSIUM 2.8 MMOL/L (3.6-5.0)
[2021-06-26 06:17] LABS: CALCIUM 8.5 MG/DL (8.5-10.1)
[2021-06-26 06:18] LABS: TOTAL PROTEIN 6.1 GM/DL (6.4-8.2)
--- NOTE | 2021-06-26 06:18 | Progress Note - Hospitalist ---
Subjective HPI/CC On Admission Date Seen by Provider: Jun 26, 2021 Time Seen by Provider: 11:00 CC: N&V HPI: 85 yr old clinic pt of Dr. Alatorre. MHx of small bowel obstruction who presented to the ER with severe nausea and vomiting for many days. Her creatinine went from 1.1 to 2.2. So pt will be in need of IV fluids. Dr. Vidales will be consulted due to the history of small bowel obstructions. Acute abdominal series didn't show any obstruction. CT scan done on 06/16 in the ER showed no evidence of any obstruction. Subjective/Events-last exam Patient doing a lot better Yanez cath DC'd and now voiding well with minimal residual Having bowel movements NG tube in place Had an episode of atrial fibrillation managed by Dr. Ramirez and started her on Eliquis Patient has been up in a chair Changed IV fluids due to hypernatremia D5 normal saline Nausea was reported but Reglan given Sodium 158 Potassium 2.8 Review of Systems General: Fatigue, Malaise Gastrointestinal: Abdominal Pain Objective Exam Vital Signs Vital Signs Date Time Temp Pulse Resp B/P (MAP) Pulse Ox O2 Delivery O2 Flow Rate FiO2 06/27/21 03:22 36.4 77 20 168/82 (110) 96 Room Air 06/26/21 13:40 0.00 06/22/21 16:19 21 Capillary Refill : Less Than 3 SecondsLess Than 3 Seconds General Appearance: No Apparent Distress, WD/WN, Chronically ill Respiratory: Lungs Clear, Normal Breath Sounds Cardiovascular: Regular Rate, Rhythm Neurologic/Psychiatric: Alert, Oriented x3 Results/Procedures Lab Laboratory Tests 06/26/21 05:30 Patient resulted labs reviewed. Assessment/Plan Assessment and Plan Assess & Plan/Chief Complaint Assessment: Small bowel obstruction status post surgery postop day #2 Nausea and vomiting severe NG tube in place Hypokalemia Acute kidney injury much improved after IV fluids Advanced age Severe debility Hypertension Plan: Replace potassium IV fluids NG tube 06/26/2021: NG tube per surgery Replace potassium Change IV fluids Diagnosis/Problems Diagnosis/Problems (1) Nausea and vomiting Status: Resolved Qualifiers: Vomiting type: unspecified Vomiting Intractability: intractable Qualified Codes: R11.2 - Nausea with vomiting, unspecified Resolution Date/Time: 12/02/20 @ 12:57 (2) JAGRUTI (acute kidney injury) Status: Acute (3) Dehydration Status: Acute (4) Gaseous abdominal distention Status: Acute PER WESLEY DO Jun 26, 2021 06:18
[2021-06-26 06:20] LABS: BILIRUBIN,TOTAL 0.9 MG/DL (0.1-1.0)
[2021-06-26 06:22] LABS: CREATININE SERUM 0.97 MG/DL (0.60-1.30)
[2021-06-26 06:24] LABS: MAGNESIUM 2.4 MG/DL (1.6-2.4)
--- NOTE | 2021-06-26 08:37 | Progress Note - Surgery ---
AMIE HOLT MED STUDENT 06/26/21 0837: Subjective Date Seen by a Provider: Jun 26, 2021 Time Seen by a Provider: 08:10 Subjective/Events-last exam Mrs. Jorgensen is awake this morning. She states that her nausea and vomiting has been really good and she has continued to not have any episodes. She does not have any pain, states her incisions are not bothering her. Her NG tube is clamped this morning, about 300mL more in the canister over the last 24 hrs. She has been doing ice chips and handling them well. No BM but has passed some gas. Yanez is out. She is not walking around, uses a bedside commode. Says she used her IS once, encouraged her to do it once every 10 mins. She did have an episode of afib last night. States this is new for her. Was started on cardizem and eliquis, HR ~115 this morning. No CP. Review of Systems General: No Chills HEENT: No Head Aches, No Visual Changes Pulmonary: No Dyspnea, No Cough Cardiovascular: Palpitations; No: Chest Pain, Edema Gastrointestinal: Constipation; No: Nausea, Vomiting, Abdominal Pain, Diarrhea Genitourinary: No Dysuria, No Incontinence, No Hematuria Musculoskeletal: No: leg pain, foot pain Objective Exam Vital Signs Date Time Temp Pulse Resp B/P (MAP) Pulse Ox O2 Delivery O2 Flow Rate FiO2 06/26/21 07:00 114 06/26/21 04:59 116 112/57 (75) 06/26/21 04:37 140 06/26/21 03:30 36.6 153 20 116/76 (89) 96 Room Air 06/26/21 01:49 71 99 06/25/21 23:56 36.5 75 18 152/76 (101) 94 Room Air 06/25/21 19:52 36.7 76 20 169/77 (107) 99 Room Air 06/25/21 19:41 Room Air 06/25/21 16:00 36.7 91 18 150/70 (96) 95 Room Air 06/25/21 11:59 36.6 77 18 146/75 (98) 92 Room Air I & O 06/26/21 07:00 Intake Total 1000 ml Output Total 1850 ml Balance -850 ml Capillary Refill : Less Than 3 SecondsLess Than 3 Seconds General Appearance: No Apparent Distress, WD/WN HEENT: PERRL/EOMI, Pharynx Normal, Moist Mucous Membranes Respiratory: Chest Non Tender, Lungs Clear, Normal Breath Sounds, No Accessory Muscle Use, No Respiratory Distress Cardiovascular: Regular Rate, Rhythm, No Murmur, Normal Peripheral Pulses, Other (There is some swelling of LE) Peripheral Pulses: 2+ Dorsalis Pedis (R), 2+ Left Dors-Pedis (L), 2+ Radial Pulses (R), 2+ Radial Pulses (L) Gastrointestinal: non tender, soft, abnormal bowel sounds (hypoacticve, but better than yesterday), other (midline incision c/d/i) Extremity: Normal Inspection, Non Tender, No Calf Tenderness, No Pedal Edema Neurologic/Psychiatric: Alert, Oriented x3, Normal Mood/Affect Skin: Normal Color, Warm/Dry, Other (Abdominal incision stapled, no leaking, no erythema) Results Lab Laboratory Tests 06/26/21 05:30: White Blood Count 10.7, Red Blood Count 3.82, Hemoglobin 11.2L, Hematocrit 36, Mean Corpuscular Volume 94, Mean Corpuscular Hemoglobin 29, Mean Corpuscular Hemoglobin Concent 31L, Red Cell Distribution Width 13.4, Platelet Count 275, Mean Platelet Volume 10.1, Immature Granulocyte % (Auto) 0, Neutrophils (%) (Auto) 77H, Lymphocytes (%) (Auto) 15, Monocytes (%) (Auto) 7, Eosinophils (%) (Auto) 0, Basophils (%) (Auto) 0, Neutrophils # (Auto) 8.2H, Lymphocytes # (Auto) 1.6, Monocytes # (Auto) 0.8, Eosinophils # (Auto) 0.0, Basophils # (Auto) 0.0, Immature Granulocyte # (Auto) 0.0, Sodium Level 158H, Potassium Level 2.8L, Chloride Level 113H, Carbon Dioxide Level 26, Anion Gap 19H, Blood Urea Nitrogen 38H, Creatinine 0.97, Estimat Glomerular Filtration Rate 57, BUN/Creatinine Ratio 39, Glucose Level 95, Calcium Level 8.5, Corrected Calcium 9.2, Magnesium Level 2.4, Total Bilirubin 0.9, Aspartate Amino Transf (AST/SGOT) 29, Alanine Aminotransferase (ALT/SGPT) 27, Alkaline Phosphatase 45, Total Protein 6.1L, Albumin 3.1L Microbiology 06/22/21 Urine Culture - Final, Complete Gram Pos Mixed Bacterial Paula Assessment/Plan Assessment/Plan Assessment/Plan S/P Ex Lap w/ SARA for Complete Bowel Obstruction JAGRUTI - slowly improving Hypernatremia Hypokalemia Pt continuing to be nausea and vomiting free. NG tube clamped this morning, only 300mL collected in the last 24 hours, things appear to be moving. She is handling ice chips well. Could advance to liquid diet as tolerated. She is passing a little gas. Encouraged IS use. Incision healing nicely. Urinating more with increase in fluids, did notice some more swelling in legs today. JAGRUTI improved 1.20 creatine today. Hypernatrema a bit worse at 158, need to get more fluids in, getting PO fluids should help a lot. no neuro sx however. Encourage ambulation. KCl to replace K. DERECK BUTLER DO 06/26/21 1516: Subjective Time Seen by a Provider: 13:21 Subjective/Events-last exam Pt seen and examined, states she is doing better and had some flatus. She was concerned "because of all the commotion last night". Review of Systems General: No Chills Pulmonary: No Dyspnea, No Cough Cardiovascular: No: Chest Pain, Palpitations Gastrointestinal: Abdominal Pain (mnimal at incision mostly); No: Nausea, Vomi ting Objective Exam General Appearance: No Apparent Distress, Chronically ill Respiratory: Lungs Clear, Normal Breath Sounds, No Accessory Muscle Use Cardiovascular: Regular Rate, Rhythm, Other (There is some swelling of LE) Gastrointestinal: soft, abnormal bowel sounds (hypoacticve, but better than yesterday), distended (this is new), other (midline incision c/d/i) Assessment/Plan Assessment/Plan Assessment/Plan S/P Ex Lap w/ SARA for Complete Bowel Obstruction JAGRUTI - slowly improving Hypernatremia Hypokalemia Plan to clamp NG tube start clear liquid diet (record amount) and then hook NGT back to suction and compare residual. If not much residual can probably remove NGT. Encouraged IS use and ambulation. KCl to replace K. Supervisory-Addendum Brief Verification & Attestation Participated in pt care: history, MDM, physical Personally performed: exam, history, MDM, supervision of care Care discussed with: Medical Student Procedures: n/a Verification and Attestation of Medical Student E/M Service A medical student performed and documented this service. I then reviewed and verified all information documented by the medical student and made modifications to such information, when appropriate. I personally performed a physical exam, medical decision making and then discussed any differences between the notes and made revisions as necessary to create one note. Dereck Butler , 06/26/21 , 15:16 AMIE HOLT STUDENT Jun 26, 2021 08:37 DERECK BUTLER DO Jun 26, 2021 15:16
[2021-06-26 08:46] VITALS: BP 136/69
[2021-06-26] MEDS: DOCUSATE SODIUM 100 MG (COLACE) CAP PO SCH ×2 (09:47→21:07)
[2021-06-26] MEDS: APIXABAN 2.5 MG (ELIQUIS) TABLET PO SCH ×2 (09:47→21:07)
[2021-06-26] MEDS ORDERED: POTASSIUM CHLORIDE INJ 20 MEQ in D5 NS 1000 ML IV SOLUTION 1,000 ML IV SCH (12:00)
[2021-06-26 12:20] VITALS: BP 134/63
[2021-06-26] MEDS: D5 NS W/KCL 20 MEQ/L 1,000 ML IV SCH ×2 (12:36→22:39)
[2021-06-26] MEDS: POTASSIUM CL 10MEQ/50ML IVPB 50 ML IV SCH ×4 (12:37→16:03)
--- NOTE | 2021-06-26 15:38 | Consultation-Cardiology ---
HPI-Cardiology Cardiology Consultation: Date of Consultation 06/26/21 Time Seen by a Provider: 14:20 Date of Admission Attending Physician Madie Joseph DO Admitting Physician Latrice Alatorre MD Consulting Physician JESU RUSS MD, MA, FACP, FACC, FSCAI, CCDS Physician requesting consult: Dr Joseph HPI: Chief Complaint: Reason for Card consult: PAF 85 yo woman wh has been hosp with SBO and was incidentally noted to have an irreg, rapid pulse last night. ECG showed A Fib with LBBB and RVR. Treated with oral dilt and apixaban. Currently in NSR. Denies any recent feeling of palpitations. Denies cp or syncope or shortness of breath. Has had nausea and abd discomfort that is currently better. Review of Systems-Cardiology Review of Systems Constitutional: malaise, tiredness; No weight loss, No weight gain Eyes: No vision change Ears/Nose/Throat: No ear discharge, No nasal drainage, No recent hearing loss Respiratory: As described under HPI Cardiovascular: As described under HPI Gastrointestinal: As described under HPI Genitourinary: No dysuria, No hematuria Musculoskeletal: No back pain, No joint pain Skin: No rash, No ulcerations Psychiatric/Neurological: No seizure, No focal weakness, No syncope Hematologic: No bleeding abnormalities All Other Systems Reviewed Negative Unless Noted: Yes BXO-Exnnmm-Gtjtfm Hx Patient Social History Marrital Status: single Employed/Student: retired Smoking Status: Never a Smoker 2nd Hand Smoke Exposure: No Have you traveled recently?: No Alcohol Use?: No Pt feels they are or have been: No Past Medical History PMH As described under Assessment. Family Medical History Family Medical History: She reports her mother and father both had CAD. Allergies and Home Medications Allergies Coded Allergies: adhesive tape (Verified Allergy, Mild, 06/07/21) Patient Home Medication List Home Medication List Reviewed: Yes Alprazolam (Alprazolam) 0.5 Mg Tablet, 0.25-0.5 MG PO BID PRN for ANXIETY, (Reported) Entered as Reported by: MARVIN EISENBERG on 11/29/20 1102 Last Action: Reviewed Ascorbic Acid (Vitamin C) 500 Mg Tablet.er, 500 MG PO DAILY, (Reported) Entered as Reported by: TEGAN SABILLON on 01/28/21 0991 Last Action: Reviewed Aspirin (Aspirin EC) 81 Mg Tablet.dr, 81 MG PO DAILY, (Reported) Entered as Reported by: MARVIN EISNEBERG on 11/29/20 110 Last Action: Reviewed Calcium Carbonate/Vitamin D3 (Caltrate 600 + D Soft Chew Tab) 1 Each Tab.chew, 1 EACH PO DAILY, (Reported) Entered as Reported by: TEGAN SABILLON on 01/28/21932 Last Action: Reviewed Dicyclomine HCl (Dicyclomine HCl) 20 Mg Tablet, 20 MG PO TID PRN for IBS SYMPTOMS-DIARRHEA,CRAMPING, (Reported) Entered as Reported by: TEGAN SABILLON on 01/28/21932 Last Action: Reviewed Docusate Sodium (Dok) 100 Mg Tablet, 100 MG PO HS, (Reported) Entered as Reported by: TEGAN SABILLON on 06/23/211012 Last Action: Reviewed Estrogens, Conjugated (Premarin) 0.3 Mg Tablet, 0.3 MG PO DAILY, (Reported) Entered as Reported by: RASHEED GODDARD on 01/03/21 1519 Last Action: Reviewed Famotidine (Famotidine) 10 Mg Tablet, 10 MG PO DAILY PRN for HEARTBURN, (Reported) Entered as Reported by: TEGAN SABILLON on 01/28/21932 Last Action: Reviewed Gemfibrozil (Gemfibrozil) 600 Mg Tablet, 600 MG PO BID, (Reported) Entered as Reported by: MARVIN EISENBERG on 11/29/20 1102 Last Action: Reviewed Hydrocodone/Acetaminophen (Hydrocodone-Acetamin 5-325 mg) 1 Each Tablet, 1 TAB PO Q6H PRN for PAIN-MODERATE (5-7), (Reported) Entered as Reported by: TEGAN SABILLON on 06/23/211012 Last Action: Reviewed Lisinopril (Lisinopril) 5 Mg Tablet, 5 MG PO DAILY, (Reported) Entered as Reported by: TEGAN SABILLON on 01/28/21932 Last Action: Reviewed Loperamide HCl (Loperamide) 2 Mg Capsule, 2 MG PO Q4H PRN for LOOSE STOOLS, (Reported) Entered as Reported by: TEGAN SABILLON on 06/23/211012 Last Action: Reviewed Magnesium Hydroxide (Milk of Magnesia) 400 Mg/5 Ml Oral.susp, 15 ML PO DAILY PRN for CONSTIPATION-7TH LINE, (Reported) Entered as Reported by: TEGAN SABILLON on 06/23/21 1013 Last Action: Reviewed Metoclopramide HCl (Metoclopramide HCl) 5 Mg Tablet, 5 MG PO QIDACHS, (Reported) Entered as Reported by: TEGAN SABILLON on 06/23/21 1013 Last Action: Reviewed Metoprolol Succinate (Metoprolol Succinate) 100 Mg Tab.er.24h, 100 MG PO DAILY, (Reported) Entered as Reported by: TEGAN SABILLON on 01/28/21932 Last Action: Reviewed Ondansetron (Ondansetron Odt) 4 Mg Tab.rapdis, 4 MG PO TID PRN for NAUSEA/ VOMITING-1ST LINE, (Reported) Entered as Reported by: TEGAN SABILLON on 01/28/21932 Last Action: Reviewed Polyethylene Glycol 3350 ([id number]) 238 Gm Powder, 17 GM PO BID, (Reported) Entered as Reported by: TEAGN SABILLON on 06/23/211012 Last Action: Reviewed Psyllium Husk (Metamucil) 0.4 Gm Capsule, 0.4 GM PO DAILY PRN for CONSTIPATION, (Reported) Entered as Reported by: TEGAN SABILLON on 06/23/21 101 Last Action: Reviewed Simethicone (Simethicone) 125 Mg Capsule, 125 MG PO TID PRN for GAS, (Reported) Entered as Reported by: TEGAN SABILLON on 06/23/21 101 Last Action: Reviewed Discontinued Medications Metoclopramide HCl (Metoclopramide HCl) 5 Mg Tablet, 5 MG PO QIDACHS Discontinued Reason: Duplicate Order Prescribed by: ANDRE PALM on 06/21/21 1450 Last Action: Discontinued Physical Exam-Cardiology Physical Exam Vital Signs/I&O 06/26/21 06/26/21 06/26/21 06/26/21 04:37 04:59 07:00 08:46 Pulse 140 116 114 98 Resp 18 B/P (MAP) 112/57 (75) 136/69 (91) Pulse Ox 95 O2 Delivery Room Air 06/26/21 06/26/21 06/26/21 12:20 12:37 13:40 Temp 37.3 Pulse 90 75 Resp 20 B/P (MAP) 134/63 (86) Pulse Ox 95 93 O2 Delivery Room Air Room Air O2 Flow Rate 0.00 06/26/21 00:00 Output Total 1300 ml Balance -1300 ml Capillary Refill : Less Than 3 SecondsLess Than 3 Seconds Constitutional: AAO x 3, well-developed, well-nourished HEENT: EOMI, hearing is well preserved; No xanthelasmas are seen Neck: carotid pulses are 2 + bilaterally, with good upstrokes Respiratory: No accessory muscle use; other (fair to good, bilateral air entry) Cardiovascular: regular rate-rhythm, S1 and S2, systolic murmur (soft DARI at card base) Gastrointestinal: No tender; distended; No guarding; other (NGT in place on 06/26/21) Rectal: deferred Extremities: No clubbing, No cyanosis, No significant edema Neurologic/Psychiatric: oriented x 3, other (moves all limbs equally) Skin: No rash on exposed areas, No ulcerations on exposed areas Lymphatic: no adenopathy (neck, axilla or groin) Data Review Labs Laboratory Tests 06/26/21 05:30: White Blood Count 10.7, Red Blood Count 3.82, Hemoglobin 11.2L, Hematocrit 36, Mean Corpuscular Volume 94, Mean Corpuscular Hemoglobin 29, Mean Corpuscular Hemoglobin Concent 31L, Red Cell Distribution Width 13.4, Platelet Count 275, Mean Platelet Volume 10.1, Immature Granulocyte % (Auto) 0, Neutrophils (%) (Auto) 77H, Lymphocytes (%) (Auto) 15, Monocytes (%) (Auto) 7, Eosinophils (%) (Auto) 0, Basophils (%) (Auto) 0, Neutrophils # (Auto) 8.2H, Lymphocytes # (Auto) 1.6, Monocytes # (Auto) 0.8, Eosinophils # (Auto) 0.0, Basophils # (Auto) 0.0, Immature Granulocyte # (Auto) 0.0, Sodium Level 158H, Potassium Level 2.8L, Chloride Level 113H, Carbon Dioxide Level 26, Anion Gap 19H, Blood Urea Nitrogen 38H, Creatinine 0.97, Estimat Glomerular Filtration Rate 57, BUN/Creatinine Ratio 39, Glucose Level 95, Calcium Level 8.5, Corrected Calcium 9.2, Magnesium Level 2.4, Total Bilirubin 0.9, Aspartate Amino Transf (AST/SGOT) 29, Alanine Aminotransferase (ALT/SGPT) 27, Alkaline Phosphatase 45, Total Protein 6.1L, Albumin 3.1L Microbiology 06/22/21 Urine Culture - Final, Complete Gram Pos Mixed Bacterial Paula Laboratory Tests 06/25/21 06:53 06/26/21 05:30 A/P-Cardiology Assessment/Admission Diagnosis PAF, first diagnosed on 06/26/21 - Echo on 12/02/20: LVEF 55-60%, grade-1 diastolic dysfunction, mild AoV sclerosis, mild AI, PASP 25-30 mmHg GI - H/o cholecystectomy in late at [facility] - H/o SBO in November 2020 and Jun 2021 - Diagnostic laparoscopy switched to laparotomy with lysis of adhesions and reduction of internal hernia by Dr Vidales in Jan 2021 Hypokalemia due to NG drainage (NGT in place on 06/26/21) - hypokalemia may have promoted PAF HTN - controlled HLD - managed by PCP Chronic LBBB - ECG on 04/27/21: NSR with PACs, LBBB - ECG on 06/26/21: PAF with RVR, LBBB Discussion and Recomendations * Long-acting dilt for vent rate control * Apixaban for stroke prophylaxis, low dose for now, full dose when bowel obstruction relieved * Replenish K * Monitor labs JESU RUSS MD FACP [facility] CCDS Jun 26, 2021 15:38
[2021-06-26 16:00] VITALS: BP 150/64
[2021-06-26 20:00] VITALS: BP 121/78
[2021-06-27] VITALS (9 sets, daily range): BP systolic 89–170; BP diastolic 52–91
[2021-06-27] MEDS: METOCLOPRAMIDE INJ 10 MG/2 ML (REGLAN) IVP SCH ×3 (05:33→17:57)
[2021-06-27 06:21] LABS: BASOPHILS % (AUTO) 0 % (0-10); EOSINOPHILS # (AUTO) 0.3 10^3/uL (0.0-0.3); EOSINOPHILS % (AUTO) 3 % (0-10); HEMATOCRIT 34 % (35-52); HEMOGLOBIN 10.8 g/dL (11.5-16.0); LYMPHOCYTES # (AUTO) 2.2 10^3/uL (1.0-4.0); LYMPHOCYTES % (AUTO) 21 % (12-44); MEAN CORPUSCULAR HEMOGLOBIN 29 pg (25-34); MEAN CORPUSCULAR HGB CONC 31 g/dL (32-36); MEAN CORPUSCULAR VOLUME 93 fL (80-99); MEAN PLATELET VOLUME 10.6 fL (9.0-12.2); MONOCYTES # (AUTO) 0.8 10^3/uL (0.0-1.0); MONOCYTES % (AUTO) 8 % (0-12); NEUTROPHILS % (AUTO) 67 % (42-75); PLATELET COUNT 259 10^3/uL (130-400); WHITE BLOOD COUNT 10.4 10^3/uL (4.3-11.0)
[2021-06-27 06:43] LABS: POTASSIUM 3.3 MMOL/L (3.6-5.0)
[2021-06-27 06:44] LABS: CALCIUM 8.2 MG/DL (8.5-10.1)
[2021-06-27 06:45] LABS: TOTAL PROTEIN 5.8 GM/DL (6.4-8.2)
[2021-06-27 06:47] LABS: BILIRUBIN,TOTAL 0.9 MG/DL (0.1-1.0)
[2021-06-27 06:49] LABS: CREATININE SERUM 0.82 MG/DL (0.60-1.30)
[2021-06-27] MEDS ORDERED: DIGOXIN 0.25 MG/ML (LANOXIN) 2 ML AMP IV ONE (07:00)
--- NOTE | 2021-06-27 07:13 | Progress Note - Surgery ---
AMIE HOLT MED STUDENT 06/27/21 0713: Subjective Date Seen by a Provider: Jun 27, 2021 Time Seen by a Provider: 06:50 Subjective/Events-last exam Mrs Jorgensen is lying in bed this morning. She states she is still not having any nausea or vomiting. She has been doing clear liquids with NG clamped and then going back on suction later. There is only a minimal amount that has been collected in her NG tube. Nursing states she has had a loose bowel movement and is passing gas. No pain. States she is not using IS, walked around a little bit. Review of Systems General: No Chills HEENT: No Head Aches, No Visual Changes Pulmonary: No Dyspnea, No Cough Cardiovascular: No: Chest Pain, Palpitations, Edema Gastrointestinal: No: Nausea, Vomiting, Abdominal Pain, Diarrhea, Constipation, Melena Genitourinary: No Dysuria, No Incontinence Musculoskeletal: No: leg pain, foot pain Objective Exam Vital Signs Date Time Temp Pulse Resp B/P (MAP) Pulse Ox O2 Delivery O2 Flow Rate FiO2 06/27/21 07:02 125 146/82 (103) 06/27/21 06:50 183 89/52 (64) 06/27/21 06:47 184 06/27/21 03:22 36.4 77 20 168/82 (110) 96 Room Air 06/27/21 02:10 136 06/27/21 01:00 82 06/27/21 00:40 36.2 85 18 152/67 (95) 96 Room Air 06/26/21 22:50 95 Room Air 06/26/21 20:00 36.9 123 18 121/78 (92) 95 Room Air 06/26/21 19:41 122 06/26/21 19:29 Room Air 06/26/21 19:00 134 06/26/21 16:00 36.9 81 20 150/64 (92) 95 Room Air 06/26/21 13:40 93 Room Air 0.00 06/26/21 12:37 75 06/26/21 12:20 37.3 90 20 134/63 (86) 95 Room Air 06/26/21 08:46 98 18 136/69 (91) 95 Room Air 06/26/21 08:00 95 Room Air 0.00 I & O 06/27/21 06:59 Intake Total 2160 ml Output Total 1475 ml Balance 685 ml Capillary Refill : Less Than 3 SecondsLess Than 3 Seconds General Appearance: No Apparent Distress, WD/WN, Chronically ill HEENT: PERRL/EOMI, Pharynx Normal, Moist Mucous Membranes Respiratory: Chest Non Tender, Lungs Clear, Normal Breath Sounds, No Res piratory Distress Cardiovascular: Regular Rate, Rhythm, No Edema, No Murmur, Normal Peripheral Pulses Peripheral Pulses: 2+ Dorsalis Pedis (R), 2+ Left Dors-Pedis (L), 2+ Radial Pulses (R), 2+ Radial Pulses (L) Gastrointestinal: soft, abnormal bowel sounds (hypoacticve, but better than yesterday), other (midline incision c/d/i) Extremity: Normal Inspection, Non Tender, No Calf Tenderness, No Pedal Edema Neurologic/Psychiatric: Alert, Oriented x3, Normal Mood/Affect Skin: Normal Color, Warm/Dry Results Lab Laboratory Tests 06/27/21 05:30: White Blood Count 10.4, Red Blood Count 3.69L, Hemoglobin 10.8L, Hematocrit 34L, Mean Corpuscular Volume 93, Mean Corpuscular Hemoglobin 29, Mean Corpuscular Hemoglobin Concent 31L, Red Cell Distribution Width 13.2, Platelet Count 259, Mean Platelet Volume 10.6, Immature Granulocyte % (Auto) 1, Neutrophils (%) (Auto) 67, Lymphocytes (%) (Auto) 21, Monocytes (%) (Auto) 8, Eosinophils (%) (Auto) 3, Basophils (%) (Auto) 0, Neutrophils # (Auto) 7.0, Lymphocytes # (Auto) 2.2, Monocytes # (Auto) 0.8, Eosinophils # (Auto) 0.3, Basophils # (Auto) 0.0, Immature Granulocyte # (Auto) 0.1 06/27/21 06:00: Sodium Level 149H, Potassium Level 3.3L, Chloride Level 111H, Carbon Dioxide Lev el 26, Anion Gap 12, Blood Urea Nitrogen 24H, Creatinine 0.82, Estimat Glomerular Filtration Rate 69, BUN/Creatinine Ratio 29, Glucose Level 125H, Calcium Level 8.2L, Corrected Calcium 9.0, Total Bilirubin 0.9, Aspartate Amino Transf (AST/SGOT) 21, Alanine Aminotransferase (ALT/SGPT) 22, Alkaline Phosphatase 58, Total Protein 5.8L, Albumin 3.0L Microbiology 06/22/21 Urine Culture - Final, Complete Gram Pos Mixed Bacterial Paula Assessment/Plan Assessment/Plan Assessment/Plan S/P Ex Lap w/ SARA for Complete Bowel Obstruction JAGRUTI - Resolved Hypernatremia 149 Hypokalemia 3.3 Pt has been tolerating clears well, there was not very much fluid picked up by her NG. She should be okay to remove NG tube and try some soft food. No nausea, vomiting, or pain. She states she hasnt been using IS so encouraged her to use it. From a surgical standpoint she is well enough to be discharged. Sodium and potassium better today, as well as JAGRUTI. DERECK VIDALES DO 06/27/21 0955: Subjective Time Seen by a Provider: 09:46 Subjective/Events-last exam Pt seen and examined, she was actually standing up with PT. Very large BM in bed. Denies abd pain. Review of Systems General: No Chills Cardiovascular: No: Chest Pain, Palpitations Gastrointestinal: No: Nausea, Vomiting, Abdominal Pain Objective Exam General Appearance: No Apparent Distress, Chronically ill HEENT: Moist Mucous Membranes Respiratory: Lungs Clear, Normal Breath Sounds, No Accessory Muscle Use, No Respiratory Distress Cardiovascular: Regular Rate, Rhythm, No Murmur Gastrointestinal: soft, distended (slightly), other (midline incision c/d/i) Assessment/Plan Assessment/Plan Assessment/Plan S/P Ex Lap w/ SARA for Complete Bowel Obstruction JAGRUTI - Resolved Hypernatremia 149 Hypokalemia 3.3 Pt has been tolerating clears well, there was not very much fluid picked up by her NG. Will D/C NG tube and try some soft food. No nausea, vomiting, or pain. Encourage IS and ambulation. Supervisory-Addendum Brief Verification & Attestation Participated in pt care: history, MDM, physical Personally performed: exam, history, MDM, supervision of care Care discussed with: Medical Student Procedures: n/a Verification and Attestation of Medical Student E/M Service A medical student performed and documented this service. I then reviewed and verified all information documented by the medical student and made modifications to such information, when appropriate. I personally performed a physical exam, medical decision making and then discussed any differences between the notes and made revisions as necessary to create one note. Dereck Vidales , 06/27/21 , 09:54 AMIE HOLT MED STUDENT Jun 27, 2021 07:13 DERECK VIDALES DO Jun 27, 2021 09:55
[2021-06-27] MEDS ORDERED: NS IV 500 ML 500 ML IV PRN (08:00)
[2021-06-27] MEDS: DOCUSATE SODIUM 100 MG (COLACE) CAP PO SCH ×2 (08:08→20:10)
[2021-06-27] MEDS: APIXABAN 2.5 MG (ELIQUIS) TABLET PO SCH ×2 (08:08→20:30)
[2021-06-27] MEDS: POTASSIUM CL 10MEQ/50ML IVPB 50 ML IV SCH ×4 (08:09→11:32)
[2021-06-27] MEDS: D5 NS W/KCL 20 MEQ/L 1,000 ML IV SCH (08:37)
--- NOTE | 2021-06-27 10:13 | Physical Therapy Daily Note ---
PT Daily Note-Current Subjective Patient agreed to participate in therapy. Patient has soiled the bed and needs help getting cleaned up. Mental Status Patient Orientation: Person Attachments: NG Tube, IV Transfers SCALE: Activities may be completed with or without assistive devices. 8-Owvgehkhzp-yhcoxig completes the activity by him/herself with no assistance from a helper. 5-Set-up or Clean-up Assistance-helper sets up or cleans up; patient completes activity. [place] assists only prior to or following the activity. 4-Supervision or Touching Assistance-helper provides verbal cues and/or touching/steadying and/or contact guard assistance as patient completes activity. Assistance may be provided throughout the activity or intermittently. 3-Partial/Moderate Assistance-helper does LESS THAN HALF the effort. [place] lifts, holds or supports trunk or limbs, but provides less than half the effort. 2-Substantial/Maximal Assistance-helper does MORE THAN HALF the effort. [place] lifts or holds trunk or limbs and provides more than half the effort. 9-Wigkekduh-apgmzh does ALL the effort. Patient does none of the effort to complete the activity. Or, the assistance of 2 or more helpers is required for the patient to complete the activity. If activity was not attempted, code reason: 7-Patient Refused. 9-Not Applicable-not attempted and the patient did not perform the activity before the current illness, exacerbation or injury. 10-Not Attempted due to Environmental Limitations-(lack of equipment, weather restraints, etc.). 88-Not Attempted due to Medical Conditions or Safety Concerns. Lying to Sitting/Side of Bed(Q: 4 Sit to Stand (QC): 4 Chair/Qal-ia-Lnktk Xfer(QC): 4 Gait Training Does the Patient Walk?: Yes Distance: 200 Walk 10 feet (QC): 4 Walk 50 ft with 2 Turns(QC): 4 Walk 150 ft (QC): 4 Gait Assistive Device: FWW Patient ambulated 200' with FWW and CGA. Patient required rest breaks due to fatigue and reported fatigue after ambulation. Assessment Patient stood for 5 minutes with min assist to allow nurse aide to clean the patient up after soiling the bed. Patient did not realize she had soiled the bed. Patient ambulated and agreed to sit in the chair after the therapy session. PT Custodial Goals Custodial Goals PT Phlebotomist Associate Goals Time Frame: Jul 09, 2021 Roll Left & Right (QC): 5 Sit to Lying (QC): 5 Lying-Sitting on Side/Bed(QC): 5 Sit to Stand (QC): 5 Chair/Iso-hw-Xetla Xfer(QC): 5 Toilet Transfer (QC): 5 Walk 10 feet (QC): 5 Walk 50ft with 2 Turns (QC): 5 Walk 150 ft (QC): 5 PT Plan Treatment/Plan Treatment Plan: Continue Plan of Care Treatment Plan: Bed Mobility, Education, Functional Activity Rickey, Functional Strength, Gait, Safety, Therapeutic Exercise, Transfers Treatment Duration: Jul 09, 2021 Frequency: 6 times per week Estimated Hrs Per Day: .5 hour per day Patient and/or Family Agrees t: Yes Time/GCodes Time In: 930 Time Out: 953 Total Billed Treatment Time: 23 Total Billed Treatment 1 Visit FA x 2 23 min TYLER BOJORQUEZ PT Jun 27, 2021 10:13
--- NOTE | 2021-06-27 11:24 | Occupational Ther Daily Note ---
OT Current Status-Daily Note Subjective Pt denies pain, reports feeling much better post surgery. Appearance Returned to supine, all needs within reach, family in room. Mental Status/Objective Patient Orientation: Person, Place, Situation ADL-Treatment Therapy Code Descriptions/Definitions Functional Craig Measure: 0=Not Assessed/NA 4=Minimal Assistance 1=Total Assistance 5=Supervision or Setup 2=Maximal Assistance 6=Modified Craig 3=Moderate Assistance 7=Complete IndependenceSCALE: Activities may be completed with or without assistive devices. 1-Srjujqoqsn-hlxlhjz completes the activity by him/herself with no assistance from a helper. 5-Set-up or Clean-up Assistance-helper sets up or cleans up; patient completes activity. [place] assists only prior to or following the activity. 4-Supervision or Touching Assistance-helper provides verbal cues and/or touching/steadying and/or contact guard assistance as patient completes activity. Assistance may be provided throughout the activity or intermittently. 3-Partial/Moderate Assistance-helper does LESS THAN HALF the effort. [place] lifts, holds or supports trunk or limbs, but provides less than half the effort. 2-Substantial/Maximal Assistance-helper does MORE THAN HALF the effort. [place] lifts or holds trunk or limbs and provides more than half the effort. 5-Yrslrixit-zgharm does ALL the effort. Patient does none of the effort to complete the activity. Or, the assistance of 2 or more helpers is required for the patient to complete the activity. If activity was not attempted, code reason: 7-Patient Refused. 9-Not Applicable-not attempted and the patient did not perform the activity before the current illness, exacerbation or injury. 10-Not Attempted due to Environmental Limitations-(lack of equipment, weather restraints, etc.). 88-Not Attempted due to Medical Conditions or Safety Concerns. Oral Hygiene (QC): 5 Pt now s/p ex lab with SARA for complete bowel obstruction. NG tube present. Supine<>sit: independent. Oral care completed sitting at side of bed, set up only. C/O fatigue post minimal activity. She reports that she has been having several episodes of bowel incontinence but declines using toilet. Education OT Patient Education: Correct positioning, Progress toward Goal/Update tx plan, Purpose of tx/functional activities Teaching Recipient: Patient Teaching Methods: Discussion Response to Teaching: Verbalize Understanding OT Envelope Machine Adjuster Goals Fpc Goals Time Frame: Jun 30, 2021 Toileting Hygiene (QC): 4 Shower/Bathe Self (QC): 4 Upper Body Dressing (QC): 5 Lower Body Dressing (QC): 5 On/Off Footwear (QC): 5 1=Demonstrate adherence to instructed precautions during ADL tasks. 2=Patient will verbalize/demonstrate understanding of assistive devices/modifications for ADL. 3=Patient will improve strength/tolerance for activity to enable patient to perform ADL's. OT Education/Plan Problem List/Assessment Assessment: Decreased Activ Tolerance, Decreased UE Strength, Impaired I ADL's Discharge Recommendations Plan/Recommendations: Continue POC Therapy Discharge Recommendati: Home & Family Treatment Plan/Plan of Care Treatment,Training & Education: Yes Patient would benefit from OT for education, treatment and training to promote independence in ADL's, mobility, safety and/or upper extremity function for ADL's. Plan of Care: ADL Retraining, Functional Mobility, UE Funct Exercise/Act Treatment Duration: Jun 30, 2021 Frequency: 3 times per week Estimated Hrs Per Day: .25 hour per day Agreement: Yes Rehab Potential: Fair Time/GCodes Start Time: 11:02 Stop Time: 11:11 Total Time Billed (hr/min): 9 Billed Treatment Time 1 visit ADL Louise Cohen OT Jun 27, 2021 11:24
--- NOTE | 2021-06-27 12:22 | Progress Note ---
MARIKA CLINTON 06/27/21 1222: Subjective Date Seen by a Provider: Jun 27, 2021 Time Seen by a Provider: 11:00 Subjective/Events-last exam Patient is sitting up in bed at time of encounter, alert, conversing, and working on some clear liquids. She states she does not feel great today and is uncomfortable. She denies any pain. She reports she has been passing a lot of gas, and her last BM was during the night. She denies problems with urinating or defecating. She reports she has been using her incentive spirometer. She states she has been tolerating clear liquids well although she say she does not have much of an appetite yet. She denies chest pain, heart palpitations, shortness of breath, and abdominal pain. NG tube is present, surgery following. HR 125, likely due to Afib Na 149, switching fluids to D5 K 3.3, replacing with 20meq KCl Review of Systems General: Appetite (mild appetite) HEENT: No Head Aches Pulmonary: No Dyspnea Cardiovascular: No: Chest Pain, Palpitations Gastrointestinal: No: Abdominal Pain, Constipation Objective Exam Last Set of Vital Signs Vital Signs Date Time Temp Pulse Resp B/P (MAP) Pulse Ox O2 Delivery O2 Flow Rate FiO2 06/27/21 11:30 37.0 97 20 147/74 (98) 97 Room Air 06/26/21 13:40 0.00 06/22/21 16:19 21 Capillary Refill : Less Than 3 SecondsLess Than 3 Seconds I&O Intake and Output 06/26/21 23:59 Intake Total 2710 ml Output Total 1525 ml Balance 1185 ml Intake Oral 710 ml IV Total 2000 ml Tube Feeding 0 ml Output Urine Total 800 ml Gastric Drainage Total 725 ml Bladder Scan Volume Amount 247 ml # Voids 1 General: Alert, No Acute Distress HEENT: Atraumatic, Other (NGT in left nare) Lungs: Clear to Auscultation, Normal Air Movement Heart: Normal S1, Normal S2, Other (increased rate) Abdomen: Normal Bowel Sounds Extremities: Normal Pulses (left radial pulse +2), Other (+1 pitting pedal edema bilaterally) Neuro: Normal Speech Psych/Mental Status: Mental Status NL, Mood NL Results Lab Laboratory Tests 06/27/21 05:30: White Blood Count 10.4, Red Blood Count 3.69L, Hemoglobin 10.8L, Hematocrit 34L, Mean Corpuscular Volume 93, Mean Corpuscular Hemoglobin 29, Mean Corpuscular Hemoglobin Concent 31L, Red Cell Distribution Width 13.2, Platelet Count 259, Mean Platelet Volume 10.6, Immature Granulocyte % (Auto) 1, Neutrophils (%) (Auto) 67, Lymphocytes (%) (Auto) 21, Monocytes (%) (Auto) 8, Eosinophils (%) (Auto) 3, Basophils (%) (Auto) 0, Neutrophils # (Auto) 7.0, Lymphocytes # (Auto) 2.2, Monocytes # (Auto) 0.8, Eosinophils # (Auto) 0.3, Basophils # (Auto) 0.0, Immature Granulocyte # (Auto) 0.1 06/27/21 06:00: Sodium Level 149H, Potassium Level 3.3L, Chloride Level 111H, Carbon Dioxide Level 26, Anion Gap 12, Blood Urea Nitrogen 24H, Creatinine 0.82, Estimat Glomerular Filtration Rate 69, BUN/Creatinine Ratio 29, Glucose Level 125H, Calcium Level 8.2L, Corrected Calcium 9.0, Total Bilirubin 0.9, Aspartate Amino Transf (AST/SGOT) 21, Alanine Aminotransferase (ALT/SGPT) 22, Alkaline Phosphatase 58, Total Protein 5.8L, Albumin 3.0L Microbiology 06/22/21 Urine Culture - Final, Complete Gram Pos Mixed Bacterial Paula Assessment/Plan Assessment/Plan Assess & Plan/Chief Complaint Assessment: SBO s/p exploratory laparotomy with SARA JAGRUTI - much improved after IV fluids N/V Dehydration Anxiety HTN Hypokalemia Atrial fibrillation Hypernatremia Severe debility Advanced age Plan: IVF with D5W Surgery following AM labs: CBC, BMP Monitor vitals Replace K Rehab analysis Continue Eliquis and Diltiazem for Afib management, Cardiology following MADIE WESLEY DO 06/28/21 0545: Subjective Subjective/Events-last exam Patient still pretty sore No other pain Slow recovery PT and OT NG tube Review of Systems Gastrointestinal: Nausea, Abdominal Pain Objective Exam General: Alert, Oriented X3, Cooperative Lungs: Clear to Auscultation Heart: Regular Rate Psych/Mental Status: Mental Status NL, Mood NL Assessment/Plan Assessment/Plan Assess & Plan/Chief Complaint Supportive care Supervisory-Addendum Brief Verification & Attestation Participated in pt care: history, MDM, physical Personally performed: exam, history, MDM, supervision of care Care discussed with: Medical Student Procedures: n/a Results interpretation: Verified all documentation Verification and Attestation of Medical Student E/M Service A medical student performed and documented this service in my presence. I reviewed and verified all information documented by the medical student and made modifications to such information, when appropriate. I personally performed the physical exam and medical decision making. Madie Wesley, Jun 28, 2021,05:44 MARIKA CLINTON Jun 27, 2021 12:22 MADIE WESLEY DO Jun 28, 2021 05:45
[2021-06-27] MEDS: D5 1/2 NS W/KCL 20 MEQ/L 1,000 ML IV SCH ×2 (13:23→20:30)
--- NOTE | 2021-06-27 15:04 | Progress Note - Cardiology ---
Cardiology SOAP Progress Note Subjective: Gen weakness and malaise present No cp or palp or syncope No shortness of breath at rest Abd discomfort and nausea present Objective: I&O/Vital Signs 06/27/21 06/27/21 06/27/21 06/27/21 03:22 06:47 06:50 07:02 Temp 36.4 Pulse 77 184 183 125 Resp 20 B/P (MAP) 168/82 (110) 89/52 (64) 146/82 (103) Pulse Ox 96 O2 Delivery Room Air 06/27/21 06/27/21 06/27/21 06/27/21 07:23 07:24 07:30 07:58 Temp 37.0 Pulse 127 109 101 Resp 20 B/P (MAP) 143/82 (102) 153/91 (111) Pulse Ox 97 96 O2 Delivery Room Air Room Air 06/27/21 06/27/21 06/27/21 08:00 11:30 12:26 Temp 37.0 Pulse 97 99 Resp 20 B/P (MAP) 147/74 (98) Pulse Ox 96 97 O2 Delivery Room Air Room Air 06/27/21 00:00 Intake Total 1710 ml Output Total 975 ml Balance 735 ml Constitutional: AAO x 3, well-developed, well-nourished Respiratory: No accessory muscle use; other (fair to good, bilateral air entry) Cardiovascular: regular rate-rhythm, S1 and S2, systolic murmur (soft DARI at card base) Gastrointestional: No tender; distended; No guarding; other (NGT in place on 06/26/21) Extremities: No clubbing, No cyanosis, No significant edema Neurologic/Psychiatric: oriented x 3, other (moves all limbs equally) Skin: No rash on exposed areas, No ulcerations on exposed areas Results/Procedures: Labs Laboratory Tests 06/27/21 05:30: White Blood Count 10.4, Red Blood Count 3.69L, Hemoglobin 10.8L, Hematocrit 34L, Mean Corpuscular Volume 93, Mean Corpuscular Hemoglobin 29, Mean Corpuscular Hemoglobin Concent 31L, Red Cell Distribution Width 13.2, Platelet Count 259, Mean Platelet Volume 10.6, Immature Granulocyte % (Auto) 1, Neutrophils (%) (Auto) 67, Lymphocytes (%) (Auto) 21, Monocytes (%) (Auto) 8, Eosinophils (%) (Auto) 3, Basophils (%) (Auto) 0, Neutrophils # (Auto) 7.0, Lymphocytes # (Auto) 2.2, Monocytes # (Auto) 0.8, Eosinophils # (Auto) 0.3, Basophils # (Auto) 0.0, Immature Granulocyte # (Auto) 0.1 06/27/21 06:00: Sodium Level 149H, Potassium Level 3.3L, Chloride Level 111H, Carbon Dioxide Level 26, Anion Gap 12, Blood Urea Nitrogen 24H, Creatinine 0.82, Estimat Glomerular Filtration Rate 69, BUN/Creatinine Ratio 29, Glucose Level 125H, Calcium Level 8.2L, Corrected Calcium 9.0, Total Bilirubin 0.9, Aspartate Amino Transf (AST/SGOT) 21, Alanine Aminotransferase (ALT/SGPT) 22, Alkaline Phosphatase 58, Total Protein 5.8L, Albumin 3.0L Microbiology 06/22/21 Urine Culture - Final, Complete Gram Pos Mixed Bacterial Paula Laboratory Tests 06/26/21 05:30 06/27/21 05:30 06/27/21 06:00 A/P: Assessment: PAF, first diagnosed on 06/26/21 - Echo on 12/02/20: LVEF 55-60%, grade-1 diastolic dysfunction, mild AoV sclerosis, mild AI, PASP 25-30 mmHg GI - H/o cholecystectomy in late at [facility] - H/o SBO in November 2020 and Jun 2021 - Diagnostic laparoscopy switched to laparotomy with lysis of adhesions and reduction of internal hernia by Dr Vidales in Jan 2021 Hypokalemia due to NG drainage (NGT in place on 06/26/21 and 06/27/21) - hypokalemia may have promoted PAF HTN - controlled HLD - managed by PCP Chronic LBBB - ECG on 04/27/21: NSR with PACs, LBBB - ECG on 06/26/21: PAF with RVR, LBBB Plan: * Long-acting dilt for vent rate control, continue * Add dig * Apixaban for stroke prophylaxis, low dose for now, full dose when bowel obstruction relieved * Replenish K * Monitor labs JESU RUSS MD FACP [facility] Jun 27, 2021 15:04
[2021-06-27] MEDS: ALPRAZolam 0.5 MG (XANAX) TAB PO PRN (20:30)
[2021-06-28] MEDS: METOCLOPRAMIDE INJ 10 MG/2 ML (REGLAN) IVP SCH ×2 (00:02→05:21)
[2021-06-28 00:43] VITALS: BP 124/68
[2021-06-28 03:34] VITALS: BP 118/70
[2021-06-28 06:18] LABS: BASOPHILS # (AUTO) 0.1 10^3/uL (0.0-0.1); BASOPHILS % (AUTO) 1 % (0-10); EOSINOPHILS # (AUTO) 0.9 10^3/uL (0.0-0.3); EOSINOPHILS % (AUTO) 9 % (0-10); HEMATOCRIT 36 % (35-52); HEMOGLOBIN 11.5 g/dL (11.5-16.0); LYMPHOCYTES # (AUTO) 3.2 10^3/uL (1.0-4.0); LYMPHOCYTES % (AUTO) 30 % (12-44); MEAN CORPUSCULAR HEMOGLOBIN 30 pg (25-34); MEAN CORPUSCULAR HGB CONC 32 g/dL (32-36); MEAN CORPUSCULAR VOLUME 93 fL (80-99); MEAN PLATELET VOLUME 10.4 fL (9.0-12.2); MONOCYTES # (AUTO) 0.7 10^3/uL (0.0-1.0); MONOCYTES % (AUTO) 7 % (0-12); NEUTROPHILS # (AUTO) 5.4 10^3/uL (1.8-7.8); NEUTROPHILS % (AUTO) 52 % (42-75); PLATELET COUNT 275 10^3/uL (130-400); WHITE BLOOD COUNT 10.4 10^3/uL (4.3-11.0)
[2021-06-28 06:50] LABS: ALBUMIN 2.8 GM/DL (3.2-4.5); BILIRUBIN,TOTAL 1.1 MG/DL (0.1-1.0); CALCIUM 8.2 MG/DL (8.5-10.1); CREATININE SERUM 0.81 MG/DL (0.60-1.30); MAGNESIUM 1.5 MG/DL (1.6-2.4); POTASSIUM 3.7 MMOL/L (3.6-5.0); TOTAL PROTEIN 5.9 GM/DL (6.4-8.2)
[2021-06-28 08:30] VITALS: BP 152/90
[2021-06-28] MEDS: D5 1/2 NS W/KCL 20 MEQ/L 1,000 ML IV SCH ×2 (08:36→18:47)
[2021-06-28] MEDS: DOCUSATE SODIUM 100 MG (COLACE) CAP PO SCH ×2 (08:36→20:00)
[2021-06-28] MEDS: APIXABAN 2.5 MG (ELIQUIS) TABLET PO SCH ×2 (08:36→20:27)
--- NOTE | 2021-06-28 08:36 | Progress Note - Surgery ---
TONYA CLINTON 06/28/21 0836: Subjective Date Seen by a Provider: Jun 28, 2021 Time Seen by a Provider: 07:30 Subjective/Events-last exam Patient was asleep and easily aroused this morning. Had NG tube removed yesterday and denies any N/V since it has been removed. Had 7 Bowel movements yesterday and tolerated solid food last night for dinner. Has been up walking with PT. Reports that she didn't use her IS any yesterday and was advised to try and use it more today to help prevent possible pneumonia development. Patient had no concerns or questions at this time. Review of Systems General: No Chills; Appetite HEENT: No Head Aches, No Visual Changes, No Sore Throat Pulmonary: No Dyspnea, No Cough Cardiovascular: No: Chest Pain, Palpitations Gastrointestinal: No: Nausea, Vomiting, Abdominal Pain, Constipation Genitourinary: No Dysuria, No Hematuria Musculoskeletal: No: arm pain, leg pain Neurological: No: Weakness, Numbness, Change in speech Objective Exam Vital Signs Date Time Temp Pulse Resp B/P (MAP) Pulse Ox O2 Delivery O2 Flow Rate FiO2 06/28/21 03:34 37.1 84 17 118/70 (86) 97 Room Air 06/28/21 01:00 81 06/28/21 00:43 36.9 74 16 124/68 (86) 96 Room Air 06/27/21 20:00 96 Room Air 06/27/21 20:00 37.1 122 26 116/71 (86) 96 Room Air 06/27/21 19:25 Room Air 06/27/21 19:00 92 06/27/21 15:53 37.0 78 22 170/75 (106) 98 Room Air 06/27/21 12:26 99 06/27/21 11:30 37.0 97 20 147/74 (98) 97 Room Air I & O 06/28/21 07:00 Intake Total 2250 ml Output Total 650 ml Balance 1600 ml Capillary Refill : Less Than 3 SecondsLess Than 3 Seconds General Appearance: No Apparent Distress, Chronically ill HEENT: Moist Mucous Membranes Neck: No Non Tender, No Lymphadenopathy (L), No Lymphadenopathy (R) Respiratory: Lungs Clear, Normal Breath Sounds, No Accessory Muscle Use, No Respiratory Distress Cardiovascular: Regular Rate, Rhythm, No Murmur Peripheral Pulses: 2+ Dorsalis Pedis (R), 2+ Left Dors-Pedis (L), 2+ Radial Pulses (R), 2+ Radial Pulses (L) Gastrointestinal: normal bowel sounds, distended (minimally so), tenderness (mild tenderness around midline incision), other (midline incision c/d/i) Extremity: Normal Inspection, Non Tender, No Calf Tenderness, No Pedal Edema Neurologic/Psychiatric: Alert, Oriented x3, Normal Mood/Affect Skin: Normal Color, Warm/Dry Lymphatic: No Adenopathy Results Lab Laboratory Tests 06/28/21 06:00: White Blood Count 10.4, Red Blood Count 3.90, Hemoglobin 11.5, Hematocrit 36, Mean Corpuscular Volume 93, Mean Corpuscular Hemoglobin 30, Mean Corpuscular Hemoglobin Concent 32, Red Cell Distribution Width 13.2, Platelet Count 275, Mean Platelet Volume 10.4, Immature Granulocyte % (Auto) 2, Neutrophils (%) (Auto) 52, Lymphocytes (%) (Auto) 30, Monocytes (%) (Auto) 7, Eosinophils (%) (Auto) 9, Basophils (%) (Auto) 1, Neutrophils # (Auto) 5.4, Lymphocytes # (Auto) 3.2, Monocytes # (Auto) 0.7, Eosinophils # (Auto) 0.9H, Basophils # (Auto) 0.1, Immature Granulocyte # (Auto) 0.2H, Sodium Level 141, Potassium Level 3.7, Chloride Level 108H, Carbon Dioxide Level 22, Anion Gap 11, Blood Urea Nitrogen 17, Creatinine 0.81, Estimat Glomerular Filtration Rate 70, BUN/Creatinine Ratio 21, Glucose Level 106H, Calcium Level 8.2L, Corrected Calcium 9.2, Magnesium Level 1.5L, Total Bilirubin 1.1H, Aspartate Amino Transf (AST/SGOT) 18, Alanine Aminotransferase (ALT/SGPT) 22, Alkaline Phosphatase 55, Total Protein 5.9L, Albumin 2.8L Microbiology 06/22/21 Urine Culture - Final, Complete Gram Pos Mixed Bacterial Paula Assessment/Plan Assessment/Plan Assessment/Plan S/P Ex Lap w/ SARA for Complete Bowel Obstruction -Patient has tolerated Absence of NG tube and solid diet well w/ no N/V or pain. Had 7 BM's yesterday and distension continues to improve, so doesn't seem patient is obstructed any longer. No fevers or signs of infection at this time. From a surgical standpoint patient is able to be signed off for discharge home or to rehab pending what IM and PT deems is best for patient. JAGRUTI - Resolved Hypernatremia - Resolved (141) Hypokalemia - resolved (3.7) DERECK VIDALES DO 06/28/21 1343: Subjective Time Seen by a Provider: 11:31 Subjective/Events-last exam Pt seen and examined, doing well without NGT. States she is continuing to have BMs, no nausea or vomiting and minimal abdominal pain at incision. Review of Systems General: No Chills Pulmonary: No Dyspnea, No Cough Cardiovascular: No: Chest Pain, Palpitations Gastrointestinal: Abdominal Pain; No: Nausea, Vomiting Objective Exam General Appearance: No Apparent Distress, Chronically ill Respiratory: Lungs Clear, Normal Breath Sounds, No Accessory Muscle Use, No Respiratory Distress Cardiovascular: Regular Rate, Rhythm, No Murmur Gastrointestinal: soft, distended (mild), tenderness (mild tenderness around midline incision), other (midline incision c/d/i) Assessment/Plan Assessment/Plan Assessment/Plan S/P Ex Lap w/ SARA for Complete Bowel Obstruction -Increase to regular diet, encourage IS and continue work with PT, plan to send back to assisted living tomorrow JAGRUTI - Resolved Hypernatremia - Resolved (141) Hypokalemia - resolved (3.7) Supervisory-Addendum Brief Verification & Attestation Participated in pt care: history, MDM, physical Personally performed: exam, history, MDM, supervision of care Care discussed with: Medical Student Procedures: n/a Verification and Attestation of Medical Student E/M Service A medical student performed and documented this service. I then reviewed and verified all information documented by the medical student and made modifications to such information, when appropriate. I personally performed a physical exam, medical decision making and then discussed any differences between the notes and made revisions as necessary to create one note. Dereck Vidales , 06/28/21 , 13:43 TONYA CLINTON Jun 28, 2021 08:36 DERECK VIDALES DO Jun 28, 2021 13:43
--- NOTE | 2021-06-28 09:48 | Progress Note - Hospitalist ---
Subjective HPI/CC On Admission Date Seen by Provider: Jun 28, 2021 CC: N&V HPI: 85 [facility] pt of Dr. Alatorre. MHx of small bowel obstruction who presented to the ER with severe nausea and vomiting for many days. Her creatinine went from 1.1 to 2.2. So pt will be in need of IV fluids. Dr. Vidales will be consulted due to the history of small bowel obstructions. Acute abdominal series didn't show any obstruction. CT scan done on 06/16 in the ER showed no evidence of any obstruction. Objective Exam Vital Signs Vital Signs Date Time Temp Pulse Resp B/P (MAP) Pulse Ox O2 Delivery O2 Flow Rate FiO2 06/28/21 08:30 36.8 92 18 152/90 (110) 96 Room Air 06/26/21 13:40 0.00 06/22/21 16:19 21 Capillary Refill : Less Than 3 SecondsLess Than 3 Seconds Results/Procedures Lab Laboratory Tests 06/28/21 06:00 Patient resulted labs reviewed. Assessment/Plan Assessment and Plan Assess & Plan/Chief Complaint Assessment: Small bowel obstruction status post surgery postop day #2 Nausea and vomiting severe NG tube in place Hypokalemia Acute kidney injury much improved after IV fluids Advanced age Severe debility Hypertension Plan: Replace potassium IV fluids NG tube 06/26/2021: NG tube per surgery Replace potassium Change IV fluids Diagnosis/Problems Diagnosis/Problems (1) Nausea and vomiting Status: Resolved Qualifiers: Vomiting type: unspecified Vomiting Intractability: intractable Qualified Codes: R11.2 - Nausea with vomiting, unspecified Resolution Date/Time: 12/02/20 @ 12:57 (2) JAGRUTI (acute kidney injury) Status: Acute (3) Dehydration Status: Acute (4) Gaseous abdominal distention Status: Acute PER WESLEY DO Jun 28, 2021 09:48
--- NOTE | 2021-06-28 09:51 | Progress Note ---
Subjective Date Seen by a Provider: Jun 28, 2021 Time Seen by a Provider: 10:00 Subjective/Events-last exam Pt is doing a lot better Heart rate in the 130s NG tube is out Overall feels pretty weak but otherwise doing well A lot of bowels that are very loose Review of Systems General: Fatigue, Malaise Cardiovascular: Palpitations Gastrointestinal: Diarrhea Objective Exam Last Set of Vital Signs Vital Signs Date Time Temp Pulse Resp B/P (MAP) Pulse Ox O2 Delivery O2 Flow Rate FiO2 06/28/21 08:30 36.8 92 18 152/90 (110) 96 Room Air 06/26/21 13:40 0.00 06/22/21 16:19 21 Capillary Refill : Less Than 3 SecondsLess Than 3 Seconds I&O l Intake and Output 06/27/21 23:59 Intake Total 2350 ml Output Total 1150 ml Balance 1200 ml Intake Oral 1900 ml IV Total 450 ml Output Urine Total 1150 ml # Voids 4 # Bowel Movements 7 General: Alert, Oriented X3, Cooperative, No Acute Distress Lungs: Clear to Auscultation Heart: Other (irr irr tachy) Abdomen: Normal Bowel Sounds Neuro: Normal Gait, Normal Speech, Strength at 5/5 X4 Ext Psych/Mental Status: Mental Status NL Results Lab Laboratory Tests 06/28/21 06:00: White Blood Count 10.4, Red Blood Count 3.90, Hemoglobin 11.5, Hematocrit 36, M zonia Corpuscular Volume 93, Mean Corpuscular Hemoglobin 30, Mean Corpuscular Hemoglobin Concent 32, Red Cell Distribution Width 13.2, Platelet Count 275, Mean Platelet Volume 10.4, Immature Granulocyte % (Auto) 2, Neutrophils (%) (Auto) 52, Lymphocytes (%) (Auto) 30, Monocytes (%) (Auto) 7, Eosinophils (%) (Auto) 9, Basophils (%) (Auto) 1, Neutrophils # (Auto) 5.4, Lymphocytes # (Auto) 3.2, Monocytes # (Auto) 0.7, Eosinophils # (Auto) 0.9H, Basophils # (Auto) 0.1, Immature Granulocyte # (Auto) 0.2H, Sodium Level 141, Potassium Level 3.7, Chloride Level 108H, Carbon Dioxide Level 22, Anion Gap 11, Blood Urea Nitrogen 17, Creatinine 0.81, Estimat Glomerular Filtration Rate 70, BUN/Creatinine Ratio 21, Glucose Level 106H, Calcium Level 8.2L, Corrected Calcium 9.2, Magnesium Level 1.5L, Total Bilirubin 1.1H, Aspartate Amino Transf (AST/SGOT) 18, Alanine Aminotransferase (ALT/SGPT) 22, Alkaline Phosphatase 55, Total Protein 5.9L, Albumin 2.8L Microbiology 06/22/21 Urine Culture - Final, Complete Gram Pos Mixed Bacterial Paula Assessment/Plan Assessment/Plan Assess & Plan/Chief Complaint Assessment: s/p SBO s/p surgical adhesion release AF RVR Debility Hypokalemia Dehydration Plan: OAC Potassium IVF Diagnosis/Problems Diagnosis/Problems (1) Nausea and vomiting Status: Resolved Qualifiers: Qualified Codes: R11.2 - Nausea with vomiting, unspecified Resolution Date/Time: 12/02/20 @ 12:57 (2) JAGRUTI (acute kidney injury) Status: Acute (3) Dehydration Status: Acute (4) Gaseous abdominal distention Status: Acute PER WESLEY DO Jun 28, 2021 09:51
--- NOTE | 2021-06-28 10:12 | Progress Note - Cardiology ---
Cardiology SOAP Progress Note Subjective: Has been ambulating in the halls Feeling much better today Objective: I&O/Vital Signs 06/28/21 06/28/21 06/28/21 06/28/21 00:43 01:00 03:34 06:40 Temp 36.9 37.1 Pulse 74 81 84 85 Resp 16 17 B/P (MAP) 124/68 (86) 118/70 (86) Pulse Ox 96 97 O2 Delivery Room Air Room Air 06/28/21 08:30 Temp 36.8 Pulse 92 Resp 18 B/P (MAP) 152/90 (110) Pulse Ox 96 O2 Delivery Room Air 06/28/21 00:00 Intake Total 1750 ml Output Total 650 ml Balance 1100 ml Constitutional: AAO x 3, well-developed, well-nourished Respiratory: No accessory muscle use; other (fair to good, bilateral air entry) Cardiovascular: regular rate-rhythm, S1 and S2, systolic murmur (soft DARI at card base) Gastrointestional: No tender; distended; No guarding; other (NGT in place on 06/26/21) Extremities: No clubbing, No cyanosis, No significant edema Neurologic/Psychiatric: oriented x 3, other (moves all limbs equally) Skin: No rash on exposed areas, No ulcerations on exposed areas Results/Procedures: Labs Laboratory Tests 06/28/21 06:00: White Blood Count 10.4, Red Blood Count 3.90, Hemoglobin 11.5, Hematocrit 36, Mean Corpuscular Volume 93, Mean Corpuscular Hemoglobin 30, Mean Corpuscular H emoglobin Concent 32, Red Cell Distribution Width 13.2, Platelet Count 275, Mean Platelet Volume 10.4, Immature Granulocyte % (Auto) 2, Neutrophils (%) (Auto) 52, Lymphocytes (%) (Auto) 30, Monocytes (%) (Auto) 7, Eosinophils (%) (Auto) 9, Basophils (%) (Auto) 1, Neutrophils # (Auto) 5.4, Lymphocytes # (Auto) 3.2, Monocytes # (Auto) 0.7, Eosinophils # (Auto) 0.9H, Basophils # (Auto) 0.1, Immature Granulocyte # (Auto) 0.2H, Sodium Level 141, Potassium Level 3.7, Chloride Level 108H, Carbon Dioxide Level 22, Anion Gap 11, Blood Urea Nitrogen 17, Creatinine 0.81, Estimat Glomerular Filtration Rate 70, BUN/Creatinine Ratio 21, Glucose Level 106H, Calcium Level 8.2L, Corrected Calcium 9.2, Magnesium Level 1.5L, Total Bilirubin 1.1H, Aspartate Amino Transf (AST/SGOT) 18, Alanine Aminotransferase (ALT/SGPT) 22, Alkaline Phosphatase 55, Total Protein 5.9L, Albumin 2.8L Microbiology 06/22/21 Urine Culture - Final, Complete Gram Pos Mixed Bacterial Paula A/P: Assessment: PAF, first diagnosed on 06/26/21 - Echo on 12/02/20: LVEF 55-60%, grade-1 diastolic dysfunction, mild AoV sclerosis, mild AI, PASP 25-30 mmHg GI - H/o cholecystectomy in late at [facility] - H/o SBO in November 2020 and Jun 2021 - Diagnostic laparoscopy switched to laparotomy with lysis of adhesions and reduction of internal hernia by Dr Vidales in Jan 2021 Hypokalemia due to NG drainage (NGT in place on 06/26/21 and 06/27/21) - hypokalemia may have promoted PAF HTN - controlled HLD - managed by PCP Chronic LBBB - ECG on 04/27/21: NSR with PACs, LBBB - ECG on 06/26/21: PAF with RVR, LBBB Plan: * HR not well controlled - increase Cardizem CD for HR control * Dig level in the morning * Apixaban for stroke prophylaxis, low dose for now, full dose when bowel obstruction relieved * Replenish K * Monitor labs MAURO AVILA Jun 28, 2021 10:12
--- NOTE | 2021-06-28 10:46 | Physical Therapy Daily Note ---
PT Daily Note-Current Subjective Patient presents sitting in her chair and reports that she is feeling better today. Mental Status Patient Orientation: Person, Place, Situation Attachments: IV Transfers SCALE: Activities may be completed with or without assistive devices. 6-Nigcwxuvzi-wwhtawl completes the activity by him/herself with no assistance from a helper. 5-Set-up or Clean-up Assistance-helper sets up or cleans up; patient completes activity. [place] assists only prior to or following the activity. 4-Supervision or Touching Assistance-helper provides verbal cues and/or touching/steadying and/or contact guard assistance as patient completes activity. Assistance may be provided throughout the activity or intermittently. 3-Partial/Moderate Assistance-helper does LESS THAN HALF the effort. [place] lifts, holds or supports trunk or limbs, but provides less than half the effort. 2-Substantial/Maximal Assistance-helper does MORE THAN HALF the effort. [place] lifts or holds trunk or limbs and provides more than half the effort. 9-Kccoyfopz-ihrckr does ALL the effort. Patient does none of the effort to complete the activity. Or, the assistance of 2 or more helpers is required for the patient to complete the activity. If activity was not attempted, code reason: 7-Patient Refused. 9-Not Applicable-not attempted and the patient did not perform the activity before the current illness, exacerbation or injury. 10-Not Attempted due to Environmental Limitations-(lack of equipment, weather restraints, etc.). 88-Not Attempted due to Medical Conditions or Safety Concerns. Sit to Stand (QC): 4 Toilet Transfer (QC): 4 Gait Training Does the Patient Walk?: Yes Distance: >300' Walk 10 feet (QC): 4 Walk 50 ft with 2 Turns(QC): 4 Walk 150 ft (QC): 4 Gait Assistive Device: FWW Assessment Patient ambulated with FWW and CGA. Patient ambulated over 300' with slight fatigue. Patient reported that she is ready to get back to her apartment. PT Intermediate Goals Beater And Pulper Feeder Goals PT Beater And Pulper Feeder Goals Time Frame: Jul 09, 2021 Roll Left & Right (QC): 5 Sit to Lying (QC): 5 Lying-Sitting on Side/Bed(QC): 5 Sit to Stand (QC): 5 Chair/Drt-fw-Jafdy Xfer(QC): 5 Toilet Transfer (QC): 5 Walk 10 feet (QC): 5 Walk 50ft with 2 Turns (QC): 5 Walk 150 ft (QC): 5 PT Plan Treatment/Plan Treatment Plan: Continue Plan of Care Treatment Plan: Bed Mobility, Education, Functional Activity Rickey, Functional Strength, Gait, Safety, Therapeutic Exercise, Transfers Treatment Duration: Jul 09, 2021 Frequency: 6 times per week Estimated Hrs Per Day: .5 hour per day Patient and/or Family Agrees t: Yes Time/GCodes Time In: 958 Time Out: 1011 Total Billed Treatment Time: 13 Total Billed Treatment 1 Visit Gait 13 min TYLER BOJORQUEZ PT Jun 28, 2021 10:46
[2021-06-28 11:07] VITALS: BP 130/82
--- NOTE | 2021-06-28 13:44 | Progress Note ---
MARIKA CLINTON 06/28/21 1344: Subjective Date Seen by a Provider: Jun 28, 2021 Time Seen by a Provider: 10:30 Subjective/Events-last exam Patient is sitting up in bed at time of encounter. NG tube has been removed. She states she is feeling much better today. She reports multiple bowel movements and passing flatus. PO fluids and soft foods have been going well. She states she is ready and excited to go home. She states per Surgery it is likely she will go home tomorrow. Vitals are stable, close monitoring of HR. Labs are stable, hypernatremia and hypokalemia have resolved. Mg 1.5, likely secondary to nasogastric suction. Review of Systems Gastrointestinal: No: Abdominal Pain Objective Exam Last Set of Vital Signs Vital Signs Date Time Temp Pulse Resp B/P (MAP) Pulse Ox O2 Delivery O2 Flow Rate FiO2 06/28/21 11:07 37.0 97 20 130/82 (98) 94 Room Air 06/26/21 13:40 0.00 06/22/21 16:19 21 Capillary Refill : Less Than 3 SecondsLess Than 3 Seconds I&O Intake and Output 06/27/21 23:59 Intake Total 2350 ml Output Total 1150 ml Balance 1200 ml Intake Oral 1900 ml IV Total 450 ml Output Urine Total 1150 ml # Voids 4 # Bowel Movements 7 General: Alert, Cooperative, No Acute Distress HEENT: Atraumatic Lungs: Clear to Auscultation, Normal Air Movement Heart: Regular Rate, Normal S1, Normal S2 Abdomen: Normal Bowel Sounds Neuro: Normal Speech Psych/Mental Status: Mental Status NL, Mood NL Results Lab Laboratory Tests 06/28/21 06:00: White Blood Count 10.4, Red Blood Count 3.90, Hemoglobin 11.5, Hematocrit 36, Mean Corpuscular Volume 93, Mean Corpuscular Hemoglobin 30, Mean Corpuscular Hemoglobin Concent 32, Red Cell Distribution Width 13.2, Platelet Count 275, Mean Platelet Volume 10.4, Immature Granulocyte % (Auto) 2, Neutrophils (%) (Auto) 52, Lymphocytes (%) (Auto) 30, Monocytes (%) (Auto) 7, Eosinophils (%) (Auto) 9, Basophils (%) (Auto) 1, Neutrophils # (Auto) 5.4, Lymphocytes # (Auto) 3.2, Monocytes # (Auto) 0.7, Eosinophils # (Auto) 0.9H, Basophils # (Auto) 0.1, Immature Granulocyte # (Auto) 0.2H, Sodium Level 141, Potassium Level 3.7, Chloride Level 108H, Carbon Dioxide Level 22, Anion Gap 11, Blood Urea Nitrogen 17, Creatinine 0.81, Estimat Glomerular Filtration Rate 70, BUN/Creatinine Ratio 21, Glucose Level 106H, Calcium Level 8.2L, Corrected Calcium 9.2, Magnesium Level 1.5L, Total Bilirubin 1.1H, Aspartate Amino Transf (AST/SGOT) 18, Alanine Aminotransferase (ALT/SGPT) 22, Alkaline Phosphatase 55, Total Protein 5.9L, Albumin 2.8L Microbiology 06/22/21 Urine Culture - Final, Complete Gram Pos Mixed Bacterial Paula Assessment/Plan Assessment/Plan Assess & Plan/Chief Complaint Assessment: SBO s/p exploratory laparotomy with SARA JAGRUTI - much improved after IV fluids N/V - resolved Dehydration - resolved Anxiety HTN Hypokalemia - resolved Atrial fibrillation Hypernatremia - resolved Severe debility Advanced age Plan: Lactated ringers heplocked Surgery following AM labs: CBC, BMP Monitor vitals Rehab analysis Continue Eliquis and Diltiazem for Afib management, Cardiology following MADIE WESLEY DO 06/29/21 0612: Objective Exam General: Alert, Oriented X3, Cooperative, No Acute Distress Supervisory-Addendum Brief Verification & Attestation Participated in pt care: history, MDM, physical Personally performed: exam, history, MDM, supervision of care Care discussed with: Medical Student Procedures: n/a Results interpretation: Verified all documentation Verification and Attestation of Medical Student E/M Service A medical student performed and documented this service in my presence. I reviewed and verified all information documented by the medical student and made modifications to such information, when appropriate. I personally performed the physical exam and medical decision making. Madie Wesley Jun 29, 2021,06:12 MARIKA CLINTON Jun 28, 2021 13:44 MADIE WESLEY DO Jun 29, 2021 06:12
--- NOTE | 2021-06-28 14:03 | Occupational Ther Daily Note ---
OT Current Status-Daily Note Subjective Pt alert, lying in bed. Pt agrees to therapy. No c/o pain. Mental Status/Objective Patient Orientation: Person, Place, Time, Situation Attachments: IV ADL-Treatment Pt educated on LB dressing equipment. Pt demonstrated understanding on how to use tape control skin or spar mill operator and sock aide to doff/don socks. Pt requested to use toilet. Assist only to manipulate IV pole. Pt able to manage clothing over hips and thread feet into briefs. Pt able to cleanse self though requested assist to determine thoroughness. Pt used bath wipe to cleanse hands. After session, pt sitting in recliner with call light/phone in reach. All needs met in room. Therapy Code Descriptions/Definitions Functional [place] Measure: 0=Not Assessed/NA 4=Minimal Assistance 1=Total Assistance 5=Supervision or Setup 2=Maximal Assistance 6=Modified [place] 3=Moderate Assistance 7=Complete IndependenceSCALE: Activities may be completed with or without assistive devices. 8-Vzqixegbvy-iijfnra completes the activity by him/herself with no assistance from a helper. 5-Set-up or Clean-up Assistance-helper sets up or cleans up; patient completes activity. [place] assists only prior to or following the activity. 4-Supervision or Touching Assistance-helper provides verbal cues and/or touching/steadying and/or contact guard assistance as patient completes activity. Assistance may be provided throughout the activity or intermittently. 3-Partial/Moderate Assistance-helper does LESS THAN HALF the effort. [place] lifts, holds or supports trunk or limbs, but provides less than half the effort. 2-Substantial/Maximal Assistance-helper does MORE THAN HALF the effort. [place] lifts or holds trunk or limbs and provides more than half the effort. 7-Pyywuzkih-hacajm does ALL the effort. Patient does none of the effort to complete the activity. Or, the assistance of 2 or more helpers is required for the patient to complete the activity. If activity was not attempted, code reason: 7-Patient Refused. 9-Not Applicable-not attempted and the patient did not perform the activity before the current illness, exacerbation or injury. 10-Not Attempted due to Environmental Limitations-(lack of equipment, weather restraints, etc.). 88-Not Attempted due to Medical Conditions or Safety Concerns. Lower Body Dressing (QC): 5 On/Off Footwear: 5 Toileting Hygiene (QC): 3 Toilet Transfer (QC): 4 OT Harvest Worker Fruit Goals Nursing Home Goals Time Frame: Jun 30, 2021 Toileting Hygiene (QC): 4 Shower/Bathe Self (QC): 4 Upper Body Dressing (QC): 5 Lower Body Dressing (QC): 5 On/Off Footwear (QC): 5 1=Demonstrate adherence to instructed precautions during ADL tasks. 2=Patient will verbalize/demonstrate understanding of assistive devices/mayela fications for ADL. 3=Patient will improve strength/tolerance for activity to enable patient to perform ADL's. OT Education/Plan Problem List/Assessment Assessment: Decreased Activ Tolerance, Impaired Self-Care Skills Discharge Recommendations Plan/Recommendations: Continue POC Treatment Plan/Plan of Care Patient would benefit from OT for education, treatment and training to promote independence in ADL's, mobility, safety and/or upper extremity function for ADL's. Plan of Care: ADL Retraining, Functional Mobility, UE Funct Exercise/Act Treatment Duration: Jun 30, 2021 Frequency: 3 times per week Estimated Hrs Per Day: .25 hour per day Agreement: Yes Rehab Potential: Fair Time/GCodes Start Time: 13:23 Stop Time: 13:50 Total Time Billed (hr/min): 27 Billed Treatment Time 1 visit-ADL 2 (27 min) GURMEET RAMOS Jun 28, 2021 14:03
[2021-06-28 15:30] VITALS: BP 123/74
--- NOTE | 2021-06-28 16:07 | Progress Note - Cardiology ---
Cardiology SOAP Progress Note Subjective: No cp or palp or shortness of breath Malaise and weakness are improving No n/v Objective: I&O/Vital Signs 06/28/21 06/28/21 06/28/21 06/28/21 06:40 08:30 09:00 11:07 Temp 36.8 37.0 Pulse 85 92 97 Resp 18 20 B/P (MAP) 152/90 (110) 130/82 (98) Pulse Ox 96 96 94 O2 Delivery Room Air Room Air Room Air 06/28/21 06/28/21 12:35 15:30 Temp 37.3 Pulse 88 99 Resp 22 B/P (MAP) 123/74 (90) Pulse Ox 94 O2 Delivery Room Air 06/27/21 23:59 Intake Total 1750 ml Output Total 650 ml Balance 1100 ml Constitutional: AAO x 3, well-developed, well-nourished Respiratory: No accessory muscle use; other (fair to good, bilateral air entry) Cardiovascular: regular rate-rhythm, S1 and S2, systolic murmur (soft DRAI at card base) Gastrointestional: No tender; distended; No guarding; other (NGT in place on 06/26/21) Extremities: No clubbing, No cyanosis, No significant edema Neurologic/Psychiatric: oriented x 3, other (moves all limbs equally) Skin: No rash on exposed areas, No ulcerations on exposed areas Results/Procedures: Labs Laboratory Tests 06/28/21 06:00: White Blood Count 10.4, Red Blood Count 3.90, Hemoglobin 11.5, Hematocrit 36, Mean Corpuscular Volume 93, Mean Corpuscular Hemoglobin 30, Mean Corpuscular Hemoglobin Concent 32, Red Cell Distribution Width 13.2, Platelet Count 275, Mean Platelet Volume 10.4, Immature Granulocyte % (Auto) 2, Neutrophils (%) (Auto) 52, Lymphocytes (%) (Auto) 30, Monocytes (%) (Auto) 7, Eosinophils (%) (Auto) 9, Basophils (%) (Auto) 1, Neutrophils # (Auto) 5.4, Lymphocytes # (Auto) 3.2, Monocytes # (Auto) 0.7, Eosinophils # (Auto) 0.9H, Basophils # (Auto) 0.1, Immature Granulocyte # (Auto) 0.2H, Sodium Level 141, Potassium Level 3.7, Chl oride Level 108H, Carbon Dioxide Level 22, Anion Gap 11, Blood Urea Nitrogen 17, Creatinine 0.81, Estimat Glomerular Filtration Rate 70, BUN/Creatinine Ratio 21, Glucose Level 106H, Calcium Level 8.2L, Corrected Calcium 9.2, Magnesium Level 1.5L, Total Bilirubin 1.1H, Aspartate Amino Transf (AST/SGOT) 18, Alanine Aminotransferase (ALT/SGPT) 22, Alkaline Phosphatase 55, Total Protein 5.9L, Albumin 2.8L Microbiology 06/22/21 Urine Culture - Final, Complete Gram Pos Mixed Bacterial Paula Laboratory Tests 06/27/21 05:30 06/27/21 06:00 06/28/21 06:00 A/P: Assessment: PAF, first diagnosed on 06/26/21 - Echo on 12/02/20: LVEF 55-60%, grade-1 diastolic dysfunction, mild AoV sclerosis, mild AI, PASP 25-30 mmHg GI - H/o cholecystectomy in late at [facility] - H/o SBO in November 2020 and Jun 2021 - Diagnostic laparoscopy switched to laparotomy with lysis of adhesions and reduction of internal hernia by Dr Vidales in Jan 2021 Hypokalemia due to NG drainage (NGT in place on 06/26/21 and 06/27/21) - hypokalemia may have promoted PAF HTN - controlled HLD - managed by PCP Chronic LBBB - ECG on 04/27/21: NSR with PACs, LBBB - ECG on 06/26/21: PAF with RVR, LBBB Plan: * HR not well controlled - increase Cardizem CD for HR control * Dig level in the morning * Apixaban for stroke prophylaxis, low dose for now, full dose when bowel obstruction relieved * Replenish K * Monitor labs JESU RUSS MD FACP [facility] Jun 28, 2021 16:07
[2021-06-28 19:25] VITALS: BP 114/63
[2021-06-28] MEDS: ALPRAZolam 0.5 MG (XANAX) TAB PO PRN (20:33)
[2021-06-29] VITALS (8 sets, daily range): BP systolic 109–144; BP diastolic 65–86
[2021-06-29] MEDS: D5 1/2 NS W/KCL 20 MEQ/L 1,000 ML IV SCH (04:03)
--- NOTE | 2021-06-29 07:05 | Progress Note - Surgery ---
AMIE HOLT MED STUDENT 06/29/21 0705: Subjective Date Seen by a Provider: Jun 29, 2021 Time Seen by a Provider: 06:50 Subjective/Events-last exam Mrs Jorgensen is awake in bed this morning. She states she is feeling well. Continuing on a soft diet with no problems. NG tube is out. Bowel movements have slowed down. Will go back to assisted living in [place] and receive PT. She does not have any new concerns at this time. Review of Systems General: No Chills HEENT: No Head Aches, No Visual Changes Pulmonary: No Dyspnea, No Cough Cardiovascular: No: Chest Pain, Palpitations, Edema Gastrointestinal: Diarrhea (improving); No: Nausea, Vomiting, Abdominal Pain, Constipation, Melena Genitourinary: No Dysuria, No Incontinence, No Hematuria Musculoskeletal: No: leg pain Objective Exam Vital Signs Date Time Temp Pulse Resp B/P (MAP) Pulse Ox O2 Delivery O2 Flow Rate FiO2 06/29/21 04:55 36.8 116 20 134/83 (100) 98 Room Air 06/29/21 03:43 36.8 116 98 21 06/29/21 02:57 36.8 116 20 134/83 (100) 98 Room Air 06/29/21 01:00 89 06/29/21 00:15 36.8 91 20 132/69 (90) 95 Room Air 06/28/21 21:15 96 Room Air 06/28/21 20:41 101 97 06/28/21 20:25 96 Room Air 06/28/21 19:25 37.1 120 20 114/63 (80) 95 Room Air 06/28/21 19:11 98 06/28/21 16:19 94 Room Air 06/28/21 15:30 37.3 99 22 123/74 (90) 94 Room Air 06/28/21 12:35 88 06/28/21 11:07 37.0 97 20 130/82 (98) 94 Room Air 06/28/21 09:00 96 Room Air 06/28/21 08:30 36.8 92 18 152/90 (110) 96 Room Air I & O 06/29/21 07:00 Intake Total 1330 ml Balance 1330 ml Capillary Refill : Less Than 3 SecondsLess Than 3 Seconds General Appearance: No Apparent Distress, Chronically ill HEENT: PERRL/EOMI, Pharynx Normal, Moist Mucous Membranes Respiratory: Chest Non Tender (tachy but regular), Lungs Clear, Normal Breath Sounds, No Accessory Muscle Use, No Respiratory Distress Cardiovascular: Regular Rate, Rhythm, No Edema, No Murmur, Normal Peripheral Pulses Peripheral Pulses: 2+ Dorsalis Pedis (R), 2+ Left Dors-Pedis (L), 2+ Radial Pulses (R), 2+ Radial Pulses (L) Gastrointestinal: normal bowel sounds (hypoactive but present and improved), non tender, soft, distended (mild), other (midline incision c/d/i) Extremity: Normal Inspection, Non Tender, No Calf Tenderness, No Pedal Edema Neurologic/Psychiatric: Alert, Oriented x3, Normal Mood/Affect Skin: Normal Color, Warm/Dry Lymphatic: No Adenopathy Results Lab Microbiology 06/22/21 Urine Culture - Final, Complete Gram Pos Mixed Bacterial Paula Assessment/Plan Assessment/Plan Assessment/Plan S/P Ex Lap w/ SARA for Complete Bowel Obstruction -Tolerating regular diet, using IS. Will be discharged back to assisted living today with PT. Incision healing well. No new problems today. JAGRUTI - Resolved Hypernatremia - Resolved (141) Hypokalemia - resolved (3.7) DERECK VIDALES DO 06/29/21 1119: Subjective Time Seen by a Provider: 09:43 Subjective/Events-last exam Pt seen and examined, sitting up in chair. She just had another BM, tolerting diet and denies N/V. Review of Systems Pulmonary: No Dyspnea, No Cough Cardiovascular: No: Chest Pain, Palpitations Gastrointestinal: No: Nausea, Vomiting, Abdominal Pain Objective Exam General Appearance: No Apparent Distress, Thin Respiratory: Lungs Clear, Normal Breath Sounds, No Accessory Muscle Use, No Respiratory Distress Cardiovascular: Regular Rate, Rhythm, No Murmur Gastrointestinal: soft, distended (mild), other (midline incision c/d/i) Assessment/Plan Assessment/Plan Assessment/Plan S/P Ex Lap w/ SARA for Complete Bowel Obstruction -Tolerating regular diet, using IS. Will be discharged back to assisted living today with PT. Incision healing well. No new problems today. F/U in my office in a week. Supervisory-Addendum Brief Verification & Attestation Participated in pt care: history, MDM, physical Personally performed: exam, history, MDM, supervision of care Care discussed with: Medical Student Procedures: n/a Verification and Attestation of Medical Student E/M Service A medical student performed and documented this service. I then reviewed and verified all information documented by the medical student and made modifications to such information, when appropriate. I personally performed a physical exam, medical decision making and then discussed any differences between the notes and made revisions as necessary to create one note. Dereck Vidales , 06/29/21 , 11:18 AMIE HOLT MED STUDENT Jun 29, 2021 07:05 DERECK VIDALES DO Jun 29, 2021 11:19
[2021-06-29 07:22] LABS: BASOPHILS % (AUTO) 0 % (0-10); EOSINOPHILS # (AUTO) 0.6 10^3/uL (0.0-0.3); EOSINOPHILS % (AUTO) 7 % (0-10); HEMATOCRIT 34 % (35-52); HEMOGLOBIN 10.8 g/dL (11.5-16.0); LYMPHOCYTES # (AUTO) 2.2 10^3/uL (1.0-4.0); LYMPHOCYTES % (AUTO) 24 % (12-44); MEAN CORPUSCULAR HEMOGLOBIN 30 pg (25-34); MEAN CORPUSCULAR HGB CONC 32 g/dL (32-36); MEAN CORPUSCULAR VOLUME 92 fL (80-99); MEAN PLATELET VOLUME 10.3 fL (9.0-12.2); MONOCYTES # (AUTO) 0.7 10^3/uL (0.0-1.0); MONOCYTES % (AUTO) 8 % (0-12); NEUTROPHILS # (AUTO) 5.3 10^3/uL (1.8-7.8); NEUTROPHILS % (AUTO) 58 % (42-75); PLATELET COUNT 261 10^3/uL (130-400); WHITE BLOOD COUNT 9.2 10^3/uL (4.3-11.0)
[2021-06-29 07:41] LABS: ALANINE AMINOTRANSFERASE 18 U/L (0-55); ALBUMIN 2.5 GM/DL (3.2-4.5); ALKALINE PHOSPHATASE 64 U/L (40-136); BILIRUBIN,TOTAL 0.9 MG/DL (0.1-1.0); BUN/CREATININE RATIO 18; CALCIUM 7.8 MG/DL (8.5-10.1); CARBON DIOXIDE 22 MMOL/L (21-32); CHLORIDE 109 MMOL/L (98-107); CREATININE SERUM 0.78 MG/DL (0.60-1.30); GFR ESTIMATED 73; GLUCOSE 104 MG/DL (70-105); POTASSIUM 3.9 MMOL/L (3.6-5.0); SODIUM 138 MMOL/L (135-145); TOTAL PROTEIN 5.3 GM/DL (6.4-8.2)
[2021-06-29] MEDS: APIXABAN 2.5 MG (ELIQUIS) TABLET PO SCH (08:42)
[2021-06-29] MEDS: DOCUSATE SODIUM 100 MG (COLACE) CAP PO SCH (08:42)
--- NOTE | 2021-06-29 09:54 | Occupational Ther Daily Note ---
OT Current Status-Daily Note Subjective Pt alert, in bathroom. Pt agrees to therapy. No c/o pain. Mental Status/Objective Patient Orientation: Person, Place, Time, Situation Attachments: IV ADL-Treatment Pt able to manipulate clothing and change briefs after incontinent BM. Pt able to cleanse self after toileting, SBA. Independent standing at sink to complete hand washing and oral care. After session, pt sitting in recliner with call light/phone in reach. All needs met in room. Therapy Code Descriptions/Definitions Functional Brown Measure: 0=Not Assessed/NA 4=Minimal Assistance 1=Total Assistance 5=Supervision or Setup 2=Maximal Assistance 6=Modified Brown 3=Moderate Assistance 7=Complete IndependenceSCALE: Activities may be completed with or without assistive devices. 8-Qaogwebcow-uyvkkxy completes the activity by him/herself with no assistance from a helper. 5-Set-up or Clean-up Assistance-helper sets up or cleans up; patient completes activity. [place] assists only prior to or following the activity. 4-Supervision or Touching Assistance-helper provides verbal cues and/or touching/steadying and/or contact guard assistance as patient completes activity . Assistance may be provided throughout the activity or intermittently. 3-Partial/Moderate Assistance-helper does LESS THAN HALF the effort. [place] lifts, holds or supports trunk or limbs, but provides less than half the effort. 2-Substantial/Maximal Assistance-helper does MORE THAN HALF the effort. [place] lifts or holds trunk or limbs and provides more than half the effort. 7-Wclkltgcq-eyhsly does ALL the effort. Patient does none of the effort to complete the activity. Or, the assistance of 2 or more helpers is required for the patient to complete the activity. If activity was not attempted, code reason: 7-Patient Refused. 9-Not Applicable-not attempted and the patient did not perform the activity before the current illness, exacerbation or injury. 10-Not Attempted due to Environmental Limitations-(lack of equipment, weather restraints, etc.). 88-Not Attempted due to Medical Conditions or Safety Concerns. Oral Hygiene (QC): 6 Lower Body Dressing (QC): 5 Toileting Hygiene (QC): 4 Toilet Transfer (QC): 4 OT Care Home Goals Care Home Goals Time Frame: Jun 30, 2021 Toileting Hygiene (QC): 4 Shower/Bathe Self (QC): 4 Upper Body Dressing (QC): 5 Lower Body Dressing (QC): 5 On/Off Footwear (QC): 5 1=Demonstrate adherence to instructed precautions during ADL tasks. 2=Patient will verbalize/demonstrate understanding of assistive devices/modifications for ADL. 3=Patient will improve strength/tolerance for activity to enable patient to perform ADL's. OT Education/Plan Problem List/Assessment Assessment: Impaired Self-Care Skills Discharge Recommendations Plan/Recommendations: Continue POC Treatment Plan/Plan of Care Patient would benefit from OT for education, treatment and training to promote independence in ADL's, mobility, safety and/or upper extremity function for ADL's. Plan of Care: ADL Retraining, Functional Mobility, UE Funct Exercise/Act Treatment Duration: Jun 30, 2021 Frequency: 3 times per week Estimated Hrs Per Day: .25 hour per day Agreement: Yes Rehab Potential: Fair Time/GCodes Start Time: 09:04 Stop Time: 09:14 Total Time Billed (hr/min): 10 Billed Treatment Time 1 visit-ADL 1 (10 min) GURMEET RAMOS Jun 29, 2021 09:54
--- NOTE | 2021-06-29 10:45 | Physical Therapy Daily Note ---
PT Daily Note-Current Subjective Patient presents sitting in her chair. Patient agrees to physical therapy. Patient reports that she is supposed to leave the hospital today. Appearance Patient in recliner post tx, with nurse call, phone, tray, all needs met. Mental Status Patient Orientation: Person, Place, Time, Situation Transfers SCALE: Activities may be completed with or without assistive devices. 6-Npdlklknps-uxbotcy completes the activity by him/herself with no assistance from a helper. 5-Set-up or Clean-up Assistance-helper sets up or cleans up; patient completes activity. [place] assists only prior to or following the activity. 4-Supervision or Touching Assistance-helper provides verbal cues and/or touching/steadying and/or contact guard assistance as patient completes activity. Assistance may be provided throughout the activity or intermittently. 3-Partial/Moderate Assistance-helper does LESS THAN HALF the effort. [place] lifts, holds or supports trunk or limbs, but provides less than half the effort. 2-Substantial/Maximal Assistance-helper does MORE THAN HALF the effort. [place] lifts or holds trunk or limbs and provides more than half the effort. 9-Byaezhupn-rpfhuy does ALL the effort. Patient does none of the effort to complete the activity. Or, the assistance of 2 or more helpers is required for the patient to complete the activity. If activity was not attempted, code reason: 7-Patient Refused. 9-Not Applicable-not attempted and the patient did not perform the activity before the current illness, exacerbation or injury. 10-Not Attempted due to Environmental Limitations-(lack of equipment, weather restraints, etc.). 88-Not Attempted due to Medical Conditions or Safety Concerns. Sit to Stand (QC): 4 Gait Training Distance: >300' Walk 10 feet (QC): 4 Walk 50 ft with 2 Turns(QC): 4 Walk 150 ft (QC): 4 Gait Assistive Device: FWW Patient ambulated for >300' with CGA. Patient had short rest breaks while turning but reported no fatigue. Assessment Current Status: Fair Progress Patient ambulated for over 300' with FWW and CGA. Patient reports that she walks a lot at home and wants to get back to doing that. Patient has minimal fatigue from ambulation today. PT Fpc Goals Fpc Goals PT Fpc Goals Time Frame: Jul 09, 2021 Roll Left & Right (QC): 5 Sit to Lying (QC): 5 Lying-Sitting on Side/Bed(QC): 5 Sit to Stand (QC): 5 Chair/Bjr-ow-Efrgl Xfer(QC): 5 Toilet Transfer (QC): 5 Walk 10 feet (QC): 5 Walk 50ft with 2 Turns (QC): 5 Walk 150 ft (QC): 5 PT Plan Problem List Problem List: Activity Tolerance, Functional Strength, Safety, Gait, Transfer Treatment/Plan Treatment Plan: Continue Plan of Care Treatment Plan: Bed Mobility, Education, Functional Activity Rickey, Functional Strength, Gait, Safety, Therapeutic Exercise, Transfers Treatment Duration: Jul 09, 2021 Frequency: 6 times per week Estimated Hrs Per Day: .5 hour per day Patient and/or Family Agrees t: Yes Safety Risks/Education Patient Education: Gait Training, Transfer Techniques, Correct Positioning, Safety Issues Teaching Recipient: Patient Teaching Methods: Discussion Time/GCodes Time In: 1012 Time Out: 1025 Total Billed Treatment Time: 13 Total Billed Treatment 1 Visit Gait 13 min FISH GOMES PT Jun 29, 2021 10:45
--- NOTE | 2021-06-29 11:10 | Progress Note - Cardiology ---
Cardiology SOAP Progress Note Subjective: Feels better today Less malaise No shortness of breath No cp No palp or syncope No n/v/d Objective: I&O/Vital Signs 06/29/21 06/29/21 06/29/21 06/29/21 00:15 01:00 02:57 03:43 Temp 36.8 36.8 36.8 Pulse 91 89 116 116 Resp 20 20 B/P (MAP) 132/69 (90) 134/83 (100) Pulse Ox 95 98 98 O2 Delivery Room Air Room Air FiO2 21 06/29/21 06/29/21 06/29/21 06/29/21 04:55 07:00 07:00 07:12 Temp 36.8 36.5 Pulse 116 114 113 Resp 20 20 B/P (MAP) 134/83 (100) 144/86 (105) Pulse Ox 98 97 O2 Delivery Room Air Room Air Room Air 06/29/21 08:50 O2 Delivery Room Air 06/28/21 23:59 Intake Total 1030 ml Balance 1030 ml Constitutional: AAO x 3, well-developed, well-nourished Respiratory: No accessory muscle use; other (fair to good, bilateral air entry) Cardiovascular: regular rate-rhythm, S1 and S2, systolic murmur (soft DARI at card base) Gastrointestional: No tender; distended; No guarding; other (NGT in place on 06/26/21) Extremities: No clubbing, No cyanosis, No significant edema Neurologic/Psychiatric: oriented x 3, other (moves all limbs equally) Skin: No rash on exposed areas, No ulcerations on exposed areas Results/Procedures: Labs Laboratory Tests 06/29/21 06:44: White Blood Count 9.2, Red Blood Count 3.64L, Hemoglobin 10.8L, Hematocrit 34L, Mean Corpuscular Volume 92, Mean Corpuscular Hemoglobin 30, Mean Corpuscular Hemoglobin Concent 32, Red Cell Distribution Width 13.0, Platelet Count 261, Mean Platelet Volume 10.3, Immature Granulocyte % (Auto) 3, Neutrophils (%) (Auto) 58, Lymphocytes (%) (Auto) 24, Monocytes (%) (Auto) 8, Eosinophils (%) (A uto) 7, Basophils (%) (Auto) 0, Neutrophils # (Auto) 5.3, Lymphocytes # (Auto) 2.2, Monocytes # (Auto) 0.7, Eosinophils # (Auto) 0.6H, Basophils # (Auto) 0.0, Immature Granulocyte # (Auto) 0.3H, Sodium Level 138, Potassium Level 3.9, Chloride Level 109H, Carbon Dioxide Level 22, Anion Gap 7, Blood Urea Nitrogen 14, Creatinine 0.78, Estimat Glomerular Filtration Rate 73, BUN/Creatinine Ratio 18, Glucose Level 104, Calcium Level 7.8L, Corrected Calcium 9.0, Total Bilirubin 0.9, Aspartate Amino Transf (AST/SGOT) 18, Alanine Aminotransferase (ALT/SGPT) 18, Alkaline Phosphatase 64, Total Protein 5.3L, Albumin 2.5L, Digoxin Level < 0.30L Microbiology 06/22/21 Urine Culture - Final, Complete Gram Pos Mixed Bacterial Paula Laboratory Tests 06/28/21 06:00 06/29/21 06:44 A/P: Assessment: PAF, first diagnosed on 06/26/21 - Echo on 12/02/20: LVEF 55-60%, grade-1 diastolic dysfunction, mild AoV sclerosis, mild AI, PASP 25-30 mmHg GI - H/o cholecystectomy in late at [facility] - H/o SBO in November 2020 and Jun 2021 - Diagnostic laparoscopy switched to laparotomy with lysis of adhesions and reduction of internal hernia by Dr Vidales in Jan 2021 Hypokalemia due to NG drainage (NGT in place on 06/26/21 and 06/27/21) - hypokalemia may have promoted PAF HTN - controlled HLD - managed by PCP Chronic LBBB - ECG on 04/27/21: NSR with PACs, LBBB - ECG on 06/26/21: PAF with RVR, LBBB Plan: * Continue dilt and apixaban * Outpt cardiac f/u advised JESU RUSS MD FACP [facility] Jun 29, 2021 11:09
[2021-06-29] MEDS ORDERED: APIX2.5T PO ×2 (11:16)
[2021-06-29] MEDS ORDERED: DILT240C91 PO ×2 (11:16)
[2021-06-29] MEDS ORDERED: ALPR0.5T7 PO ×2 (11:26)
--- NOTE | 2021-06-29 11:28 | D/C HH Face to Face Order ---
D/C HH Face to Face Orders Reconcile Patient Problems Problems Reviewed?: Yes Instructions for Patient HH Patient Instructions/FollowUp: Debility Physician to follow Patient: Alatorre Discharge Diet for Home: No Restrictions Patient Problems: SBO Patient Data-Allergies,Ht & Wt Patient Allergies: Coded Allergies: adhesive tape (Verified Allergy, Mild, 06/07/21) Home Health Need/Face to Face Date of Face to Face: Jun 29, 2021 Clinical Findings: Generalized weakness and fatigue I have seen Pt [id number]: Yes Discharged To: Home Diagnosis/Conditions: SBO Patient is Homebound due to: Salima fall risk due to instabilty, Muscle weakness Homebound Status Due to the above stated illness, injury or surgical procedure (medical condition or diagnosis) and associated clinical findings, the patient is homebound because of his/her inability to leave home except with aid of a supportive device and/or person AND leaving the home requires a considerable and taxing effort or is medically contraindicated. Pt req the following assistanc: Walker Home Health Nursing Orders Home Health Services Order: Group Captain-Evaluate & Treat, Physical Therapy-Evaluate & Treat Home Health Infusion Therapy Line Start Date: Jun 22, 2021 Certify Stmt I certify that this patient is under my care and that I, a nurse practitioner or a physician; a refinery operator assistant working with me, had a face to face encounter that - meets the physician face to face encounter requirements with this patient as dated. PER WESLEY DO Jun 29, 2021 11:28
--- NOTE | 2021-06-29 11:29 | Discharge Summary ---
Diagnosis/Chief Complaint Date of Admission Jun 22, 2021 at 15:00 Date of Discharge Discharge Date: Jun 29, 2021 Discharge Diagnosis Assessment: SBO s/p exploratory laparotomy with SARA JAGRUTI - much improved after IV fluids N/V - resolved Dehydration - resolved Anxiety HTN Hypokalemia - resolved Atrial fibrillation Hypernatremia - resolved Severe debility Advanced age Plan: Lactated ringers heplocked Surgery following AM labs: CBC, BMP Monitor vitals Rehab analysis Continue Eliquis and Diltiazem for Afib management, Cardiology following Discharge Summary Discharge Physical Examination Allergies: Coded Allergies: adhesive tape (Verified Allergy, Mild, 06/07/21) Vitals & I&Os Vital Signs Date Time Temp Pulse Resp B/P (MAP) Pulse Ox O2 Delivery O2 Flow Rate FiO2 06/29/21 15:48 37.0 102 22 128/86 97 Room Air 0.00 06/29/21 03:43 21 General Appearance: Alert, Oriented X3, Cooperative Respiratory: Clear to Auscultation Cardiovascular: Regular Rate Psych/Mental Status: Mental Status NL Hospital Course Was the Problem List Reviewed?: Yes Pt had a lengthy hospital course after she was admitted for acute kidney injury with small bowel obstruction. She ultimately was noted to have a requirement for surgery. Dr. Vidales was consulted. He performed that surgery with good results. NG tube was maintained. Did have an episode of new onset atrial fibrillation with RVR and she was placed on Eliquis 2.5 BID and rate control. She was doing very well, eating and drinking, getting around, back to her baseline, and she was ready for discharge. Labs (last 24 hrs) Laboratory Tests 06/22/21 11:33: White Blood Count 10.2, Red Blood Count 4.43, Hemoglobin 12.9, Hematocrit 38, Mean Corpuscular Volume 87, Mean Corpuscular Hemoglobin 29, Mean Corpuscular Hemoglobin Concent 34, Red Cell Distribution Width 13.9, Platelet Count 387, Me an Platelet Volume 10.0, Neutrophils (%) (Auto) 73, Lymphocytes (%) (Auto) 19, Monocytes (%) (Auto) 8, Eosinophils (%) (Auto) 0, Basophils (%) (Auto) 0, Neutrophils # (Auto) 7.4, Lymphocytes # (Auto) 1.9, Monocytes # (Auto) 0.8, Eosinophils # (Auto) 0.0, Basophils # (Auto) 0.0, Sodium Level 139, Potassium Level 3.6, Chloride Level 92L, Carbon Dioxide Level 28, Anion Gap 19H, Blood Urea Nitrogen 43H, Creatinine 2.19H, Estimat Glomerular Filtration Rate 21, BUN/Creatinine Ratio 20, Glucose Level 133H, Calcium Level 10.3H, Corrected Calcium , Total Bilirubin 0.7, Aspartate Amino Transf (AST/SGOT) 15, Alanine Aminotransferase (ALT/SGPT) 8, Alkaline Phosphatase 57, Total Protein 8.4H, Albumin 4.8H 06/22/21 15:00: Lab Scanned Report Referred Lab Report 06/22/21 20:56: Urine Color YELLOW, Urine Clarity CLEAR, Urine pH 6.0, Urine Specific [place] 1.025H, Urine Protein TRACEH, Urine Glucose (UA) NEGATIVE, Urine Ketones TRACEH, Urine Nitrite NEGATIVE, Urine Bilirubin 2+H, Urine Urobilinogen 0.2, Urine L eukocyte Esterase NEGATIVE, Urine RBC (Auto) NEGATIVE, Urine RBC NONE, Urine WBC RARE, Urine Squamous Epithelial Cells 2-5, Urine Crystals NONE, Urine Bacteria FEWH, Urine Casts PRESENT, Urine Hyaline Casts 0-2H, Urine Mucus NEGATIVE, Urine Culture Indicated YES 06/23/21 06:12: White Blood Count 10.4, Red Blood Count 4.44, Hemoglobin 13.0, Hematocrit 39, Mean Corpuscular Volume 89, Mean Corpuscular Hemoglobin 29, Mean Corpuscular Hemoglobin Concent 33, Red Cell Distribution Width 13.7, Platelet Count 362, Mean Platelet Volume 9.6, Neutrophils (%) (Auto) 67, Lymphocytes (%) (Auto) 23, Monocytes (%) (Auto) 9, Eosinophils (%) (Auto) 0, Basophils (%) (Auto) 0, Neutrophils # (Auto) 7.0, Lymphocytes # (Auto) 2.4, Monocytes # (Auto) 0.9, Eosinophils # (Auto) 0.0, Basophils # (Auto) 0.0, Sodium Level 142, Potassium Level 3.2L, Chloride Level 97L, Carbon Dioxide Level 26, Anion Gap 19H, Blood Urea Nitrogen 50H, Creatinine 2.20H, Estimat Glomerular Filtration Rate 21, BUN/Creatinine Ratio 23, Glucose Level 118H, Calcium Level 10.1, Corrected Calcium 9.9, Total Bilirubin 0.8, Aspartate Amino Transf (AST/SGOT) 21, Alanine Aminotransferase (ALT/SGPT) 14, Alkaline Phosphatase 51, Total Protein 8.3H, Albumin 4.3, Immature Granulocyte % (Auto) 0, Immature Granulocyte # (Auto) 0.0 06/24/21 06:13: White Blood Count 8.5, Red Blood Count 4.67, Hemoglobin 13.7, Hematocrit 43, Mean Corpuscular Volume 91, Mean Corpuscular Hemoglobin 29, Mean Corpuscular Hemoglobin Concent 32, Red Cell Distribution Width 13.5, Platelet Count 372, Mean Platelet Volume 9.7, Immature Granulocyte % (Auto) 0, Neutrophils (%) (Auto) 69, Lymphocytes (%) (Auto) 20, Monocytes (%) (Auto) 11, Eosinophils (%) (Auto) 0, Basophils (%) (Auto) 0, Neutrophils # (Auto) 5.8, Lymphocytes # (Auto) 1.7, Monocytes # (Auto) 0.9, Eosinophils # (Auto) 0.0, Basophils # (Auto) 0.0, Immature Granulocyte # (Auto) 0.0, Sodium Level 152H, Potassium Level 3.0L, Chloride Level 101, Carbon Dioxide Level 29, Anion Gap 22H, Blood Urea Nitrogen 53H, Creatinine 1.77H, Estimat Glomerular Filtration Rate 27, BUN/Creatinine Ratio 30, Glucose Level 107H, Calcium Level 10.1, Corrected Calcium 9.7, Total Bilirubin 1.1H, Aspartate Amino Transf (AST/SGOT) 38H, Alanine Aminotransferase (ALT/SGPT) 27, Alkaline Phosphatase 59, Total Protein 8.6H, Albumin 4.5 06/25/21 06:53: White Blood Count 10.7, Red Blood Count 4.16, Hemoglobin 12.1, Hematocrit 39, Mean Corpuscular Volume 93, Mean Corpuscular Hemoglobin 29, Mean Corpuscular Hemoglobin Concent 31L, Red Cell Distribution Width 13.4, Platelet Count 286, Mean Platelet Volume 10.4, Immature Granulocyte % (Auto) 0, Neutrophils (%) (Auto) 79H, Lymphocytes (%) (Auto) 12, Monocytes (%) (Auto) 9, Eosinophils (%) (Auto) 0, Basophils (%) (Auto) 0, Neutrophils # (Auto) 8.5H, Lymphocytes # (Auto) 1.3, Monocytes # (Auto) 0.9, Eosinophils # (Auto) 0.0, Basophils # (Auto) 0.0, Immature Granulocyte # (Auto) 0.0, Sodium Level 148H, Potassium Level 2.6L, Chloride Level 106, Carbon Dioxide Level 30, Anion Gap 12, Blood Urea Nitrogen 44H, Creatinine 1.29, Estimat Glomerular Filtration Rate 40, BUN/Creatinine Ratio 34, Glucose Level 104, Calcium Level 8.8, Corrected Calcium 9.3, Total Bilirubin 1.2H, Aspartate Amino Transf (AST/SGOT) 34, Alanine Aminotransferase (ALT/SGPT) 24, Alkaline Phosphatase 47, Total Protein 6.7, Albumin 3.4 06/26/21 05:30: White Blood Count 10.7, Red Blood Count 3.82, Hemoglobin 11.2L, Hematocrit 36, Mean Corpuscular Volume 94, Mean Corpuscular Hemoglobin 29, Mean Corpuscular Hemoglobin Concent 31L, Red Cell Distribution Width 13.4, Platelet Count 275, Mean Platelet Volume 10.1, Immature Granulocyte % (Auto) 0, Neutrophils (%) (Auto) 77H, Lymphocytes (%) (Auto) 15, Monocytes (%) (Auto) 7, Eosinophils (%) (Auto) 0, Basophils (%) (Auto) 0, Neutrophils # (Auto) 8.2H, Lymphocytes # (Auto) 1.6, Monocytes # (Auto) 0.8, Eosinophils # (Auto) 0.0, Basophils # (Auto) 0.0, Immature Granulocyte # (Auto) 0.0, Sodium Level 158H, Potassium Level 2.8L, Chloride Level 113H, Carbon Dioxide Level 26, Anion Gap 19H, Blood Urea Nitrogen 38H, Creatinine 0.97, Estimat Glomerular Filtration Rate 57, BUN/Creatinine Ratio 39, Glucose Level 95, Calcium Level 8.5, Corrected Calcium 9.2, Total Bilirubin 0.9, Aspartate Amino Transf (AST/SGOT) 29, Alanine Aminotransferase (ALT/SGPT) 27, Alkaline Phosphatase 45, Total Protein 6.1L, Albumin 3.1L, Magnesium Level 2.4 06/27/21 05:30: White Blood Count 10.4, Red Blood Count 3.69L, Hemoglobin 10.8L, Hematocrit 34L, Mean Corpuscular Volume 93, Mean Corpuscular Hemoglobin 29, Mean Corpuscular Hemoglobin Concent 31L, Red Cell Distribution Width 13.2, Platelet Count 259, Mean Platelet Volume 10.6, Immature Granulocyte % (Auto) 1, Neutrophils (%) (Auto) 67, Lymphocytes (%) (Auto) 21, Monocytes (%) (Auto) 8, Eosinophils (%) (Auto) 3, Basophils (%) (Auto) 0, Neutrophils # (Auto) 7.0, Lymphocytes # (Auto) 2.2, Monocytes # (Auto) 0.8, Eosinophils # (Auto) 0.3, Basophils # (Auto) 0.0, Immature Granulocyte # (Auto) 0.1 06/27/21 06:00: Sodium Level 149H, Potassium Level 3.3L, Chloride Level 111H, Carbon Dioxide Level 26, Anion Gap 12, Blood Urea Nitrogen 24H, Creatinine 0.82, Estimat Glomerular Filtration Rate 69, BUN/Creatinine Ratio 29, Glucose Level 125H, Calcium Level 8.2L, Corrected Calcium 9.0, Total Bilirubin 0.9, Aspartate Amino Transf (AST/SGOT) 21, Alanine Aminotransferase (ALT/SGPT) 22, Alkaline Phosphatase 58, Total Protein 5.8L, Albumin 3.0L 06/28/21 06:00: Sodium Level 141, Potassium Level 3.7, Chloride Level 108H, Carbon Dioxide Level 22, Anion Gap 11, Blood Urea Nitrogen 17, Creatinine 0.81, Estimat Glomerular Filtration Rate 70, BUN/Creatinine Ratio 21, Glucose Level 106H, Calcium Level 8.2L, Corrected Calcium 9.2, Total Bilirubin 1.1H, Aspartate Amino Transf (AST/SGOT) 18, Alanine Aminotransferase (ALT/SGPT) 22, Alkaline Phosphatase 55, Total Protein 5.9L, Albumin 2.8L, White Blood Count 10.4, Red Blood Count 3.90, Hemoglobin 11.5, Hematocrit 36, Mean Corpuscular Volume 93, Mean Corpuscular Hemoglobin 30, Mean Corpuscular Hemoglobin Concent 32, Red Cell Distribution Width 13.2, Platelet Count 275, Mean Platelet Volume 10.4, Immature Granulocyte % (Auto) 2, Neutrophils (%) (Auto) 52, Lymphocytes (%) (Auto) 30, Monocytes (%) (Auto) 7, Eosinophils (%) (Auto) 9, Basophils (%) (Auto) 1, Neutrophils # (Auto) 5.4, Lymphocytes # (Auto) 3.2, Monocytes # (Auto) 0.7, Eosinophils # (Auto) 0.9H , Basophils # (Auto) 0.1, Immature Granulocyte # (Auto) 0.2H, Magnesium Level 1.5L 06/29/21 06:44: Sodium Level 138, Potassium Level 3.9, Chloride Level 109H, Carbon Dioxide Level 22, Anion Gap 7, Blood Urea Nitrogen 14, Creatinine 0.78, Estimat Glomerular Filtration Rate 73, BUN/Creatinine Ratio 18, Glucose Level 104, Calcium Level 7.8L, Corrected Calcium 9.0, Total Bilirubin 0.9, Aspartate Amino Transf (AST/SGOT) 18, Alanine Aminotransferase (ALT/SGPT) 18, Alkaline Phosphatase 64, Total Protein 5.3L, Albumin 2.5L, White Blood Count 9.2, Red Blood Count 3.64L, Hemoglobin 10.8L, Hematocrit 34L, Mean Corpuscular Volume 92, Mean Corpuscular Hemoglobin 30, Mean Corpuscular Hemoglobin Concent 32, Red Cell Distribution Width 13.0, Platelet Count 261, Mean Platelet Volume 10.3, Immature Granulocyte % (Auto) 3, Neutrophils (%) (Auto) 58, Lymphocytes (%) (Auto) 24, Monocytes (%) (Auto) 8, Eosinophils (%) (Auto) 7, Basophils (%) (Auto) 0, Neutrophils # (Auto) 5.3, Lymphocytes # (Auto) 2.2, Monocytes # (Auto) 0.7, Eosinophils # (Auto) 0.6H , Basophils # (Auto) 0.0, Immature Granulocyte # (Auto) 0.3H, Digoxin Level < 0.30L Microbiology 06/22/21 Urine Culture - Final, Complete Gram Pos Mixed Bacterial Paula Pending Labs Microbiology Date/Time Source Procedure Growth Status 06/22/21 20:56 Urine Straight Cath, In/Out Urine Culture - Final Gram Pos Mixed Bacterial Paula Complete Laboratory Tests 06/22/21 11:33: White Blood Count 10.2, Red Blood Count 4.43, Hemoglobin 12.9, Hematocrit 38, Mean Corpuscular Volume 87, Mean Corpuscular Hemoglobin 29, Mean Corpuscular Hemoglobin Concent 34, Red Cell Distribution Width 13.9, Platelet Count 387, Mean Platelet Volume 10.0, Neutrophils (%) (Auto) 73, Lymphocytes (%) (Auto) 19, Monocytes (%) (Auto) 8, Eosinophils (%) (Auto) 0, Basophils (%) (Auto) 0, Neutrophils # (Auto) 7.4, Lymphocytes # (Auto) 1.9, Monocytes # (Auto) 0.8, Eosinophils # (Auto) 0.0, Basophils # (Auto) 0.0, Sodium Level 139, Potassium Level 3.6, Chloride Level 92, Carbon Dioxide Level 28, Anion Gap 19, Blood Urea Nitrogen 43, Creatinine 2.19, Estimat Glomerular Filtration Rate 21, BU N/Creatinine Ratio 20, Glucose Level 133, Calcium Level 10.3, Corrected Calcium , Total Bilirubin 0.7, Aspartate Amino Transf (AST/SGOT) 15, Alanine Aminotransferase (ALT/SGPT) 8, Alkaline Phosphatase 57, Total Protein 8.4, Albumin 4.8 06/22/21 15:00: Lab Scanned Report Referred Lab Report 06/22/21 20:56: Urine Color YELLOW, Urine Clarity CLEAR, Urine pH 6.0, Urine Specific [place] 1.025, Urine Protein TRACE, Urine Glucose (UA) NEGATIVE, Urine Ketones TRACE, Urine Nitrite NEGATIVE, Urine Bilirubin 2+, Urine Urobilinogen 0.2, Urine Leukocyte Esterase NEGATIVE, Urine RBC (Auto) NEGATIVE, Urine RBC NONE, Urine WBC RARE, Urine Squamous Epithelial Cells 2-5, Urine Crystals NONE, Urine Bacteria FEW, Urine Casts PRESENT, Urine Hyaline Casts 0-2, Urine Mucus NEGATIVE, Urine Culture Indicated YES 06/23/21 06:12: White Blood Count 10.4, Red Blood Count 4.44, Hemoglobin 13.0, Hematocrit 39, Mean Corpuscular Volume 89, Mean Corpuscular Hemoglobin 29, Mean Corpuscular Hemoglobin Concent 33, Red Cell Distribution Width 13.7, Platelet Count 362, Mean Platelet Volume 9.6, Neutrophils (%) (Auto) 67, Lymphocytes (%) (Auto) 23, Monocytes (%) (Auto) 9, Eosinophils (%) (Auto) 0, Basophils (%) (Auto) 0, Neutrophils # (Auto) 7.0, Lymphocytes # (Auto) 2.4, Monocytes # (Auto) 0.9, Eosinophils # (Auto) 0.0, Basophils # (Auto) 0.0, Sodium Level 142, Potassium Level 3.2, Chloride Level 97, Carbon Dioxide Level 26, Anion Gap 19, Blood Urea Nitrogen 50, Creatinine 2.20, Estimat Glomerular Filtration Rate 21, BUN/Creatinine Ratio 23, Glucose Level 118, Calcium Level 10.1, Corrected Calcium 9.9, Total Bilirubin 0.8, Aspartate Amino Transf (AST/SGOT) 21, Alanine Aminotransferase (ALT/SGPT) 14, Alkaline Phosphatase 51, Total Protein 8.3, Albumin 4.3, Immature Granulocyte % (Auto) 0, Immature Granulocyte # (Auto) 0.0 06/24/21 06:13: White Blood Count 8.5, Red Blood Count 4.67, Hemoglobin 13.7, Hematocrit 43, Mean Corpuscular Volume 91, Mean Corpuscular Hemoglobin 29, Mean Corpuscular Hemoglobin Concent 32, Red Cell Distribution Width 13.5, Platelet Count 372, Mean Platelet Volume 9.7, Immature Granulocyte % (Auto) 0, Neutrophils (%) (Auto) 69, Lymphocytes (%) (Auto) 20, Monocytes (%) (Auto) 11, Eosinophils (%) (Auto) 0, Basophils (%) (Auto) 0, Neutrophils # (Auto) 5.8, Lymphocytes # (Auto) 1.7, Monocytes # (Auto) 0.9, Eosinophils # (Auto) 0.0, Basophils # (Auto) 0.0, Immature Granulocyte # (Auto) 0.0, Sodium Level 152, Potassium Level 3.0, Chloride Level 101, Carbon Dioxide Level 29, Anion Gap 22, Blood Urea Nitrogen 53, Creatinine 1.77, Estimat Glomerular Filtration Rate 27, BUN/Creatinine Ratio 30, Glucose Level 107, Calcium Level 10.1, Corrected Calcium 9.7, Total Bilirubin 1.1, Aspartate Amino Transf (AST/SGOT) 38, Alanine Aminotransferase (ALT/SGPT) 27, Alkaline Phosphatase 59, Total Protein 8.6, Albumin 4.5 06/25/21 06:53: White Blood Count 10.7, Red Blood Count 4.16, Hemoglobin 12.1, Hematocrit 39, Mean Corpuscular Volume 93, Mean Corpuscular Hemoglobin 29, Mean Corpuscular Hemoglobin Concent 31, Red Cell Distribution Width 13.4, Platelet Count 286, Mean Platelet Volume 10.4, Immature Granulocyte % (Auto) 0, Neutrophils (%) (Auto) 79, Lymphocytes (%) (Auto) 12, Monocytes (%) (Auto) 9, Eosinophils (%) (Auto) 0, Basophils (%) (Auto) 0, Neutrophils # (Auto) 8.5, Lymphocytes # (Auto) 1.3, Monocytes # (Auto) 0.9, Eosinophils # (Auto) 0.0, Basophils # (Auto) 0.0, Immature Granulocyte # (Auto) 0.0, Sodium Level 148, Potassium Level 2.6, Chloride Level 106, Carbon Dioxide Level 30, Anion Gap 12, Blood Urea Nitrogen 44, Creatinine 1.29, Estimat Glomerular Filtration Rate 40, BUN/Creatinine Ratio 34, Glucose Level 104, Calcium Level 8.8, Corrected Calcium 9.3, Total Bilirubin 1.2, Aspartate Amino Transf (AST/SGOT) 34, Alanine Aminotransferase (ALT/SGPT) 24, Alkaline Phosphatase 47, Total Protein 6.7, Albumin 3.4 06/26/21 05:30: White Blood Count 10.7, Red Blood Count 3.82, Hemoglobin 11.2, Hematocrit 36, Mean Corpuscular Volume 94, Mean Corpuscular Hemoglobin 29, Mean Corpuscular Hemoglobin Concent 31, Red Cell Distribution Width 13.4, Platelet Count 275, Mean Platelet Volume 10.1, Immature Granulocyte % (Auto) 0, Neutrophils (%) (Auto) 77, Lymphocytes (%) (Auto) 15, Monocytes (%) (Auto) 7, Eosinophils (%) (Auto) 0, Basophils (%) (Auto) 0, Neutrophils # (Auto) 8.2, Lymphocytes # (Auto) 1.6, Monocytes # (Auto) 0.8, Eosinophils # (Auto) 0.0, Basophils # (Auto) 0.0, Immature Granulocyte # (Auto) 0.0, Sodium Level 158, Potassium Level 2.8, C hloride Level 113, Carbon Dioxide Level 26, Anion Gap 19, Blood Urea Nitrogen 38, Creatinine 0.97, Estimat Glomerular Filtration Rate 57, BUN/Creatinine Ratio 39, Glucose Level 95, Calcium Level 8.5, Corrected Calcium 9.2, Total Bilirubin 0.9, Aspartate Amino Transf (AST/SGOT) 29, Alanine Aminotransferase (ALT/SGPT) 27, Alkaline Phosphatase 45, Total Protein 6.1, Albumin 3.1, Magnesium Level 2.4 06/27/21 05:30: White Blood Count 10.4, Red Blood Count 3.69, Hemoglobin 10.8, Hematocrit 34, Mean Corpuscular Volume 93, Mean Corpuscular Hemoglobin 29, Mean Corpuscular Hemoglobin Concent 31, Red Cell Distribution Width 13.2, Platelet Count 259, Mean Platelet Volume 10.6, Immature Granulocyte % (Auto) 1, Neutrophils (%) (Auto) 67, Lymphocytes (%) (Auto) 21, Monocytes (%) (Auto) 8, Eosinophils (%) (Auto) 3, Basophils (%) (Auto) 0, Neutrophils # (Auto) 7.0, Lymphocytes # (Auto) 2.2, Monocytes # (Auto) 0.8, Eosinophils # (Auto) 0.3, Basophils # (Auto) 0.0, Immature Granulocyte # (Auto) 0.1 06/27/21 06:00: Sodium Level 149, Potassium Level 3.3, Chloride Level 111, Carbon Dioxide Level 26, Anion Gap 12, Blood Urea Nitrogen 24, Creatinine 0.82, Estimat Glomerular Filtration Rate 69, BUN/Creatinine Ratio 29, Glucose Level 125, Calcium Level 8.2, Corrected Calcium 9.0, Total Bilirubin 0.9, Aspartate Amino Transf (AST/SGOT) 21, Alanine Aminotransferase (ALT/SGPT) 22, Alkaline Phosphatase 58, Total Protein 5.8, Albumin 3.0 06/28/21 06:00: Sodium Level 141, Potassium Level 3.7, Chloride Level 108, Carbon Dioxide Level 22, Anion Gap 11, Blood Urea Nitrogen 17, Creatinine 0.81, Estimat Glomerular Filtration Rate 70, BUN/Creatinine Ratio 21, Glucose Level 106, Calcium Level 8.2, Corrected Calcium 9.2, Total Bilirubin 1.1, Aspartate Amino Transf (AST/SGOT) 18, Alanine Aminotransferase (ALT/SGPT) 22, Alkaline Phosphatase 55, Total Protein 5.9, Albumin 2.8, White Blood Count 10.4, Red Blood Count 3.90, Hemoglobin 11.5, Hematocrit 36, Mean Corpuscular Volume 93, Mean Corpuscular Hemoglobin 30, Mean Corpuscular Hemoglobin Concent 32, Red Cell Distribution Width 13.2, Platelet Count 275, Mean Platelet Volume 10.4, Immature Granulocyte % (Auto) 2, Neutrophils (%) (Auto) 52, Lymphocytes (%) (Auto) 30, Monocytes (%) (Auto) 7, Eosinophils (%) (Auto) 9, Basophils (%) (Auto) 1, Neutrophils # (Auto) 5.4, Lymphocytes # (Auto) 3.2, Monocytes # (Auto) 0.7, Eosinophils # (Auto) 0.9, Basophils # (Auto) 0.1, Immature Granulocyte # (Auto) 0.2, Magnesium Level 1.5 06/29/21 06:44: Sodium Level 138, Potassium Level 3.9, Chloride Level 109, Carbon Dioxide Level 22, Anion Gap 7, Blood Urea Nitrogen 14, Creatinine 0.78, Estimat Glomerular Filtration Rate 73, BUN/Creatinine Ratio 18, Glucose Level 104, Calcium Level 7.8, Corrected Calcium 9.0, Total Bilirubin 0.9, Aspartate Amino Transf (AST/SGOT) 18, Alanine Aminotransferase (ALT/SGPT) 18, Alkaline Phosphatase 64, Total Protein 5.3, Albumin 2.5, White Blood Count 9.2, Red Blood Count 3.64, Hemoglobin 10.8, Hematocrit 34, Mean Corpuscular Volume 92, Mean Corpuscular Hemoglobin 30, Mean Corpuscular Hemoglobin Concent 32, Red Cell Distribution Width 13.0, Platelet Count 261, Mean Platelet Volume 10.3, Immature Granulocyte % (Auto) 3, Neutrophils (%) (Auto) 58, Lymphocytes (%) (Auto) 24, Monocytes (%) (Auto) 8, Eosinophils (%) (Auto) 7, Basophils (%) (Auto) 0, Neutrophils # (Auto) 5.3, Lymphocytes # (Auto) 2.2, Monocytes # (Auto) 0.7, Eosinophils # (Auto) 0.6, Basophils # (Auto) 0.0, Immature Granulocyte # (Auto) 0.3, Digoxin Level < 0.30 Discharge Home Medications: Active Scripts Active Alprazolam 0.5 Mg Tablet 0.25 Mg PO BID PRN Diltiazem 24Hr ER (Diltiazem HCl) 240 Mg Cap.er.24h 240 Mg PO DAILY Eliquis (Apixaban) 2.5 Mg Tablet 2.5 Mg PO BID Reported Loperamide (Loperamide HCl) 2 Mg Capsule 2 Mg PO Q4H PRN MDD 6 DOSES Dok (Docusate Sodium) 100 Mg Tablet 100 Mg PO HS Milk of Magnesia (Magnesium Hydroxide) 400 Mg/5 Ml Oral.susp 15 Ml PO DAILY PRN Metamucil (Psyllium Husk) 0.4 Gm Capsule 0.4 Gm PO DAILY PRN Simethicone 125 Mg Capsule 125 Mg PO TID PRN Metoclopramide HCl 5 Mg Tablet 5 Mg PO QIDACHS [id number] (Polyethylene Glycol 3350) 238 Gm Powder 17 Gm PO BID USE FOR 3 DAYS STARTING 06-21-2021 Dicyclomine HCl 20 Mg Tablet 20 Mg PO TID PRN Ondansetron Odt (Ondansetron) 4 Mg Tab.rapdis 4 Mg PO TID PRN Famotidine 10 Mg Tablet 10 Mg PO DAILY PRN Caltrate 600 + D Soft Chew Tab (Calcium Carbonate/Vitamin D3) 1 Each Tab.chew 1 Each PO DAILY Vitamin C (Ascorbic Acid) 500 Mg Tablet.er 500 Mg PO DAILY Premarin (Estrogens, Conjugated) 0.3 Mg Tablet 0.3 Mg PO DAILY Gemfibrozil 600 Mg Tablet 600 Mg PO BID Instructions to patient/family Please see electronic discharge instructions given to patient. Diagnosis/Problems Diagnosis/Problems (1) Nausea and vomiting Status: Resolved Qualifiers: Qualified Codes: R11.2 - Nausea with vomiting, unspecified Resolution Date/Time: 12/02/20 @ 12:57 (2) JAGRUTI (acute kidney injury) Status: Acute (3) Dehydration Status: Acute (4) Gaseous abdominal distention Status: Acute PER WESLEY DO Jun 29, 2021 11:29
--- NOTE | 2021-06-29 13:26 | Progress Note ---
PATRICIA CLINTONAELA 06/29/21 1326: Progress Note Brief hospital course: Andria Jorgensen is an 85 year old white female who presented to the ED on 06/22/2021 with symptoms of an early small bowel obstruction. Her PMHx is significant for previous small bowel obstructions. Patient also presented with JAGRUTI with a Cr of 2.2. IV fluids were initiated and Surgery was consulted. Acute abdominal series revealed no acute abnormalities. Patient was admitted to the floor with close monitoring. On 06/23 the patient's nausea and vomiting persisted and a small bowel study was conducted for 7 hours. Contrast persisted in the stomach and duodenum, suspect for proximal small bowel obstruction. Patient was taken to the OR on 06/24 for exploratory laparotomy with lysis of adhesions and NG tube placement. Cefazolin was administered for perioperative antibiotic prophylaxis. Abdominal x-ray revealed some continued moderate distention of the stomach which contained some contrast, however degree of distention was less than previous study. No significant small or large bowel oral contrast was identified. Kidney function was improving with a Cr of 1.77. Patient demonstrated hypokalemia and potassium replacement was initiated with a stable Cr. Patient began passing flatus and having multiple bowel movements. On 06/26 patient presented in Atrial fibrillation. Cardiology was consulted. Patient was treated with Diltiazem, Eliquis, Metoprolol, and Digoxin. Patient also developed hypernatremia and fluid adjustments to D5 normal saline were made. On 06/27 patient continued to have bowel movements, pass flatus, NG tube was removed, and oral fluids and soft foods were tolerated well. On 06/29, Cardiology, Surgery, and Medicine approved the discharge of patient. [facility] will return to [facility] facility with home health, PT, and follow-up appointments with [facility], and [facility]. Throughout the patient's stay PT and OT evaluated and worked with the patient. Nausea was managed with Zofran and Phenergan. Patient received bowel regimen care to aide with bowel movements. This is a brief description of the patient's hospital stay and contains pertinent information regarding the patient's care. Refer to the patient's chart for full description of the stay. Date of admission: 06/22/2021 Date of discharge: 06/28/2021 Attending physician: Dr. Per Wesley PCP: Dr. Alatorre Admission diagnosis: Early small bowel obstruction, Nausea, Vomiting, Acute Kidney Injury, Dehydration Discharge diagnosis: Small bowel obstruction s/p exploratory laparotomy with lysis of adhesions Secondary diagnoses: Anxiety, HTN, Hypokalemia, Hyponatremia, Atrial fibrillation, Debility, Advanced age Consultations: Surgery, Cardiology, PT, OT Procedures: Exploratory laparotomy with lysis of adhesions PER WESLEY DO 06/30/21 0553: Supervisory-Addendum Brief Verification & Attestation Participated in pt care: history, MDM, physical Personally performed: exam, history, MDM, supervision of care Care discussed with: Medical Student Procedures: n/a Results interpretation: Verified all documentation Verification and Attestation of Medical Student E/M Service A medical student performed and documented this service in my presence. I reviewed and verified all information documented by the medical student and made modifications to such information, when appropriate. I personally performed the physical exam and medical decision making. Per Wesley Jun 30, 2021,05:53 MARIKA CLINTON Jun 29, 2021 13:26 PER WESLEY DO Jun 30, 2021 05:53
== END 2021-06-29 15:49 | disposition home health service (06) | DRG 330 ==
LOC: EDUNIT# 11:19 → ER FS 11:20 → 4TH 15:00
PROVIDERS: ADMIT Internal Medicine; ATTEND Internal Medicine
PROC: 0DS80ZZ Reposition Small Intestine, Open Approach (ICD-10-PCS; 2021-06-24)
PROC: 0DQV0ZZ Repair Mesentery, Open Approach (ICD-10-PCS; 2021-06-24)
PROC: 0DN80ZZ Release Small Intestine, Open Approach (ICD-10-PCS; principal; 2021-06-24 11:30)
DX: K56.52 Intestinal adhesions [bands] with complete obstruction (principal); N17.9 Acute kidney failure, unspecified; E87.0 Hyperosmolality and hypernatremia; K56.2 Volvulus; E86.0 Dehydration; K59.00 Constipation, unspecified; E87.6 Hypokalemia; I10 Essential (primary) hypertension; E78.00 Pure hypercholesterolemia, unspecified; F41.9 Anxiety disorder, unspecified; H54.3 Unqualified visual loss, both eyes; Z79.82 Long term (current) use of aspirin
CPT/HCPCS: 36415; 74018; 74022; 74250; 80053; 80162; 81000; 83735; 85025; 87088; 93005; 94760; 96374

== ENCOUNTER → 2022-03-22 | Outpatient (CLI) | payer MEDICARE ==
[~2022-03-22] MED LIST changes: +ACHD5005 PO; +APIX2.5T PO; +DILT240C91 PO; +DOCU100T28 PO; +LOPE2CAP PO; +MAGN400O7 PO; +POLY238P32 PO; +PSYL0.4C2 PO; +SIME125C78 PO
--- NOTE | 2022-03-22 13:45 | Diagnostic Imaging Report ---
EXAMINATION: CT abdomen and pelvis without contrast. TECHNIQUE: Multiple contiguous axial images were obtained through the abdomen and pelvis without the use of intravenous contrast. All CT scans use one or more of the following dose optimizing techniques: Automated exposure control, MA and/or KvP adjustment based on patient size and exam type or iterative reconstruction. HISTORY: Incisional hernia. COMPARISON: 06/21/2019. FINDINGS: Lung bases: Stable subcentimeter left lower lobe pulmonary nodule. Solid organs: The liver is normal. The gallbladder is not visualized and may be surgically absent. There is no biliary ductal dilation. Pancreas is normal. Spleen is normal. Adrenal glands are normal. The kidneys are normal without visualized calculus or hydronephrosis. Bowel: The stomach and small bowel are normal without obstruction. There is scattered colonic diverticulosis. No findings of acute appendicitis. Peritoneum: There is no intraperitoneal free fluid or free air. No suspicious lymphadenopathy. Vasculature: Calcification of the aorta without aneurysm. Musculoskeletal: Degenerative changes of the spine without suspicious osseous lesion or compression fracture. There is a hernia of the anterior abdominal wall along the incision through a 7.4 cm defect. This does contain a few loops of bowel without obstruction. Pelvis: The uterus is surgically absent. No adnexal mass. There is diffuse bladder wall trabeculation and bladder diverticula. IMPRESSION: 1. Ventral abdominal wall incisional hernia which contains a few loops of bowel without obstruction. 2. No other acute abnormality in the abdomen or pelvis. 3. Colonic diverticulosis. Dictated by: Dictated on workstation # [id number]
== END ==
LOC: RAD FS 12:54
PROVIDERS: ATTEND Surgery
DX: K43.2 Incisional hernia without obstruction or gangrene (principal); K57.30 Diverticulosis of large intestine without perforation or abscess without bleeding
CPT/HCPCS: 74176

== ENCOUNTER → 2022-05-30 | Outpatient (CLI) | payer MEDICARE ==
[2022-05-30 14:50] LABS: BILIRUBIN,URINE NEGATIVE (NEGATIVE); CLARITY,URINE CLEAR; GLUCOSE, URINE (UA) NEGATIVE (NEGATIVE); KETONES,URINE NEGATIVE (NEGATIVE); LEUKOCYTE ESTERASE ,URINE NEGATIVE (NEGATIVE); NITRITE,URINE NEGATIVE (NEGATIVE); PROTEIN,URINE NEGATIVE (NEGATIVE)
[2022-05-30 14:55] LABS: BACTERIA,URINE TRACE /HPF; COLOR,URINE PALE YELLOW; WBC,URINE 0-2 /HPF
== END ==
LOC: PVFS 14:26
PROVIDERS: ATTEND Family Medicine
DX: R10.30 Lower abdominal pain, unspecified (principal)
CPT/HCPCS: 81000